=== PATIENT | female | born 1960 | race Caucasian/White ===

== ENCOUNTER 2020-04-04 16:46 | Outpatient (REF) | payer OTHER, SELFPAY ==
--- NOTE | 2020-04-04 16:53 | MM_ITS ---
EXAMINATION: MM SCREENING DIGITAL MAMMOGRAPHY, BILATERAL CLINICAL INFORMATION: Screening. Asymptomatic. The lifetime risk of breast cancer based on the Tyrer-Cuzick Model is 8%. COMPARISON: Mammography: 01/26/2019, 01/20/2018, 01/04/2017 TECHNIQUE: Digital mammography is performed in craniocaudal and mediolateral oblique views along with computer-aided detection (CAD). Additional exaggerated right CC view is provided. FINDINGS: There are scattered areas of fibroglandular density (ACR BI-RADS breast composition Category b). There are no significant masses, abnormal calcifications, or other abnormalities. Parenchymal pattern is similar to prior studies. There is no developing density or interval mass or architectural abnormality. No significant changes. IMPRESSION: No significant changes from prior studies. ASSESSMENT: BI-RADS 1: Negative RECOMMENDATION: Routine annual mammography screening. This patient's information was entered into a reminder system with a target due date for their next mammogram.
== END 2020-04-04 16:47 | disposition home or self-care (01) ==
LOC: HO.MAMMO 16:46
PROVIDERS: PCP Internal Medicine; Visit Provider Internal Medicine
DX: Z12.31 Encounter for screening mammogram for malignant neoplasm of breast (principal)
CPT/HCPCS: 77067

== ENCOUNTER → 2020-04-12 15:25 | Outpatient (BNVA) | payer OTHER, SELFPAY | PROVIDERS: PCP Internal Medicine; Referring Provider Internal Medicine; Visit Provider Surgery | DX: Z76.89 Persons encountering health services in other specified circumstances (principal) ==

== ENCOUNTER → 2020-05-02 08:17 | Outpatient (BNVA) | payer OTHER, SELFPAY | PROVIDERS: PCP Family Medicine; Referring Provider Family Medicine; Visit Provider Physician Assistant | DX: Z76.89 Persons encountering health services in other specified circumstances (principal) ==

== ENCOUNTER → 2020-05-31 14:46 | Outpatient (BNVA) | payer OTHER, SELFPAY | PROVIDERS: Referring Provider Internal Medicine; Visit Provider Physician Assistant | DX: Z76.89 Persons encountering health services in other specified circumstances (principal) ==

== ENCOUNTER → 2020-07-04 13:46 | Outpatient (BNVA) | payer OTHER, SELFPAY | PROVIDERS: Visit Provider Surgery | DX: Z76.89 Persons encountering health services in other specified circumstances (principal) ==

== ENCOUNTER → 2020-07-25 14:25 | Outpatient (BNVA) | payer OTHER, SELFPAY | PROVIDERS: PCP Internal Medicine; Visit Provider Surgery ==

== ENCOUNTER → 2020-07-29 13:55 | Outpatient (BNVA) | payer OTHER, SELFPAY | PROVIDERS: PCP Internal Medicine; Visit Provider Physician Assistant ==

== ENCOUNTER → 2020-08-04 13:30 | Outpatient (BNVA) | payer OTHER, SELFPAY | PROVIDERS: PCP Internal Medicine; Visit Provider Surgery | DX: Z01.818 Encounter for other preprocedural examination (principal); R06.02 Shortness of breath ==

== ENCOUNTER 2020-08-10 06:45 | Inpatient (IN) | payer MEDICARE, OTHER, SELFPAY ==
--- NOTE | 2020-08-04 14:33 | ECG_ITS ---
Test Reason : SOB Blood Pressure : / mmHG Vent. Rate : 072 BPM Atrial Rate : 072 BPM P-R Int : 172 ms QRS Dur : 082 ms QT Int : 378 ms P-R-T Axes : 070 007 002 degrees QTc Int : 413 ms Normal sinus rhythm Nonspecific ST abnormality Abnormal ECG When compared with ECG of 08-SEP-2019 15:28, No significant change was found Referred By: Shreya Clements Electronically Signed By:MERCEDES CURTIS
[2020-08-04 15:00] LABS: MANUAL DIFF FLAG NO
[2020-08-04 15:05] LABS: Basophils Percent Auto 0.7 % (0-2); Eosinophils Absolute Auto 0.4 X10*3/uL (0.0-0.4); Eosinophils Percent Auto 6.9 % (0-4); Hemoglobin 13.7 g/dl (12.0-16.0); Imm Gran Abs Auto 0.01 X10*3/uL (0.00-0.03); Imm Gran Pct Auto 0.2 % (0.0-0.4); Lymphocytes Absolute Auto 1.7 X10*3/uL (1.2-4.9); Lymphocytes Percent Auto 31.5 % (20-40); Mean Corpuscular HGB Conc 31.9 g/dl (31.0-35.0); Mean Corpuscular Hemoglobin 30.2 pg (27.0-33.0); Mean Corpuscular Volume 94.9 fL (80-98); Mean Platelet Volume 9.9 fL (9.4-12.3); Monocytes Absolute Auto 0.4 X10*3/uL (0.1-1.2); Monocytes Percent Auto 7.1 % (2-11); Neutrophils Absolute Auto 2.9 X10*3/uL (2.0-8.3); Neutrophils Percent Auto 53.6 % (45-73); Platelet Count 205 X10*3/uL (160-400); Red Blood Count 4.53 X10*6/uL (4.20-5.50); Red Cell Distribution Width 13.5 % (11.0-16.0); White Blood Count 5.5 X10*3/uL (4.8-10.8)
[2020-08-04 15:29] LABS: Albumin Level 4.3 g/dL (3.5-5.0); Anion Gap 11 (12-20); Blood Urea Nitrogen 26 mg/dL (9-16); Calcium 8.7 mg/dL (8.4-10.2); Carbon Dioxide 25 mmol/L (22-29); Chloride 106 mmol/L (96-108); Estimated Glomerular Filt Rate > 60; Glucose Random 107 mg/dL (60-115); Sodium 138 mmol/L (135-145)
[2020-08-04 16:21] LABS: Glucose Urine UA NEG (NEG); Leukocyte Esterase Urine NEG (NEG); Nitrite Urine NEG (NEG); Urine Blood TRACE (NEG); Urine Ketones NEG (NEG); Urine Protein NEG (NEG-TRACE)
[2020-08-04 16:22] LABS: Appearance Urine CLEAR; Color Urine YELLOW
[2020-08-04 16:30] LABS: Bacteria Urine TRACE /LPF; RBC Urine 0 /HPF (0); Squamous Epithelial Cell Urine TRACE /LPF; WBC Urine 0 /HPF (0-4)
[2020-08-04 16:31] LABS: Urine Talc Crystals 1+ /LPF
[2020-08-05 10:28] VITALS: BMI 45.1
--- NOTE | 2020-08-05 11:29 | MHC.SHP ---
Pre-Procedural Eval Section B Chief Complaint: Morbid Obesity Allergies: Allergies Allergy/AdvReac Type Severity Reaction Status Date / Time Sulfa (Sulfonamide Allergy Severe LIP AND Verified 08/05/20 09:51 Antibiotics) TONGUE [SULFA (SULFONAMIDE SWELLING, ANTIBIOTICS)] swelling of lips and tongue Penicillins [PENICILLINS] Allergy Unknown UNKNOWN Verified 08/05/20 09:51 Plan I have reviewed the history and physical and performed a pertinent physical examination on my patient. No changes have occurred unless specified.
--- NOTE | 2020-08-09 08:56 | P.CONAN_ITS ---
Documented by User: María Elena Colón 08/09/20 09:00 HPI - Anesthesia Eval Consult details Narrative: 59yo F for Gastrectomy Sleeve Methadone TID and oxycodone for pain PMFSH Active Problems Active Problems: All Active Problems (Updated 08/05/20 @ 10:27 by Roselia Nuñez) BMI 45.0-49.9, adult (Acute) Preoperative examination (Acute) Shortness of breath (Acute) Dyslipidemia (Acute) Urinary incontinence in female (Acute) Chronic gastroesophageal reflux disease (Acute) Recurrent major depression (Acute) Patient on methadone maintenance therapy (Acute) Morbid obesity (Acute) Acquired hypothyroidism (Acute) Osteoarthritis (Acute) Morbid obesity with BMI of 45.0-49.9, adult (Acute) Depression (Acute) Past Medical History Medical History Acquired hypothyroidism Chronic gastroesophageal reflux disease Chronic pain Depression Dyslipidemia Hx of cardiac murmur Hx of gastroesophageal reflux (GERD) Hypothyroidism Morbid obesity with BMI of 45.0-49.9, adult Osteoarthritis Patient on methadone maintenance therapy Recurrent major depression Urinary incontinence in female Family History Family History Father History of throat cancer History of DE (myocardial infarction) Type 2 diabetes mellitus Mother Hyperlipidemia CVD (cardiovascular disease) HTN (hypertension) Maternal Aunt No problems noted. Son Paraplegia Son No problems noted. Paternal Grandmother Type 2 diabetes mellitus Maternal Grandmother Alzheimer's dementia Brother No problems noted. Sister No problems noted. Surgical History Surgical History History of bariatric surgery History of removal of laparoscopic gastric banding device History of total left knee replacement History of total right knee replacement Hx of colonoscopy LAP-BAND surgery status S/P foot surgery, left Social History Social History (Updated 08/05/20 @ 09:50 by Roselia Nuñez) Household Members: Children Housing: House Are you a primary long term care pharmacist to a significant other at home: Yes (Son - paraplegic) Do you presently have visiting nurse or other home services: No Alcohol intake: never Smoking Status: Former smoker Tobacco Type: Cigarette Years Smoked: 20 Smoked in Last 30 Days: No Smoking Quit Date: 1994 Use of substances other than those prescribed or required for medical reasons: No Have you been hit, kicked, punched, or otherwise hurt by someone within the past year? If so, by whom?: No Advance Directives: No Advance Directives Information Provided: No Advance Directives on File: No Recently lost weight without trying: No Meds Allergies Allergy/AdvReac Type Severity Reaction Status Date / Time Sulfa (Sulfonamide Allergy Severe LIP AND Verified 08/10/20 06:44 Antibiotics) TONGUE [SULFA (SULFONAMIDE SWELLING, ANTIBIOTICS)] swelling of lips and tongue Penicillins [PENICILLINS] Allergy Unknown UNKNOWN Verified 08/10/20 06:44 Home Medications Medication Instructions Recorded Confirmed Type clotrimazole-betamethasone 1 1 applic TOPICAL DIRECTED 03/31/20 08/05/20 History %-0.05 % topical cream gabapentin 800 mg tablet 800 mg PO TID 03/31/20 08/05/20 History methocarbamol 750 mg tablet 750 mg PO BID 03/31/20 08/05/20 History topiramate 100 mg tablet 100 mg PO BID 03/31/20 08/05/20 History calcium carbonate 600 mg calcium 600 mg PO BID 07/04/20 08/05/20 History (1,500 mg) tablet cetirizine 10 mg capsule 10 mg PO DAILY PRN 07/04/20 08/05/20 History cholecalciferol (vitamin D3) 50 50 mcg PO DAILY 07/04/20 08/05/20 History mcg (2,000 unit) capsule coenzyme Q10 100 mg capsule 200 mg PO DAILY 07/04/20 08/05/20 History glucosamine sulfate 500 mg tablet 500 mg PO DAILY 07/04/20 08/05/20 History methadone 5 mg tablet 5 mg PO TID tab 07/04/20 08/05/20 History multivitamin 1 tab PO DAILY 07/04/20 08/05/20 History omeprazole 20 mg capsule,delayed 20 mg PO DAILY 07/04/20 08/05/20 History release oxycodone 20 mg tablet 40 mg PO TID tab 07/04/20 08/05/20 History aspirin [Aspir-81] 81 mg PO DAILY 08/05/20 08/05/20 History celecoxib 1 cap PO DAILY 08/05/20 08/05/20 History Exam Exam Date and Time: August 09, 2020 0856 Height,Weight and Vital Signs: Height 5 ft 1 in Weight 108.409 kg Pertinent Lab Results Pertinent Lab Results: Laboratory Tests 08/04/20 08/04/20 08/04/20 14:35 14:35 14:35 WBC 5.5 RBC 4.53 Hgb 13.7 Hct 43.0 MCV 94.9 MCH 30.2 MCHC 31.9 RDW 13.5 Plt Count 205 MPV 9.9 Immature Gran % (Auto) 0.2 Neut % (Auto) 53.6 Lymph % (Auto) 31.5 [place] % (Auto) 7.1 Eos % (Auto) 6.9 H Baso % (Auto) 0.7 Lymph # (Auto) 1.7 [place] # (Auto) 0.4 Eos # (Auto) 0.4 Baso # (Auto) 0.0 Abs Immat Gran (auto) 0.01 Absolute Neuts (auto) 2.9 Absolute Nucleated RBC 0.000 Nucleated RBC % (auto) 0.0 Sodium 138 Potassium 4.0 Chloride 106 Carbon Dioxide 25 Anion Gap 11 L BUN 26 H Creatinine 0.69 Estim Creat Clear Calc TNP Estimated GFR > 60 Random Glucose 107 Calcium 8.7 Albumin 4.3 Urine Color Urine Appearance Urine pH Ur Specific [place] Urine Protein Urine Glucose (UA) Urine Ketones Urine Blood Urine Nitrite Ur Leukocyte Esterase Urine RBC Urine WBC Ur Squamous Epith Cells [place] Crystals Urine Bacteria Blood Type O Positive Antibody Screen NEGATIVE 08/04/20 14:54 WBC RBC Hgb Hct MCV MCH MCHC RDW Plt Count MPV Immature Gran % (Auto) Neut % (Auto) Lymph % (Auto) [place] % (Auto) Eos % (Auto) Baso % (Auto) Lymph # (Auto) [place] # (Auto) Eos # (Auto) Baso # (Auto) Abs Immat Gran (auto) Absolute Neuts (auto) Absolute Nucleated RBC Nucleated RBC % (auto) Sodium Potassium Chloride Carbon Dioxide Anion Gap BUN Creatinine Estim Creat Clear Calc Estimated GFR Random Glucose Calcium Albumin Urine Color YELLOW Urine Appearance CLEAR Urine pH 6.0 Ur Specific [place] 1.010 Urine Protein NEG Urine Glucose (UA) NEG Urine Ketones NEG Urine Blood TRACE Urine Nitrite NEG Ur Leukocyte Esterase NEG Urine RBC 0 Urine WBC 0 Ur Squamous Epith Cells TRACE [place] Crystals 1+ Urine Bacteria TRACE Blood Type Antibody Screen Narrative Narrative: EKG 07/2020 Normal sinus rhythm Nonspecific ST abnormality Abnormal ECG When compared with ECG of 08-SEP-2019 15:28, No significant change was found Echo 2018 Nml LV sys and diastolic function, EF 60-65% Trace AR, Mild MR RV sys pressure nml No pericard effusion Assessment and Plan Assessment Anesthesia Assessment: Chart Reviewed Documented by User: Divya Vaughn 08/10/20 07:55 PENDING SALE TO [facility] Past Medical History Medical History Acquired hypothyroidism Chronic gastroesophageal reflux disease Chronic pain Depression Dyslipidemia Hx of cardiac murmur Hx of gastroesophageal reflux (GERD) Hypothyroidism Morbid obesity with BMI of 45.0-49.9, adult Osteoarthritis Patient on methadone maintenance therapy Recurrent major depression Urinary incontinence in female Family History Family History Father History of throat cancer History of DE (myocardial infarction) Type 2 diabetes mellitus Mother Hyperlipidemia CVD (cardiovascular disease) HTN (hypertension) Maternal Aunt No problems noted. Son Paraplegia Son No problems noted. Paternal Grandmother Type 2 diabetes mellitus Maternal Grandmother Alzheimer's dementia Brother No problems noted. Sister No problems noted. Surgical History Surgical History History of bariatric surgery History of removal of laparoscopic gastric banding device History of total left knee replacement History of total right knee replacement Hx of colonoscopy LAP-BAND surgery status S/P foot surgery, left Social History Social History (Updated 08/05/20 @ 09:50 by Roselia Nuñez) Household Members: Children Housing: House Are you a primary long term care pharmacist to a significant other at home: Yes (Son - paraplegic) Do you presently have visiting nurse or other home services: No Alcohol intake: never Smoking Status: Former smoker Tobacco Type: Cigarette Years Smoked: 20 Smoked in Last 30 Days: No Smoking Quit Date: 1994 Use of substances other than those prescribed or required for medical reasons: No Have you been hit, kicked, punched, or otherwise hurt by someone within the past year? If so, by whom?: No Advance Directives: No Advance Directives Information Provided: No Advance Directives on File: No Recently lost weight without trying: No Meds Allergies Allergy/AdvReac Type Severity Reaction Status Date / Time Sulfa (Sulfonamide Allergy Severe LIP AND Verified 08/10/20 06:44 Antibiotics) TONGUE [SULFA (SULFONAMIDE SWELLING, ANTIBIOTICS)] swelling of lips and tongue Penicillins [PENICILLINS] Allergy Unknown UNKNOWN Verified 08/10/20 06:44 Home Medications Medication Instructions Recorded Confirmed Type clotrimazole-betamethasone 1 1 applic TOPICAL DIRECTED 03/31/20 08/05/20 History %-0.05 % topical cream gabapentin 800 mg tablet 800 mg PO TID 03/31/20 08/05/20 History methocarbamol 750 mg tablet 750 mg PO BID 03/31/20 08/05/20 History topiramate 100 mg tablet 100 mg PO BID 03/31/20 08/05/20 History calcium carbonate 600 mg calcium 600 mg PO BID 07/04/20 08/05/20 History (1,500 mg) tablet cetirizine 10 mg capsule 10 mg PO DAILY PRN 07/04/20 08/05/20 History cholecalciferol (vitamin D3) 50 50 mcg PO DAILY 07/04/20 08/05/20 History mcg (2,000 unit) capsule coenzyme Q10 100 mg capsule 200 mg PO DAILY 07/04/20 08/05/20 History glucosamine sulfate 500 mg tablet 500 mg PO DAILY 07/04/20 08/05/20 History methadone 5 mg tablet 5 mg PO TID tab 07/04/20 08/05/20 History multivitamin 1 tab PO DAILY 07/04/20 08/05/20 History omeprazole 20 mg capsule,delayed 20 mg PO DAILY 07/04/20 08/05/20 History release oxycodone 20 mg tablet 40 mg PO TID tab 07/04/20 08/05/20 History aspirin [Aspir-81] 81 mg PO DAILY 08/05/20 08/05/20 History celecoxib 1 cap PO DAILY 08/05/20 08/05/20 History Exam Height,Weight and Vital Signs: Vital Signs Temp Pulse Resp BP Pulse Ox 08/10/20 06:55 97.7 F 76 16 139/65 98 Pertinent Lab Results Pertinent Lab Results: Laboratory Results - last 24 hr 08/10/20 06:50 COVID-19 ([facility]ST[facility]) Negative COVID-19 Clin Com See Note Airway Mallampati Class: III TM Dist: >3cm Neck ROM: Full Loose/Missing/Broken Teeth: No Heart: RRR + systolic murmur Lungs: CTAB Assessment and Plan Assessment Anesthesia Assessment: Anesthesia Plan Discussed and Chart Reviewed Final Anesthetic Review NPO: Yes ASA Class: III Final Preanesthetic Review: No Changes in Pt Med Stat, Meds/Allgs Chart Reviewed, Consent Obtained/Reviewed and Anes Risks/Benef Reviewed Patient Risk: Intermediate Procedure Risk: Intermediate Assessment/Block/Sedation in SS: Assess/Block/Sedation-SS Anesthetic Plan Anesthetic Plan: GA Disposition: Standard PACU
[2020-08-10] VITALS (26 sets, daily range): BP systolic 122–180; BP diastolic 44–80; PULSE 72–84; RESP 14–20; TEMP 36.4–37.1; O2SAT 96–100
[2020-08-10 07:14] LABS: COVID-19 Test Negative (Negative)
[2020-08-10] MEDS: Lactated Ringers 1,000 ML 100 ML IVCONT (07:23)
--- NOTE | 2020-08-10 08:11 | PM.OP ---
Brief Operative Note Date of Service: 08/10/20 Pre-op diagnosis: Morbid obesity BMI 45.1, hyperlipidemia, gastroesophageal reflux disease, history of previous gastric banding Post-op diagnosis: other (Same and hiatal hernia) Procedure: Laparoscopic sleeve gastrectomy, hiatal hernia repair, takedown of gastric fundoplication, MELISSA block, intraoperative endoscopy Implants: covidien emily Surgeon: Shreya Clements MD Anesthesia: GETA Estimated blood loss (mL): 50 Pathology: other (Partial gastrectomy) Condition: stable Disposition: PACU
--- NOTE | 2020-08-10 08:12 | P.OP_ITS ---
Operative Note Operative Note Date of Service: 08/10/20 Narrative: Patient was brought into the operating room and placed on the operating room table in the supine position. General anesthesia was induced. Normal DVT prophylaxis was instituted and the patient received 900 mg of cefotetan preoperatively. The abdomen was then prepped and draped in the normal sterile fashion. A safety time-out was performed. A mixture of 1% lidocaine with epinephrine and ?% Marcaine plain was used to ane sthetize the planned incision site in the left upper quadrant. A #11 scalpel was used to make a 5 mm left upper quadrant transverse incision through which a veress needle was placed. Three pops were h eard going through the fascia. A saline drop test was used to confirm that the veress needle was intraabdominal. An optiview technique was then used to place a 5mm port in the left upper quadrant. A 5 mm 30 degree laproscope was then placed through this port and the abdominal cavity was surveyed and a 3 and half to 4 cm completely reducible umbilical hernia was seen. The patient was placed in reverse Trendelenburg positioning. A dorita liver retractor was then placed in the subxyphoid position and it was used to hold up the left lobe of the liver to the abdominal wall. This was secured to the bed using the liver retractor flores. A MELISSA block was then performed for pain control on the right side of the abdomen. A 5 mm port was placed in the right upper quadrant near the falciform ligament. A 12 mm port was then placed in the mid epigastrium. One additional 5 mm port was placed in the left upper quadrant just to the left of the placement of the first port. I then performed a MELISSA block on the left side of the abdomen. I then removed the epigastric fat pad; there was a moderate size anterior hiatal hernia noted. I reapproximated the left and right crura with a total of 2 stitches of 2-0 ethibond and a laparoscopic knot pusher. There was no residual hiatal hernia. We then took down the previous fundoplication from the gastric band that the patient has had several years ago. This allowed us to unfold the stomach so that it was lying flat in the abdomen. I then opened up the angle of His. We then gained entry into the lesser sac about 4-5 cm from the pylorus. I had anesthesia place a 34 [place] orogastric tube into the distal antrum to use as a sizing tool for gastric pouch size. I divided the short gastric vessels up to the angle of His. We then started the creation of the gastric pouch by firing a 60 mm purple load endostapler up the stomach about 4-5 cm from the pylorus. We completed the creation of the gastric pouch using a total of 4 firings of a 60 mm purple load stapler. We had anesthesia remove the orogastric tube, then we clamped across the distal antrum using a fired 60 mm endostapler. We flattened the patient and then instilled normal saline surrounding the newly created staple line. I then performed an on-table endoscopy. I passed the gastroscopy into the posterior oropharynx and down the esophagus evaluating the esophageal mucosa which was normal. There was no evidence of hiatal hernia. I passed the gastroscope into the gastric pouch and insufflated the gastric pouch. There was healthy pink mucosa and no evidence of active bleeding. There was no evidence of leak on laparoscopy. I desufflated the gastric pouch and removed the endoscope. I removed the endostapler from the abdomen and suctioned the fluid from the left upper quadrant. I then removed the partial gastrectomy specimen through the epigastric 12 mm port site. I reapproximated the 12 mm port using a 0 maxon suture with a laparoscopic suture passer. I instilled local anesthetic into the fascial closure site and tied the suture down at a pressure of 8-10 mm of Hg. There was no residual fascial defect. We removed the liver retractor and the left upper quadrant 5 mm ports under direct visualization. There was no evidence of any active bleeding. I desufflated the abdomen through the last remaining port and removed the laparoscope and 5 mm port. We reapproximated all incisions with a 4-0 monocryl subcuticular stitch. We cleaned and dried the abdominal skin and applied dermabond skin glue. All count were correct at the end of the case. The patient was awake and in stable condition prior to extubation and transfer to the recovery room.
[2020-08-10] MEDS: HYDROmorphone HCl 0.5 MG/0.5 ML SYRINGE 0.25 MG IVPUSH ×5 (10:19→23:10)
[2020-08-10] MEDS: fentaNYL citrate/PF 100 MCG/2 ML VIAL 25 MCG IVPUSH ×4 (10:35→11:01)
[2020-08-10] MEDS: Famotidine/PF 20 MG/2 ML VIAL IVPUSH ×2 (13:50→20:28)
[2020-08-10] MEDS: Lactated Ringers 1,000 ML 150 ML IVCONT ×2 (13:53→20:28)
[2020-08-10] MEDS: Gabapentin 400 MG CAPSULE 800 MG PO ×2 (14:08→20:28)
--- NOTE | 2020-08-10 16:45 | PM.DS ---
DS: Providers Provider Date of Service: 08/11/20 Date of admission: 08/10/20 06:45 Primary care physician: Perla Ny MD DS: Medications Discharge Medications Home Medications: Home Medications Medication Instructions Recorded Confirmed clotrimazole-betamethasone 1 1 applic TOPICAL DIRECTED 03/31/20 08/05/20 %-0.05 % topical cream gabapentin 800 mg tablet 800 mg PO TID 03/31/20 08/05/20 methocarbamol 750 mg tablet 750 mg PO BID 03/31/20 08/05/20 topiramate 100 mg tablet 100 mg PO BID 03/31/20 08/05/20 calcium carbonate 600 mg calcium 600 mg PO BID 07/04/20 08/05/20 (1,500 mg) tablet cetirizine 10 mg capsule 10 mg PO DAILY PRN 07/04/20 08/05/20 cholecalciferol (vitamin D3) 50 50 mcg PO DAILY 07/04/20 08/05/20 mcg (2,000 unit) capsule coenzyme Q10 100 mg capsule 200 mg PO DAILY 07/04/20 08/05/20 glucosamine sulfate 500 mg tablet 500 mg PO DAILY 07/04/20 08/05/20 methadone 5 mg tablet 5 mg PO TID tab 07/04/20 08/05/20 multivitamin 1 tab PO DAILY 07/04/20 08/05/20 omeprazole 20 mg capsule,delayed 20 mg PO DAILY 07/04/20 08/05/20 release oxycodone 20 mg tablet 40 mg PO TID tab 07/04/20 08/05/20 aspirin [Aspir-81] 81 mg PO DAILY 08/05/20 08/05/20 celecoxib 1 cap PO DAILY 08/05/20 08/05/20 Previous Rx's Medication Instructions Recorded rosuvastatin 40 mg tablet 40 mg PO DAILY 90 Days #90 tab 03/31/20 ezetimibe 10 mg tablet 10 mg PO DAILY #90 tab 05/22/20 levothyroxine 50 mcg tablet 50 mcg PO QAM #90 tab 05/24/20 venlafaxine 150 mg 150 mg PO QAM 90 Days #90 cap 05/24/20 capsule,extended release 24 hr buspirone 10 mg tablet 10 mg PO BID #180 tab 07/12/20 acetaminophen 500 mg tablet 1,000 mg PO Q6H PRN #30 tab 08/08/20 docusate sodium 100 mg capsule 100 mg PO BID #30 cap 08/08/20 ondansetron HCl 4 mg tablet 4 mg PO Q6H PRN #30 tab 08/08/20 simethicone 80 mg chewable tablet 80 mg PO TID-QID PRN #30 tab 08/08/20 DS: Summary Time Spent with Patient Time attestation: Total time spent providing and/or coordinating discharge services: Discharge coordination time: Greater than 30 minutes Physical Exam Vital Signs: Vital Signs: Last Vital Signs Temp 98 F 08/10/20 15:19 Pulse 72 08/10/20 15:19 Resp 20 08/10/20 15:19 BP 160/64 H 08/10/20 15:19 Pulse Ox 98 08/10/20 15:19 Body Mass Index 45.1 DS: Data Data Completed and Pending Pending studies at discharge: Pending at discharge 08/10/20 09:53 Surgical [PTH] Routine Labs on day of discharge: Laboratory Tests 08/04/20 08/04/20 08/04/20 14:35 14:35 14:35 WBC 5.5 RBC 4.53 Hgb 13.7 Hct 43.0 MCV 94.9 MCH 30.2 MCHC 31.9 RDW 13.5 Plt Count 205 MPV 9.9 Immature Gran % (Auto) 0.2 Neut % (Auto) 53.6 Lymph % (Auto) 31.5 Fleming % (Auto) 7.1 Eos % (Auto) 6.9 H Baso % (Auto) 0.7 Lymph # (Auto) 1.7 Fleming # (Auto) 0.4 Eos # (Auto) 0.4 Baso # (Auto) 0.0 Abs Immat Gran (auto) 0.01 Absolute Neuts (auto) 2.9 Absolute Nucleated RBC 0.000 Nucleated RBC % (auto) 0.0 Sodium 138 Potassium 4.0 Chloride 106 Carbon Dioxide 25 Anion Gap 11 L BUN 26 H Creatinine 0.69 Estim Creat Clear Calc TNP Estimated GFR > 60 Random Glucose 107 Calcium 8.7 Albumin 4.3 Urine Color Urine Appearance Urine pH Ur Specific [place] Urine Protein Urine Glucose (UA) Urine Ketones Urine Blood Urine Nitrite Ur Leukocyte Esterase Urine RBC Urine WBC Ur Squamous Epith Cells Talc Crystals Urine Bacteria COVID-19 ([facility]) COVID-19 Clin Com Blood Type O Positive Antibody Screen NEGATIVE 08/04/20 08/10/20 14:54 06:50 WBC RBC Hgb Hct MCV MCH MCHC RDW Plt Count MPV Immature Gran % (Auto) Neut % (Auto) Lymph % (Auto) Fleming % (Auto) Eos % (Auto) Baso % (Auto) Lymph # (Auto) Fleming # (Auto) Eos # (Auto) Baso # (Auto) Abs Immat Gran (auto) Absolute Neuts (auto) Absolute Nucleated RBC Nucleated RBC % (auto) Sodium Potassium Chloride Carbon Dioxide Anion Gap BUN Creatinine Estim Creat Clear Calc Estimated GFR Random Glucose Calcium Albumin Urine Color YELLOW Urine Appearance CLEAR Urine pH 6.0 Ur Specific [place] 1.010 Urine Protein NEG Urine Glucose (UA) NEG Urine Ketones NEG Urine Blood TRACE Urine Nitrite NEG Ur Leukocyte Esterase NEG Urine RBC 0 Urine WBC 0 Ur Squamous Epith Cells TRACE Talc Crystals 1+ Urine Bacteria TRACE COVID-19 ([facility]) Negative COVID-19 Clin Com See Note Blood Type Antibody Screen Discharge Plan Discharge Patient Disposition: Home, Self-Care Referrals: Perla Ny MD [Primary Care Provider] - Discharge Medications: Continued ezetimibe 10 mg tablet 10 mg PO DAILY Qty: 90 RF: 3 venlafaxine 150 mg capsule,extended release 24hr 150 mg PO QAM 90 Days Qty: 90 RF: 2 levothyroxine 50 mcg tablet 50 mcg PO QAM Qty: 90 RF: 3 buspirone 10 mg tablet 10 mg PO BID Qty: 180 RF: 0 acetaminophen [Tylenol Extra Strength] 500 mg tablet 1,000 mg PO Q6H PRN (Reason: pain) Qty: 30 RF: 1 docusate sodium [Colace] 100 mg capsule 100 mg PO BID Qty: 30 RF: 1 ondansetron HCl [Zofran] 4 mg tablet 4 mg PO Q6H PRN (Reason: nausea and vomiting) Qty: 30 RF: 1 simethicone [Gas Relief (simethicone)] 80 mg tablet,chewable 80 mg PO TID-QID PRN (Reason: abdominal distention) Qty: 30 RF: 1 gabapentin 800 mg tablet 800 mg PO TID RF: 0 topiramate 100 mg tablet 100 mg PO BID RF: 0 methocarbamol 750 mg tablet 750 mg PO BID RF: 0 clotrimazole-betamethasone 1-0.05 % cream 1 applic topical DIRECTED RF: 0 rosuvastatin 40 mg tablet 40 mg PO DAILY 90 Days Qty: 90 RF: 3 methadone 5 mg tablet 5 mg PO TID RF: 0 oxycodone 20 mg tablet 40 mg PO TID RF: 0 multivitamin Tablet 1 tab PO DAILY RF: 0 omeprazole 20 mg capsule,delayed release(DR/EC) 20 mg PO DAILY RF: 0 Zyrtec 10 mg capsule 10 mg PO DAILY PRN (Reason: Allergy Symptoms) RF: 0 calcium carbonate [Calcium 600] 600 mg calcium (1,500 mg) tablet 600 mg PO BID RF: 0 cholecalciferol (vitamin D3) 50 mcg (2,000 unit) capsule 50 mcg PO DAILY RF: 0 coenzyme Q10 [CoQ-10] 100 mg capsule 200 mg PO DAILY RF: 0 glucosamine sulfate [Glucosamine] 500 mg tablet 500 mg PO DAILY RF: 0 Discontinued celecoxib 200 mg capsule 1 cap PO DAILY RF: 0 aspirin [Aspir-81] 81 mg Tablet,Delayed Release (Dr/Ec) 81 mg PO DAILY RF: 0 Discharge Orders: Discharge Order (Routine); Ordered 08/11/20 Ordered By: Shreya Clements Diet: other Activity on Discharge: No heavy lifting Stand Alone Forms: Patient Portal Discharge page Activity Restrictions/Additional Instructions: Discharge Instructions 1. Please call your doctor or come back to the emergency room should any new symptoms arise. 2. You will receive a courtesy call from [facility] 24-48 hours after discharge. 3. Activity: abstain from alcohol, practice limited stair climbing, no bending, no driving, no exercise, no illicit substances, no lifting, no sex, no tub bath, no work. 4. Diet: continue stage 3 protein shakes until your [address] Clements. 5. Dressing Change/Wound Care: Your incision is covered by surgical glue. If the area is tender, you may apply an ice pack for short intervals (no more than 20 minutes on, followed by at least 20 minutes off). Do not apply heat. Do not use creams, lotions, or topical antibiotics unless instructed to do so by your surgeon. These can cause infection or allergic reaction. 6. Call your doctor if: - Your temperature exceeds 101.5 F - You experience excessive pain or swelling - You have an unexpected reaction to medication - You have excessive bleeding - You experience continued vomiting/nausea - Your incision begins to separate - Your incision shows signs of infection such as increased redness, swelling, excessive pain, heat, or drainage (light blood or clear fluid is normal) 7. General instructions: - No lifting greater than 5 lbs for the next 4 weeks. - No driving within 24 hours of taking narcotic pain medications. - If you do not move your bowels in the next 2 days, please take milk of magnesia over the counter. Please follow the post op diet and do not advance your diet until you are seen in the office in about 2 weeks. - Please walk around your home every hour or two to prevent blood clots from forming in your legs. You do not need to wake from sleeping to walk. - Please sleep in a bed or couch to prevent kinking at the hips and knees. - Please take your incentive spirometer (your lung tester vibrator equipment) home with you and use it for the next few days to prevent pneumonias. - You may shower, no hot tubs, baths or swimming pools. - Please call the office with any questions or concerns such as increasing abdominal pain, fever, chills, shortness of breath, chest pain, leg pain or swelling, or redness or drainage from your incisions. - Please stay on stage 3 diet which includes sugar free clear liquids such as ice pops and jello and broth and crystal light. Avoid all carbonation. Please drink 3 protein shakes with at least 25-30 grams of protein daily or 3 of the Celebrate 4:1 shakes which can be purchased in our office. The Celebrate shakes have all of the bariatric vitamins you need if you consume these shakes. If you are drinking other protein shakes, you will need to purchase the Celebrate multivitamins and calcium that we provide in the office (they will provide all the vitamins you need). Please make sure you are consuming at least 40-60 ounces of water in addition to your 3 protein shakes daily. 8. Do not hesitate to contact the office with any questions at . Discharge Summary Date of Service: 08/11/20 Admitting Diagnosis: obesity, s/p band removal Discharge Diagnosis: same, and Procedure Performed: take down of fundoplication, LSG, jossue block, HH repair Discharge Medications: 1. Simethicone 80mg tablet chewable (Si tablet every 6 hours orally for 7 days, #28, 1 RF) q4h prn gas 2. Acetaminophen 500 mg tablet (Si tablets as needed every 6 hours orally for 30 days, #240, 0 RF) 3. Ondansetron 4 mg tablet disintegrating (Si tablet every 6 hours orally for 7 days, #28, 1 RF) 4. Colace 100 mg capsule (Si capsule twice a day for 30 days, #60, 2 RF) 5. Pepcid 20 mg chewable tablet (Si tablet twice a day for 30 days, #60, 3 RF) Discharge Instructions: The patient should continue on the stage III bariatric diet, which includes 3 protein shakes of at least 20-30g of protein on a daily basis. The patient was encouraged to avoid drinking liquids with her protein shakes. They should wait 30-45 minutes in between her meals and drinking water. She should drink at least 40-60 ounces of water on a daily basis. They should ambulate while at home to avoid any blood clots in her lower extremities. They should call with any questions or concerns such as increase in abdominal pain, persistent nausea, vomiting, redness and drainage from her incisions, fever, chills, shortness of breast, or chest pain beyond what is normal for her. The patient should avoid all heavy lifting greater than 5 pounds for the next 4 weeks. The patient is already scheduled to follow up with me in 2 weeks time, but should call the office with any questions prior to that follow up appointment. The patient should not advance their diet until they are seen in the office for the 2 week appointment. Hospital Course: The patient was admitted after undergoing LSG, HH repair. They were started on stage II (1 oz of fluid every 15 minutes) on POD #0. The next morning they were evaluated and started on stage III diet (protein shakes). All labs were within normal limits. On post-operative day #1 she was feeling better, nausea and epigastric pain improved and they were tolerating stage III bariatric diet well. The patient was discharged home. Discharge Disposition: Home. Visit Report Forms: Patient Portal Discharge page Care Plan Goals: Weight loss reaching a normal BMI Health Concerns: Morbid obesity Plan of Treatment: Status post weight loss surgery
--- NOTE | 2020-08-10 16:46 | P.PNGS_ITS ---
Subjective Subjective Date of Service: 08/11/20 <Debbi Rojo PA-C - Last Filed: 08/11/20 10:31> 08/11/20 <Shreya Clements MD - Last Filed: 08/11/20 09:40> Interval history: POD #1: Patient is doing well. Has been ambulating, using the incentive spirometer, and tolerating po liquids. No nausea or abdominal pain. Has some mild incisional pain. <Debbi Rojo PA-C - Last Filed: 08/11/20 10:31> Pod #1 s/p lap sleeve gastrectomy and hiatal hernia repair. Doing well. Tolerating stage 3 diet, ambulating in hallway. Pain well controlled. Does report severe headache which is similar to the migraines she normally experiences. Denies nausea or vomiting. Vitals and labs reviewed and are within limit for post op day 1. On exam, patient is well appearing, abdomen is soft, nd, mild appropriate incisional tenderness. Incisions c/d/I with dermabond in place. Plan: d/c home today. Follow up with me in 2 weeks. <Shreya Clements MD - Last Filed: 08/11/20 09:40> Physical Exam Vital Signs: Vital Signs: Last Vital Signs Temp 98 F 08/10/20 15:19 Pulse 72 08/10/20 15:19 Resp 20 08/10/20 15:19 BP 160/64 H 08/10/20 15:19 Pulse Ox 98 08/10/20 15:19 Body Mass Index 45.1 <Debbi Rojo PA-C - Last Filed: 08/11/20 10:31> Const: General: cooperative, comfortable, no acute distress, alert and awake <Debbi Rojo PA-C - Last Filed: 08/11/20 10:31> Nutritional Appearance: obese <Debbi Rojo PA-C - Last Filed: 08/11/20 10:31> GI: Inspection: Yes normal to inspection, Yes incision (normal, slight erythema at site of surgical glue, no tenderness/warmth/drai) and Yes obesity <Debbi Rojo PA-C - Last Filed: 08/11/20 10:31> Extrem: Right lower extremity: lower leg Details: no tenderness; no edema <Debbi Rojo PA-C - Last Filed: 08/11/20 10:31> Left lower extremity: lower leg Details: no tenderness; no edema <Debbi Rojo PA-C - Last Filed: 08/11/20 10:31> Progress Note: A&P Assessment and plan (1) Morbid obesity: Status: Acute <Debbi Rojo PA-C - Last Filed: 08/11/20 10:31> (2) Intestinal malabsorption following gastrectomy: Status: Acute <Debbi Rojo PA-C - Last Filed: 08/11/20 10:31> (3) S/P laparoscopic sleeve gastrectomy: Status: Acute <LISA Solorio Last Filed: 08/11/20 10:31> (4) History of adjustable gastric banding: Status: Acute <Debbi Rojo PA-C - Last Filed: 08/11/20 10:31> (5) Hiatal hernia: Status: Acute <LISA Solorio Last Filed: 08/11/20 10:31> (6) History of repair of hiatal hernia: Status: Acute <Debbi Rojo PA-C - Last Filed: 08/11/20 10:31> Assessment and Plan: POD #1: Patient doing well and will be discharged home today. All instructions given in writing. Follow up as scheduled in 2 weeks. <Debbi Rojo PA-C - Last Filed: 08/11/20 10:31> Fall Risk Details Current Medications: Current Medications Generic Name Dose Route Start Last Admin Trade Name Freq PRN Reason Stop Dose Admin Buspirone HCl 10 mg 08/10/20 21:00 Buspirone Hcl 10 Mg Tablet PO BID LUCA Famotidine 20 mg 08/10/20 12:42 08/10/20 13:50 Famotidine/Pf 20 Mg/2 Ml Vial IVPUSH 20 mg BID LUCA Administration Gabapentin 800 mg 08/10/20 15:00 08/10/20 14:08 Gabapentin 400 Mg Capsule PO 800 mg TID LUCA Administration Hydromorphone HCl 0.25 mg 08/10/20 12:42 Hydromorphone Hcl 0.5 Mg/0.5 Ml Syringe IVPUSH Q4H PRN Pain, Severe (Pain Scale 7-10) Lactated Ringer's 1,000 mls @ 150 mls/hr 08/10/20 12:42 08/10/20 13:53 Lr IVCONT 150 mls/hr .Q6H40M LUCA Administration Acetaminophen 1,000 mg in 100 mls @ 16.7 mls/hr 08/10/20 14:00 08/10/20 14:08 Ofirmev IV 16.7 mls/hr .Q6H LUCA Administration Levothyroxine Sodium 50 mcg 08/11/20 06:00 Levothyroxine Sodium 50 Mcg Tablet PO DAILY@0600 LUCA Methadone HCl 5 mg 08/11/20 06:00 Methadone Hcl 5 Mg Tablet PO TID LUCA Metoclopramide HCl 10 mg 08/10/20 12:42 Metoclopramide Hcl 10 Mg/2 Ml Vial IVPUSH Q6H PRN Nausea Ondansetron HCl 4 mg 08/10/20 17:00 Ondansetron Hcl 4 Mg/2 Ml Vial IVPUSH Q8H LUCA Sodium Chloride 3 ml 08/10/20 16:00 08/10/20 16:03 0.9 % Sodium Chloride Flush 3 Ml Syringe IVFLUSH Not Given QSHIFT [facility] <Debbi Rojo PA-C - Last Filed: 08/11/20 10:31> Time Spent With Patient Time: Total time spent is greater than 50% in coordination of care (as documented) at patient's floor/unit and/or counseling patient: <Debbi Rojo PA-C - Last Filed: 08/11/20 10:31> Time with patient: less than 15 minutes <Shreya Clements MD - Last Filed: 08/11/20 09:40>
[2020-08-10] MEDS: ondansetron HCL 4 MG/2 ML VIAL IVPUSH (17:31)
[2020-08-10] MEDS: busPIRone HCl 10 MG TABLET PO (20:30)
[2020-08-10] MEDS: 0.9 % Sodium Chloride Flush 3 ML SYRINGE IVFLUSH (20:57)
[2020-08-10] MEDS: Topiramate 100 MG TABLET PO (20:58)
[2020-08-11] MEDS: ondansetron HCL 4 MG/2 ML VIAL IVPUSH ×2 (01:27→09:02)
[2020-08-11] MEDS: Lactated Ringers 1,000 ML 150 ML IVCONT (03:06)
[2020-08-11 03:27] VITALS: BP 164/69; PULSE 77; RESP 18; TEMP 37.1; O2SAT 98
[2020-08-11 03:30] VITALS: BP 164/69
[2020-08-11] MEDS: HYDROmorphone HCl 0.5 MG/0.5 ML SYRINGE 0.25 MG IVPUSH ×2 (03:36→08:59)
[2020-08-11 04:54] LABS: Alanine Aminotransferase 29 U/L (0-31); Albumin Level 4.1 g/dL (3.5-5.0); Alkaline Phosphatase 88 U/L (39-117); Anion Gap 13 (12-20); Aspartate Amino Transferase 23 U/L (5-31); Bilirubin Total 0.4 mg/dL (0.0-1.0); Blood Urea Nitrogen 10 mg/dL (9-16); Calcium 8.9 mg/dL (8.4-10.2); Carbon Dioxide 28 mmol/L (22-29); Chloride 107 mmol/L (96-108); Estimated Glomerular Filt Rate > 60; Glucose Random 101 mg/dL (60-115); Potassium 3.6 mmol/L (3.3-5.1); Sodium 144 mmol/L (135-145); Total Protein 6.8 g/dL (6.5-8.0)
[2020-08-11] MEDS: methADONE HCl 5 MG TABLET PO (06:12)
[2020-08-11] MEDS: Levothyroxine Sodium 50 MCG TABLET PO (06:12)
--- NOTE | 2020-08-11 06:44 | HO.POSTANES ---
Post Anesthesia Evaluation Post Anesthesia Evaluation Vital Signs: Vital Signs Temp Pulse Resp BP Pulse Ox 08/11/20 03:30 164/69 H 08/11/20 03:27 98.7 F 77 18 164/69 H 98 08/10/20 23:42 139/64 08/10/20 23:07 98.8 F 74 18 168/56 H 98 08/10/20 19:22 98.4 F 79 20 180/80 H 96 Anesthesia: General Endotracheal-GETA Mental Status: Awake Pain Control: Satisfactory Nausea/Vomiting: None Hydration: Adequate Anesthesia-Related Issues: No Anes. Related Issues
--- NOTE | 2020-08-11 06:59 | PC.NURSE ---
Pt's IV in left hand infiltrated at 0600, RN removed IV, Left hand elevated on pillows with hot packs applied RN placed new IV in R upper arm
[2020-08-11 07:37] VITALS: BP 157/81; PULSE 78; RESP 15; TEMP 36.7; O2SAT 98
[2020-08-11] MEDS: Famotidine/PF 20 MG/2 ML VIAL IVPUSH (09:02)
[2020-08-11] MEDS: Topiramate 100 MG TABLET PO (09:04)
[2020-08-11] MEDS: busPIRone HCl 10 MG TABLET PO (09:04)
[2020-08-11] MEDS: Gabapentin 400 MG CAPSULE 800 MG PO (09:04)
[2020-08-11 09:24] VITALS: O2SAT 99
--- NOTE | 2020-08-11 09:46 | MHC.CM.PN ---
PATIENT IS FUNCTIONALLY INDEPENDENT WITH HER ADLS. DISCHARGED HOME WITH NO SERVICES. RN AWARE OF PLAN.
== END 2020-08-11 11:44 | disposition home or self-care (01) | DRG 620 ==
LOC: HO.SSSA 06:46 → HO.S3 10:47
PROVIDERS: Physician Assistant; Admitting Provider Surgery; PCP Internal Medicine; Visit Provider Surgery
PROC: 0DB64Z3 Excision of Stomach, Percutaneous Endoscopic Approach, Vertical (ICD-10-PCS; CPT 43845; principal; 2020-08-10 08:10)
DX: E66.01 Morbid (severe) obesity due to excess calories (principal); F11.20 Opioid dependence, uncomplicated; K44.9 Diaphragmatic hernia without obstruction or gangrene; Z98.84 Bariatric surgery status; Z68.42 Body mass index [BMI] 45.0-49.9, adult; Z96.653 Presence of artificial knee joint, bilateral; Z20.822 Contact with and (suspected) exposure to COVID-19; Z88.0 Allergy status to penicillin; Z88.2 Allergy status to sulfonamides; Z79.890 Hormone replacement therapy; Z79.899 Other long term (current) drug therapy
CPT/HCPCS: 36415; 80048; 80053; 81001; 82040; 85025; 86850; 86900; 86901; 87635; 88307; 88342; 93005; 99024; C1776; J0131; J1100; J1170; J2250; J2405; J3010

== ENCOUNTER → 2020-08-25 14:26 | Outpatient (BNVA) | payer OTHER, SELFPAY | PROVIDERS: PCP Internal Medicine; Visit Provider Surgery | DX: E66.01 Morbid (severe) obesity due to excess calories (principal); Z68.41 Body mass index [BMI] 40.0-44.9, adult | CPT/HCPCS: 99212 ==

== ENCOUNTER → 2020-09-28 08:15 | Outpatient (BNVA) | payer OTHER, SELFPAY | PROVIDERS: PCP Internal Medicine; Visit Provider Physician Assistant | DX: E66.9 Obesity, unspecified (principal); Z68.41 Body mass index [BMI] 40.0-44.9, adult; G43.909 Migraine, unspecified, not intractable, without status migrainosus; Z98.890 Other specified postprocedural states; Z98.84 Bariatric surgery status; Z87.19 Personal history of other diseases of the digestive system; Z71.3 Dietary counseling and surveillance | CPT/HCPCS: 99212 ==

== ENCOUNTER → 2020-10-13 13:36 | Outpatient (REF) | payer MEDICARE, OTHER, SELFPAY ==
--- NOTE | 2020-10-13 14:49 | ECG_ITS ---
Test Reason : G89.4 Blood Pressure : / mmHG Vent. Rate : 069 BPM Atrial Rate : 069 BPM P-R Int : 178 ms QRS Dur : 082 ms QT Int : 392 ms P-R-T Axes : 000 -25 -27 degrees QTc Int : 420 ms Normal sinus rhythm Minimal voltage criteria for LVH, may be normal variant Nonspecific ST and T wave abnormality Abnormal ECG When compared with ECG of 04-AUG-2020 14:56, Nonspecific T wave abnormality now evident in Anterior leads Referred By: Namrata Mckinney Electronically Signed By:MERCEDES CURTIS
== END ==
LOC: HO.CARD 13:36
PROVIDERS: Absent Provider Internal Medicine Addiction Medicine; PCP Internal Medicine; Visit Provider Dietitian, Registered
DX: G89.4 Chronic pain syndrome (principal); Z79.891 Long term (current) use of opiate analgesic; E66.01 Morbid (severe) obesity due to excess calories; Z68.41 Body mass index [BMI] 40.0-44.9, adult; Z71.3 Dietary counseling and surveillance
CPT/HCPCS: 93005; 97803

== ENCOUNTER → 2020-10-14 13:31 | Outpatient (BNVA) | payer OTHER, SELFPAY | PROVIDERS: PCP Internal Medicine; Visit Provider Surgery Vascular Surgery | DX: I83.12 Varicose veins of left lower extremity with inflammation (principal) | CPT/HCPCS: 99202 ==

== ENCOUNTER 2020-10-20 12:58 | Outpatient (REF) | payer OTHER, SELFPAY ==
--- NOTE | ~2020-10-20 | US_ITS ---
EXAMINATION: RIGHT and LEFT LOWER EXTREMITY VENOUS ULTRASOUND (Reflux Exam) CLINICAL INDICATION: leg pain and varicose veins. COMPARISON: None. TECHNIQUE: Color flow triplex imaging and compression Doppler was performed to evaluate both the deep and the superficial systems bilaterally. To evaluate the superficial system, the examination was performed in the upright position. Color-flow Doppler ultrasound and compression ultrasound were utilized. In addition, maneuvers were utilized to demonstrate reflux. FINDINGS: 1. DEEP VENOUS ULTRASOUND OF THE RIGHT LOWER EXTREMITY: Respiratory variation, normal compression and augmented flow are noted in the right common femoral vein as well as the right popliteal vein and there is no evidence of deep venous thrombosis at these locations. There is no evidence of reflux in the deep system in either the common femoral vein or the popliteal vein. There is no evidence of a Brock's cyst. 2. SUPERFICIAL ULTRASOUND WITH DOPPLER OF RIGHT LOWER EXTREMITY: The right great saphenous vein at the saphenofemoral junction measures 7 mm, at the mid thigh 3 mm, [id number] not seen, [id number] 3 mm, at mid calf 2 mm and at the ankle measures 3 mm. There is 0.8 seconds reflux in the right greater saphenous vein at the mid calf and ankle. There is a medial accessory greater saphenous vein that measures 2 mm and does not demonstrate reflux. The right small saphenous vein measures 2 mm and shows no reflux. There are perforators in the calf and thigh that measure 2 mm and do not demonstrate reflux. There are varicose veins in the thigh and calf. The largest measures 4 mm in the mid calf and demonstrate 0.7 second reflux. 3. DEEP VENOUS ULTRASOUND OF THE LEFT LOWER EXTREMITY: Respiratory variation, normal compression and augmented flow are noted in the left common femoral vein as well as the left popliteal vein and there is no evidence of deep venous thrombosis at these locations. There is no evidence of reflux in the deep system in either the common femoral vein or the popliteal vein. . There is no evidence of a Brock's cyst. 4. SUPERFICIAL ULTRASOUND WITH DOPPLER OF LEFT LOWER EXTREMITY: Left great saphenous vein at the saphenofemoral junction measures 8 mm, at the mid thigh, [id number] and at the knee is not seen, [id number] 4 mm, at mid calf 4 mm and at the ankle measures 2 mm. There is left greater saphenous vein reflux measuring 1.7 seconds below the knee and 1.6 seconds in the mid calf. There is an accessory medial greater saphenous vein that measures 3 mm and does not demonstrate reflux. The left small saphenous vein measures 2 mm and shows no reflux. There are small perforators in the thigh and calf that do not demonstrate reflux. There are varicosities at the second saphenofemoral junction and proximal calf that do not demonstrate reflux. US/US venous duplex LE BI IMPRESSION: 1. No evidence of reflux or thrombus in the common femoral veins or popliteal veins bilaterally. 2. The right greater saphenous vein above the knee and at the knee is not seen. There is right greater saphenous vein reflux in the mid calf and ankle measuring 0.8 seconds. There is a varicosity in the right mid calf demonstrates reflux. 3. The left greater saphenous vein is not visualized at the mid thigh, [id number] and at the knee. There is 0.7 second reflux in the right greater saphenous vein below the knee and 1.6 seconds reflux in the mid calf.
== END 2020-10-20 12:59 | disposition home or self-care (01) ==
LOC: HO.US 12:58
PROVIDERS: PCP Internal Medicine; Visit Provider Surgery Vascular Surgery
DX: I83.893 Varicose veins of bilateral lower extremities with other complications (principal); I83.12 Varicose veins of left lower extremity with inflammation
CPT/HCPCS: 93970

== ENCOUNTER → 2020-11-03 13:28 | Outpatient (BNVA) | payer OTHER, SELFPAY | PROVIDERS: PCP Internal Medicine; Visit Provider Surgery Vascular Surgery ==

== ENCOUNTER → 2020-11-25 07:36 | Outpatient (BNVA) | payer OTHER, SELFPAY | PROVIDERS: PCP Internal Medicine; Visit Provider Surgery Vascular Surgery | DX: I83.12 Varicose veins of left lower extremity with inflammation (principal) | CPT/HCPCS: 37765 ==

== ENCOUNTER → 2020-12-06 11:20 | Outpatient (BNVA) | payer OTHER, SELFPAY | PROVIDERS: PCP Internal Medicine; Visit Provider Surgery Vascular Surgery ==

== ENCOUNTER → 2020-12-08 13:34 | Outpatient (BNVA) | payer OTHER, SELFPAY | PROVIDERS: PCP Internal Medicine; Visit Provider Physician Assistant ==

== ENCOUNTER 2020-12-30 11:52 | Outpatient (REF) | payer OTHER, SELFPAY ==
[2020-12-30 14:20] LABS: Alanine Aminotransferase 21 U/L (0-31); Alkaline Phosphatase 106 U/L (39-117); Anion Gap 14 (12-20); Aspartate Amino Transferase 17 U/L (5-31); Bilirubin Total 0.4 mg/dL (0.0-1.0); Blood Urea Nitrogen 15 mg/dL (9-16); Calcium 9.4 mg/dL (8.4-10.2); Carbon Dioxide 26 mmol/L (22-29); Chloride 107 mmol/L (96-108); Cholesterol 192 mg/dL; Estimated Glomerular Filt Rate > 60; Glucose Fasting 86 mg/dL (60-99); HDL Cholesterol 48 mg/dL; LDL Cholesterol Calculated 132 mg/dl; Potassium 3.6 mmol/L (3.3-5.1); Sodium 143 mmol/L (135-145); Total Protein 6.6 g/dL (6.5-8.0); Triglycerides 61 mg/dL
[2020-12-30 14:43] LABS: Free T4 (Free Thyroxine) 0.95 ng/dL (0.71-1.85); Thyroid Stimulating Hormone 1.83 uIU/mL (0.32-4.0); Vitamin D 25-OH Total 53.3 ng/mL (>30)
== END 2020-12-30 11:53 | disposition home or self-care (01) ==
LOC: HO.HMGCLDS 11:52
PROVIDERS: PCP Internal Medicine; Visit Provider Internal Medicine
DX: Z00.01 Encounter for general adult medical examination with abnormal findings (principal); E66.01 Morbid (severe) obesity due to excess calories; E78.5 Hyperlipidemia, unspecified; E03.9 Hypothyroidism, unspecified; Z78.0 Asymptomatic menopausal state; Z68.41 Body mass index [BMI] 40.0-44.9, adult
CPT/HCPCS: 36415; 80053; 80061; 82306; 84439; 84443

== ENCOUNTER 2021-02-02 15:01 | Outpatient (REF) | payer OTHER, SELFPAY ==
[2021-02-02 16:42] LABS: MANUAL DIFF FLAG NO
[2021-02-02 16:50] LABS: Basophils Percent Auto 0.5 % (0-2); Eosinophils Absolute Auto 0.3 X10*3/uL (0.0-0.4); Eosinophils Percent Auto 5.7 % (0-4); Hematocrit 40.2 % (37-47); Hemoglobin 12.7 g/dl (12.0-16.0); Imm Gran Abs Auto 0.01 X10*3/uL (0.00-0.03); Imm Gran Pct Auto 0.2 % (0.0-0.4); Lymphocytes Absolute Auto 1.6 X10*3/uL (1.2-4.9); Lymphocytes Percent Auto 27.6 % (20-40); Mean Corpuscular HGB Conc 31.6 g/dl (31.0-35.0); Mean Corpuscular Hemoglobin 30.1 pg (27.0-33.0); Mean Corpuscular Volume 95.3 fL (80-98); Mean Platelet Volume 9.7 fL (9.4-12.3); Monocytes Absolute Auto 0.5 X10*3/uL (0.1-1.2); Monocytes Percent Auto 8.3 % (2-11); Neutrophils Absolute Auto 3.3 X10*3/uL (2.0-8.3); Neutrophils Percent Auto 57.7 % (45-73); Platelet Count 206 X10*3/uL (160-400); Red Blood Count 4.22 X10*6/uL (4.20-5.50); White Blood Count 5.8 X10*3/uL (4.8-10.8)
[2021-02-02 16:55] LABS: Estimated Average Glucose 111 mg/dL; Hemoglobin A1C 122.8007 umol/L; Hemoglobin A1c % 5.5 %
[2021-02-02 17:43] LABS: Iron 65 mcg/dL (30-160); Percent Iron Saturation 25 % (15-50); Total Iron Binding Capacity 260 mcg/dL (228-428); Unsaturated Iron Binding 195 ug/dL
[2021-02-02 18:14] LABS: Vitamin B12 797 pg/mL (200-900)
[2021-02-06 11:16] LABS: Vitamin B1 14 nmol/L (8-30)
[2021-02-06 16:20] LABS: Zinc 59 mcg/dL (60-130)
[2021-02-09 00:21] LABS: Vitamin A 50 mcg/dL (38-98)
== END 2021-02-02 15:02 | disposition home or self-care (01) ==
LOC: HO.LAB 15:01
PROVIDERS: PCP Internal Medicine; Referring Provider Internal Medicine; Visit Provider Surgery
DX: Z01.818 Encounter for other preprocedural examination (principal); E66.9 Obesity, unspecified; K91.2 Postsurgical malabsorption, not elsewhere classified; Z98.84 Bariatric surgery status; Z87.891 Personal history of nicotine dependence; Z68.38 Body mass index [BMI] 38.0-38.9, adult; Z71.3 Dietary counseling and surveillance; Z90.3 Acquired absence of stomach [part of]
CPT/HCPCS: 36415; 82607; 83036; 83540; 84425; 84590; 84630; 85025; 86140

== ENCOUNTER → 2021-03-02 08:05 | Outpatient (BNVA) | payer OTHER, SELFPAY | PROVIDERS: PCP Internal Medicine; Visit Provider Dietitian, Registered | DX: E66.9 Obesity, unspecified (principal); Z68.38 Body mass index [BMI] 38.0-38.9, adult | CPT/HCPCS: 97803 ==

== ENCOUNTER → 2021-03-23 12:31 | Outpatient (BNVA) | payer OTHER, SELFPAY | PROVIDERS: PCP Internal Medicine; Visit Provider Surgery ==

== ENCOUNTER 2021-04-14 12:27 | Outpatient (REF) | payer OTHER, SELFPAY ==
--- NOTE | ~2021-04-14 | MM_ITS ---
EXAMINATION: MM SCREENING DIGITAL BREAST TOMOSYNTHESIS, BILATERAL CLINICAL INFORMATION: Screening. Asymptomatic. The lifetime risk of breast cancer based on the Tyrer-Cuzick Model is 12%. COMPARISON: Mammography: 04/04/2020, 01/26/2019, 01/20/2018 TECHNIQUE: Digital breast tomosynthesis is performed in both the craniocaudal and mediolateral oblique views along with computer-aided detection (CAD). Synthesized 2D images are generated from the tomosynthesis. FINDINGS: There are scattered areas of fibroglandular density (ACR BI-RADS breast composition Category b). There are no significant masses, abnormal calcifications, or other abnormalities. Parenchymal pattern is similar to prior exams. No developing density. Skin contours are smooth. MM/MM tomosynthesis screening BI IMPRESSION: No mammographic evidence of malignancy. ASSESSMENT: BI-RADS 1: Negative RECOMMENDATION: Routine annual mammography screening. This patient's information was entered into a reminder system with a target due date for their next mammogram.
== END 2021-04-14 12:28 | disposition home or self-care (01) ==
LOC: HO.MAMMO 12:27
PROVIDERS: Visit Provider Internal Medicine
DX: Z12.31 Encounter for screening mammogram for malignant neoplasm of breast (principal)
CPT/HCPCS: 77063; 77067

== ENCOUNTER 2021-07-12 18:11 | Outpatient (REF) | payer OTHER, SELFPAY | END 2021-07-12 18:12 | disposition home or self-care (01) | LOC: HO.LNP 18:11 | PROVIDERS: Visit Provider Internal Medicine | DX: Z20.822 Contact with and (suspected) exposure to COVID-19 (principal); J06.9 Acute upper respiratory infection, unspecified | CPT/HCPCS: U0003; U0005 ==

== ENCOUNTER 2021-07-21 11:58 | Outpatient (REF) | payer OTHER, SELFPAY ==
[2021-07-21 14:11] LABS: Alanine Aminotransferase 42 U/L (0-31); Aspartate Amino Transferase 25 U/L (5-31); Cholesterol 208 mg/dL; HDL Cholesterol 47 mg/dL; LDL Cholesterol Calculated 143 mg/dl; Triglycerides 94 mg/dL
[2021-07-21 14:34] LABS: Vitamin D 25-OH Total 53.1 ng/mL (>30)
== END 2021-07-21 11:59 | disposition home or self-care (01) ==
LOC: HO.HMGCLDS 11:58
PROVIDERS: PCP Internal Medicine; Visit Provider Internal Medicine
DX: E78.5 Hyperlipidemia, unspecified (principal); Z78.0 Asymptomatic menopausal state
CPT/HCPCS: 36415; 80061; 82306; 84450; 84460

== ENCOUNTER 2021-12-25 11:18 | Outpatient (REF) | payer OTHER, SELFPAY ==
[2021-12-25 15:02] LABS: Free T4 (Free Thyroxine) 0.94 ng/dL (0.71-1.85); Thyroid Stimulating Hormone 2.52 uIU/mL (0.32-4.0); Vitamin D 25-OH Total 48.5 ng/mL (>30)
[2021-12-25 15:41] LABS: Alanine Aminotransferase 32 U/L (0-31); Anion Gap 12 (12-20); Aspartate Amino Transferase 23 U/L (5-31); Blood Urea Nitrogen 17 mg/dL (9-16); Calcium 9.1 mg/dL (8.4-10.2); Carbon Dioxide 25 mmol/L (22-29); Chloride 108 mmol/L (96-108); Cholesterol 230 mg/dL; Estimated Glomerular Filt Rate > 60; Glucose Fasting 92 mg/dL (60-99); HDL Cholesterol 59 mg/dL; LDL Cholesterol Calculated 155 mg/dl; Potassium 3.6 mmol/L (3.3-5.1); Sodium 141 mmol/L (135-145); Triglycerides 84 mg/dL
== END 2021-12-25 11:19 | disposition home or self-care (01) ==
LOC: HO.HMGCLDS 11:18
PROVIDERS: Visit Provider Internal Medicine
DX: Z00.01 Encounter for general adult medical examination with abnormal findings (principal); N95.9 Unspecified menopausal and perimenopausal disorder; K21.9 Gastro-esophageal reflux disease without esophagitis; F33.9 Major depressive disorder, recurrent, unspecified; F11.20 Opioid dependence, uncomplicated; E78.5 Hyperlipidemia, unspecified; E66.01 Morbid (severe) obesity due to excess calories; Z68.42 Body mass index [BMI] 45.0-49.9, adult; Z86.69 Personal history of other diseases of the nervous system and sense organs; E03.9 Hypothyroidism, unspecified
CPT/HCPCS: 36415; 80048; 80061; 82306; 84439; 84443; 84450; 84460

== ENCOUNTER 2022-04-20 12:45 | Outpatient (REF) | payer OTHER, SELFPAY ==
--- NOTE | ~2022-04-20 | MM_ITS ---
EXAMINATION: MM SCREENING DIGITAL BREAST TOMOSYNTHESIS, BILATERAL CLINICAL INFORMATION: Screening. Asymptomatic. The lifetime risk of breast cancer based on the Tyrer-Cuzick Model is 11.0%. COMPARISON: Mammography: April 14, 2021 and studies dating back to May 06, 2014 TECHNIQUE: Digital breast tomosynthesis is performed in both the craniocaudal and mediolateral oblique views along with computer-aided detection (CAD). Synthesized 2D images are generated from the tomosynthesis. Right breast exaggerated craniocaudal view also performed. FINDINGS: There are scattered areas of fibroglandular density (ACR BI-RADS breast composition Category b). There are no significant masses, abnormal calcifications, or other abnormalities. MM/MM tomosynthesis screening BI IMPRESSION: No significant changes from prior exam. ASSESSMENT: BI-RADS 1: Negative RECOMMENDATION: Routine annual mammography screening. This patient's information was entered into a reminder system with a target due date for their next mammogram.
== END 2022-04-20 12:46 | disposition home or self-care (01) ==
LOC: HO.MAMMO 12:45
PROVIDERS: PCP Internal Medicine; Visit Provider Internal Medicine
DX: Z12.31 Encounter for screening mammogram for malignant neoplasm of breast (principal)
CPT/HCPCS: 77063; 77067

== ENCOUNTER 2022-06-29 11:00 | Outpatient (REF) | payer OTHER, SELFPAY ==
[2022-06-29 14:17] LABS: Alanine Aminotransferase 25 U/L (0-31); Aspartate Amino Transferase 22 U/L (5-31); Cholesterol 205 mg/dL; HDL Cholesterol 56 mg/dL; LDL Cholesterol Calculated 132 mg/dl; Triglycerides 87 mg/dL
[2022-06-29 14:38] LABS: Free T4 (Free Thyroxine) 0.81 ng/dL (0.71-1.85); Thyroid Stimulating Hormone 2.72 uIU/mL (0.32-4.0)
== END 2022-06-29 11:01 | disposition home or self-care (01) ==
LOC: HO.HMGCLDS 11:00
PROVIDERS: PCP Internal Medicine; Visit Provider Internal Medicine
DX: Z00.01 Encounter for general adult medical examination with abnormal findings (principal); E03.9 Hypothyroidism, unspecified; E66.01 Morbid (severe) obesity due to excess calories; E78.5 Hyperlipidemia, unspecified
CPT/HCPCS: 36415; 80061; 84439; 84443; 84450; 84460

== ENCOUNTER → 2022-07-03 14:30 | Outpatient (BNVA) | payer OTHER, SELFPAY | PROVIDERS: PCP Internal Medicine; Visit Provider Advanced Practice Midwife | DX: Z01.419 Encounter for gynecological examination (general) (routine) without abnormal findings (principal) ==

== ENCOUNTER 2022-07-09 13:05 | Outpatient (AMB) | payer OTHER, SELFPAY ==
--- NOTE | 2022-07-09 13:11 | MHC.PC.OV ---
Vital Signs 07/09/22 13:13 Height 5 ft 1 in Weight 200 lb BMI 37.8 BP 104/68 Blood Pressure Location Lt brachial Position Sitting Pulse 83 Pulse Source Pulse Oximeter Pulse Oximetry (%) 98 Oxygen Delivery Method Room Air Intake Visit Reasons: 6 month follow up Intake Note: Pt is here today for her 6 months f/u Allergies Sulfa (Sulfonamide Antibiotics) [SULFA (SULFONAMIDE ANTIBIOTICS)] Allergy (Severe, Verified 06/02/23 22:36) swelling of lips and tongue Penicillins [PENICILLINS] Allergy (Unknown, Verified 06/02/23 22:36) UNKNOWN Medication List - Last Reconciled 07/09/22 by Perla Ny MD acetaminophen (Tylenol Extra Strength) 1,000 mg (2 x 500 mg) PO Q6H PRN azelaic acid 15% topical buspirone 10 mg PO BID calcium carbonate (Calcium) 600 mg PO BID cetirizine (Zyrtec) 10 mg PO DAILY PRN clindamycin phosphate 1% topical QAM clotrimazole-betamethasone 1-0.05 % apply thin film to affected area topically 2 times a day; 10 days coenzyme Q10 (CoQ-10) 200 mg PO DAILY desonide 0.05% topical docusate sodium (Colace) 100 mg PO BID ezetimibe 10 mg PO DAILY gabapentin 800 mg PO TID glucosamine sulfate (Glucosamine) 500 mg PO DAILY levothyroxine 50 mcg PO QAM lorazepam 1 mg (2 x 0.5 mg) PO ONCE PRN methocarbamol 750 mg PO BID mometasone 0.1% 1 appl topical DAILY PRN multivitamin 1 tab PO DAILY nortriptyline 50 mg PO BEDTIME nystatin topical omeprazole 20 mg PO DAILY rosuvastatin 40 mg PO DAILY 90 days sumatriptan succinate 50 mg PO Q2-4H PRN topiramate 100 mg PO BID tretinoin 0.025% appl topical tretinoin 0.05% appl topical venlafaxine ER 150 mg PO QAM Tobacco use date assessed: 07/09/22 HPI 6 month follow up HPI Details 8-year-old lady here today for follow-up on her lipids and hypothyroidism. Has been taking her medications as directed, with no new complaints at present. [facility] Medical History (Updated 06/02/23 @ 22:43 by Perla Ny MD) Pruritic intertrigo History of migraine assisted (current) use of opiate analgesic Spondylosis without myelopathy or radiculopathy, lumbar region Chronic pain syndrome Causalgia of left lower limb Annual visit for general adult medical examination with abnormal findings Acne comedone Hx of varicose veins Varicose veins of bilateral lower extremities with pain Hiatal hernia Intestinal malabsorption following gastrectomy Hypothyroidism Hx of gastroesophageal reflux (GERD) Hx of cardiac murmur Chronic pain Urinary incontinence in female Chronic gastroesophageal reflux disease Recurrent major depression Patient on methadone maintenance therapy Acquired hypothyroidism Osteoarthritis Morbid obesity with BMI of 45.0-49.9, adult Dyslipidemia Depression Surgical History Status post vein stripping (11/25/20) History of repair of hiatal hernia History of adjustable gastric banding S/P laparoscopic sleeve gastrectomy Hx of colonoscopy History of total right knee replacement History of bariatric surgery History of removal of laparoscopic gastric banding device History of total left knee replacement S/P foot surgery, left LAP-BAND surgery status Family History Father History of throat cancer History of [place] (myocardial infarction) Type 2 diabetes mellitus Mother Hyperlipidemia CVD (cardiovascular disease) HTN (hypertension) Maternal Aunt No problems noted. Son Paraplegia Son No problems noted. Paternal Grandmother Type 2 diabetes mellitus Maternal Grandmother Alzheimer's dementia Brother No problems noted. Sister No problems noted. 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 you a primary administrator health care facility to a significant other at home: Yes (Son - paraplegic) Do you presently have visiting nurse or other home services: No Alcohol intake: never Comment: pt sleeping Patient Tobacco Use Status: Former Tobacco user Tobacco use type: Cigarette Cigarettes Per Day: 3 Years Smoked: 14 e-Cigarette/Vaping Use: Never Used Second Hand Smoke Exposure: No service: No Current occupational status: unemployed Cognitive needs: No Hearing needs: No Vision needs: Yes Female Reproductive History Menstrual Age of Menarche: 14 Questionnaire PHQ-9 Over the last 2 weeks, how often have you been bothered by any of the following problems? 1. Little interest or pleasure in doing things: not at all 2. Feeling down, depressed, or hopeless: not at all 3. Trouble falling or staying asleep, or sleeping too much: several days 4. Feeling tired or having little energy: several days 5. Poor appetite or overeating: not at all 6. Feeling bad about yourself - or that you are a failure or have let yourself or your family down: not at all 7. Trouble concentrating on things, such as reading the newspaper or watching television: not at all 8. Moving or speaking so slowly that other people could have noticed. Or the opposite - being so fidgety or restless that you have been moving around a lot more than usual: not at all 9. Thoughts that you would be better off or of hurting yourself in some way: not at all Total score: 2 Depression Screening Interpretation: Negative 81094 - PHQ-9 Billing: Yes Source: Developed by Drs. Yaw Nowak, Santa Villarreal, Adonis Cuenca and colleagues, with an educational saurabh from [employer]. Thrive Questionnaire Declines Thrive assessment: No Date Thrive assessed: 07/09/22 I am a: Patient What is your living situation today?: I have a steady place to live Within the past 12 months, did the food you bought not last and you didn't have the money to get more?: Never true Within the past 12 months, did you worry whether your food would run out before you got money to buy more?: Never true Do you have trouble paying for medicines?: No Do you have trouble getting transportation to medical appointments?: No Do you have trouble paying your heating and electricity bill?: No Do you have trouble taking care of your child, family member or friend?: No Do you have trouble with day-to-day activities such as bathing, preparing meals, shopping, managing finances, etc.?: No Are you currently unemployed and looking for a job?: No Are you interested in more education?: No DALLIN-7 AMB Questionnaire DALLIN-7 Date DALLIN - 7 assessed: 07/09/22 Feeling nervous, anxious, or on edge: 1 = Several days Not being able to stop or control worryin = Several days Worrying too much about different things: 1 = Several days Trouble relaxin = Several days Being so restless that it is hard to sit still: 0 = Not at all Becoming easily annoyed or irritable: 0 = Not at all Feeling afraid as if something awful might happen: 0 = Not at all Total DALLIN-7 score (0-4 normal; 5-9 mild; 10-14 moderate; 15-21 severe): 4 Source: Developed by Drs. Yaw Nowak, aSnta Villarreal, Adonis Cuenca and colleagues, with an educational saurabh from [employer]. DALLIN-7 Assessment Billing DALLIN-7 Assessment Tool: DALLIN-7 Assessment 12382 Review of Systems Const Denies fatigue, Denies fever(s), Denies headache(s) and Reports weight loss Eyes Denies change in vision, Denies eye discharge and Denies itchy eyes ENT Denies headache(s) Card Denies chest pain, Denies lightheadedness, Denies palpitations and Denies dyspnea Resp Denies chest congestion, Denies cough, Denies dyspnea and Denies wheezing GI Denies abdominal pain, Denies change in bowel habits and Denies heartburn Denies urinary frequency, Denies dysuria and Denies urinary urgency Musc Details: Unable to stand or go up and down stairs due to chronic pain in left foot Reports as per HPI Skin/Breast Denies breast pain, Denies breast mass and Reports rash (recurrent rash in inguinal areas, refill on her clotrimazole-betamethasone) Neuro Denies headache(s) Psych Reports no additional complaints Endo Denies fatigue and Denies palpitations Gee/Lymph Denies easy bruising Aller/Immun Denies itchy eyes, Denies seasonal rhinorrhea and Denies wheezing Physical exam (Primary Care) Vital Signs: Last Vital Signs Pulse 83 07/09/22 13:13 BP 104/68 07/09/22 13:13 Pulse Ox 98 07/09/22 13:13 Oxygen Delivery Method Room Air 07/09/22 13:13 BMI result Body Mass Index 37.8 Tobacco/Smoking Status: Tobacco use Status Tobacco use date assessed 07/09/22 07/09/22 13:17 Patient Tobacco Use Status Former Tobacco user 07/09/22 13:13 Tobacco use type Cigarette 07/09/22 13:13 e-Cigarette/Vaping Use Never Used 07/09/22 13:13 PHQ-9: PHQ-9 Score PHQ-9: Total score 2 06/02/23 22:46 Depression Screening Interpretation: Negative Thrive Assessment: Date of Thrive Assessment Date Thrive assessed 07/09/22 07/09/22 13:40 Const General: cooperative, no acute distress and alert Orientation/consciousness: patient oriented x3 Limitations: ambulation with cane HENMT Ears: TM's normal bilaterally and EAC's normal General nose exam: Normal external nose present and No nasal discharge present Face and sinus: Yes face symmetric Mouth: Normal oral and palatal mucosa present, oropharynx normal and moist mucous membranes Eyes General: appearance normal, both eyes and all related structures Neck Other: Supple, no lymphadenopathy, thyroid gland nonpalpable Chest Breast/axilla palpation: normal palpation of the breasts Resp Effort & Inspection: normal respiratory effort and able to speak in complete sentences Auscultation: clear to auscultation bilaterally Cardio Other: S1-S2 present regular rate and rhythm GI Inspection: Yes obesity Palpation (GI): Soft to palpation, nontender, no guarding and no masses General: Yes no CVA tenderness Back/Spine/Pelvis Back: no CVA tenderness and No back tenderness Skin Other: Mild erythematous patch in inguinal area Neuro General: patient oriented x3 Extrem Other: Positive healed scar surgical scars noted on dorsal aspect of left foot, decreased range of motion of foot and ankle due to pain Psych Appearance: grossly normal and well kempt Mental Status: mental status grossly normal Speech and movement: Normal speech and movement present Affect: normal affect Attitude: cooperative Thought process: Normal thought process present Results Reviewed Results Reviewed: ENTERED: 06/29/22-1105 CHU GOYAL: ORDERED: AST, ALT, Lipid Panel, Free T4, TSH Test Result Flag Reference Site AST (GOT) 22 5-31 U/L ALT (GPT) 25 0-31 U/L Triglyceride 87 mg/dL Desirable Triglyceride: less than 150 mg/dL Borderline High Triglyceride 150-199 mg/dL High Triglyceride: 200-499 mg/dL Very High Triglyceride: greater than or equal to 5OO mg/dL Chol 205 mg/dL Desirable Cholesterol: less than 200 mg/dL Borderline High Cholesterol: 200-239 mg/dL High Cholesterol: greater than 239 mg/dL LDL Calculated 132 mg/dl Desirable LDL: less than 100 mg/dL Near Optimal/Above Optimal LDL: 110-129 mg/dL Borderline High LDL: 130-159 mg/dL High LDL: 160-189 mg/dL Very High LDL: greater than or equal to 190 mg/dL HDL 56 mg/dL Desirable HDL: greater than 40 mg/dL Note: This HDL assay may give artificially low results in patients with liver disease. Free T4 0.81 0.71-1.85 ng/dL TSH 3rd Gen. 2.72 0.32-4.0 uIU/mL Note: A sustained TSH level above 2.5 uIU/mL may warrant further investigation. Assessment and Plan Assessment & Plan (1) Acquired hypothyroidism: Code(s): E03.9 - Hypothyroidism, unspecified Plan: Thyroid levels are within normal limits, continue with current dose of levothyroxine at 50 mcg daily in a.m. an hour before breakfast (2) Dyslipidemia: Code(s): E78.5 - Hyperlipidemia, unspecified Plan: Reviewed recent fasting lipid profile with patient with levels within normal limits except for mildly elevated LDL cholesterol . Continue with 40 mg rosuvastatin daily , in addition to adherence to low-cholesterol diet and regular exercise, at least 30 minutes 3 to 4 times a week. Advised patient to make healthy food choices, eat more fruits, vegetables, whole grains, wild caught fish and low-fat dairy. Limit amount of meat and fried or fatty food products, as well as processed foods and fast foods. Follow-up scheduled with repeat fasting lipid panel in 6 months. (3) History of migraine: Code(s): Z86.69 - Personal history of other diseases of the nervous system and sense organs Plan: Prescription refill for sumatriptan sent (4) Pruritic intertrigo: Code(s): L30.4 - Erythema intertrigo Plan: Prescription sent for clotrimazole-betamethasone, to use as directed, no more than 10 days at a time Orders: Orders Alanine Aminotransferase 6 Months E66.9 - Obesity, unspecified, E78.5 - Hyperlipidemia, unspecified, E03.9 - Hypothyroidism, unspecified Lipid Panel 6 Months E66.9 - Obesity, unspecified, E78.5 - Hyperlipidemia, unspecified, E03.9 - Hypothyroidism, unspecified Thyroid Stimulating Hormone 6 Months E66.9 - Obesity, unspecified, E78.5 - Hyperlipidemia, unspecified, E03.9 - Hypothyroidism, unspecified Free T4 (Free Thyroxine) 6 Months E03.9 - Hypothyroidism, unspecified, E66.9 - Obesity, unspecified, E78.5 - Hyperlipidemia, unspecified Aspartate Amino Transferase 6 Months E66.9 - Obesity, unspecified, E78.5 - Hyperlipidemia, unspecified, E03.9 - Hypothyroidism, unspecified Vitamin D 25-OH Total 6 Months E66.9 - Obesity, unspecified, E78.5 - Hyperlipidemia, unspecified, E03.9 - Hypothyroidism, unspecified Medications: Changed From clotrimazole-betamethasone 1-0.05 % apply thin film to affected area topically 2 times a day; 10 days 45 grams 0RF To clotrimazole-betamethasone 1-0.05 % apply thin film to affected area topically 2 times a day; 45 grams 1RF 10 days Refilled sumatriptan succinate 50 mg PO Q2-4H PRN 12 tabs 2RF for migraine Coding Level of Care Code Est Pt Level 4 (25112) Diagnoses Acquired hypothyroidism E03.9 Dyslipidemia E78.5 History of migraine Z86.69 Pruritic intertrigo L30.4 Additional Codes DALLIN-7 Assessment Billing - DALLIN-7 Assessment Tool: DALLIN-7 Assessment [id number] ([id number])
[2022-07-09 13:13] VITALS: BP 104/68; PULSE 83; O2SAT 98; BMI 37.8
== END 2022-07-09 14:07 | disposition home or self-care (01) ==
LOC: HO.HMGC 13:05
PROVIDERS: PCP Internal Medicine; Visit Provider Internal Medicine
DX: E03.9 Hypothyroidism, unspecified (principal); E78.5 Hyperlipidemia, unspecified; Z86.69 Personal history of other diseases of the nervous system and sense organs; L30.4 Erythema intertrigo
CPT/HCPCS: 99214

== ENCOUNTER 2022-08-23 09:59 | Outpatient (REF) | payer OTHER, SELFPAY ==
--- NOTE | ~2022-08-23 | XR_ITS ---
EXAMINATION: RIGHT SHOULDER, RIGHT KNEE CLINICAL INFORMATION: Knee and shoulder injury with pain COMPARISON: Chest radiograph 03/04/2020 TECHNIQUE: 3 views right shoulder, 4 views right knee FINDINGS: Shoulder: Degenerative changes are present in the shoulder with humeral head osteophytes and subchondral cyst formation. Some mild osteophytes are present at the inferior aspect of the glenohumeral joint. There is evidence of rotator cuff disease with some mild superior subluxation of the humeral head and some sclerosis of the undersurface of the acromium. No rotator cuff calcifications are seen. Mild degenerative changes are seen at the acromioclavicular joint. Similar changes were seen on the 03/04/2020 chest radiograph. Knee: A right total knee joint replacement is present. The prosthetic components appear in good position without evidence of loosening. No fractures. XR/XR knee RT 4V IMPRESSION: 1. Degenerative changes right shoulder with evidence of rotator cuff disease. 2. Right total knee joint replacement without evidence of loosening.
--- NOTE | ~2022-08-23 | XR_ITS ---
EXAMINATION: RIGHT SHOULDER, RIGHT KNEE CLINICAL INFORMATION: Knee and shoulder injury with pain COMPARISON: Chest radiograph 03/04/2020 TECHNIQUE: 3 views right shoulder, 4 views right knee FINDINGS: Shoulder: Degenerative changes are present in the shoulder with humeral head osteophytes and subchondral cyst formation. Some mild osteophytes are present at the inferior aspect of the glenohumeral joint. There is evidence of rotator cuff disease with some mild superior subluxation of the humeral head and some sclerosis of the undersurface of the acromium. No rotator cuff calcifications are seen. Mild degenerative changes are seen at the acromioclavicular joint. Similar changes were seen on the 03/04/2020 chest radiograph. Knee: A right total knee joint replacement is present. The prosthetic components appear in good position without evidence of loosening. No fractures. XR/XR shoulder RT min 2V IMPRESSION: 1. Degenerative changes right shoulder with evidence of rotator cuff disease. 2. Right total knee joint replacement without evidence of loosening.
== END 2022-08-23 10:00 | disposition home or self-care (01) ==
LOC: HO.HMGCX 09:59
PROVIDERS: PCP Internal Medicine; Visit Provider Internal Medicine
DX: S89.91XA Unspecified injury of right lower leg, initial encounter (principal); S49.91XA Unspecified injury of right shoulder and upper arm, initial encounter
CPT/HCPCS: 73030; 73564

== ENCOUNTER 2023-01-30 10:34 | Outpatient (REF) | payer OTHER, SELFPAY ==
[2023-01-30 14:18] LABS: Alanine Aminotransferase 27 U/L (0-31); Aspartate Amino Transferase 21 U/L (5-31); Cholesterol 210 mg/dL; HDL Cholesterol 55 mg/dL; LDL Cholesterol Calculated 141 mg/dl; Triglycerides 74 mg/dL
[2023-01-30 14:25] LABS: Free T4 (Free Thyroxine) 0.71 ng/dL (0.71-1.85); Thyroid Stimulating Hormone 2.78 uIU/mL (0.32-4.0); Vitamin D 25-OH Total 54.8 ng/mL (>30)
== END 2023-01-30 10:35 | disposition home or self-care (01) ==
LOC: HO.HMGCLDS 10:34
PROVIDERS: PCP Internal Medicine; Visit Provider Internal Medicine
DX: E66.9 Obesity, unspecified (principal); E78.5 Hyperlipidemia, unspecified; E03.9 Hypothyroidism, unspecified
CPT/HCPCS: 36415; 80061; 82306; 84439; 84443; 84450; 84460

== ENCOUNTER 2023-02-04 13:02 | Outpatient (AMB) | payer OTHER, SELFPAY ==
--- NOTE | 2023-02-04 13:30 | A.OFFPC_ITS ---
Vital Signs 02/04/23 13:38 Height 5 ft 1 in Weight 204 lb BMI 38.5 BP 100/62 Blood Pressure Location Lt brachial Position Sitting Pulse 82 Pulse Source Pulse Oximeter Pulse Oximetry (%) 96 Oxygen Delivery Method Room Air Intake Visit Reasons: 6 month follow up Intake Note: Pt is here today for her 6 months f/u lab Allergies Sulfa (Sulfonamide Antibiotics) [SULFA (SULFONAMIDE ANTIBIOTICS)] Allergy (Severe, Verified 06/03/23 14:04) swelling of lips and tongue Penicillins [PENICILLINS] Allergy (Unknown, Verified 06/03/23 14:04) UNKNOWN Medication List - Last Reconciled 02/04/23 by Perla Ny MD acetaminophen (Tylenol Extra Strength) 1,000 mg (2 x 500 mg) PO Q6H PRN azelaic acid 15% topical buspirone 10 mg PO BID calcium carbonate (Calcium) 600 mg PO BID cetirizine (Zyrtec) 10 mg PO DAILY PRN clotrimazole-betamethasone 1-0.05 % apply thin film to affected area topically 2 times a day; 10 days coenzyme Q10 (CoQ-10) 200 mg PO DAILY desonide 0.05% topical docusate sodium (Colace) 100 mg PO BID ezetimibe 10 mg PO DAILY gabapentin 800 mg PO TID glucosamine sulfate (Glucosamine) 500 mg PO DAILY levothyroxine 50 mcg PO QAM lorazepam 1 mg (2 x 0.5 mg) PO ONCE PRN methocarbamol 750 mg PO BID PRN mometasone 0.1% 1 appl topical DAILY PRN multivitamin 1 tab PO DAILY nystatin topical omeprazole 20 mg PO DAILY rosuvastatin 40 mg PO DAILY 90 days sumatriptan succinate 50 mg PO Q2-4H PRN topiramate 100 mg PO BID tretinoin 0.025% appl topical tretinoin 0.05% appl topical venlafaxine ER 150 mg PO QAM Tobacco use date assessed: 02/04/23 Dental Screening Dental Screen Date: 02/04/23 Did you have a dental visit in the last 12 months?: Yes Did you have a dental problem in the last 6 months where you did not have access to dental care?: Yes Was dental information given to patient?: Patient has dentist HPI 6 month follow up HPI Details 62-year-old lady with dyslipidemia, hypo thyroidism, morbid obesity and depression, here today for follow-up. She has been feeling well, with no complaints at present time. Has been compliant with taking her medications, and has been trying to follow recommended diet but again has not been able to do much exercise due to chronic pain in her back and foot. Currently being seen at [facility] for pain management care. Recent labs done showed LDL cholesterol slightly higher than last check, but vitamin-D level, liver enzymes and thyroid levels are within normal limits. [facility] Medical History (Updated 06/09/23 @ 16:09 by Perla Ny MD) Difficulty swallowing solids Pruritic intertrigo History of migraine shelter (current) use of opiate analgesic Spondylosis without myelopathy or radiculopathy, lumbar region Chronic pain syndrome Causalgia of left lower limb Annual visit for general adult medical examination with abnormal findings Acne comedone Hx of varicose veins Varicose veins of bilateral lower extremities with pain Hiatal hernia Intestinal malabsorption following gastrectomy Hypothyroidism Hx of gastroesophageal reflux (GERD) Hx of cardiac murmur Chronic pain Urinary incontinence in female Chronic gastroesophageal reflux disease Recurrent major depression Patient on methadone maintenance therapy Acquired hypothyroidism Osteoarthritis Morbid obesity with BMI of 45.0-49.9, adult Dyslipidemia Depression Surgical History Status post vein stripping (11/25/20) History of repair of hiatal hernia History of adjustable gastric banding S/P laparoscopic sleeve gastrectomy Hx of colonoscopy History of total right knee replacement History of bariatric surgery History of removal of laparoscopic gastric banding device History of total left knee replacement S/P foot surgery, left LAP-BAND surgery status Family History Father History of throat cancer History of [place] (myocardial infarction) Type 2 diabetes mellitus Mother Hyperlipidemia CVD (cardiovascular disease) HTN (hypertension) Maternal Aunt No problems noted. Son Paraplegia Son No problems noted. Paternal Grandmother Type 2 diabetes mellitus Maternal Grandmother Alzheimer's dementia Brother No problems noted. Sister No problems noted. 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 Depression Screening Interpretation: Negative Source: Developed by Drs. Yaw Nowak, Santa Villarreal, Adonis Cuenca and colleagues, with an educational saurabh from [employer]. Thrive Questionnaire Date Thrive assessed: 07/09/22 I am a: Parent/Caregiver What is your living situation today?: I have a steady place to live Within the past 12 months, did the food you bought not last and you didn't have the money to get more?: Never true Within the past 12 months, did you worry whether your food would run out before you got money to buy more?: Never true AUDIT C Alcohol Use Questionnaire (AUDIT-C) 1. How often do you have a drink containing alcohol?: Never Total Score: 0 DALLIN-7 AMB Questionnaire DALLIN-7 Date DALLIN - 7 assessed: 07/09/22 Feeling nervous, anxious, or on edge: 0 = Not at all Not being able to stop or control worryin = Not at all Worrying too much about different things: 0 = Not at all Trouble relaxin = Not at all Being so restless that it is hard to sit still: 0 = Not at all Becoming easily annoyed or irritable: 0 = Not at all Feeling afraid as if something awful might happen: 0 = Not at all Total DALLIN-7 score (0-4 normal; 5-9 mild; 10-14 moderate; 15-21 severe): 0 Source: Developed by Drs. Yaw Nowak, Santa Villarreal, Adonis Cuenca and colleagues, with an educational saurabh from [employer]. Review of Systems Const Denies fatigue, Denies fever(s) and Denies headache(s) ENT Denies headache(s) Card Denies chest pain, Denies lightheadedness, Denies palpitations and Denies dyspnea Resp Denies chest congestion, Denies cough, Denies dyspnea and Denies wheezing GI Denies abdominal pain, Denies change in bowel habits and Denies heartburn Denies urinary frequency, Denies dysuria and Denies urinary urgency Musc Details: Unable to stand or go up and down stairs due to chronic pain in left foot Reports as per HPI Neuro Denies headache(s) Psych Reports no additional complaints Endo Denies fatigue and Denies palpitations Gee/Lymph Denies easy bruising Aller/Immun Denies seasonal rhinorrhea and Denies wheezing Physical exam (Primary Care) Vital Signs: Last Vital Signs Pulse 82 02/04/23 13:38 BP 100/62 02/04/23 13:38 Pulse Ox 96 02/04/23 13:38 Oxygen Delivery Method Room Air 02/04/23 13:38 BMI result Body Mass Index 38.5 Tobacco/Smoking Status: Tobacco use Status Tobacco use date assessed 02/04/23 02/04/23 13:37 Patient Tobacco Use Status Former Tobacco user 02/04/23 13:37 Tobacco use type Cigarette 02/04/23 13:37 e-Cigarette/Vaping Use Never Used 02/04/23 13:37 Depression Screening Interpretation: Negative Thrive Assessment: Date of Thrive Assessment Date Thrive assessed 07/09/22 02/04/23 13:37 Const General: cooperative, no acute distress and alert Orientation/consciousness: patient oriented x3 Limitations: ambulation with cane HENMT Ears: TM's normal bilaterally and EAC's normal General nose exam: Normal external nose present and No nasal discharge present Face and sinus: Yes face symmetric Mouth: Normal oral and palatal mucosa present, oropharynx normal and moist mucous membranes Eyes General: appearance normal, both eyes and all related structures Neck Other: Supple, no lymphadenopathy, thyroid gland nonpalpable Resp Effort & Inspection: normal respiratory effort and able to speak in complete sentences Auscultation: clear to auscultation bilaterally Cardio Other: S1-S2 present regular rate and rhythm GI Inspection: Yes obesity Palpation (GI): Soft to palpation, nontender, no guarding and no masses Neuro General: patient oriented x3 Extrem Other: Positive healed scar surgical scars noted on dorsal aspect of left foot, decreased range of motion of foot and ankle due to pain Psych Appearance: grossly normal and well kempt Mental Status: mental status grossly normal Speech and movement: Normal speech and movement present Affect: normal affect Attitude: cooperative Thought process: Normal thought process present Results Reviewed Results Reviewed: kathleen: Sofia Otero Age/Sex: 62/F [facility] 1960 [id number] [id number] Attend Dr: Perla Ny MD Re01/30/23 Status: DEP REF Location: [facility] Disch: SPEC : [id number] JACOBY: 01/30/23-1037 STATUS: COMP REQ : [id number] RECD: 01/30/23-[address]: Perla Ny MD COMP: 01/30/23-1424 ENTERED: 01/30/23-[address]: ORDERED: AST, ALT, Lipid Panel, Vitamin D 25-OH, Free T4, TSH Test Result Flag Reference Site AST (GOT) 21 5-31 U/L ALT (GPT) 27 0-31 U/L Triglyceride 74 mg/dL Desirable Triglyceride: less than 150 mg/dL Borderline High Triglyceride 150-199 mg/dL High Triglyceride: 200-499 mg/dL Very High Triglyceride: greater than or equal to 5OO mg/dL Chol 210 mg/dL Desirable Cholesterol: less than 200 mg/dL Borderline High Cholesterol: 200-239 mg/dL High Cholesterol: greater than 239 mg/dL LDL Calculated 141 mg/dl Desirable LDL: less than 100 mg/dL Near Optimal/Above Optimal LDL: 110-129 mg/dL Borderline High LDL: 130-159 mg/dL High LDL: 160-189 mg/dL Very High LDL: greater than or equal to 190 mg/dL HDL 55 mg/dL Desirable HDL: greater than 40 mg/dL Note: This HDL assay may give artificially low results in patients with liver disease. Vit D 25-OH Tot 54.8 >30 ng/mL Health Based Reference Values* < 20 ng/mL Deficient 20-30 ng/mL Insufficient > 30 ng/mL Sufficient *Mary CANO. N Engl J Med. 2007;[id number]:[id number] Care must be taken in interpreting Vitamin D results from different laboratories and methodologies. Published data demonstrated that results from patients undergoing hemodialysis may show a negative bias when tested with various automated 25-OH vitamin D assays when compared to LC-MS/MS. When testing samples from patients whose predominant form of Vitamin D is Vitamin D2, such as patients receiving Vitamin D2 supplementation, results that are subtherapeutic should be confirmed with another method such as LC-MS/MS. Free T4 0.71 0.71-1.85 ng/dL TSH 3rd Gen. 2.78 0.32-4.0 uIU/mL Note: A sustained TSH level above 2.5 uIU/mL may warrant further investigation. TSH 3rd Generation ([facility]) Assessment and Plan Assessment & Plan (1) Acquired hypothyroidism: Code(s): E03.9 - Hypothyroidism, unspecified Plan: Continue on current dose of levothyroxine at 50 mcg daily. (2) Recurrent major depression: Code(s): F33.9 - Major depressive disorder, recurrent, unspecified Qualifiers: Active/Remission status: currently active Psychotic features: without psychotic features Plan: Continued on current dose of lorazepam, taken as needed and venlafaxine extended release daily (3) Dyslipidemia: Code(s): E78.5 - Hyperlipidemia, unspecified Plan: Lipids showed slightly elevated LDL cholesterol as compared to last check. Will continue on ezetimibe and rosuvastatin 40 mg daily, reinforced importance of following low-cholesterol diet and staying active. Orders: Orders Alanine Aminotransferase 3 Months E03.9 - Hypothyroidism, unspecified, F33.9 - Major depressive disorder, recurrent, unspecified, E78.5 - Hyperlipidemia, unspecified, E66.01 - Morbid (severe) obesity due to excess calories Lipid Panel 3 Months E03.9 - Hypothyroidism, unspecified, F33.9 - Major depressive disorder, recurrent, unspecified, E78.5 - Hyperlipidemia, unspecified, E66.01 - Morbid (severe) obesity due to excess calories Thyroid Stimulating Hormone 3 Months E03.9 - Hypothyroidism, unspecified, F33.9 - Major depressive disorder, recurrent, unspecified, E78.5 - Hyperlipidemia, unspecified, E66.01 - Morbid (severe) obesity due to excess calories Free T4 (Free Thyroxine) 3 Months E03.9 - Hypothyroidism, unspecified, F33.9 - Major depressive disorder, recurrent, unspecified, E78.5 - Hyperlipidemia, unspecified, E66.01 - Morbid (severe) obesity due to excess calories Aspartate Amino Transferase 3 Months E03.9 - Hypothyroidism, unspecified, F33.9 - Major depressive disorder, recurrent, unspecified, E78.5 - Hyperlipidemia, unspecified, E66.01 - Morbid (severe) obesity due to excess calories Basic Metabolic Panel Fasting 3 Months E03.9 - Hypothyroidism, unspecified, F33.9 - Major depressive disorder, recurrent, unspecified, E78.5 - Hyperlipidemia, unspecified, E66.01 - Morbid (severe) obesity due to excess calories Medications: New lorazepam 0.5 mg PO DAILY PRN 20 tabs 0RF anxiety Refilled buspirone 10 mg PO BID 180 tabs 3RF Discontinued lorazepam take lorazepam at least 30 mins before prcedure Discontinued Reason: Doctor's Order 1 mg (2 x 0.5 mg) PO ONCE PRN 2 tabs 0RF anxiety prior to mri Coding Level of Care Code Est Pt Level 3 (58402) Diagnoses Acquired hypothyroidism E03.9 Recurrent major depression F33.9 Active/Remission status: currently active Psychotic features: without psychotic features Dyslipidemia E78.5
[2023-02-04 13:38] VITALS: BP 100/62; PULSE 82; O2SAT 96; BMI 38.5
== END 2023-02-04 14:08 | disposition home or self-care (01) ==
PROVIDERS: Visit Provider Internal Medicine
DX: E03.9 Hypothyroidism, unspecified (principal); F33.9 Major depressive disorder, recurrent, unspecified; E78.5 Hyperlipidemia, unspecified
CPT/HCPCS: 99213

== ENCOUNTER 2023-02-24 19:28 | Emergency (ER) | payer OTHER, SELFPAY ==
[2023-02-24 19:34] VITALS: BP 127/77; PULSE 78; O2SAT 98
[2023-02-24 19:40] VITALS: BP 109/80; PULSE 83; RESP 18; TEMP 36.6; O2SAT 99; BMI 39.7
--- NOTE | 2023-02-24 19:44 | ED_ITS ---
HPI - General Adult General Chief complaint: General Medical Stated complaint: CHOKED ON PIECE OF STEAK Related Data Home Medications Medication Instructions Recorded Confirmed gabapentin 800 mg tablet 800 mg PO TID 03/31/20 08/23/22 topiramate 100 mg tablet 100 mg PO BID 03/31/20 08/23/22 calcium carbonate 600 mg calcium 600 mg PO BID 07/04/20 08/23/22 (1,500 mg) tablet (Calcium) cetirizine 10 mg capsule (Zyrtec) 10 mg PO DAILY PRN Allergy Symptoms 07/04/20 08/23/22 coenzyme Q10 100 mg capsule 200 mg PO DAILY 07/04/20 08/23/22 (CoQ-10) glucosamine sulfate 500 mg tablet 500 mg PO DAILY 07/04/20 08/23/22 (Glucosamine) multivitamin 1 tab PO DAILY 07/04/20 08/23/22 omeprazole 20 mg capsule,delayed 20 mg PO DAILY 07/04/20 08/23/22 release azelaic acid 15 % topical gel topical 07/03/22 08/23/22 desonide 0.05 % topical ointment topical 07/03/22 08/23/22 nystatin 100,000 unit/gram topical topical 07/03/22 08/23/22 ointment tretinoin 0.025 % topical cream appl topical 07/03/22 08/23/22 tretinoin 0.05 % topical cream appl topical 07/03/22 08/23/22 methocarbamol 750 mg tablet 750 mg PO BID PRN muscle spasm 02/04/23 Previous Rx's Medication Instructions Recorded acetaminophen 500 mg tablet 1,000 mg (2 x 500 mg) PO Q6H PRN 08/08/20 (Tylenol Extra Strength) pain #30 tabs docusate sodium 100 mg capsule 100 mg PO BID #30 caps 08/08/20 (Colace) mometasone 0.1 % topical cream 1 appl topical DAILY PRN skin 01/03/21 irritation #45 grams levothyroxine 50 mcg tablet 50 mcg PO QAM #90 tabs 03/23/22 ezetimibe 10 mg tablet 10 mg PO DAILY #90 tabs 05/23/22 clotrimazole-betamethasone 1 See Rx Instructions topical BID 10 07/09/22 %-0.05 % topical cream days #45 grams sumatriptan succinate 50 mg tablet 50 mg PO Q2-4H PRN for migraine 07/09/22 #12 tabs rosuvastatin 40 mg tablet 40 mg PO DAILY 90 days #90 tabs 11/28/22 venlafaxine 150 mg 150 mg PO QAM #90 caps 12/19/22 capsule,extended release 24 hr buspirone 10 mg tablet 10 mg PO BID #180 tabs 02/04/23 lorazepam 1 mg tablet 1 mg PO BEDTIME PRN anxiety/sleep 02/05/23 #10 tabs Allergies Allergy/AdvReac Type Severity Reaction Status Date / Time Sulfa (Sulfonamide Allergy Severe swelling Verified 02/04/23 13:32 Antibiotics) of lips [SULFA (SULFONAMIDE and tongue ANTIBIOTICS)] Penicillins [PENICILLINS] Allergy Unknown UNKNOWN Verified 02/04/23 13:32 [facility] Past Medical History Medical History Acne comedone Acquired hypothyroidism Annual visit for general adult medical examination with abnormal findings Causalgia of left lower limb Chronic gastroesophageal reflux disease Chronic pain Chronic pain syndrome Depression Dyslipidemia Hiatal hernia History of migraine Hx of cardiac murmur Hx of gastroesophageal reflux (GERD) Hx of varicose veins Hypothyroidism Intestinal malabsorption following gastrectomy nursing home (current) use of opiate analgesic Morbid obesity with BMI of 45.0-49.9, adult Osteoarthritis Patient on methadone maintenance therapy Recurrent major depression Spondylosis without myelopathy or radiculopathy, lumbar region Urinary incontinence in female Varicose veins of bilateral lower extremities with pain Surgical History History of adjustable gastric banding History of bariatric surgery History of removal of laparoscopic gastric banding device History of repair of hiatal hernia History of total left knee replacement History of total right knee replacement Hx of colonoscopy LAP-BAND surgery status S/P foot surgery, left S/P laparoscopic sleeve gastrectomy Status post vein stripping (11/25/20) Family History Family History Father History of throat cancer History of [place] (myocardial infarction) Type 2 diabetes mellitus Mother Hyperlipidemia CVD (cardiovascular disease) HTN (hypertension) Maternal Aunt No problems noted. Son Paraplegia Son No problems noted. Paternal Grandmother Type 2 diabetes mellitus Maternal Grandmother Alzheimer's dementia Brother No problems noted. Sister No problems noted. 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 Patient is a 62-year-old female who presents emergency department for evaluation of a food bolus sensation in her esophagus after choking on a piece of steak earlier today. She has had some difficulty swallowing since then, has attempted water at time she is coughing immediately, at the time of exam she is swallowing normally. She is speaking clear full sentences. There is no respiratory distress, hypoxia or tachypnea. Discharge Plan Discharge Clinical Impression: Globus sensation Patient Disposition: Elopement Prescriptions: No Action acetaminophen [Tylenol Extra Strength] 500 mg tablet 1,000 mg PO Q6H PRN (Reason: pain) Qty: 30 1RF docusate sodium [Colace] 100 mg capsule 100 mg PO BID Qty: 30 1RF levothyroxine 50 mcg tablet 50 mcg PO QAM Qty: 90 3RF ezetimibe 10 mg tablet 10 mg PO DAILY Qty: 90 1RF rosuvastatin 40 mg tablet 40 mg PO DAILY 90 Days Qty: 90 1RF venlafaxine 150 mg capsule,extended release 24hr 150 mg PO QAM Qty: 90 1RF lorazepam 1 mg tablet 1 mg PO BEDTIME PRN (Reason: anxiety/sleep) Qty: 10 0RF Rx Instructions: Take 1/2 tablet as needed for difficulty sleeping/anxiety attacks at bedtime gabapentin 800 mg tablet 800 mg PO TID topiramate 100 mg tablet 100 mg PO BID methocarbamol 750 mg tablet 750 mg PO BID PRN (Reason: muscle spasm) mometasone 0.1 % cream 1 appl topical DAILY PRN (Reason: skin irritation) Qty: 45 1RF sumatriptan succinate 50 mg tablet 50 mg PO Q2-4H PRN (Reason: for migraine) Qty: 12 2RF clotrimazole-betamethasone 1-0.05 % cream See Rx Instructions topical BID 10 Days Qty: 45 1RF Rx Instructions: apply thin film to affected area topically 2 times a day; buspirone 10 mg tablet 10 mg PO BID Qty: 180 3RF multivitamin Tablet 1 tab PO DAILY omeprazole 20 mg capsule,delayed release(DR/EC) 20 mg PO DAILY Zyrtec 10 mg capsule 10 mg PO DAILY PRN (Reason: Allergy Symptoms) calcium carbonate [Calcium 600] 600 mg calcium (1,500 mg) tablet 600 mg PO BID coenzyme Q10 [CoQ-10] 100 mg capsule 200 mg PO DAILY glucosamine sulfate [Glucosamine] 500 mg tablet 500 mg PO DAILY Rx Instructions: administer with a meal tretinoin 0.05 % cream topical desonide 0.05 % ointment topical azelaic acid 15 % gel topical nystatin 100,000 unit/gram ointment topical tretinoin 0.025 % cream topical Discharge Date/Time: 02/24/23 21:50
== END 2023-02-24 21:50 | disposition left against medical advice (07) ==
LOC: HO.ED 21:40
PROVIDERS: Emergency Provider Emergency Medicine
DX: R09.89 Other specified symptoms and signs involving the circulatory and respiratory systems (principal)
CPT/HCPCS: 99281; 99282

== ENCOUNTER → 2023-04-22 13:15 | Outpatient (BNV) | payer OTHER, SELFPAY | PROVIDERS: PCP Internal Medicine; Visit Provider Radiology Diagnostic Radiology | DX: Z12.31 Encounter for screening mammogram for malignant neoplasm of breast (principal) | CPT/HCPCS: 77063; 77067 ==

== ENCOUNTER 2023-04-22 13:16 | Outpatient (REF) | payer OTHER, SELFPAY ==
--- NOTE | ~2023-04-22 | MM_ITS ---
EXAMINATION: MM SCREENING DIGITAL BREAST TOMOSYNTHESIS, BILATERAL CLINICAL INFORMATION: Screening. Asymptomatic. COMPARISON: Mammography: This study is compared with prior exams dating back to 2019. TECHNIQUE: Digital breast tomosynthesis is performed in both the craniocaudal and mediolateral oblique views along with computer-aided detection (CAD). Synthesized 2D images are generated from the tomosynthesis. FINDINGS: There are scattered areas of fibroglandular density (ACR BI-RADS breast composition Category b). There are no significant masses, abnormal calcifications, or other abnormalities. There are unchanged, benign calcifications in the superior aspect of the right breast. MM/MM tomosynthesis screening BI IMPRESSION: No mammographic evidence of malignancy. ASSESSMENT: BI-RADS BI-RADS 2 - Benign Findings RECOMMENDATION: Routine annual mammography screening. 1 year F/U This examination should not preclude the clinical evaluation of a suspicious palpable abnormality. This patient's information was entered into a reminder system with a target due date for their next mammogram.
== END 2023-04-22 13:17 | disposition home or self-care (01) ==
LOC: HO.MAMMO 13:16
PROVIDERS: PCP Internal Medicine; Visit Provider Internal Medicine
DX: Z12.31 Encounter for screening mammogram for malignant neoplasm of breast (principal)
CPT/HCPCS: 77063; 77067

== ENCOUNTER 2023-05-14 12:01 | Outpatient (REF) | payer OTHER, SELFPAY ==
[2023-05-14 14:32] LABS: Alanine Aminotransferase 21 U/L (0-31); Anion Gap 11 (12-20); Aspartate Amino Transferase 19 U/L (5-31); Blood Urea Nitrogen 15 mg/dL (9-16); Carbon Dioxide 27 mmol/L (22-29); Chloride 108 mmol/L (96-108); Cholesterol 200 mg/dL (<200); Estimated Glomerular Filt Rate > 60; Free T4 (Free Thyroxine) 0.81 ng/dL (0.71-1.85); Glucose Fasting 88 mg/dL (60-99); HDL Cholesterol 48 mg/dL (>40); LDL Cholesterol Calculated 137 mg/dL (<100); Potassium 3.5 mmol/L (3.3-5.1); Sodium 142 mmol/L (135-145); Thyroid Stimulating Hormone 2.24 uIU/mL (0.32-4.0); Triglycerides 75 mg/dL (<150)
== END 2023-05-14 12:02 | disposition home or self-care (01) ==
LOC: HO.HMGCLDS 12:01
PROVIDERS: PCP Internal Medicine; Visit Provider Internal Medicine
DX: E03.9 Hypothyroidism, unspecified (principal); F33.9 Major depressive disorder, recurrent, unspecified; E78.5 Hyperlipidemia, unspecified; E66.01 Morbid (severe) obesity due to excess calories
CPT/HCPCS: 36415; 80048; 80061; 84439; 84443; 84450; 84460

== ENCOUNTER 2023-06-03 13:01 | Outpatient (AMB) | payer OTHER, SELFPAY ==
[2023-06-03 13:46] VITALS: BP 120/82; PULSE 76; O2SAT 98; BMI 40.6
--- NOTE | 2023-06-03 13:46 | MHC.PC.OV ---
Vital Signs 06/03/23 13:46 Height 5 ft 1 in Weight 215 lb BMI 40.6 BP 120/82 Blood Pressure Location Lt brachial Position Sitting Pulse 76 Pulse Source Pulse Oximeter Pulse Oximetry (%) 98 Oxygen Delivery Method Room Air Intake Visit Reasons: 4 month f/u Intake Note: Pt is here to follow up for her Lab results Allergies Sulfa (Sulfonamide Antibiotics) [SULFA (SULFONAMIDE ANTIBIOTICS)] Allergy (Severe, Verified 06/03/23 14:04) swelling of lips and tongue Penicillins [PENICILLINS] Allergy (Unknown, Verified 06/03/23 14:04) UNKNOWN Medication List - Last Reconciled 06/03/23 by Perla Ny MD acetaminophen (Tylenol Extra Strength) 1,000 mg (2 x 500 mg) PO Q6H PRN azelaic acid 15% topical buspirone 10 mg PO BID calcium carbonate (Calcium) 600 mg PO BID cetirizine (Zyrtec) 10 mg PO DAILY PRN cevimeline caps PO clotrimazole-betamethasone 1-0.05 % apply thin film to affected area topically 2 times a day; 10 days coenzyme Q10 (CoQ-10) 200 mg PO DAILY desonide 0.05% topical docusate sodium (Colace) 100 mg PO BID ezetimibe 10 mg PO DAILY gabapentin 800 mg PO TID glucosamine sulfate (Glucosamine) 500 mg PO DAILY levothyroxine 50 mcg PO QAM lorazepam 1 mg PO BEDTIME PRN methocarbamol 750 mg PO BID PRN mometasone 0.1% 1 appl topical DAILY PRN multivitamin 1 tab PO DAILY nystatin topical omeprazole 20 mg PO DAILY rosuvastatin 40 mg PO DAILY 90 days sumatriptan succinate 50 mg PO Q2-4H PRN topiramate 100 mg PO BID tretinoin 0.025% appl topical tretinoin 0.05% appl topical venlafaxine ER 150 mg PO QAM Tobacco use date assessed: 06/03/23 Dental Screening Dental Screen Date: 06/03/23 Did you have a dental visit in the last 12 months?: Yes Did you have a dental problem in the last 6 months where you did not have access to dental care?: No Was dental information given to patient?: Patient has dentist HPI 4 month f/u HPI Details 62-year-old lady here today for follow-up on her lipids, depression and hypothyroidism. Currently taking ezetimibe 10 mg daily and rosuvastatin 40 mg daily. Recent fasting labs showed lipids within normal limits and LDL cholesterol lower than last visit. Thyroid levels are within normal limits. States that she is feeling better on venlafaxine 150 mg once a day, in addition to taking buspirone 10 mg 1 tablet twice a day. She however has been having recurrent episodes of difficulty swallowing solids. Has had episodes where she would end up choking while eating , and ups with coughing fits. This has been ongoing now for the last several months and getting worse. She has been cutting upper food instead to small pieces to prevent choking on it, but sometimes this does not even help. 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 Spondylosis without myelopathy or radiculopathy, lumbar region Chronic pain syndrome Causalgia of left lower limb Annual visit for general adult medical examination with abnormal findings Acne comedone Hx of varicose veins Varicose veins of bilateral lower extremities with pain Hiatal hernia Intestinal malabsorption following gastrectomy Hypothyroidism Hx of gastroesophageal reflux (GERD) Hx of cardiac murmur Chronic pain Urinary incontinence in female Chronic gastroesophageal reflux disease Recurrent major depression Patient on methadone maintenance therapy Acquired hypothyroidism Osteoarthritis Morbid obesity with BMI of 45.0-49.9, adult Dyslipidemia Depression Surgical History Status post vein stripping (11/25/20) History of repair of hiatal hernia History of adjustable gastric banding S/P laparoscopic sleeve gastrectomy Hx of colonoscopy History of total right knee replacement History of bariatric surgery History of removal of laparoscopic gastric banding device History of total left knee replacement S/P foot surgery, left LAP-BAND surgery status Family History Father History of throat cancer History of PR (myocardial infarction) Type 2 diabetes mellitus Mother Hyperlipidemia CVD (cardiovascular disease) HTN (hypertension) Maternal Aunt No problems noted. Son Paraplegia Son No problems noted. Paternal Grandmother Type 2 diabetes mellitus Maternal Grandmother Alzheimer's dementia Brother No problems noted. Sister No problems noted. 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 1. Little interest or pleasure in doing things: not at all 2. Feeling down, depressed, or hopeless: not at all 3. Trouble falling or staying asleep, or sleeping too much: several days 4. Feeling tired or having little energy: several days 5. Poor appetite or overeating: not at all 6. Feeling bad about yourself - or that you are a failure or have let yourself or your family down: not at all 7. Trouble concentrating on things, such as reading the newspaper or watching television: not at all 8. Moving or speaking so slowly that other people could have noticed. Or the opposite - being so fidgety or restless that you have been moving around a lot more than usual: not at all 9. Thoughts that you would be better off or of hurting yourself in some way: not at all Total score: 2 Depression Screening Interpretation: Negative Depression Screening Done: Yes 54147 - PHQ-9 Billing: Yes Source: Developed by Drs. Yaw Nowak, Santa Villarreal, Adonis Cuenca and colleagues, with an educational saurabh from [employer]. Thrive Questionnaire Date Thrive assessed: 07/09/22 DALLIN-7 AMB Questionnaire DALLIN-7 Date DALLIN - 7 assessed: 07/09/22 Source: Developed by Drs. Yaw Nowak, Santa Villarreal, Adonis Cuenca and colleagues, with an educational saurabh from [employer]. Review of Systems Const Denies fatigue, Denies fever(s) and Denies headache(s) ENT Denies headache(s) Card Denies chest pain, Denies lightheadedness, Denies palpitations and Denies dyspnea Resp Denies chest congestion, Denies cough, Denies dyspnea and Denies wheezing GI Reports as per HPI, Denies abdominal pain, Denies change in bowel habits and Denies heartburn Denies urinary frequency, Denies dysuria and Denies urinary urgency Musc Details: Unable to stand or go up and down stairs due to chronic pain in left foot Reports as per HPI Neuro Denies headache(s) Psych Reports no additional complaints Endo Denies fatigue and Denies palpitations Gee/Lymph Denies easy bruising Aller/Immun Denies seasonal rhinorrhea and Denies wheezing Physical exam (Primary Care) Vital Signs: Last Vital Signs Pulse 76 06/03/23 13:46 BP 120/82 06/03/23 13:46 Pulse Ox 98 06/03/23 13:46 Oxygen Delivery Method Room Air 06/03/23 13:46 BMI result Body Mass Index 40.6 Tobacco/Smoking Status: Tobacco use Status Tobacco use date assessed 06/03/23 06/03/23 13:53 Patient Tobacco Use Status Former Tobacco user 06/03/23 13:48 Tobacco use type Cigarette 06/03/23 13:48 e-Cigarette/Vaping Use Never Used 06/03/23 13:48 Depression Screening Interpretation: Negative Thrive Assessment: Date of Thrive Assessment Date Thrive assessed 07/09/22 06/03/23 13:48 Const General: cooperative, no acute distress and alert Orientation/consciousness: patient oriented x3 Limitations: ambulation with cane HENMT Ears: TM's normal bilaterally and EAC's normal General nose exam: Normal external nose present and No nasal discharge present Face and sinus: Yes face symmetric Mouth: Normal oral and palatal mucosa present, oropharynx normal and moist mucous membranes Eyes General: appearance normal, both eyes and all related structures Neck Other: Supple, no lymphadenopathy, thyroid gland nonpalpable Resp Effort & Inspection: normal respiratory effort and able to speak in complete sentences Auscultation: clear to auscultation bilaterally Cardio Other: S1-S2 present regular rate and rhythm GI Inspection: Yes obesity Palpation (GI): Soft to palpation, nontender, no guarding and no masses Neuro General: patient oriented x3 Extrem Other: Positive healed scar surgical scars noted on dorsal aspect of left foot, decreased range of motion of foot and ankle due to pain Psych Appearance: grossly normal and well kempt Mental Status: mental status grossly normal Speech and movement: Normal speech and movement present Affect: normal affect Attitude: cooperative Thought process: Normal thought process present Results Reviewed Results Reviewed: ENTERED: 05/14/23-1206 CHU GOYAL: ORDERED: Met Prof Fast, AST, ALT, Lipid Panel, Free T4, TSH Test Result Flag Reference Site Sodium 142 135-145 mmol/L Potassium 3.5 3.3-5.1 mmol/L CL 108 96-108 mmol/L CO2 27 22-29 mmol/L Gap 11 L 12-20 BUN 15 9-16 mg/dL Creat 0.72 0.5-1.4 mg/dL EGFR > 60 NOTE: For -Wallisian individuals, multiply the result by 1.210. Chronic Kidney Disease: Estimated GFR < 60 mL/min/1.73m2 Severe Kidney Disease: Estimated GFR < 15 mL/min/1.73m2 FBS 88 60-99 mg/dL CA 9.0 8.4-10.2 mg/dL AST (GOT) 19 5-31 U/L ALT (GPT) 21 0-31 U/L Triglyceride 75 <150 mg/dL Desirable Triglyceride: less than 150 mg/dL Borderline High Triglyceride 150-199 mg/dL High Triglyceride: 200-499 mg/dL Very High Triglyceride: greater than or equal to 5OO mg/dL Cholesterol 200 H <200 mg/dL Desirable Cholesterol: less than 200 mg/dL Borderline High Cholesterol: 200-239 mg/dL High Cholesterol: greater than 239 mg/dL LDL Calculated 137 H <100 mg/dL Desirable LDL: less than 100 mg/dL Near Optimal/Above Optimal LDL: 110-129 mg/dL Borderline High LDL: 130-159 mg/dL High LDL: 160-189 mg/dL Very High LDL: greater than or equal to 190 mg/dL HDL 48 >40 mg/dL Desirable HDL: greater than 40 mg/dL Note: This HDL assay may give artificially low results in patients with liver disease. Free T4 0.81 0.71-1.85 ng/dL TSH 3rd Gen. 2.24 0.32-4.0 uIU/mL Assessment and Plan Assessment & Plan (1) Difficulty swallowing solids: Code(s): R13.10 - Dysphagia, unspecified Plan: Ordered a barium swallow further evaluation, advised to continue cutting food up into small pieces and drink plenty of water, return to the clinic for follow-up after test done (2) Acquired hypothyroidism: Code(s): E03.9 - Hypothyroidism, unspecified Plan: Continue with current dose of levothyroxine 50 mcg daily (3) Dyslipidemia: Code(s): E78.5 - Hyperlipidemia, unspecified Plan: Improvement in LDL cholesterol noted, continue with ezetimibe and rosuvastatin at the same dose Orders: Orders FL barium swallow 06/03/23 R13.10 - Dysphagia, unspecified Coding Level of Care Code Est Pt Level 4 (96043) Diagnoses Difficulty swallowing solids R13.10 Acquired hypothyroidism E03.9 Dyslipidemia E78.5
== END 2023-06-03 14:24 | disposition home or self-care (01) ==
PROVIDERS: PCP Internal Medicine; Visit Provider Internal Medicine
DX: R13.10 Dysphagia, unspecified (principal); E03.9 Hypothyroidism, unspecified; E78.5 Hyperlipidemia, unspecified
CPT/HCPCS: 99214

== ENCOUNTER 2023-07-10 14:30 | Outpatient (AMB) | payer OTHER, SELFPAY ==
--- NOTE | 2023-07-10 14:44 | A.OFFVIS_ITS ---
Intake Vital Signs 07/10/23 14:45 Height 5 ft 1 in Weight 214 lb BMI 40.4 Intake Visit Reasons: Annual Fluoroscope Operator Required: No Information Interpreted: non-clinical & clinical Commissioned Police Officer: Commissioned Police Officer Present (Aidyn) Allergies Sulfa (Sulfonamide Antibiotics) [SULFA (SULFONAMIDE ANTIBIOTICS)] Allergy (Severe, Verified 07/10/23 14:47) swelling of lips and tongue Penicillins [PENICILLINS] Allergy (Unknown, Verified 07/10/23 14:47) UNKNOWN Is last menstrual period known: No Post menopausal: Yes Patient : No HPI HPI Comments History of Present Illness Details She is a 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 She is doing well with no concerns. Attempting to eat a healthy diet with calcium and vitamin D, she uses a cane for walking due to foot and sciatica pain. Plans a nerve stimulator. Currently sexually active. Denies any vaginal dryness or irritation. Last pap smear; 2018, negative. Last mammogram; 2022. Colonoscopy is UTD. Denies any family history of breast, ovarian or colon cancer. 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 Spondylosis without myelopathy or radiculopathy, lumbar region Chronic pain syndrome Causalgia of left lower limb Annual visit for general adult medical examination with abnormal findings Acne comedone Hx of varicose veins Varicose veins of bilateral lower extremities with pain Hiatal hernia Intestinal malabsorption following gastrectomy Hypothyroidism Hx of gastroesophageal reflux (GERD) Hx of cardiac murmur Chronic pain Urinary incontinence in female Chronic gastroesophageal reflux disease Recurrent major depression Patient on methadone maintenance therapy Acquired hypothyroidism Osteoarthritis Morbid obesity with BMI of 45.0-49.9, adult Dyslipidemia Depression Surgical History Status post vein stripping (11/25/20) History of repair of hiatal hernia History of adjustable gastric banding S/P laparoscopic sleeve gastrectomy Hx of colonoscopy History of total right knee replacement History of bariatric surgery History of removal of laparoscopic gastric banding device History of total left knee replacement S/P foot surgery, left LAP-BAND surgery status Family History Father History of throat cancer History of MA (myocardial infarction) Type 2 diabetes mellitus Mother Hyperlipidemia CVD (cardiovascular disease) HTN (hypertension) Maternal Aunt No problems noted. Son Paraplegia Son No problems noted. Paternal Grandmother Type 2 diabetes mellitus Maternal Grandmother Alzheimer's dementia Brother No problems noted. Sister No problems noted. 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 you a primary rn patient care to a significant other at home: Yes (Son - paraplegic) Do you presently have visiting nurse or other home services: No Alcohol intake: never Comment: pt sleeping Patient Tobacco Use Status: Former Tobacco user Tobacco use type: Cigarette Cigarettes Per Day: 3 Years Smoked: 14 e-Cigarette/Vaping Use: Never Used Second Hand Smoke Exposure: No Patient : No service: No Current occupational status: unemployed Cognitive needs: No Hearing needs: No Vision needs: Yes Female Reproductive History Menstrual Age of Menarche: 14 control method: none Total pregnancies: 2 Full term: 2 Number of Living Children: 2 Date of last pap smear: 05/06/19 (negative) History of abnormal pap smear: No Date of Mammogram: 04/22/23 Review of Systems Const All systems reviewed & are unremarkable except as noted in HPI and below Reports as per HPI Eyes Reports no additional complaints ENT Reports no additional complaints Card Reports no additional complaints Resp Reports no additional complaints GI Reports as per HPI and Reports no additional complaints Reports as per HPI Musc Reports no additional complaints Skin/Breast Reports as per HPI Neuro Reports no additional complaints Psych Reports no additional complaints Endo Reports no additional complaints Gee/Lymph Reports no additional complaints Aller/Immun Reports no additional complaints Physical Exam Vital Signs: BMI result Body Mass Index 40.4 Const General: cooperative, healthy appearing, no acute distress, well developed and alert Orientation/consciousness: patient oriented x3 HEENT Head: Yes normal to inspection Eyes General: appearance normal, both eyes and all related structures Neck Neck: Yes normal visual inspection Thyroid: Thyroid normal Chest Chest palpation & inspection: normal inspection of the chest and other (no puckering, dimpling, peau de orange, retraction, discharge, masses) Breast/axilla inspection: normal inspection of the breasts Breast/axilla palpation: normal palpation of the breasts Resp Effort & Inspection: normal respiratory effort GI Inspection: Yes normal to inspection Palpation (GI): Soft to palpation Rectal Exam - Female: deferred General: Yes bladder normal to palpation External Female Exam: normal external appearance and normal appearance of the urethra Speculum Exam - Vagina: normal appearance of the vagina, normal palpation, normal vaginal discharge and vagina atrophic Speculum Exam - Cervix: normal appearance of the cervix, normal palpation and Other cervical findings present (Bled slightly with Pap) Bimanual exam- vagina & uterus: normal bimanual exam, normal palpation, uterine size normal, bladder normal to palpation, normal palpation and non-tender Bimanual Exam- Adnexa, other: no masses Skin General skin exam: no rashes or lesions noted Rashes: no rashes Neuro General: patient oriented x3 Cognition (Neuro): normal cognition Extrem General: Yes normal to inspection Psych Attitude: cooperative Thought process: Normal thought process present Assessment & Plan Assessment & Plan (1) Encounter for well woman exam with routine gynecological exam: Code(s): Z01.419 - Encounter for gynecological examination (general) (routine) without abnormal findings Plan Discussed: Current recommendations for pap smears per ASCCP guidelines. Breast awareness, periodic self breast exams and yearly mammogram. Maintain a healthy lifestyle, well balanced diet including Calcium 1,200 mg and Vitamin D 600 IU daily, and routine exercise. Contact the office with any postmenopausal bleeding. All of her questions and concerns were addressed to the best of my ability. RTO in 1 year for annual cottage attendant exam. This note is constructed using voice recognition software. While every effort has been made to ensure accuracy, lotus notes administrator errors may have been included. Coding Level of Care Code Est Pt Prev Care 40-64y(64636) Diagnoses Encounter for well woman exam with routine gynecological exam Z01.419
[2023-07-10 14:45] VITALS: BMI 40.4
== END 2023-07-10 15:19 | disposition home or self-care (01) ==
LOC: HO.HWS 14:30
PROVIDERS: PCP Internal Medicine; Visit Provider Advanced Practice Midwife
DX: Z01.419 Encounter for gynecological examination (general) (routine) without abnormal findings (principal)
CPT/HCPCS: 99396

== ENCOUNTER 2023-07-10 14:30 | Outpatient (REF) | payer OTHER, SELFPAY ==
[2023-07-13 09:29] LABS: HPV mRNA E6/E7 rflx Not Detected (Not Detected)
== END 2023-07-10 14:31 | disposition home or self-care (01) ==
LOC: HO.LNP 14:30
PROVIDERS: PCP Internal Medicine; Visit Provider Advanced Practice Midwife
DX: Z01.419 Encounter for gynecological examination (general) (routine) without abnormal findings (principal); Z11.51 Encounter for screening for human papillomavirus (HPV)
CPT/HCPCS: 87624; 88142

== ENCOUNTER 2023-08-16 09:37 | Outpatient (REF) | payer OTHER, SELFPAY ==
--- NOTE | ~2023-08-16 | FL_ITS ---
EXAMINATION: XR FLUOROSCOPY UPPER GI WITH AIR CLINICAL INFORMATION: Dysphagia. Epigastric pain. History of gastric sleeve COMPARISON: Upper GI 08/2015 TECHNIQUE: Fluoroscopic air contrast upper GI examination was performed utilizing standard techniques with thin and thick barium and effervescent granules. Numerous spot images were obtained. FINDINGS: Lateral cine images of the oropharynx and hypopharynx demonstrate normal swallow mechanism with normal epiglottic inversion and soft palate elevation. There was premature spillage of barium into the piriform sinuses and vallecula. No tracheal penetration, glottic or subglottic aspiration identified. No nasopharyngeal reflux present. Hypopharyngeal structures appear normal without evidence of mass or diverticulum. There was no significant cricopharyngeal achalasia. Dual and single contrast images of the esophagus demonstrate normal caliber, contour, and mucosal pattern. No evidence of stricture, mass, or ulcerations identified. Esophageal peristalsis is mildly disorganized. A small to moderate sized type I hiatal hernia is present. There is a right lateral outpouching of contrast from the hiatus hernia, possibly a diverticulum or ulceration (RF 1-7, image 85 of 90). There is a mild to moderate narrowing of the esophagus at the distal squamocolumnar junction, likely Schatzki's ring versus benign stricture (RF 1-10, image 57 of 101). Gastroesophageal reflux is seen up to the thoracic inlet. Dual contrast and single contrast images of the stomach demonstrated expected contour with prior history of sleeve gastrectomy. Mucosal pattern is normal, without evidence of mass, ulceration, or other abnormality. Contrast freely passed into the gastric antrum and duodenal bulb without delay. Single and air-contrast images of the duodenal bulb demonstrate no abnormality. The duodenal sweep has a normal appearance, course, and mucosal fold appearance. No evidence of malrotation. The imaged proximal jejunum has a normal fold pattern and caliber. FLUOROSCOPY TIME: 3 minutes 19 seconds Number of Spot Images: 13 Number of Cine: 10 DOSE AREA PRODUCT: 2075 uGy-m2 (microgray-meter squared) FL/FL barium swallow IMPRESSION: 1. Mild esophageal dysmotility. 2. Small to moderate size hiatal hernia, with a right lateral outpouching of contrast from the hiatus hernia, most likely a diverticulum. 3. There is a mild to moderate narrowing at the squamocolumnar junction above the hernia, likely Schatzki's ring versus short benign stricture. 4. Significant gastroesophageal reflux. 5. Expected changes of the stomach status post sleeve gastrectomy. This procedure was performed by Kahlil Velarde PA-C, and supervised by Dr. Ramírez
== END 2023-08-16 09:38 | disposition home or self-care (01) ==
LOC: HO.XRAY 09:37
PROVIDERS: PCP Internal Medicine; Visit Provider Internal Medicine
DX: R13.10 Dysphagia, unspecified (principal)
CPT/HCPCS: 74220

== ENCOUNTER → 2023-08-16 09:39 | Outpatient (BNV) | payer OTHER, SELFPAY | PROVIDERS: PCP Internal Medicine; Visit Provider Physician Assistant Surgical | DX: R13.10 Dysphagia, unspecified (principal) | CPT/HCPCS: 74221 ==

== ENCOUNTER 2023-09-06 10:07 | Outpatient (AMB) | payer OTHER, SELFPAY ==
--- NOTE | 2023-09-06 11:07 | AM.OFFWIN_ITS ---
Intake Vital Signs 09/06/23 11:08 Height 5 ft 1 in Weight 223 lb BMI 42.1 BP 130/70 Blood Pressure Location Lt brachial Position Sitting Pulse 83 Pulse Source Pulse Oximeter Temp 97.2 F Temp Source Temporal Artery Scan Pulse Oximetry (%) 99 Oxygen Delivery Method Room Air Intake Visit Reasons: EST/sinus pressure (lobby masked) Intake Note: pt is here today for sinus pressure started saturday Patient Tobacco Use Status: Former Tobacco user Allergies Sulfa (Sulfonamide Antibiotics) [SULFA (SULFONAMIDE ANTIBIOTICS)] Allergy (Severe, Verified 09/06/23 11:11) swelling of lips and tongue Penicillins [PENICILLINS] Allergy (Unknown, Verified 09/06/23 11:11) UNKNOWN Do you need a note to return to daycare/school/sports/work: No HPI HPI Comments History of Present Illness Details 63 y/o female patient who presenst to rob rodriguez in clinic with c/o URI. Reports sinus pressure and headaches. Symptoms started Saturday. She has been taking OTC remedies with some relief. 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) use of opiate analgesic Spondylosis without myelopathy or radiculopathy, lumbar region Chronic pain syndrome Causalgia of left lower limb Annual visit for general adult medical examination with abnormal findings Acne comedone Hx of varicose veins Varicose veins of bilateral lower extremities with pain Intestinal malabsorption following gastrectomy Hypothyroidism Hx of gastroesophageal reflux (GERD) Hx of cardiac murmur Chronic pain Urinary incontinence in female Chronic gastroesophageal reflux disease Recurrent major depression Patient on methadone maintenance therapy Acquired hypothyroidism Osteoarthritis Morbid obesity with BMI of 45.0-49.9, adult Dyslipidemia Depression Surgical History Status post vein stripping (11/25/20) History of repair of hiatal hernia History of adjustable gastric banding S/P laparoscopic sleeve gastrectomy Hx of colonoscopy History of total right knee replacement History of bariatric surgery History of removal of laparoscopic gastric banding device History of total left knee replacement S/P foot surgery, left LAP-BAND surgery status Family History Father History of throat cancer History of [place] (myocardial infarction) Type 2 diabetes mellitus Mother Hyperlipidemia CVD (cardiovascular disease) HTN (hypertension) Maternal Aunt No problems noted. Son Paraplegia Son No problems noted. Paternal Grandmother Type 2 diabetes mellitus Maternal Grandmother Alzheimer's dementia Brother No problems noted. Sister No problems noted. 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 you a primary care management specialist to a significant other at home: Yes (Son - paraplegic) Do you presently have visiting nurse or other home services: No Alcohol intake: never Comment: pt sleeping Patient Tobacco Use Status: Former Tobacco user Tobacco use type: Cigarette Cigarettes Per Day: 3 Years Smoked: 14 e-Cigarette/Vaping Use: Never Used Second Hand Smoke Exposure: No service: No Current occupational status: unemployed Cognitive needs: No Hearing needs: No Vision needs: Yes Female Reproductive History Menstrual Age of Menarche: 14 Review of Systems Const All systems reviewed & are unremarkable except as noted in HPI and below Physical Exam Vital Signs: Last Vital Signs Temp 97.2 F 09/06/23 11:08 Pulse 83 09/06/23 11:08 BP 130/70 09/06/23 11:08 Pulse Ox 99 09/06/23 11:08 Oxygen Delivery Method Room Air 09/06/23 11:08 BMI result Body Mass Index 42.1 Const General: comfortable and no acute distress Nutritional Appearance: obese Orientation/consciousness: patient oriented x3 HEENT Head: Yes normocephalic Ears: external ears normal and TM's normal bilaterally General nose exam: Abnormal mucous membranes and turbinates present boggy and erythematous and Nasal discharge present Face and sinus: Yes sinus tenderness Mouth: moist mucous membranes Throat: Yes posterior oropharynx normal Resp Effort & Inspection: normal respiratory effort, able to speak in complete sentences and no audible wheezes Auscultation: clear to auscultation bilaterally, no crackles, no rales, no rhonchi and no wheezes Cardio Rate: regular rate Rhythm: regular rhythm Neuro General: patient oriented x3 Assessment & Plan Assessment & Plan (1) Acute rhinosinusitis: Code(s): J01.90 - Acute sinusitis, unspecified Plan: - Rest and hydrate with warm fluids - Acetaminophen for pain relief - Take medicine as directed. Plan - Rest and hydrate with warm fluids - Acetaminophen for pain relief - Take medicine as directed. Orders: Orders SARS-CoV2/FLU/RSV Today J01.90 - Acute sinusitis, unspecified Medications: New oxymetazoline 0.05% (Afrin (oxymetazoline)) 2 sprays intranasal Q12H 3 days PRN 15 mL 0RF nasal congestion J01.90 - Acute sinusitis, unspecified azithromycin 500 mg PO DAILY 3 days 3 tabs 0RF J01.90 - Acute sinusitis, unspecified Coding Level of Care Code Est Pt Level 3 (66613) Diagnoses Acute rhinosinusitis J01.90 Time Spent (min) 15
[2023-09-06 11:08] VITALS: BP 130/70; PULSE 83; TEMP 36.2; O2SAT 99; BMI 42.1
== END 2023-09-06 12:19 | disposition home or self-care (01) ==
PROVIDERS: PCP Internal Medicine; Visit Provider Nurse Practitioner Family
DX: J01.90 Acute sinusitis, unspecified (principal)
CPT/HCPCS: 99213

== ENCOUNTER 2023-09-06 11:35 | Outpatient (REF) | payer OTHER, SELFPAY ==
[2023-09-06 14:11] LABS: Influenza A PCR NEGATIVE (Negative); Influenza B PCR NEGATIVE (Negative); Resp Syncy Virus RNA Qual PCR NEGATIVE (Negative); SARS COV2 PCR INHOUSE NEGATIVE (Negative)
== END 2023-09-06 11:36 | disposition home or self-care (01) ==
LOC: HO.LAB 11:35
PROVIDERS: Visit Provider Nurse Practitioner Family
DX: Z11.52 Encounter for screening for COVID-19 (principal); Z20.822 Contact with and (suspected) exposure to COVID-19; J01.90 Acute sinusitis, unspecified
CPT/HCPCS: 0241U

== ENCOUNTER 2023-09-23 15:31 | Outpatient (REF) | payer OTHER, SELFPAY ==
--- NOTE | ~2023-09-23 | XR_ITS ---
EXAMINATION: XR SOFT TISSUE NECK CLINICAL INDICATION: Esophageal obstruction COMPARISON: None available. TECHNIQUE: 2 views of the soft tissue neck were obtained. FINDINGS: Soft tissue films of the neck demonstrate a normal larynx, pharynx and upper trachea. No soft tissue swelling or opaque foreign body is demonstrated. Mild degenerative disc changes C4-C5, C5-C6 and C6-C7 disc levels. The prevertebral soft tissues are normal. XR/XR soft tissue neck IMPRESSION: No soft tissue swelling or radiopaque foreign body seen in the neck. The airway is widely patent.
== END 2023-09-23 15:32 | disposition home or self-care (01) ==
LOC: HO.XRAY 15:31
PROVIDERS: PCP Internal Medicine; Visit Provider Nurse Practitioner Family
DX: R09.A2 Foreign body sensation, throat (principal); K22.2 Esophageal obstruction
CPT/HCPCS: 70360

== ENCOUNTER 2023-09-23 15:31 | Outpatient (AMB) | payer OTHER, SELFPAY ==
--- NOTE | 2023-09-23 15:36 | MHC.OFFVIS ---
Intake Vital Signs 09/23/23 15:46 Height 5 ft 1 in Weight 223 lb BMI 42.1 BP 121/59 L Blood Pressure Location Lt brachial Position Sitting Pulse 89 Pulse Source Pulse Oximeter Pulse Oximetry (%) 99 Oxygen Delivery Method Room Air Intake Visit Reasons: Dysphagia, GERD, Dyskinesia Intake Note: pt here for Dysphagia, gerd, dyskinesia. Information Interpreted: non-clinical & clinical Accompanied by: Self / Same As Patient Allergies Sulfa (Sulfonamide Antibiotics) [SULFA (SULFONAMIDE ANTIBIOTICS)] Allergy (Severe, Verified 09/23/23 15:40) swelling of lips and tongue Penicillins [PENICILLINS] Allergy (Unknown, Verified 09/23/23 15:40) UNKNOWN HPI Dysphagia, GERD, Dyskinesia HPI Details 63-year-old female with past medical history hiatal hernia, esophageal stricture, esophageal some debility found on barium swallow, migraine headaches, obesity, dyslipidemia, GERD, depression, hypothyroidism, status post bariatric surgery is here today for initial consultation. Patient was sent by PCP for barium swallow for symptoms of dysphagia small narrowing found above the junction suggesting benign stricture or Schatzki ring. Patient continues to have symptoms difficulty swallowing. Patient reports that she tries to eat small bites and she well. Patient denies any nausea or vomiting. Patient reports dyspepsia and acid reflux. Currently patient is on omeprazole and states that it is not helping. Patient also reports that she feels like there is something stuck in her throat. States that it feels like there is something there prevent her to have a normal swallowing. Patient reports that she had bariatric surgery done by Dr. El and hiatal hernia repaired in 2020. Patient reports that she was following her in [facility], however she has not made an appointment for while. Patient denies any nausea or vomiting. 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 Spondylosis without myelopathy or radiculopathy, lumbar region Chronic pain syndrome Causalgia of left lower limb Annual visit for general adult medical examination with abnormal findings Acne comedone Hx of varicose veins Varicose veins of bilateral lower extremities with pain Intestinal malabsorption following gastrectomy Hypothyroidism Hx of gastroesophageal reflux (GERD) Hx of cardiac murmur Chronic pain Urinary incontinence in female Chronic gastroesophageal reflux disease Recurrent major depression Patient on methadone maintenance therapy Acquired hypothyroidism Osteoarthritis Morbid obesity with BMI of 45.0-49.9, adult Dyslipidemia Depression Surgical History Status post vein stripping (11/25/20) History of repair of hiatal hernia History of adjustable gastric banding S/P laparoscopic sleeve gastrectomy Hx of colonoscopy History of total right knee replacement History of bariatric surgery History of removal of laparoscopic gastric banding device History of total left knee replacement S/P foot surgery, left LAP-BAND surgery status Family History Father History of throat cancer History of [place] (myocardial infarction) Type 2 diabetes mellitus Mother Hyperlipidemia CVD (cardiovascular disease) HTN (hypertension) Maternal Aunt No problems noted. Son Paraplegia Son No problems noted. Paternal Grandmother Type 2 diabetes mellitus Maternal Grandmother Alzheimer's dementia Brother No problems noted. Sister No problems noted. 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 you a primary neonatal intensive care unit nurse to a significant other at home: Yes (Son - paraplegic) Do you presently have visiting nurse or other home services: No Alcohol intake: never Comment: pt sleeping Patient Tobacco Use Status: Former Tobacco user Tobacco use type: Cigarette Cigarettes Per Day: 3 Years Smoked: 14 e-Cigarette/Vaping Use: Never Used Second Hand Smoke Exposure: No service: No Current occupational status: unemployed Cognitive needs: No Hearing needs: No Vision needs: Yes Female Reproductive History Menstrual Age of Menarche: 14 Review of Systems Const Denies weight gain and Denies weight loss ENT Reports no additional complaints, Reports dysphagia and Denies odynophagia Card Reports no additional complaints Resp Reports no additional complaints GI Denies abdominal pain, Denies belching, Denies melena, Denies bloating, Denies change in bowel habits, Reports dysphagia, Denies excessive flatus, Denies dyspepsia, Reports heartburn, Denies diarrhea, Denies loose stools, Denies nausea, Denies odynophagia and Denies vomiting Reports no additional complaints Musc Reports no additional complaints Neuro Reports no additional complaints Psych Reports no additional complaints Endo Reports no additional complaints Physical Exam Vital Signs: Last Vital Signs Pulse 89 09/23/23 15:46 BP 121/59 L 09/23/23 15:46 Pulse Ox 99 09/23/23 15:46 Oxygen Delivery Method Room Air 09/23/23 15:46 BMI result Body Mass Index 42.1 Const General: healthy appearing, no acute distress and well developed Nutritional Appearance: well nourished Orientation/consciousness: patient oriented x3 HEENT Throat: Yes uvula midline (Large) and Yes abnormal tonsil (Enlarged) Resp Effort & Inspection: normal respiratory effort, able to speak in complete sentences, no tracheal deviation and symmetric chest movement Auscultation: clear to auscultation bilaterally Cardio Rate: regular rate GI Inspection: Yes normal to inspection and No distended Palpation (GI): Soft to palpation, not firm, nontender and No hepatosplenomegaly present Auscultation: normal bowel sounds General: Yes no CVA tenderness Back/Spine/Pelvis Back: no CVA tenderness Skin General skin exam: elasticity normal, turgor normal and dry skin Neuro General: patient oriented x3 Psych Appearance: grossly normal Mental Status: mental status grossly normal Results Reviewed Results Reviewed: BARIUM SWALLOW RESULTS 08/24/2023 MPRESSION: 1. Mild esophageal dysmotility. 2. Small to moderate size hiatal hernia, with a right lateral outpouching of contrast from the hiatus hernia, most likely a diverticulum. 3. There is a mild to moderate narrowing at the squamocolumnar junction above the hernia, likely Schatzki's ring versus short benign stricture. 4. Significant gastroesophageal reflux. 5. Expected changes of the stomach status post sleeve gastrectomy. Assessment & Plan Assessment & Plan (1) Globus sensation: Code(s): R09.A2 - Foreign body sensation, throat (2) Difficulty swallowing solids: Code(s): R13.10 - Dysphagia, unspecified (3) Enlarged tonsils: Code(s): J35.1 - Hypertrophy of tonsils (4) Hiatal hernia: Code(s): K44.9 - Diaphragmatic hernia without obstruction or gangrene (5) Esophageal dysmotility: Code(s): K22.4 - Dyskinesia of esophagus (6) Esophageal stricture: Code(s): K22.2 - Esophageal obstruction (7) GERD (gastroesophageal reflux disease): Code(s): K21.9 - Gastro-esophageal reflux disease without esophagitis Qualifiers: Esophagitis presence: esophagitis presence not specified Qualified Code(s): K21.9 - Gastro-esophageal reflux disease without esophagitis Plan Patient has enlarged tonsils, will send her for soft tissue neck x-ray. Ear nose and throat referral made. Patient reports also dysphagia not only globus sensation. Will send patient for modified barium swallow with speech therapy. Patient will stop taking omeprazole and I will start her on esomeprazole in the morning. Patient can take famotidine at bedtime. Discussed with patient avoiding dietary triggers and late night snacking. Staying upright for minimum 3 hours after meals discussed with patient. Patient will be scheduled to go for upper endoscopy to rule out esophagitis, gastritis, evaluate for hernia, possible dilation. Patient will return in the office in 5 weeks for re-evaluation. She is agreeable to this plan and verbalizes understanding of instructions. She was given the opportunity to ask questions and all questions answered. Thank you for allowing me to participate in her care Orders: Orders [place] barium swallow modified 09/23/23 R13.10 - Dysphagia, unspecified XR soft tissue neck 09/23/23 K22.2 - Esophageal obstruction, R09.A2 - Foreign body sensation, throat Referrals Ear/Nose/Throat Referral J35.1 - Hypertrophy of tonsils, R13.10 - Dysphagia, unspecified Medications: New esomeprazole magnesium (Nexium) 40 mg PO DAILY 30 caps 5RF K21.9 - Gastro-esophageal reflux disease without esophagitis famotidine 40 mg PO BEDTIME 30 tabs 3RF K21.9 - Gastro-esophageal reflux disease without esophagitis Discontinued omeprazole Discontinued Reason: Doctor's Order 40 mg PO DAILY 90 caps 0RF Coding Level of Care Code New Pt Level 4 (37768) Diagnoses Globus sensation R09.A2 Difficulty swallowing solids R13.10 Enlarged tonsils J35.1 Hiatal hernia K44.9 Esophageal dysmotility K22.4 Esophageal stricture K22.2 Gastroesophageal reflux disease, unspecified whether esophagitis present K21.9 Esophagitis presence: esophagitis presence not specified Time Spent (min) 45 Comment 30 minutes spent with patient and additional 15 minutes spent reviewing her records
[2023-09-23 15:46] VITALS: BP 121/59; PULSE 89; O2SAT 99; BMI 42.1
== END 2023-09-23 17:54 | disposition home or self-care (01) ==
PROVIDERS: PCP Internal Medicine; Visit Provider Nurse Practitioner Family
DX: R09.A2 Foreign body sensation, throat (principal); R13.10 Dysphagia, unspecified; J35.1 Hypertrophy of tonsils; K44.9 Diaphragmatic hernia without obstruction or gangrene; K22.4 Dyskinesia of esophagus; K22.2 Esophageal obstruction; K21.9 Gastro-esophageal reflux disease without esophagitis
CPT/HCPCS: 99204

== ENCOUNTER 2023-10-09 11:27 | Day surgery (SDC) | payer OTHER, SELFPAY ==
--- NOTE | 2023-10-09 10:56 | P.CONAN_ITS ---
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 (Acute) Spondylosis without myelopathy or radiculopathy, lumbar region (Acute) Chronic pain syndrome (Acute) Causalgia of left lower limb (Acute) Obesity (Acute) BMI 38.0-38.9,adult (Acute) Annual visit for general adult medical examination with abnormal findings (Acute) Morbid obesity (Acute) BMI 40.0-44.9, adult (Acute) Varicose veins of left lower extremity with inflammation (Acute) History of repair of hiatal hernia (Acute) Migraine (Acute) Varicose veins of bilateral lower extremities with pain (Acute) Dyslipidemia (Acute) Urinary incontinence in female (Acute) Chronic gastroesophageal reflux disease (Acute) Recurrent major depression (Acute) Patient on methadone maintenance therapy (Acute) Acquired hypothyroidism (Acute) Osteoarthritis (Acute) Depression (Acute) Past Medical History Medical History Hiatal hernia Esophageal stricture Esophageal dysmotility Difficulty swallowing solids Pruritic intertrigo 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 Spondylosis without myelopathy or radiculopathy, lumbar region Chronic pain syndrome Causalgia of left lower limb Annual visit for general adult medical examination with abnormal findings Acne comedone Hx of varicose veins Varicose veins of bilateral lower extremities with pain Intestinal malabsorption following gastrectomy Hypothyroidism Hx of gastroesophageal reflux (GERD) Hx of cardiac murmur Chronic pain Urinary incontinence in female Chronic gastroesophageal reflux disease Recurrent major depression Patient on methadone maintenance therapy Acquired hypothyroidism Osteoarthritis Morbid obesity with BMI of 45.0-49.9, adult Dyslipidemia Depression Family History Family History Father History of throat cancer History of [place] (myocardial infarction) Type 2 diabetes mellitus Mother Hyperlipidemia CVD (cardiovascular disease) HTN (hypertension) Maternal Aunt No problems noted. Son Paraplegia Son No problems noted. Paternal Grandmother Type 2 diabetes mellitus Maternal Grandmother Alzheimer's dementia Brother No problems noted. Sister No problems noted. Family history of problems with anesthesia: No Surgical History Surgical History Status post vein stripping (11/25/20) History of repair of hiatal hernia History of adjustable gastric banding S/P laparoscopic sleeve gastrectomy Hx of colonoscopy History of total right knee replacement History of bariatric surgery History of removal of laparoscopic gastric banding device History of total left knee replacement S/P foot surgery, left LAP-BAND surgery status History of Problems with Anesthesia: No Social History 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 you a primary care analyst to a significant other at home: Yes (Son - paraplegic) Do you presently have visiting nurse or other home services: No Alcohol intake: never Comment: pt sleeping Patient Tobacco Use Status: Former Tobacco user Tobacco use type: Cigarette Cigarettes Per Day: 3 Years Smoked: 14 e-Cigarette/Vaping Use: Never Used Second Hand Smoke Exposure: No service: No Current occupational status: unemployed Cognitive needs: No Hearing needs: No Vision needs: Yes Meds Allergies Allergy/AdvReac Type Severity Reaction Status Date / Time Sulfa (Sulfonamide Allergy Severe swelling Verified 09/23/23 15:40 Antibiotics) of lips [SULFA (SULFONAMIDE and tongue ANTIBIOTICS)] Penicillins [PENICILLINS] Allergy Unknown UNKNOWN Verified 09/23/23 15:40 Home Medications ?Medication ?Instructions ?Recorded ?Confirmed ?Last Taken ?Type gabapentin 800 mg tablet 800 mg PO TID 03/31/20 08/23/22 08/10/20 05:45 History topiramate 100 mg tablet 100 mg PO BID 03/31/20 08/23/22 Unknown History calcium carbonate 600 mg calcium 600 mg PO BID 07/04/20 08/23/22 08/05/20 History (1,500 mg) tablet (Calcium) cetirizine 10 mg capsule (Zyrtec) 10 mg PO DAILY PRN Allergy Symptoms 07/04/20 08/23/22 Unknown History coenzyme Q10 100 mg capsule 200 mg PO DAILY 07/04/20 08/23/22 08/05/20 History (CoQ-10) glucosamine sulfate 500 mg tablet 500 mg PO DAILY 01/04/21 02/23/23 02/05/21 History (Glucosamine) multivitamin 1 tab PO DAILY 07/04/20 08/23/22 Unknown History azelaic acid 15 % topical gel topical 07/03/22 08/23/22 Unknown History desonide 0.05 % topical ointment topical 07/03/22 08/23/22 Unknown History nystatin 100,000 unit/gram topical topical 07/03/22 08/23/22 Unknown History ointment tretinoin 0.025 % topical cream appl topical 07/03/22 08/23/22 Unknown History tretinoin 0.05 % topical cream appl topical 07/03/22 08/23/22 Unknown History methocarbamol 750 mg tablet 750 mg PO BID PRN muscle spasm 02/04/23 Unknown History cevimeline 30 mg capsule cap PO 06/03/23 Unknown History lidocaine 5 % topical patch patch topical 07/10/23 Unknown History Exam Airway Mallampati Class: IV TM Dist: <=3cm Neck ROM: Full Partial: Upper Loose/Missing/Broken Teeth: No Heart: rrr Lungs: cta Assessment and Plan Assessment Anesthesia Assessment: Anesthesia Plan Discussed and Chart Reviewed Final Anesthetic Review Family History of Problems with Anesthesia: No History of Problems with Anesthesia: No NPO: Yes ASA Class: III Final Preanesthetic Review: No Changes in Pt Med Stat, Meds/Allgs Chart Reviewed, Consent Obtained/Reviewed and Anes Risks/Benef Reviewed Patient Risk: Intermediate Procedure Risk: Intermediate Anesthetic Plan Anesthetic Plan: MAC: Disposition: Standard PACU
[2023-10-09 11:47] VITALS: BMI 43.4
[2023-10-09 11:58] VITALS: BP 116/66; PULSE 79; RESP 16; TEMP 36.4; O2SAT 99
--- NOTE | 2023-10-09 12:12 | P.HPSUR_ITS ---
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 Spondylosis without myelopathy or radiculopathy, lumbar region Chronic pain syndrome Causalgia of left lower limb Annual visit f) History of Previous Operations: Relevant previous surgery/procedure and date(s) (Status post vein stripping (11/25/20) History of repair of hiatal hernia Hist ory of adjustable gastric banding S/P laparoscopic sleeve gastrectomy Hx of colonoscopy History of total right knee replacement History of bariatric surgery History of removal of laparoscopic gastric banding device History ) Allergies: Allergies Allergy/AdvReac Type Severity Reaction Status Date / Time Sulfa (Sulfonamide Allergy Severe swelling Verified 09/23/23 15:40 Antibiotics) of lips [SULFA (SULFONAMIDE and tongue ANTIBIOTICS)] Penicillins [PENICILLINS] Allergy Unknown UNKNOWN Verified 09/23/23 15:40 Review of Systems Sugical H&P ROS: Negative: Constitution, Cardiovascular, Respiratory, Neurological, Psychiatric, Hem-Onc, Allergic/Immunologic, Gastrointestinal, Genitourinary, Musculoskeletal, Integumentary, Endocrine and Eyes/Ears/Nose/Throat Exam Surgical H&P Exam: Normal: HEENT, Normal: Heart, Normal: Lungs, Normal: Extremities, Normal: Abdomen, Normal: Skin and Normal: Neurological Plan Diagnosis/Plan: Unchanged I have reviewed the history and physical and performed a pertinent physical examination on my patient. No changes have occurred unless specified. Time Spent With Patient Time: Total time managing care of this patient today ____ minutes.
--- NOTE | 2023-10-09 12:13 | W.PM.OPN ---
Operative Note Operative Note Date of Service: 10/09/23 Narrative: Procedure Description: EGD Indication: [] Anesthesia: MAC FLEXIBLE TRANSORAL UPPER GASTROINTESTINAL ENDOSCOPY UPPER ENDOSCOPY Consent: Indications for the procedure and potential complications of bleeding, perforation, reaction to medications and missed diagnosis were discussed with the patient and informed consent was obtained. Instrument: Olympus GIF H 190 J mid size upper endoscope Monitoring: Vital signs and clinical assessment, continuous EKG monitoring, Pulse oximetry, Carbon Dioxide monitoring and blood pressure monitoring were done throughout the procedure. Procedure: The patient was placed in the left lateral decubitis position and pre-procedure medications were administered and a bite block was placed. The endoscope was inserted into the mouth and advanced under direct vision to the third part of duodenum. A careful inspection was made as the upper endoscope was withdrawn including a retroflexed examination of the proximal stomach; Findings and interventions are described below. Findings: Larynx:normal Esophagus: GE junction at 35 cm, diaphragm hiatus at 35 cm, white adherent plaques throughout esophagus, bx taken, also balloon dilation done at LEs and UEs, to 20 mm, no lower esophagus tear seen but superficial tear noted in upper esophagus. Stomach: patchy erythema . Biopsies were obtained. Grade 2 flap valve on retroflexed examination of the cardia. Duodenum: Normal bulb and descending duodenum, Intervention: Biopsies as noted above, balloon dilation Impression/Findings: gastritis candidal esophagitis esophageal stricture PLAN: magic mouthwash and tylenol prn 21 d course of fluconazole, consider checking for DM and HIv testing GERD precautions
[2023-10-09] MEDS: Lactated Ringers 1,000 ML 80 ML IVCONT (12:16)
[2023-10-09 12:44] VITALS: BP 138/77; PULSE 78; RESP 16; TEMP 37.2; O2SAT 97
[2023-10-09] MEDS: Mag&Al/Sim/Diphenhyd/Lidocaine 10 ML ORAL.SUSP PO (13:06)
[2023-10-09 13:07] VITALS: BP 134/86; PULSE 73; RESP 18; TEMP 36.3; O2SAT 100
== END 2023-10-09 13:57 | disposition home or self-care (01) ==
PROVIDERS: PCP Internal Medicine; Visit Provider Internal Medicine Gastroenterology
PROC: 0DJ08ZZ Inspection of Upper Intestinal Tract, Via Natural or Artificial Opening Endoscopic (ICD-10-PCS; CPT 43235; principal; 2023-10-09 12:30)
DX: K21.9 Gastro-esophageal reflux disease without esophagitis (principal); B37.81 Candidal esophagitis; K22.2 Esophageal obstruction; K44.9 Diaphragmatic hernia without obstruction or gangrene; K29.50 Unspecified chronic gastritis without bleeding; G89.4 Chronic pain syndrome; E78.5 Hyperlipidemia, unspecified; E03.9 Hypothyroidism, unspecified; F32.A Depression, unspecified; Z79.899 Other long term (current) drug therapy; Z88.0 Allergy status to penicillin; Z88.2 Allergy status to sulfonamides; Z98.84 Bariatric surgery status; Z98.890 Other specified postprocedural states; Z87.891 Personal history of nicotine dependence; Z79.891 Long term (current) use of opiate analgesic
CPT/HCPCS: 43249; 43239; 88305; 88313; 88342; C1726; J1596; J2704

== ENCOUNTER → 2023-10-09 11:27 | Outpatient (BNV) | payer OTHER, SELFPAY | PROVIDERS: PCP Internal Medicine; Visit Provider Internal Medicine Gastroenterology | DX: K22.2 Esophageal obstruction (principal); K29.70 Gastritis, unspecified, without bleeding; K20.90 Esophagitis, unspecified without bleeding | CPT/HCPCS: 43239; 43249 ==

== ENCOUNTER 2023-10-31 10:05 | Outpatient (AMB) | payer OTHER, SELFPAY ==
[2023-10-31 10:35] VITALS: BP 100/68; PULSE 84; O2SAT 96; BMI 42.9
--- NOTE | 2023-10-31 10:35 | MHC.PC.OV ---
Vital Signs 10/31/23 10:35 Height 5 ft 1 in Weight 227 lb BMI 42.9 BP 100/68 Blood Pressure Location Lt brachial Position Sitting Pulse 84 Pulse Source Pulse Oximeter Pulse Oximetry (%) 96 Oxygen Delivery Method Room Air Intake Visit Reasons: permanent implant spinal cord stimulator Intake Note: Pt is here today for permanent implant spinal cord stimulator Allergies Sulfa (Sulfonamide Antibiotics) [SULFA (SULFONAMIDE ANTIBIOTICS)] Allergy (Severe, Verified 11/04/23 02:50) swelling of lips and tongue Penicillins [PENICILLINS] Allergy (Unknown, Verified 11/04/23 02:50) UNKNOWN Medication List - Last Reconciled 11/04/23 by Perla Ny MD acetaminophen (Tylenol Extra Strength) 1,000 mg (2 x 500 mg) PO Q6H PRN azelaic acid 15% topical buspirone 10 mg PO BID calcium carbonate (Calcium 600) 600 mg PO BID cetirizine (Zyrtec) 10 mg PO DAILY PRN cevimeline caps PO clotrimazole-betamethasone 1-0.05 % apply thin film to affected area topically 2 times a day; 10 days coenzyme Q10 (CoQ-10) 200 mg PO DAILY desonide 0.05% topical esomeprazole magnesium (Nexium) 40 mg PO DAILY ezetimibe 10 mg PO DAILY famotidine 40 mg PO BEDTIME gabapentin 800 mg PO TID glucosamine sulfate (Glucosamine) 500 mg PO DAILY levothyroxine 50 mcg PO QAM lidocaine 5% patches topical lorazepam 1 mg PO BEDTIME PRN methocarbamol 750 mg PO BID PRN mometasone 0.1% 1 appl topical DAILY PRN multivitamin 1 tab PO DAILY nystatin topical oxymetazoline 0.05% (Afrin (oxymetazoline)) 2 sprays intranasal Q12H PRN 3 days rosuvastatin 40 mg PO DAILY 90 days sumatriptan succinate 50 mg PO Q2-4H PRN topiramate 100 mg PO BID tretinoin 0.025% appl topical tretinoin 0.05% appl topical venlafaxine ER 150 mg PO QAM Tobacco use date assessed: 10/31/23 Dental Screening Dental Screen Date: 10/31/23 Did you have a dental visit in the last 12 months?: Yes Did you have a dental problem in the last 6 months where you did not have access to dental care?: Yes Was dental information given to patient?: Patient has dentist HPI permanent implant spinal cord stimulator HPI Details 63-year-old lady with history of hypothyroidism, obesity, dyslipidemia, osteoarthritis and depression, with post laminectomy syndrome , here today for preoperative exam requested by Dr. Yaw Comer for permanent implant procedure of a spinal cord stimulator. She underwent a trial for spinal cord stimulator few months ago which was quite effective in relieving her back and radiating leg pain on the left. She has been feeling well, with no new complaints at present time. [facility] Medical History (Updated 11/04/23 @ 03:11 by Perla Ny MD) Hiatal hernia Esophageal stricture Esophageal dysmotility Pruritic intertrigo History of migraine Spondylosis without myelopathy or radiculopathy, lumbar region Chronic pain syndrome Acne comedone Hx of varicose veins Intestinal malabsorption following gastrectomy Hypothyroidism Hx of gastroesophageal reflux (GERD) Hx of cardiac murmur Chronic pain Urinary incontinence in female Chronic gastroesophageal reflux disease Recurrent major depression Patient on methadone maintenance therapy Acquired hypothyroidism Osteoarthritis Morbid obesity with BMI of 45.0-49.9, adult Dyslipidemia Surgical History Status post vein stripping (11/25/20) History of repair of hiatal hernia History of adjustable gastric banding S/P laparoscopic sleeve gastrectomy Hx of colonoscopy History of total right knee replacement History of bariatric surgery History of removal of laparoscopic gastric banding device History of total left knee replacement S/P foot surgery, left LAP-BAND surgery status Family History Father History of throat cancer History of CA (myocardial infarction) Type 2 diabetes mellitus Mother Hyperlipidemia CVD (cardiovascular disease) HTN (hypertension) Maternal Aunt No problems noted. Son Paraplegia Son No problems noted. Paternal Grandmother Type 2 diabetes mellitus Maternal Grandmother Alzheimer's dementia Brother No problems noted. Sister No problems noted. 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 you a primary director long term care to a significant other at home: Yes (Son - paraplegic) Do you presently have visiting nurse or other home services: No Alcohol intake: never Comment: pt sleeping Patient Tobacco Use Status: Former Tobacco user Tobacco use type: Cigarette Cigarettes Per Day: 3 Years Smoked: 14 e-Cigarette/Vaping Use: Never Used Second Hand Smoke Exposure: No service: No Current occupational status: unemployed Cognitive needs: No Hearing needs: No Vision needs: Yes Female Reproductive History Menstrual Age of Menarche: 14 Questionnaire PHQ-9 Over the last 2 weeks, how often have you been bothered by any of the following problems? 1. Little interest or pleasure in doing things: not at all 2. Feeling down, depressed, or hopeless: not at all 3. Trouble falling or staying asleep, or sleeping too much: several days 4. Feeling tired or having little energy: several days 5. Poor appetite or overeating: not at all 6. Feeling bad about yourself - or that you are a failure or have let yourself or your family down: not at all 7. Trouble concentrating on things, such as reading the newspaper or watching television: not at all 8. Moving or speaking so slowly that other people could have noticed. Or the opposite - being so fidgety or restless that you have been moving around a lot more than usual: not at all 9. Thoughts that you would be better off or of hurting yourself in some way: not at all Total score: 2 Depression Screening Interpretation: Negative Depression Screening Done: Yes [id number] - PHQ-9 Billing: Yes Source: Developed by Drs. Yaw Nowak, Santa Villarrael, Adonis Cuenca and colleagues, with an educational saurabh from [employer]. Thrive Questionnaire Date Thrive assessed: 07/09/22 I am a: Patient What is your living situation today?: I have a steady place to live Within the past 12 months, did the food you bought not last and you didn't have the money to get more?: Never true Within the past 12 months, did you worry whether your food would run out before you got money to buy more?: Never true Do you have trouble paying for medicines?: No Do you have trouble getting transportation to medical appointments?: No Do you have trouble paying your heating and electricity bill?: No Do you have trouble taking care of your child, family member or friend?: No Do you have trouble with day-to-day activities such as bathing, preparing meals, shopping, managing finances, etc.?: No Are you currently unemployed and looking for a job?: No Are you interested in more education?: No Please select the resources that you would like help with: None THRIVE Score: 0 AUDIT C Alcohol Use Questionnaire (AUDIT-C) 1. How often do you have a drink containing alcohol?: Monthly or less 2. How many drinks containing alcohol do you have on a typical day when you are drinking?: 1 or 2 3. How often do you have six or more drinks on one occasion?: Never Total Score: 1 DALLIN-7 AMB Questionnaire DLALIN-7 Date DALLIN - 7 assessed: 10/31/23 Feeling nervous, anxious, or on edge: 1 = Several days Not being able to stop or control worryin = Not at all Worrying too much about different things: 1 = Several days Trouble relaxin = Not at all Being so restless that it is hard to sit still: 0 = Not at all Becoming easily annoyed or irritable: 0 = Not at all Feeling afraid as if something awful might happen: 0 = Not at all Total DALLIN-7 score (0-4 normal; 5-9 mild; 10-14 moderate; 15-21 severe): 2 Source: Developed by Drs. Yaw Nowak, Santa Villarreal, Adonis Cuenca and colleagues, with an educational saurabh from [employer]. DALLIN-7 Assessment Billing DALLIN-7 Assessment Tool: DALLIN-7 Assessment 97834 Review of Systems Const Denies fatigue, Denies fever(s) and Denies headache(s) Eyes Denies change in vision ENT Denies headache(s) Card Denies chest pain, Denies lightheadedness, Denies palpitations and Denies dyspnea Resp Denies chest congestion, Denies cough, Denies dyspnea and Denies wheezing GI Denies abdominal pain, Denies change in bowel habits and Denies heartburn Denies urinary frequency, Denies dysuria and Denies urinary urgency Musc Details: Unable to stand or go up and down stairs due to chronic pain in left foot Reports as per HPI Neuro Denies headache(s) Psych Reports no additional complaints Endo Denies fatigue and Denies palpitations Gee/Lymph Denies easy bruising Aller/Immun Denies seasonal rhinorrhea and Denies wheezing Physical exam (Primary Care) Vital Signs: Last Vital Signs Pulse 84 10/31/23 10:35 BP 100/68 10/31/23 10:35 Pulse Ox 96 10/31/23 10:35 Oxygen Delivery Method Room Air 10/31/23 10:35 BMI result Body Mass Index 42.9 Tobacco/Smoking Status: Tobacco use Status Tobacco use date assessed 10/31/23 10/31/23 10:39 Patient Tobacco Use Status Former Tobacco user 10/31/23 10:39 Tobacco use type Cigarette 10/31/23 10:39 e-Cigarette/Vaping Use Never Used 10/31/23 10:39 Depression Screening Interpretation: Negative Thrive Assessment: Date of Thrive Assessment Date Thrive assessed 07/09/22 10/31/23 10:39 Const General: cooperative, no acute distress and alert Orientation/consciousness: patient oriented x3 Limitations: ambulation with cane HENMT General nose exam: Normal external nose present and No nasal discharge present Face and sinus: Yes face symmetric Mouth: Normal oral and palatal mucosa present, oropharynx normal and moist mucous membranes Eyes General: appearance normal, both eyes and all related structures Neck Other: Supple, no lymphadenopathy, thyroid gland nonpalpable Resp Effort & Inspection: normal respiratory effort and able to speak in complete sentences Auscultation: clear to auscultation bilaterally Cardio Other: S1-S2 present regular rate and rhythm GI Inspection: Yes obesity Palpation (GI): Soft to palpation, nontender, no guarding and no masses Back/Spine/Pelvis Back: back tenderness (Over paraspinal muscles lumbar area) Neuro General: patient oriented x3, tone normal, moves all extremities, Normal light touch and pain sensation, no focal motor deficits and CN's II-XI intact bilaterally Extrem Other: healed scar surgical scars noted on dorsal aspect of left foot, decreased range of motion of foot and ankle due to pain Psych Appearance: grossly normal and well kempt Mental Status: mental status grossly normal Speech and movement: Normal speech and movement present Affect: normal affect Attitude: cooperative Thought process: Normal thought process present Assessment and Plan Assessment & Plan (1) Preoperative examination: Code(s): Z01.818 - Encounter for other preprocedural examination Plan: 63-year-old lady with chronic pain syndrome, here today for preoperative exam for permanent placement of spinal cord stimulator, requested by Dr. Yaw Comer. Preop exam is unremarkable, EKG done showed normal sinus rhythm with nonspecific STT wave changes. She has a low cardiac risk index for proposed surgery (2) Dyslipidemia: Code(s): E78.5 - Hyperlipidemia, unspecified Plan: Fasting lipids ordered, continued on rosuvastatin 40 mg daily and ezetimibe 10 mg daily (3) Acquired hypothyroidism: Code(s): E03.9 - Hypothyroidism, unspecified Plan: Currently on levothyroxine 50 mcg daily in a.m., ordered a TSH and free T4 rechecked (4) Recurrent major depression: Code(s): F33.9 - Major depressive disorder, recurrent, unspecified Qualifiers: Active/Remission status: currently active Psychotic features: without psychotic features Plan: Stable controlled on venlafaxine ER 150 mg daily (5) Chronic gastroesophageal reflux disease: Code(s): K21.9 - Gastro-esophageal reflux disease without esophagitis Plan: Currently on famotidine 40 mg at night and esomeprazole 40 mg in the morning Orders: Orders Alanine Aminotransferase 10/31/23 E03.9 - Hypothyroidism, unspecified, E66.01 - Morbid (severe) obesity due to excess calories, E78.5 - Hyperlipidemia, unspecified, Z13.1 - Encounter for screening for diabetes mellitus, Z78.0 - Asymptomatic menopausal state Thyroid Stimulating Hormone 10/31/23 E03.9 - Hypothyroidism, unspecified, E66.01 - Morbid (severe) obesity due to excess calories, E78.5 - Hyperlipidemia, unspecified, Z13.1 - Encounter for screening for diabetes mellitus, Z78.0 - Asymptomatic menopausal state Free T4 (Free Thyroxine) 10/31/23 E03.9 - Hypothyroidism, unspecified, E66.01 - Morbid (severe) obesity due to excess calories, E78.5 - Hyperlipidemia, unspecified, Z13.1 - Encounter for screening for diabetes mellitus, Z78.0 - Asymptomatic menopausal state Basic Metabolic Panel Fasting 10/31/23 E03.9 - Hypothyroidism, unspecified, E66.01 - Morbid (severe) obesity due to excess calories, E78.5 - Hyperlipidemia, unspecified, Z13.1 - Encounter for screening for diabetes mellitus, Z78.0 - Asymptomatic menopausal state Lipid Panel 10/31/23 E03.9 - Hypothyroidism, unspecified, E66.01 - Morbid (severe) obesity due to excess calories, E78.5 - Hyperlipidemia, unspecified, Z13.1 - Encounter for screening for diabetes mellitus, Z78.0 - Asymptomatic menopausal state Aspartate Amino Transferase 10/31/23 E03.9 - Hypothyroidism, unspecified, E66.01 - Morbid (severe) obesity due to excess calories, E78.5 - Hyperlipidemia, unspecified, Z13.1 - Encounter for screening for diabetes mellitus, Z78.0 - Asymptomatic menopausal state Vitamin D 25-OH Total 10/31/23 E03.9 - Hypothyroidism, unspecified, E66.01 - Morbid (severe) obesity due to excess calories, E78.5 - Hyperlipidemia, unspecified, Z13.1 - Encounter for screening for diabetes mellitus, Z78.0 - Asymptomatic menopausal state Coding Level of Care Code Est Pt Level 4 (02054) Diagnoses Preoperative examination Z01.818 Dyslipidemia E78.5 Acquired hypothyroidism E03.9 Recurrent major depression F33.9 Active/Remission status: currently active Psychotic features: without psychotic features Chronic gastroesophageal reflux disease K21.9 Additional Codes DALLIN-7 Assessment Billing - DALLIN-7 Assessment Tool: DALLIN-7 Assessment [id number] ([id number])
--- NOTE | 2023-11-07 17:22 | A.OFFVIS_ITS ---
Intake Vital Signs 10/31/23 10:35 Height 5 ft 1 in Weight 227 lb BMI 42.9 BP 100/68 Blood Pressure Location Lt brachial Position Sitting Pulse 84 Pulse Source Pulse Oximeter Pulse Oximetry (%) 96 Oxygen Delivery Method Room Air Intake Visit Reasons: permanent implant spinal cord stimulator Allergies Sulfa (Sulfonamide Antibiotics) [SULFA (SULFONAMIDE ANTIBIOTICS)] Allergy (Severe, Verified 11/11/23 11:25) swelling of lips and tongue Penicillins [PENICILLINS] Allergy (Unknown, Verified 11/11/23 11:25) UNKNOWN Medication List - Last Reconciled 11/04/23 by Perla Ny MD acetaminophen (Tylenol Extra Strength) 1,000 mg (2 x 500 mg) PO Q6H PRN azelaic acid 15% topical buspirone 10 mg PO BID calcium carbonate (Calcium 600) 600 mg PO BID cetirizine (Zyrtec) 10 mg PO DAILY PRN cevimeline caps PO clotrimazole-betamethasone 1-0.05 % apply thin film to affected area topically 2 times a day; 10 days coenzyme Q10 (CoQ-10) 200 mg PO DAILY desonide 0.05% topical esomeprazole magnesium (Nexium) 40 mg PO DAILY ezetimibe 10 mg PO DAILY famotidine 40 mg PO BEDTIME gabapentin 800 mg PO TID glucosamine sulfate (Glucosamine) 500 mg PO DAILY levothyroxine 50 mcg PO QAM lidocaine 5% patches topical lorazepam 1 mg PO BEDTIME PRN methocarbamol 750 mg PO BID PRN mometasone 0.1% 1 appl topical DAILY PRN multivitamin 1 tab PO DAILY nystatin topical oxymetazoline 0.05% (Afrin (oxymetazoline)) 2 sprays intranasal Q12H PRN 3 days rosuvastatin 40 mg PO DAILY 90 days sumatriptan succinate 50 mg PO Q2-4H PRN topiramate 100 mg PO BID tretinoin 0.025% appl topical tretinoin 0.05% appl topical venlafaxine ER 150 mg PO QAM PFSH Medical History Fungal esophagitis Hiatal hernia Esophageal stricture Esophageal dysmotility Pruritic intertrigo History of migraine Spondylosis without myelopathy or radiculopathy, lumbar region Chronic pain syndrome Acne comedone Hx of varicose veins Intestinal malabsorption following gastrectomy Hypothyroidism Hx of gastroesophageal reflux (GERD) Hx of cardiac murmur Chronic pain Urinary incontinence in female Chronic gastroesophageal reflux disease Recurrent major depression Patient on methadone maintenance therapy Acquired hypothyroidism Osteoarthritis Morbid obesity with BMI of 45.0-49.9, adult Dyslipidemia Surgical History Status post vein stripping (11/25/20) History of repair of hiatal hernia History of adjustable gastric banding S/P laparoscopic sleeve gastrectomy Hx of colonoscopy History of total right knee replacement History of bariatric surgery History of removal of laparoscopic gastric banding device History of total left knee replacement S/P foot surgery, left LAP-BAND surgery status Family History Father History of throat cancer History of [place] (myocardial infarction) Type 2 diabetes mellitus Mother Hyperlipidemia CVD (cardiovascular disease) HTN (hypertension) Maternal Aunt No problems noted. Son Paraplegia Son No problems noted. Paternal Grandmother Type 2 diabetes mellitus Maternal Grandmother Alzheimer's dementia Brother No problems noted. Sister No problems noted. 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 a significant other at home: Yes (Son - paraplegic) Do you presently have visiting nurse or other home services: No Alcohol intake: never Comment: pt sleeping Patient Tobacco Use Status: Former Tobacco user Tobacco use type: Cigarette Cigarettes Per Day: 3 Years Smoked: 14 e-Cigarette/Vaping Use: Never Used Second Hand Smoke Exposure: No service: No Current occupational status: unemployed Cognitive needs: No Hearing needs: No Vision needs: Yes Female Reproductive History Menstrual Age of Menarche: 14 Questionnaire PHQ-9 Over the last 2 weeks, how often have you been bothered by any of the following problems? 1. Little interest or pleasure in doing things: not at all 2. Feeling down, depressed, or hopeless: not at all 3. Trouble falling or staying asleep, or sleeping too much: several days 4. Feeling tired or having little energy: several days 5. Poor appetite or overeating: not at all 6. Feeling bad about yourself - or that you are a failure or have let yourself or your family down: not at all 7. Trouble concentrating on things, such as reading the newspaper or watching television: not at all 8. Moving or speaking so slowly that other people could have noticed. Or the opposite - being so fidgety or restless that you have been moving around a lot more than usual: not at all 9. Thoughts that you would be better off or of hurting yourself in some way: not at all Total score: 2 Depression Screening Interpretation: Negative Depression Screening Done: Yes 13127 - PHQ-9 Billing: Yes Source: Developed by Drs. Yaw Nowak, Santa Villarreal, Adonis Cuenca and colleagues, with an educational saurabh from [employer] ?. Physical Exam Vital Signs: Last Vital Signs Pulse 84 10/31/23 10:35 BP 100/68 10/31/23 10:35 Pulse Ox 96 10/31/23 10:35 Oxygen Delivery Method Room Air 10/31/23 10:35 BMI result Body Mass Index 42.9 Assessment & Plan Assessment & Plan (1) Dyslipidemia: Code(s): E78.5 - Hyperlipidemia, unspecified (2) Acquired hypothyroidism: Code(s): E03.9 - Hypothyroidism, unspecified (3) Recurrent major depression: Code(s): F33.9 - Major depressive disorder, recurrent, unspecified Qualifiers: Active/Remission status: currently active Psychotic features: without psychotic features (4) Chronic gastroesophageal reflux disease: Code(s): K21.9 - Gastro-esophageal reflux disease without esophagitis Orders: Orders Alanine Aminotransferase 11/07/23 E78.5 - Hyperlipidemia, unspecified, E03.9 - Hypothyroidism, unspecified, Z13.1 - Encounter for screening for diabetes mellitus, E66.01 - Morbid (severe) obesity due to excess calories, Z78.0 - Asymptomatic menopausal state Thyroid Stimulating Hormone 11/07/23 E78.5 - Hyperlipidemia, unspecified, E03.9 - Hypothyroidism, unspecified, Z13.1 - Encounter for screening for diabetes mellitus, E66.01 - Morbid (severe) obesity due to excess calories, Z78.0 - Asymptomatic menopausal state Free T4 (Free Thyroxine) 11/07/23 E78.5 - Hyperlipidemia, unspecified, E03.9 - Hypothyroidism, unspecified, Z13.1 - Encounter for screening for diabetes mellitus, E66.01 - Morbid (severe) obesity due to excess calories, Z78.0 - Asymptomatic menopausal state Basic Metabolic Panel Fasting 11/07/23 E78.5 - Hyperlipidemia, unspecified, E03.9 - Hypothyroidism, unspecified, Z13.1 - Encounter for screening for diabetes mellitus, E66.01 - Morbid (severe) obesity due to excess calories, Z78.0 - Asymptomatic menopausal state Lipid Panel 11/07/23 E78.5 - Hyperlipidemia, unspecified, E03.9 - Hypothyroidism, unspecified, Z13.1 - Encounter for screening for diabetes mellitus, E66.01 - Morbid (severe) obesity due to excess calories, Z78.0 - Asymptomatic menopausal state Aspartate Amino Transferase 11/07/23 E78.5 - Hyperlipidemia, unspecified, E03.9 - Hypothyroidism, unspecified, Z13.1 - Encounter for screening for diabetes mellitus, E66.01 - Morbid (severe) obesity due to excess calories, Z78.0 - Asymptomatic menopausal state Vitamin D 25-OH Total 11/07/23 E78.5 - Hyperlipidemia, unspecified, E03.9 - Hypothyroidism, unspecified, Z13.1 - Encounter for screening for diabetes mellitus, E66.01 - Morbid (severe) obesity due to excess calories, Z78.0 - Asymptomatic menopausal state Quality Reporting (2019) Depression/Bipolar (159/160/161/177) PHQ-9: Total score: 2 Coding Diagnoses Dyslipidemia E78.5 Acquired hypothyroidism E03.9 Recurrent major depression F33.9 Active/Remission status: currently active Psychotic features: without psychotic features Chronic gastroesophageal reflux disease K21.9
== END 2023-10-31 16:28 | disposition home or self-care (01) ==
PROVIDERS: PCP Internal Medicine; Visit Provider Internal Medicine
DX: E78.5 Hyperlipidemia, unspecified (principal); F33.9 Major depressive disorder, recurrent, unspecified; Z01.818 Encounter for other preprocedural examination; E03.9 Hypothyroidism, unspecified; K21.9 Gastro-esophageal reflux disease without esophagitis
CPT/HCPCS: 99214

== ENCOUNTER 2023-11-04 10:44 | Outpatient (AMB) | payer OTHER, SELFPAY ==
--- NOTE | 2023-11-04 10:51 | A.OFFVIS_ITS ---
Vital Signs 11/04/23 10:53 Height 5 ft 1 in Weight 225 lb BMI 42.5 BP 112/59 L Blood Pressure Location Lt brachial Position Sitting Pulse 59 Intake Visit Reasons: S/P EGD; Dr. Dykes Intake Note: Patient follow up for EGD results. Patient denies any GI issues. Culinary Worker Required: No Accompanied by: Self / Same As Patient Allergies Sulfa (Sulfonamide Antibiotics) [SULFA (SULFONAMIDE ANTIBIOTICS)] Allergy (Severe, Verified 11/04/23 10:51) swelling of lips and tongue Penicillins [PENICILLINS] Allergy (Unknown, Verified 11/04/23 10:51) UNKNOWN HPI HPI S/P EGD; Dr. Dykes: Details: LAST VISIT Globus sensation Difficulty swallowing solids Enlarged tonsils Hiatal hernia Esophageal dysmotility Esophageal stricture GERD (gastroesophageal reflux disease) Plan Patient has enlarged tonsils, will send her for soft tissue neck x-ray. Ear nose and throat referral made. Patient reports also dysphagia not only globus sensation. Will send patient for modified barium swallow with speech therapy. Patient will stop taking omeprazole and I will start her on esomeprazole in the morning. Patient can take famotidine at bedtime. Discussed with patient avoiding dietary triggers and late night snacking. Staying upright for minimum 3 hours after meals discussed with patient. Patient will be scheduled to go for upper endoscopy to rule out esophagitis, gastritis, evaluate for hernia, possible dilation. Patient will return in the office in 5 weeks for re-evaluation. She is agreeable to this plan and verbalizes understanding of instructions. She was given the opportunity to ask questions and all questions answered. ? Thank you for allowing me to participate in her care Orders Orders FL barium swallow modified 09/23/23 R13.10 XR soft tissue neck 09/23/23 K22.2, R09.A2 Referrals Ear/Nose/Throat Referral J35.1, R13.10 Medications New esomeprazole magnesium (Nexium) 40 mg PO DAILY 30 caps 5RF K21.9 famotidine 40 mg PO BEDTIME 30 tabs 3RF K21.9 Discontinued omeprazole Discontinued Reason: Doctor's Order 40 mg PO DAILY 90 caps 0RF UPPER ENDOSCOPY Findings: Larynx:normal Esophagus: GE junction at 35 cm, diaphragm hiatus at 35 cm, white adherent plaques throughout esophagus, bx taken, also balloon dilation done at LEs and UEs, to 20 mm, no lower esophagus tear seen but superficial tear noted in upper esophagus. Stomach: patchy erythema . Biopsies were obtained. Grade 2 flap valve on retroflexed examination of the cardia. Duodenum: Normal bulb and descending duodenum, Intervention: Biopsies as noted above, balloon dilation Impression/Findings: gastritis candidal esophagitis esophageal stricture PLAN: magic mouthwash and tylenol prn 21 d course of fluconazole, consider checking for DM and HIv testing GERD precautions PATHOLOGY RESULTS Diagnosis A. Stomach, biopsy: Gastric antral mucosa with congestion, mild reactive changes, and minimal chronic inactive gastritis; negative for H pylori, intestinal metaplasia and dysplasia. B. Esophagus, random, biopsy: Fungal esophagitis with severe active inflammation; no columnar mucosa present. TODAY'S VISIT: Patient is here today for follow-up. Patient reports that she has been doing well since the procedure. Patient denies any ill effects from anesthesia or procedure itself. Patient was found to have fungal esophagitis. Patient was placed on Diflucan for 3 weeks. Patient states that she has been feeling well. Denies any dyspepsia, dysphagia or odynophagia. She is taking Nexium in the morning and famotidine at bedtime. Her symptoms are completely suppressed right now. Patient denies any other GI concerning symptoms. [facility] Medical History (Updated 11/04/23 @ 11:17 by Della Montoya, [facility]) Fungal esophagitis Hiatal hernia Esophageal stricture Esophageal dysmotility Pruritic intertrigo History of migraine Spondylosis without myelopathy or radiculopathy, lumbar region Chronic pain syndrome Acne comedone Hx of varicose veins Intestinal malabsorption following gastrectomy Hypothyroidism Hx of gastroesophageal reflux (GERD) Hx of cardiac murmur Chronic pain Urinary incontinence in female Chronic gastroesophageal reflux disease Recurrent major depression Patient on methadone maintenance therapy Acquired hypothyroidism Osteoarthritis Morbid obesity with BMI of 45.0-49.9, adult Dyslipidemia Surgical History Status post vein stripping (11/25/20) History of repair of hiatal hernia History of adjustable gastric banding S/P laparoscopic sleeve gastrectomy Hx of colonoscopy History of total right knee replacement History of bariatric surgery History of removal of laparoscopic gastric banding device History of total left knee replacement S/P foot surgery, left LAP-BAND surgery status Family History Father History of throat cancer History of [place] (myocardial infarction) Type 2 diabetes mellitus Mother Hyperlipidemia CVD (cardiovascular disease) HTN (hypertension) Maternal Aunt No problems noted. Son Paraplegia Son No problems noted. Paternal Grandmother Type 2 diabetes mellitus Maternal Grandmother Alzheimer's dementia Brother No problems noted. Sister No problems noted. 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 unit to a significant other at home: Yes (Son - paraplegic) Do you presently have visiting nurse or other home services: No Alcohol intake: never Comment: pt sleeping Patient Tobacco Use Status: Former Tobacco user Tobacco use type: Cigarette Cigarettes Per Day: 3 Years Smoked: 14 e-Cigarette/Vaping Use: Never Used Second Hand Smoke Exposure: No service: No Current occupational status: unemployed Cognitive needs: No Hearing needs: No Vision needs: Yes Female Reproductive History Menstrual Age of Menarche: 14 Physical Exam Vital Signs: Last Vital Signs Pulse 59 11/04/23 10:53 BP 112/59 L 11/04/23 10:53 BMI result Body Mass Index 42.5 Const General: healthy appearing, no acute distress and well developed Nutritional Appearance: well nourished Orientation/consciousness: patient oriented x3 HEENT Head: Yes normal to inspection, Yes normocephalic and Yes atraumatic Face and sinus: Yes normal facial exam Mouth: Normal oral and palatal mucosa present Throat: Yes posterior oropharynx normal, Yes tonsils normal and Yes uvula midli ne Eyes General: appearance normal, both eyes and all related structures Neck Neck: Yes normal visual inspection, Yes full ROM and Yes trachea midline Thyroid: Thyroid normal Resp Effort & Inspection: normal respiratory effort, able to speak in complete sentences, no tracheal deviation and symmetric chest movement Auscultation: clear to auscultation bilaterally Cardio Jugular venous distension: no JVD Rate: regular rate Heart sounds: S1 normal heart sound present, S2 normal heart sound present, no gallops and no murmurs GI Inspection: Yes normal to inspection and No distended Palpation (GI): Soft to palpation, not firm, nontender and No hepatosplenomegaly present Auscultation: normal bowel sounds General: Yes no CVA tenderness Back/Spine/Pelvis Back: no CVA tenderness Skin General skin exam: elasticity normal, turgor normal and dry skin Neuro General: patient oriented x3 Psych Appearance: grossly normal Mental Status: mental status grossly normal Speech and movement: Normal speech and movement present Affect: normal affect Attitude: cooperative Thought process: Normal thought process present Thought content: Normal thought content present Insight: Good insight present (Psych) Judgement: Good judgement present (Psych) Results Reviewed Results Reviewed: SOFT TISSUE NECK X-RAY FINDINGS: Soft tissue films of the neck demonstrate a normal larynx, pharynx and upper trachea. No soft tissue swelling or opaque foreign body is demonstrated. Mild degenerative disc changes C4-C5, C5-C6 and C6-C7 disc levels. The prevertebral soft tissues are normal. XR/XR soft tissue neck IMPRESSION: No soft tissue swelling or radiopaque foreign body seen in the neck. The airway is widely patent. Assessment & Plan Assessment & Plan (1) Fungal esophagitis: Code(s): K20.80 - Other esophagitis without bleeding; B49 - Unspecified mycosis Category: Medical (2) Chronic gastroesophageal reflux disease: Code(s): K21.9 - Gastro-esophageal reflux disease without esophagitis Category: Medical (3) Difficulty swallowing solids: Code(s): R13.10 - Dysphagia, unspecified Category: Medical (4) Hiatal hernia: Code(s): K44.9 - Diaphragmatic hernia without obstruction or gangrene Category: Medical (5) Esophageal dysmotility: Code(s): K22.4 - Dyskinesia of esophagus Category: Medical (6) Esophageal stricture: Code(s): K22.2 - Esophageal obstruction Category: Medical (7) Globus sensation: Code(s): R09.A2 - Foreign body sensation, throat (8) Enlarged tonsils: Code(s): J35.1 - Hypertrophy of tonsils (9) GERD (gastroesophageal reflux disease): Code(s): K21.9 - Gastro-esophageal reflux disease without esophagitis Qualifiers: Esophagitis presence: with esophagitis Esophagitis bleeding: without hemorrhage Qualified Code(s): K21.00 - Gastro-esophageal reflux disease with esophagitis, without bleeding Plan Fungal esophagitis found on upper endoscopy, confirmed by biopsy. Patient was placed on fluconazole for 21 days. Patient reports to be feeling well now. However unsure the reason why. Patient is not diabetic. Patient states that her PCP checked her for diabetes. Will check for HIV rule out Elburn's disease. Patient can continue taking esomeprazole as well as famotidine for now. We will re-evaluate her in 3 months, sooner on as needed basis. Patient will call us if she will have any GI concerning symptoms. Patient will call [facility] ear for appointment as referred during last visit. She is agreeable to this plan and verbalizes understanding of instructions. She was given the opportunity to ask questions and all questions answered. Thank you for allowing me to participate in her care Orders: Orders Cortisol, Free 24Hr Urine Today B49 - Unspecified mycosis, K20.80 - Other esophagitis without bleeding HIV Ab/Ag Today R79.89 - Other specified abnormal findings of blood chemistry Medications: Refilled esomeprazole magnesium (Nexium) 40 mg PO DAILY 90 caps 2RF K21.9 - Gastro- esophageal reflux disease without esophagitis famotidine 40 mg PO BEDTIME 90 tabs 3RF K21.9 - Gastro-esophageal reflux disease without esophagitis Coding Level of Care Code Est Pt Level 4 (44150) Diagnoses Fungal esophagitis K20.80; B49 Chronic gastroesophageal reflux disease K21.9 Difficulty swallowing solids R13.10 Hiatal hernia K44.9 Esophageal dysmotility K22.4 Esophageal stricture K22.2 Globus sensation R09.A2 Enlarged tonsils J35.1 Gastroesophageal reflux disease with esophagitis without hemorrhage K21.00 Esophagitis presence: with esophagitis Esophagitis bleeding: without hemorrhage Time Spent (min) 35 Comment 20 minutes spent with patient and additional 15 minutes spent reviewing her records
[2023-11-04 10:53] VITALS: BP 112/59; PULSE 59; BMI 42.5
== END 2023-11-04 11:28 | disposition home or self-care (01) ==
PROVIDERS: PCP Internal Medicine; Visit Provider Nurse Practitioner Family
DX: K21.00 Gastro-esophageal reflux disease with esophagitis, without bleeding (principal); B49 Unspecified mycosis; R13.10 Dysphagia, unspecified; K22.4 Dyskinesia of esophagus; K22.2 Esophageal obstruction; R09.A2 Foreign body sensation, throat; J35.1 Hypertrophy of tonsils
CPT/HCPCS: 99214

== ENCOUNTER → 2023-11-04 10:44 | Outpatient (BNVA) | payer OTHER, SELFPAY | PROVIDERS: PCP Internal Medicine; Visit Provider Nurse Practitioner Family ==

== ENCOUNTER 2023-11-07 11:41 | Outpatient (REF) | payer OTHER, SELFPAY ==
[2023-11-07 14:08] LABS: Alanine Aminotransferase 33 U/L (0-31); Anion Gap 14 (12-20); Aspartate Amino Transferase 25 U/L (5-31); Blood Urea Nitrogen 14 mg/dL (9-16); Carbon Dioxide 24 mmol/L (22-29); Chloride 110 mmol/L (96-108); Cholesterol 222 mg/dL (<200); Estimated Glomerular Filt Rate > 60; Glucose Fasting 99 mg/dL (60-99); HDL Cholesterol 53 mg/dL (>40); LDL Cholesterol Calculated 150 mg/dL (<100); Potassium 3.9 mmol/L (3.3-5.1); Sodium 144 mmol/L (135-145); Triglycerides 96 mg/dL (<150)
[2023-11-07 14:28] LABS: Free T4 (Free Thyroxine) 0.78 ng/dL (0.71-1.85); Thyroid Stimulating Hormone 2.95 uIU/mL (0.32-4.0); Vitamin D 25-OH Total 49.3 ng/mL (>30)
[2023-11-08 04:10] LABS: HIV AB/AG Nonreactive (Nonreactive); HIV Num 1 0.05 S/CO (0.00-0.99)
== END 2023-11-07 11:42 | disposition home or self-care (01) ==
LOC: HO.HMGCLDS 11:41
PROVIDERS: PCP Internal Medicine; Referring Provider Nurse Practitioner Family; Visit Provider Internal Medicine
DX: E78.5 Hyperlipidemia, unspecified (principal); E03.9 Hypothyroidism, unspecified; Z13.1 Encounter for screening for diabetes mellitus; E66.01 Morbid (severe) obesity due to excess calories; Z78.0 Asymptomatic menopausal state; R79.89 Other specified abnormal findings of blood chemistry
CPT/HCPCS: 36415; 80048; 80061; 82306; 84439; 84443; 84450; 84460; 87389

== ENCOUNTER 2023-11-11 10:32 | Outpatient (AMB) | payer OTHER, SELFPAY ==
[2023-11-11 10:52] VITALS: BP 102/80; PULSE 90; O2SAT 99; BMI 43.3
--- NOTE | 2023-11-11 10:52 | MHC.PC.OV ---
Vital Signs 11/11/23 10:52 Height 5 ft 1 in Weight 229 lb BMI 43.3 BP 102/80 Blood Pressure Location Lt brachial Position Sitting Pulse 90 Pulse Source Pulse Oximeter Pulse Oximetry (%) 99 Oxygen Delivery Method Room Air Intake Visit Reasons: Annaul PE/ok per Intake Note: Pt is here today for her PE: last mammogram 04/22/23, papsmear 07/11/23 and colonoscopy 11/25/15 Allergies Sulfa (Sulfonamide Antibiotics) [SULFA (SULFONAMIDE ANTIBIOTICS)] Allergy (Severe, Verified 11/11/23 11:25) swelling of lips and tongue Penicillins [PENICILLINS] Allergy (Unknown, Verified 11/11/23 11:25) UNKNOWN Medication List - Last Reconciled 11/11/23 by Perla Ny MD acetaminophen (Tylenol Extra Strength) 1,000 mg (2 x 500 mg) PO Q6H PRN azelaic acid 15% topical buspirone 10 mg PO BID calcium carbonate (Calcium 600) 600 mg PO BID cetirizine (Zyrtec) 10 mg PO DAILY PRN cevimeline caps PO clotrimazole-betamethasone 1-0.05 % apply thin film to affected area topically 2 times a day; 10 days coenzyme Q10 (CoQ-10) 200 mg PO DAILY desonide 0.05% topical esomeprazole magnesium (Nexium) 40 mg PO DAILY ezetimibe 10 mg PO DAILY famotidine 40 mg PO BEDTIME gabapentin 800 mg PO TID glucosamine sulfate (Glucosamine) 500 mg PO DAILY levothyroxine 50 mcg PO QAM lidocaine 5% patches topical lorazepam 1 mg PO BEDTIME PRN methocarbamol 750 mg PO BID PRN mometasone 0.1% 1 appl topical DAILY PRN multivitamin 1 tab PO DAILY nystatin topical oxymetazoline 0.05% (Afrin (oxymetazoline)) 2 sprays intranasal Q12H PRN 3 days rosuvastatin 40 mg PO DAILY 90 days sumatriptan succinate 50 mg PO Q2-4H PRN topiramate 100 mg PO BID tretinoin 0.025% appl topical tretinoin 0.05% appl topical venlafaxine ER 150 mg PO QAM Tobacco use date assessed: 11/11/23 Dental Screening Dental Screen Date: 11/11/23 Did you have a dental visit in the last 12 months?: Yes Did you have a dental problem in the last 6 months where you did not have access to dental care?: Yes Was dental information given to patient?: Patient has dentist HPI Tamiko SWEET/charan per HPI Details 63-year-old lady here today for physical exam. She is up-to-date with her screening mammogram last done 04/22/23, up-to-date with her cervical cancer screening with last Pap smear done 07/11/23 and, and is up-to-date with her screening for colon cancer with last colonoscopy done 11/25/15. She has hyperlipidemia, chronic GERD, recurrent major depression, acquired hypothyroidism and osteoarthritis, currently stable controlled on present treatment, recent fasting labs done showed unremarkable findings except for elevated LDL cholesterol. She is morbidly obese, unable to lose weight as she can not exercise much due to chronic pain in her back and feet. Has been trying to follow recommended diet but unable to still lose weight. Would like to try taking medication to help with weight loss.. [facility] Medical History Fungal esophagitis Hiatal hernia Esophageal stricture Esophageal dysmotility Pruritic intertrigo History of migraine Spondylosis without myelopathy or radiculopathy, lumbar region Chronic pain syndrome Acne comedone Hx of varicose veins Intestinal malabsorption following gastrectomy Hypothyroidism Hx of gastroesophageal reflux (GERD) Hx of cardiac murmur Chronic pain Urinary incontinence in female Chronic gastroesophageal reflux disease Recurrent major depression Patient on methadone maintenance therapy Acquired hypothyroidism Osteoarthritis Morbid obesity with BMI of 45.0-49.9, adult Dyslipidemia Surgical History Status post vein stripping (11/25/20) History of repair of hiatal hernia History of adjustable gastric banding S/P laparoscopic sleeve gastrectomy Hx of colonoscopy History of total right knee replacement History of bariatric surgery History of removal of laparoscopic gastric banding device History of total left knee replacement S/P foot surgery, left LAP-BAND surgery status Family History Father History of throat cancer History of MN (myocardial infarction) Type 2 diabetes mellitus Mother Hyperlipidemia CVD (cardiovascular disease) HTN (hypertension) Maternal Aunt No problems noted. Son Paraplegia Son No problems noted. Paternal Grandmother Type 2 diabetes mellitus Maternal Grandmother Alzheimer's dementia Brother No problems noted. Sister No problems noted. 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 you a primary landcare officer to a significant other at home: Yes (Son - paraplegic) Do you presently have visiting nurse or other home services: No Alcohol intake: never Comment: pt sleeping Patient Tobacco Use Status: Former Tobacco user Tobacco use type: Cigarette Cigarettes Per Day: 3 Years Smoked: 14 e-Cigarette/Vaping Use: Never Used Second Hand Smoke Exposure: No service: No Current occupational status: unemployed Cognitive needs: No Hearing needs: No Vision needs: Yes Female Reproductive History Menstrual Age of Menarche: 14 Questionnaire PHQ-9 Over the last 2 weeks, how often have you been bothered by any of the following problems? 1. Little interest or pleasure in doing things: not at all 2. Feeling down, depressed, or hopeless: not at all 3. Trouble falling or staying asleep, or sleeping too much: not at all 4. Feeling tired or having little energy: not at all 5. Poor appetite or overeating: not at all 6. Feeling bad about yourself - or that you are a failure or have let yourself or your family down: not at all 7. Trouble concentrating on things, such as reading the newspaper or watching television: not at all 8. Moving or speaking so slowly that other people could have noticed. Or the opposite - being so fidgety or restless that you have been moving around a lot more than usual: not at all 9. Thoughts that you would be better off or of hurting yourself in some way: not at all Total score: 0 Depression Screening Interpretation: Negative Depression Screening Done: Yes 12674 - PHQ-9 Billing: Yes Source: Developed by Drs. Yaw Nowak, Santa Villarreal, Adonis Cuenca and colleagues, with an educational saurabh from [employer]. Thrive Questionnaire Date Thrive assessed: 11/11/23 I am a: Patient What is your living situation today?: I have a steady place to live Within the past 12 months, did the food you bought not last and you didn't have the money to get more?: Never true Within the past 12 months, did you worry whether your food would run out before you got money to buy more?: Never true Do you have trouble paying for medicines?: No Do you have trouble getting transportation to medical appointments?: No Do you have trouble paying your heating and electricity bill?: No Do you have trouble taking care of your child, family member or friend?: No Do you have trouble with day-to-day activities such as bathing, preparing meals, shopping, managing finances, etc.?: No Are you currently unemployed and looking for a job?: No Are you interested in more education?: No THRIVE Score: 0 AUDIT C Alcohol Use Questionnaire (AUDIT-C) 1. How often do you have a drink containing alcohol?: Never Total Score: 0 DALLIN-7 AMB Questionnaire DALLIN-7 Date DALLIN - 7 assessed: 11/11/23 Feeling nervous, anxious, or on edge: 0 = Not at all Not being able to stop or control worryin = Not at all Worrying too much about different things: 0 = Not at all Trouble relaxin = Not at all Being so restless that it is hard to sit still: 0 = Not at all Becoming easily annoyed or irritable: 0 = Not at all Feeling afraid as if something awful might happen: 0 = Not at all Total DALLIN-7 score (0-4 normal; 5-9 mild; 10-14 moderate; 15-21 severe): 0 Source: Developed by Drs. Yaw Noawk, Santa Villarreal, Adonis Cuenca and colleagues, with an educational saurabh from [employer]. Review of Systems Const Denies fatigue, Denies fever(s) and Denies headache(s) Eyes Denies change in vision ENT Denies headache(s) Card Denies chest pain, Denies lightheadedness, Denies palpitations and Denies dyspnea Resp Denies chest congestion, Denies cough, Denies dyspnea and Denies wheezing GI Denies abdominal pain, Denies change in bowel habits and Denies heartburn Denies urinary frequency, Denies dysuria and Denies urinary urgency Musc Details: Unable to stand or go up and down stairs due to chronic pain in left foot Reports as per HPI Skin/Breast Denies breast swelling, Denies breast pain, Denies breast mass, Denies lesions and Denies rash Neuro Denies headache(s) Psych Reports no additional complaints Endo Denies fatigue and Denies palpitations Gee/Lymph Denies easy bruising Aller/Immun Denies seasonal rhinorrhea and Denies wheezing Physical exam (Primary Care) Vital Signs: Last Vital Signs Pulse 90 11/11/23 10:52 BP 102/80 11/11/23 10:52 Pulse Ox 99 11/11/23 10:52 Oxygen Delivery Method Room Air 11/11/23 10:52 BMI result Body Mass Index 43.3 Tobacco/Smoking Status: Tobacco use Status Tobacco use date assessed 11/11/23 11/11/23 11:09 Patient Tobacco Use Status Former Tobacco user 11/11/23 10:53 Tobacco use type Cigarette 11/11/23 10:53 e-Cigarette/Vaping Use Never Used 11/11/23 10:53 PHQ-9: PHQ-9 Score PHQ-9: Total score 0 12/04/23 14:57 Depression Screening Interpretation: Negative Thrive Assessment: Date of Thrive Assessment Date Thrive assessed 11/11/23 11/11/23 11:09 Const General: cooperative, no acute distress and alert Orientation/consciousness: patient oriented x3 Limitations: ambulation with cane HENMT General nose exam: Normal external nose present and No nasal discharge present Face and sinus: Yes face symmetric Mouth: Normal oral and palatal mucosa present, oropharynx normal and moist mucous membranes Eyes Other: Sees [facility] General: appearance normal, both eyes and all related structures Neck Other: Supple, no lymphadenopathy, thyroid gland nonpalpable Resp Effort & Inspection: normal respiratory effort and able to speak in complete sentences Auscultation: clear to auscultation bilaterally Cardio Other: S1-S2 present regular rate and rhythm GI Inspection: Yes obesity Palpation (GI): Soft to palpation, nontender, no guarding and no masses General: Yes no CVA tenderness Back/Spine/Pelvis Back: no CVA tenderness and back tenderness (Over paraspinal muscles lumbar area) Neuro General: patient oriented x3, tone normal, moves all extremities, Normal light touch and pain sensation, no focal motor deficits and CN's II-XI intact bilaterally Extrem Other: healed scar surgical scars noted on dorsal aspect of left foot, decreased range of motion of foot and ankle due to pain Psych Appearance: grossly normal and well kempt Mental Status: mental status grossly normal Speech and movement: Normal speech and movement present Affect: normal affect Attitude: cooperative Thought process: Normal thought process present Results Reviewed Results Reviewed: Name: Sofia Otero Age/Sex: 63/F : 1960 Unit#: [id number] Attend Dr: Perla Ny MD Re11/07/23 Status: DEP REF Location: [facility] Disch: SPEC : [id number] JACOBY: 11/07/23-1149 STATUS: COMP REQ : [id number] RECD: 11/07/23-[address]: Perla Ny MD COMP: 11/07/23-1427 ENTERED: 11/07/23-[address]: ORDERED: Met Prof Fast, AST, ALT, Lipid Panel, Vitamin D 25-OH, Free T4, TSH Test Result Flag Reference Sodium 144 135-145 mmol/L Potassium 3.9 3.3-5.1 mmol/L CL 110 H 96-108 mmol/L CO2 24 22-29 mmol/L Gap 14 12-20 BUN 14 9-16 mg/dL Creat 0.68 0.5-1.4 mg/dL EGFR > 60 NOTE: For -Honduran individuals, multiply the result by 1.210. Chronic Kidney Disease: Estimated GFR < 60 mL/min/1.73m2 Severe Kidney Disease: Estimated GFR < 15 mL/min/1.73m2 FBS 99 60-99 mg/dL CA 9.0 8.4-10.2 mg/dL AST (GOT) 25 5-31 U/L ALT (GPT) 33 H 0-31 U/L Triglyceride 96 <150 mg/dL Desirable Triglyceride: less than 150 mg/dL Borderline High Triglyceride 150-199 mg/dL High Triglyceride: 200-499 mg/dL Very High Triglyceride: greater than or equal to 5OO mg/dL Cholesterol 222 H <200 mg/dL Desirable Cholesterol: less than 200 mg/dL Borderline High Cholesterol: 200-239 mg/dL High Cholesterol: greater than 239 mg/dL LDL Calculated 150 H <100 mg/dL Desirable LDL: less than 100 mg/dL Near Optimal/Above Optimal LDL: 110-129 mg/dL Borderline High LDL: 130-159 mg/dL High LDL: 160-189 mg/dL Very High LDL: greater than or equal to 190 mg/dL HDL 53 >40 mg/dL Desirable HDL: greater than 40 mg/dL Note: This HDL assay may give artificially low results in patients with liver disease. Vit D 25-OH Tot 49.3 >30 ng/mL Health Based Reference Values* < 20 ng/mL Deficient 20-30 ng/mL Insufficient > 30 ng/mL Sufficient *Mary CANO. N Engl J Med. 2007;[id number]:[id number] Care must be taken in interpreting Vitamin D results from different laboratories and methodologies. Published data demonstrated that results from patients undergoing hemodialysis may show a negative bias when tested with various automated 25-OH vitamin D assays when compared to LC-MS/MS. When testing samples from patients whose predominant form of Vitamin D is Vitamin D2, such as patients receiving Vitamin D2 supplementation, results that are subtherapeutic should be confirmed with another method such as LC-MS/MS. Free T4 0.78 0.71-1.85 ng/dL TSH 3rd Gen. 2.95 0.32-4.0 uIU/mL Note: A sustained TSH level above 2.5 uIU/mL may warrant further investigation. TSH 3rd Generation ([facility]) Assessment and Plan Assessment & Plan (1) Annual visit for general adult medical examination with abnormal findings: Code(s): Z00.01 - Encounter for general adult medical examination with abnormal findings Plan: Recent fasting lab results reviewed with patient.. Recommended dental visit every 6 months and regular eye exams, at least every 2 years. Take adequate calcium in diet and vitamin-D 3 at 2000 IU per cap once a day, l. Instructed to do self-breast exam, and continue yearly mammogram, currently up-to-date. Bone density scan ordered. She is also up-to-date with her cervical cancer screening colonoscopy. Up-to-date with her vaccinations, reminded to get yearly flu shot (2) Dyslipidemia: Code(s): E78.5 - Hyperlipidemia, unspecified Plan: Reviewed recent fasting lipid profile with patient with levels at goal except for elevated LDL cholesterol. . Continue with rosuvastatin 40 mg daily and ezetimibe 10 mg daily , in addition to adherence to low-cholesterol diet . Advised patient to make healthy food choices, eat more fruits, vegetables, whole grains, wild caught fish and low-fat dairy. Limit amount of meat and fried or fatty food products, as well as processed foods and fast foods. Follow-up scheduled with repeat fasting lipid panel in 3 months. (3) Acquired hypothyroidism: Code(s): E03.9 - Hypothyroidism, unspecified Plan: Thyroid levels are within normal limits, continue current dose of levothyroxine 50 mcg daily 1 tablet taken in the morning an hour before breakfast. (4) Morbid obesity: Code(s): E66.01 - Morbid (severe) obesity due to excess calories Plan: Will try on Ozempic 0.25 mg per injection injected subcutaneously once a week. Patient given for 4 weeks, discussed possible side effects of medication which may include nausea, abdominal cramping, gastroparesis and increased risk for gallstones. Combined this with adherence to healthy eating habits. Return to the clinic in 4 weeks after starting medication for follow-up (5) Chronic gastroesophageal reflux disease: Code(s): K21.9 - Gastro-esophageal reflux disease without esophagitis Plan: Currently on esomeprazole 40 mg daily and famotidine 1 tablet at bedtime (6) Recurrent major depression: Code(s): F33.9 - Major depressive disorder, recurrent, unspecified Qualifiers: Active/Remission status: currently active Psychotic features: without psychotic features Plan: Followed by psychiatry, currently on venlafaxine ER 150 mg daily in a.m. and lorazepam 0.5 mg taken 1 tab once a day as needed for acute anxiety attacks. (7) Chronic pain syndrome: Comment: left foot s/p mid foot fusion in 2010 Code(s): G89.4 - Chronic pain syndrome Plan: Currently followed by [facility], on methocarbamol 750 mg 1 tablet twice a day as needed and acetaminophen 1000 mg every 6 hours as needed for joint pain. (8) Osteoarthritis: Code(s): M19.90 - Unspecified osteoarthritis, unspecified site Plan: Currently on glucosamine and acetaminophen as needed Orders: Orders XR DEXA axial skeleton 11/11/23 Z78.0 - Asymptomatic menopausal state, Z13.820 - Encounter for screening for osteoporosis Lipid Panel 03/02/24 E66.01 - Morbid (severe) obesity due to excess calories, E78.5 - Hyperlipidemia, unspecified, E03.9 - Hypothyroidism, unspecified, Z78.0 - Asymptomatic menopausal state Basic Metabolic Panel Fasting 03/02/24 E66.01 - Morbid (severe) obesity due to excess calories, E78.5 - Hyperlipidemia, unspecified, E03.9 - Hypothyroidism, unspecified, Z78.0 - Asymptomatic menopausal state Alanine Aminotransferase 03/02/24 E66.01 - Morbid (severe) obesity due to excess calories, E78.5 - Hyperlipidemia, unspecified, E03.9 - Hypothyroidism, unspecified, Z78.0 - Asymptomatic menopausal state Aspartate Amino Transferase 03/02/24 E66.01 - Morbid (severe) obesity due to excess calories, E78.5 - Hyperlipidemia, unspecified, E03.9 - Hypothyroidism, unspecified, Z78.0 - Asymptomatic menopausal state Thyroid Stimulating Hormone 03/02/24 E66.01 - Morbid (severe) obesity due to excess calories, E78.5 - Hyperlipidemia, unspecified, E03.9 - Hypothyroidism, unspecified, Z78.0 - Asymptomatic menopausal state Free T4 (Free Thyroxine) 03/02/24 E66.01 - Morbid (severe) obesity due to excess calories, E78.5 - Hyperlipidemia, unspecified, E03.9 - Hypothyroidism, unspecified, Z78.0 - Asymptomatic menopausal state Medications: Refilled lorazepam 0.5 mg PO DAILY PRN 20 tabs 0RF anxiety Coding Level of Care Code Est Pt Prev Care 40-64y(22900) Diagnoses Annual visit for general adult medical examination with abnormal findings Z00.01 Dyslipidemia E78.5 Acquired hypothyroidism E03.9 Morbid obesity E66.01 Chronic gastroesophageal reflux disease K21.9 Recurrent major depression F33.9 Active/Remission status: currently active Psychotic features: without psychotic features Chronic pain syndrome G89.4 Osteoarthritis M19.90
== END 2023-11-11 11:51 | disposition home or self-care (01) ==
PROVIDERS: PCP Internal Medicine; Visit Provider Internal Medicine
DX: Z00.00 Encounter for general adult medical examination without abnormal findings (principal); E66.01 Morbid (severe) obesity due to excess calories; F33.9 Major depressive disorder, recurrent, unspecified; Z68.41 Body mass index [BMI] 40.0-44.9, adult; E78.5 Hyperlipidemia, unspecified; E03.9 Hypothyroidism, unspecified; K21.9 Gastro-esophageal reflux disease without esophagitis; G89.4 Chronic pain syndrome; M19.90 Unspecified osteoarthritis, unspecified site
CPT/HCPCS: 99396

== ENCOUNTER 2023-12-03 08:10 | Outpatient (REF) | payer OTHER, SELFPAY ==
[2023-12-11 20:43] LABS: Cortisol Free, 24 Hr Urine 12.5 mcg/24 h (4.0-50.0); Creatinine, 24 Hr Urine 0.83 g/24 h (0.50-2.15); Total Volume, 24 Hr Urine 1150 mL
== END 2023-12-03 08:11 | disposition home or self-care (01) ==
LOC: HO.HMGCLNP 08:10
PROVIDERS: PCP Internal Medicine; Visit Provider Nurse Practitioner Family
DX: K20.80 Other esophagitis without bleeding (principal); B49 Unspecified mycosis
CPT/HCPCS: 82530

== ENCOUNTER 2024-02-04 10:48 | Outpatient (AMB) | payer OTHER, SELFPAY ==
--- NOTE | 2024-02-04 10:49 | A.OFFVIS_ITS ---
Vital Signs 02/04/24 10:50 Height 5 ft 1 in Weight 233 lb 11.04 oz BMI 44.2 BP 115/53 L Blood Pressure Location Lt brachial Position Sitting Pulse 91 Intake Visit Reasons: 3 month follow up Intake Note: Sofia presents in the office as a 3 month follow up. CC: She states that she is not having any concerns at this time. 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 Patient was placed on fluconazole for 21 days. Patient reports to be feeling well now. However unsure the reason why. Patient is not diabetic. Patient states that her PCP checked her for diabetes. Will check for HIV rule out [place]'s disease. Patient can continue taking esomeprazole as well as famotidine for now. We will re-evaluate her in 3 months, sooner on as needed basis. Patient will call us if she will have any GI concerning symptoms. Patient will call [facility] for appointment as referred during last visit. She is agreeable to this plan and verbalizes understanding of instructions. She was given the opportunity to ask questions and all questions answered. ? Thank you for allowing me to participate in her care Orders Orders Cortisol, Free 24Hr Urine Today B49, K20.80 HIV Ab/Ag Today R79.89 Medications Refilled esomeprazole magnesium (Nexium) 40 mg PO DAILY 90 caps 2RF K21.9 famotidine 40 mg PO BEDTIME 90 tabs 3RF K21.9 TODAY'S VISIT: Patient is here today for follow-up. Patient reports that she has been doing well after starting Nexium and famotidine. Patient reports that she is taking that medication daily and her symptoms of acid reflux are completely suppressed. Patient reports to be feeling fairly well. Moving her bowels without any issues. Denies dyspepsia, dysphagia or odynophagia. Denies melena, hematochezia, unintentional weight loss or ribbon like stools. [facility] Medical History Fungal esophagitis Hiatal hernia Esophageal stricture Esophageal dysmotility Pruritic intertrigo History of migraine Spondylosis without myelopathy or radiculopathy, lumbar region Chronic pain syndrome Acne comedone Hx of varicose veins Intestinal malabsorption following gastrectomy Hypothyroidism Hx of gastroesophageal reflux (GERD) Hx of cardiac murmur Chronic pain Urinary incontinence in female Chronic gastroesophageal reflux disease Recurrent major depression Patient on methadone maintenance therapy Acquired hypothyroidism Osteoarthritis Morbid obesity with BMI of 45.0-49.9, adult Dyslipidemia Surgical History Status post vein stripping (11/25/20) History of repair of hiatal hernia History of adjustable gastric banding S/P laparoscopic sleeve gastrectomy Hx of colonoscopy History of total right knee replacement History of bariatric surgery History of removal of laparoscopic gastric banding device History of total left knee replacement S/P foot surgery, left LAP-BAND surgery status Family History Father History of throat cancer History of [place] (myocardial infarction) Type 2 diabetes mellitus Mother Hyperlipidemia CVD (cardiovascular disease) HTN (hypertension) Maternal Aunt No problems noted. Son Paraplegia Son No problems noted. Paternal Grandmother Type 2 diabetes mellitus Maternal Grandmother Alzheimer's dementia Brother No problems noted. Sister No problems noted. 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 you a primary acute care physician to a significant other at home: Yes (Son - paraplegic) Do you presently have visiting nurse or other home services: No Alcohol intake: never Comment: pt sleeping Patient Tobacco Use Status: Former Tobacco user Tobacco use type: Cigarette Cigarettes Per Day: 3 Years Smoked: 14 e-Cigarette/Vaping Use: Never Used Second Hand Smoke Exposure: No service: No Current occupational status: unemployed Cognitive needs: No Hearing needs: No Vision needs: Yes Female Reproductive History Menstrual Age of Menarche: 14 Review of Systems Const Denies weight gain and Denies weight loss ENT Reports no additional complaints, Reports dysphagia and Denies odynophagia Card Reports no additional complaints Resp Reports no additional complaints GI Denies abdominal pain, Denies belching, Denies melena, Denies bloating, Denies change in bowel habits, Reports dysphagia, Denies excessive flatus, Denies dyspepsia, Denies heartburn, Denies diarrhea, Denies loose stools, Denies nausea, Denies odynophagia and Denies vomiting Reports no additional complaints Musc Reports no additional complaints Neuro Reports no additional complaints Psych Reports no additional complaints Endo Reports no additional complaints Physical Exam Vital Signs: Last Vital Signs Pulse 91 02/04/24 10:50 BP 115/53 L 02/04/24 10:50 BMI result Body Mass Index 44.2 Const General: healthy appearing and no acute distress Nutritional Appearance: obese Orientation/consciousness: patient oriented x3 Resp Effort & Inspection: normal respiratory effort, able to speak in complete sentences, no tracheal deviation and symmetric chest movement Auscultation: clear to auscultation bilaterally Cardio Rate: regular rate GI Inspection: Yes normal to inspection, No distended and Yes obesity Palpation (GI): Soft to palpation, not firm, nontender and No hepatosplenomegaly present Auscultation: normal bowel sounds General: Yes no CVA tenderness Back/Spine/Pelvis Back: no CVA tenderness Skin General skin exam: elasticity normal, turgor normal and dry skin Neuro General: patient oriented x3 Psych Appearance: grossly normal Mental Status: mental status grossly normal Results Reviewed Results Reviewed: Laboratory Tests 11/07/23 12/03/23 11:50 08:00 Urine Total Volume 1150 Ur Creatinine 24 Hour 0.83 Ur Free Cortisol 24 Hr 12.5 HIV 1&2 Ab/P24 Ag 4thGn Nonreactive Assessment & Plan Assessment & Plan (1) Fungal esophagitis: Code(s): K20.80 - Other esophagitis without bleeding; B49 - Unspecified mycosis Category: Medical (2) Chronic gastroesophageal reflux disease: Code(s): K21.9 - Gastro-esophageal reflux disease without esophagitis Category: Medical (3) Hiatal hernia: Code(s): K44.9 - Diaphragmatic hernia without obstruction or gangrene Category: Medical (4) Esophageal dysmotility: Code(s): K22.4 - Dyskinesia of esophagus Category: Medical (5) Esophageal stricture: Code(s): K22.2 - Esophageal obstruction Category: Medical (6) Globus sensation: Code(s): R09.A2 - Foreign body sensation, throat (7) Enlarged tonsils: Code(s): J35.1 - Hypertrophy of tonsils (8) GERD (gastroesophageal reflux disease): Code(s): K21.9 - Gastro-esophageal reflux disease without esophagitis Qualifiers: Esophagitis presence: esophagitis presence not specified Qualified Code(s): K21.9 - Gastro-esophageal reflux disease without esophagitis Plan Continue Nexium and famotidine. Avoid dietary triggers and late night snacking. Staying upright for minimum 3 hours after meals discussed with patient. Patient will return to the office on as needed basis. Recommendation is to keep patient on Nexium and famotidine for that time being. PCP may send script. Patient will call our office if she will have any GI concerning symptoms. Patient is agreeable to this plan and verbalizes understanding of instructions. She was given the opportunity to ask questions and all questions answered Thank you for allowing me to participate in her care Medications: Discontinued semaglutide (Ozempic) for 4 weeks Discontinued Reason: Patient no longer taking 0.25 mg (0.368 mL) subcut QWEEK 30 days 3 mL 0RF Coding Level of Care Code Est Pt Level 3 (26475) Diagnoses Fungal esophagitis K20.80; B49 Chronic gastroesophageal reflux disease K21.9 Hiatal hernia K44.9 Esophageal dysmotility K22.4 Esophageal stricture K22.2 Globus sensation R09.A2 Enlarged tonsils J35.1 Gastroesophageal reflux disease, unspecified whether esophagitis present K21.9 Esophagitis presence: esophagitis presence not specified Time Spent (min) 25 Comment 15 minutes spent with patient and additional 10 minutes spent reviewing her records
[2024-02-04 10:50] VITALS: BP 115/53; PULSE 91; BMI 44.2
== END 2024-02-04 11:19 | disposition home or self-care (01) ==
PROVIDERS: PCP Internal Medicine; Visit Provider Nurse Practitioner Family
DX: K20.80 Other esophagitis without bleeding (principal); B49 Unspecified mycosis; K21.9 Gastro-esophageal reflux disease without esophagitis; K44.9 Diaphragmatic hernia without obstruction or gangrene; K22.4 Dyskinesia of esophagus; K22.2 Esophageal obstruction; R09.A2 Foreign body sensation, throat; J35.1 Hypertrophy of tonsils
CPT/HCPCS: 99213

== ENCOUNTER → 2024-02-04 10:48 | Outpatient (BNVA) | payer OTHER, SELFPAY | PROVIDERS: PCP Internal Medicine; Visit Provider Nurse Practitioner Family ==

== ENCOUNTER 2024-02-28 08:33 | Outpatient (REF) | payer OTHER, SELFPAY ==
[2024-02-28 10:47] LABS: Alanine Aminotransferase 26 U/L (0-31); Anion Gap 10 (12-20); Aspartate Amino Transferase 21 U/L (5-31); Blood Urea Nitrogen 11 mg/dL (9-16); Carbon Dioxide 28 mmol/L (22-29); Chloride 109 mmol/L (96-108); Cholesterol 218 mg/dL (<200); Estimated Glomerular Filt Rate > 60; Glucose Fasting 92 mg/dL (60-99); HDL Cholesterol 52 mg/dL (>40); LDL Cholesterol Calculated 146 mg/dL (<100); Potassium 3.9 mmol/L (3.3-5.1); Sodium 143 mmol/L (135-145); Triglycerides 102 mg/dL (<150)
[2024-02-28 11:03] LABS: Thyroid Stimulating Hormone 3.71 uIU/mL (0.32-4.0)
== END 2024-02-28 08:34 | disposition home or self-care (01) ==
LOC: HO.HMGCLDS 08:33
PROVIDERS: PCP Internal Medicine; Visit Provider Internal Medicine
DX: E66.01 Morbid (severe) obesity due to excess calories (principal); E78.5 Hyperlipidemia, unspecified; E03.9 Hypothyroidism, unspecified; Z78.0 Asymptomatic menopausal state
CPT/HCPCS: 36415; 80048; 80061; 84439; 84443; 84450; 84460

== ENCOUNTER 2024-03-09 12:49 | Outpatient (AMB) | payer OTHER, SELFPAY ==
[2024-03-09 13:01] VITALS: BP 102/70; PULSE 82; O2SAT 97; BMI 45.1
--- NOTE | 2024-03-09 13:01 | A.OFFPC_ITS ---
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 Required: No Accompanied by: Self / Same As Patient Allergies Sulfa (Sulfonamide Antibiotics) [SULFA (SULFONAMIDE ANTIBIOTICS)] Allergy (Severe, Verified 03/09/24 13:22) swelling of lips and tongue Penicillins [PENICILLINS] Allergy (Unknown, Verified 03/09/24 13:22) UNKNOWN Medication List - Last Reconciled 03/09/24 by Perla Ny MD acetaminophen (Tylenol Extra Strength) 1,000 mg (2 x 500 mg) PO Q6H PRN azelaic acid 15% topical buspirone 10 mg PO BID calcium carbonate (Calcium 600) 600 mg PO BID cetirizine (Zyrtec) 10 mg PO DAILY PRN cevimeline caps PO clotrimazole-betamethasone 1-0.05 % apply thin film to affected area topically 2 times a day; 10 days coenzyme Q10 (CoQ-10) 200 mg PO DAILY desonide 0.05% topical esomeprazole magnesium (Nexium) 40 mg PO DAILY ezetimibe 10 mg PO DAILY famotidine 40 mg PO BEDTIME gabapentin 800 mg PO TID glucosamine sulfate (Glucosamine) 500 mg PO DAILY levothyroxine 50 mcg PO QAM lidocaine 5% patches topical lorazepam 0.5 mg PO DAILY PRN methocarbamol 750 mg PO BID PRN mometasone 0.1% 1 appl topical DAILY PRN multivitamin 1 tab PO DAILY nystatin topical oxymetazoline 0.05% (Afrin (oxymetazoline)) 2 sprays intranasal Q12H PRN 3 days rosuvastatin 40 mg PO DAILY 90 days sumatriptan succinate 50 mg PO Q2-4H PRN topiramate 100 mg PO BID tretinoin 0.025% appl topical tretinoin 0.05% appl topical venlafaxine ER 150 mg PO QAM Tobacco use date assessed: 11/11/23 Dental Screening Dental Screen Date: 11/11/23 HPI 4M F/U HPI Details 63-year-old lady with hyperlipidemia, hy pothyroidism, here today for her follow-up. She had recent fasting labs done showed electrolytes, renal function, fasting glucose, liver enzymes are within normal limit, but lipids showed elevated LDL cholesterol and triglycerides and TSH is elevated with a lower free T4 as compared to last check. Patient is currently taking levothyroxine 50 mcg daily in a.m. and does complain of feeling more tired than usual. Unsure whether this is because of increase stress at home. Mother is currently the ICU at [facility] due to declining cognition and is most likely going to be moved to a fdc she also has been having recurrent pain in her joints. Has been taken off Celebrex due to history of gastric bypass surgery and is just taking Tylenol and gabapentin which affords only mild temporary relief of pain. Has been having difficulty sleeping at night , as pain in her joints is keeping her awake. [facility] Medical History Fungal esophagitis Hiatal hernia Esophageal stricture Esophageal dysmotility Pruritic intertrigo History of migraine Spondylosis without myelopathy or radiculopathy, lumbar region Chronic pain syndrome Acne comedone Hx of varicose veins Intestinal malabsorption following gastrectomy Hypothyroidism Hx of gastroesophageal reflux (GERD) Hx of cardiac murmur Chronic pain Urinary incontinence in female Chronic gastroesophageal reflux disease Recurrent major depression Patient on methadone maintenance therapy Acquired hypothyroidism Osteoarthritis Morbid obesity with BMI of 45.0-49.9, adult Dyslipidemia Surgical History Status post vein stripping (11/25/20) History of repair of hiatal hernia History of adjustable gastric banding S/P laparoscopic sleeve gastrectomy Hx of colonoscopy History of total right knee replacement History of bariatric surgery History of removal of laparoscopic gastric banding device History of total left knee replacement S/P foot surgery, left LAP-BAND surgery status Family History Father History of throat cancer History of [place] (myocardial infarction) Type 2 diabetes mellitus Mother Hyperlipidemia CVD (cardiovascular disease) HTN (hypertension) Maternal Aunt No problems noted. Son Paraplegia Son No problems noted. Paternal Grandmother Type 2 diabetes mellitus Maternal Grandmother Alzheimer's dementia Brother No problems noted. Sister No problems noted. 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 you a primary healthcare business analyst to a significant other at home: Yes (Son - paraplegic) Do you presently have visiting nurse or other home services: No Alcohol intake: never Comment: pt sleeping Patient Tobacco Use Status: Former Tobacco user Tobacco use type: Cigarette Cigarettes Per Day: 3 Years Smoked: 14 e-Cigarette/Vaping Use: Never Used Second Hand Smoke Exposure: No service: No Current occupational status: unemployed Cognitive needs: No Hearing needs: No Vision needs: Yes Female Reproductive History Menstrual Age of Menarche: 14 Questionnaire PHQ-9 Over the last 2 weeks, how often have you been bothered by any of the following problems? Depression Screening Interpretation: Negative Depression Screening Done: Yes Source: Developed by Drs. Yaw Nowak, Santa Villarreal, Adonis Cuenca and colleagues, with an educational saurabh from [employer]. Thrive Questionnaire Date Thrive assessed: 03/09/24 I am a: Patient What is your living situation today?: I have a steady place to live Within the past 12 months, did the food you bought not last and you didn't have the money to get more?: Never true Within the past 12 months, did you worry whether your food would run out before you got money to buy more?: Never true Do you have trouble paying for medicines?: No Do you have trouble getting transportation to medical appointments?: No Do you have trouble paying your heating and electricity bill?: No Do you have trouble taking care of your child, family member or friend?: No Do you have trouble with day-to-day activities such as bathing, preparing meals, shopping, managing finances, etc.?: No Are you currently unemployed and looking for a job?: No Are you interested in more education?: No Please select the resources that you would like help with: None Currently or been in a relationship where the following occur: No concerns reported THRIVE Score: 0 AUDIT C Alcohol Use Questionnaire (AUDIT-C) 1. How often do you have a drink containing alcohol?: Monthly or less 2. How many drinks containing alcohol do you have on a typical day when you are drinking?: 1 or 2 3. How often do you have six or more drinks on one occasion?: Never Total Score: 1 Score Reviewed/Action Taken: Yes DALLIN-7 AMB Questionnaire DALLIN-7 Date DALLIN - 7 assessed: 03/09/24 Feeling nervous, anxious, or on edge: 1 = Several days Not being able to stop or control worryin = Not at all Worrying too much about different things: 1 = Several days Trouble relaxin = Not at all Being so restless that it is hard to sit still: 0 = Not at all Becoming easily annoyed or irritable: 0 = Not at all Feeling afraid as if something awful might happen: 0 = Not at all Total DALLIN-7 score (0-4 normal; 5-9 mild; 10-14 moderate; 15-21 severe): 2 Source: Developed by Drs. Yaw Nowak, Santa Villarreal, Adonis Cuenca and colleagues, with an educational saurabh from [employer]. DALLIN-7 Assessment Billing DALLIN-7 Assessment Tool: DALLIN-7 Assessment 01810 Review of Systems Const Denies fever(s) and Denies headache(s) Eyes Denies change in vision ENT Denies headache(s) Card Denies chest pain, Denies lightheadedness, Denies palpitations and Denies dysp jennifer Resp Denies chest congestion, Denies cough, Denies dyspnea and Denies wheezing GI Denies abdominal pain, Denies change in bowel habits and Denies heartburn Denies urinary frequency, Denies dysuria and Denies urinary urgency Musc Details: Unable to stand or go up and down stairs due to chronic pain in left foot Reports as per HPI Neuro Denies headache(s) Psych Reports no additional complaints Endo Denies palpitations Gee/Lymph Denies easy bruising Aller/Immun Denies seasonal rhinorrhea and Denies wheezing Physical exam (Primary Care) Vital Signs: Last Vital Signs Pulse 82 03/09/24 13:01 BP 102/70 03/09/24 13:01 Pulse Ox 97 03/09/24 13:01 Oxygen Delivery Method Room Air 03/09/24 13:01 BMI result Body Mass Index 45.1 Tobacco/Smoking Status: Tobacco use Status Tobacco use date assessed 11/11/23 03/09/24 13:03 Patient Tobacco Use Status Former Tobacco user 03/09/24 13:03 Tobacco use type Cigarette 03/09/24 13:03 e-Cigarette/Vaping Use Never Used 03/09/24 13:03 Depression Screening Interpretation: Negative Thrive Assessment: Date of Thrive Assessment Date Thrive assessed 03/09/24 03/09/24 13:03 Currently or been in a relationship where the following occur: No concerns reported Const General: cooperative, no acute distress and alert Orientation/consciousness: patient oriented x3 Limitations: ambulation with cane HENMT General nose exam: Normal external nose present and No nasal discharge present Face and sinus: Yes face symmetric Mouth: Normal oral and palatal mucosa present, oropharynx normal and moist mucous membranes Eyes Other: Sees [facility] General: appearance normal, both eyes and all related structures Neck Other: Supple, no lymphadenopathy, thyroid gland nonpalpable Resp Effort & Inspection: normal respiratory effort and able to speak in complete sentences Auscultation: clear to auscultation bilaterally Cardio Other: S1-S2 present regular rate and rhythm GI Inspection: Yes obesity Palpation (GI): Soft to palpation, nontender, no guarding and no masses General: Yes no CVA tenderness Back/Spine/Pelvis Back: no CVA tenderness Neuro General: patient oriented x3, tone normal, moves all extremities, Normal light touch and pain sensation, no focal motor deficits and CN's II-XI intact bilaterally Extrem Other: healed scar surgical scars noted on dorsal aspect of left foot, decreased range of motion of foot and ankle due to pain Psych Appearance: grossly normal and well kempt Mental Status: mental status grossly normal Speech and movement: Normal speech and movement present Affect: normal affect Attitude: cooperative Thought process: Normal thought process present Results Reviewed Results Reviewed: kathleen: Sofia Otero Age/Sex: 63/F : 1960 Unit#: [id number] Attend Dr: Perla Ny MD Re02/28/24 Status: [facility]P [facility] SPEC : [id number] JACOBY: 02/28/24 STATUS: COMP REQ : [id number] RECD: 02/28/[address]: ePrla Ny MD COMP: 02/28/24 ENTERED: 02/28/[address]: ORDERED: Met Prof Fast, AST, ALT, Lipid Panel, Free T4, TSH Test Result Flag Reference Sodium 143 135-145 mmol/L Potassium 3.9 3.3-5.1 mmol/L CL 109 H 96-108 mmol/L CO2 28 22-29 mmol/L Gap 10 L 12-20 BUN 11 9-16 mg/dL Creat 0.76 0.5-1.4 mg/dL EGFR > 60 NOTE: For -Baham[place] individuals, multiply the result by 1.210. Chronic Kidney Disease: Estimated GFR < 60 mL/min/1.73m2 Severe Kidney Disease: Estimated GFR < 15 mL/min/1.73m2 FBS 92 60-99 mg/dL CA 9.0 8.4-10.2 mg/dL AST (GOT) 21 5-31 U/L ALT (GPT) 26 0-31 U/L Triglyceride 102 <150 mg/dL Desirable Triglyceride: less than 150 mg/dL Borderline High Triglyceride 150-199 mg/dL High Triglyceride: 200-499 mg/dL Very High Triglyceride: greater than or equal to 5OO mg/dL Cholesterol 218 H <200 mg/dL Desirable Cholesterol: less than 200 mg/dL Borderline High Cholesterol: 200-239 mg/dL High Cholesterol: greater than 239 mg/dL LDL Calculated 146 H <100 mg/dL Desirable LDL: less than 100 mg/dL Near Optimal/Above Optimal LDL: 110-129 mg/dL Borderline High LDL: 130-159 mg/dL High LDL: 160-189 mg/dL Very High LDL: greater than or equal to 190 mg/dL HDL 52 >40 mg/dL Desirable HDL: greater than 40 mg/dL Note: This HDL assay may give artificially low results in patients with liver disease. Free T4 0.70 L 0.71-1.85 ng/dL TSH 3rd Gen. 3.71 0.32-4.0 uIU/mL Note: A sustained TSH level above 2.5 uIU/mL may warrant further investigation. TSH 3rd Generation ([facility]) Assessment and Plan Assessment & Plan (1) Dyslipidemia: Code(s): E78.5 - Hyperlipidemia, unspecified Plan: Discussed recent fasting lab results with patient which showed elevated triglycerides and LDL cholesterol. Reinforced importance of following a low cholesterol diet and staying active, patient however finds the latter difficult to do due to constant pain in her left foot. Continue ezetimibe 10 mg daily and rosuvastatin 40 mg daily. Repeat fasting lipid panel in 3 months (2) Acquired hypothyroidism: Code(s): E03.9 - Hypothyroidism, unspecified Plan: Results of recent TSH and free T4 level discussed with patient, will increase dose of levothyroxine to 75 mcg daily. Patient states that she still has a lot of 50 mcg tablets at home and will just take 1 and half tablet once a day in a.m. build will repeat another TSH and free T4 in 3 months (3) Chronic pain syndrome: Comment: left foot s/p mid foot fusion in 2010 Code(s): G89.4 - Chronic pain syndrome Plan: Continue taking Tylenol 650 mg 1 tablet 6 hours as needed for pain relief. Continued on gabapentin same dose, trial of tizanidine 4 mg per tablet to take 1/2-1 mg at bedtime for painful muscle spasms. Orders: Orders Free T4 (Free Thyroxine) 3 Months E03.9 - Hypothyroidism, unspecified, E78.5 - Hyperlipidemia, unspecified, G89.4 - Chronic pain syndrome Thyroid Stimulating Hormone 3 Months E03.9 - Hypothyroidism, unspecified, E78.5 - Hyperlipidemia, unspecified, G89.4 - Chronic pain syndrome Lipid Panel 3 Months E03.9 - Hypothyroidism, unspecified, E78.5 - Hyperlipidemia, unspecified, G89.4 - Chronic pain syndrome Medications: New tizanidine 4 mg PO BEDTIME PRN 30 tabs 0RF muscle spasticity Refilled lorazepam 0.5 mg PO DAILY PRN 20 tabs 0RF anxiety Coding Level of Care Code Est Pt Level 4 (29718) Complex EM visit Add On G2211 Diagnoses Dyslipidemia E78.5 Acquired hypothyroidism E03.9 Chronic pain syndrome G89.4 Additional Codes DALLIN-7 Assessment Billing - DALLIN-7 Assessment Tool: DALLIN-7 Assessment 20486 ([id number])
== END 2024-03-09 14:06 | disposition home or self-care (01) ==
PROVIDERS: PCP Internal Medicine; Visit Provider Internal Medicine
DX: E78.5 Hyperlipidemia, unspecified (principal); E03.9 Hypothyroidism, unspecified; G89.4 Chronic pain syndrome
CPT/HCPCS: 99214

== ENCOUNTER 2024-04-28 12:17 | Outpatient (REF) | payer OTHER, SELFPAY ==
--- NOTE | ~2024-04-28 | MM_ITS ---
EXAMINATION: MM SCREENING DIGITAL BREAST TOMOSYNTHESIS, BILATERAL CLINICAL INFORMATION: Screening. Asymptomatic. COMPARISON: Mammography: Comparison is made with available priors TECHNIQUE: Digital breast mammography with tomosynthesis is performed in both the craniocaudal and mediolateral oblique views along with computer-aided detection (CAD). FINDINGS: There are scattered areas of fibroglandular density (ACR BI-RADS breast composition Category b). There are no significant masses, abnormal calcifications, or other abnormalities. MM/MM tomosynthesis screening BI IMPRESSION: No mammographic evidence of malignancy. ASSESSMENT: BI-RADS BI-RADS 1 - Negative RECOMMENDATION: Routine annual mammography screening. 1 year F/U This examination should not preclude the clinical evaluation of a suspicious palpable abnormality. This patient's information was entered into a reminder system with a target due date for their next mammogram. Electronically signed by: Alethea Chaidez DO 05/06/2024 10:45 AM TETO
--- NOTE | ~2024-04-28 | MM_ITS ---
EXAMINATION: BONE DENSITOMETRY CLINICAL INDICATION: Asymptomatic menopausal state. COMPARISON: This is the patient's baseline examination. TECHNIQUE: Using a Zenefits DXA System (software version: 13.1) manufactured by [employer], dual-energy x-ray absorptiometry was performed of the lumbar spine and left hip. The images are of good technical quality. Summary results are attached. FINDINGS: LEFT FEMUR, NECK: BMD 0.895 g/cm2, Z-score -0.5, T-score -1.0, normal. LEFT FEMUR, TOTAL: BMD 0.965 g/cm2, Z-score -0.2, T-score -0.3, normal. AP SPINE L1-L4: BMD 1.380 g/cm2, Z-score 1.8, T-score 1.7, normal. IDENTIFIED RISK FACTORS: Menopause, height loss, secondary osteoporosis (partial gastrectomy). HISTORY OF FRACTURE: None listed. MEDICATIONS: Calcium supplements or multivitamin, vitamin D, ERT/SERMS. MM/XR DEXA axial skeleton IMPRESSION: 1. DIAGNOSIS: Normal bone density based on the lowest T-score value of -1.0 in the femoral neck applying World Health Organization criteria. 2. 10-YEAR FRACTURE RISK PREDICTION, FRAX: According to the guidelines, FRAX calculation should only be performed on patients in the osteopenia bone density category. Therefore, FRAX was not performed on this patient. 3. Treatment Recommendations: NOF guidelines recommend consideration for treatment in postmenopausal women and men age 50 and older presenting with the following: -A hip or vertebral (clinical or morphometric) fracture. -T-score less than or equal to -2.5 at the femoral neck or spine after appropriate evaluation to exclude secondary causes. -Low bone mass at the hip or spine and a 10-year fracture probability by FRAX of greater than or equal to 3% for hip fracture or greater than or equal to 20% for major osteoporotic fracture based on the [place] adapted WHO algorithm. 4. Other Recommendations: All treatment decisions require clinical judgment and consideration of individual patient factors, including patient preferences, comorbidities, previous drug use, risk factors not captured in the FRAX model (e.g. frailty, falls, vitamin D deficiency, increased bone turnover, interval significant decline in bone density) and possible under or overestimation of fracture risk by FRAX. FUTURE SCAN RECOMMENDATION: People with diagnosed cases of osteoporosis or at high risk for fracture should have regular bone mineral density tests. For patients eligible for Medicare, routine testing is allowed once every 2 years. The testing frequency can be increased to one year for patients who have rapidly progressing disease, those who are receiving or discontinuing medical therapy to restore bone mass, or have additional risk factors. Electronically signed by: Paresh Smith MD 04/30/2024 01:39 PM EDT
== END 2024-04-28 12:18 | disposition home or self-care (01) ==
LOC: HO.MAMMO 12:17
PROVIDERS: PCP Internal Medicine; Visit Provider Internal Medicine
DX: Z12.31 Encounter for screening mammogram for malignant neoplasm of breast (principal); Z13.820 Encounter for screening for osteoporosis; Z78.0 Asymptomatic menopausal state
CPT/HCPCS: 77063; 77067; 77080

== ENCOUNTER → 2024-04-28 12:30 | Outpatient (BNV) | payer OTHER, SELFPAY | PROVIDERS: PCP Internal Medicine; Visit Provider Internal Medicine | DX: Z12.31 Encounter for screening mammogram for malignant neoplasm of breast (principal) | CPT/HCPCS: 77063; 77067 ==

== ENCOUNTER 2024-05-18 13:15 | Outpatient (AMB) | payer OTHER, SELFPAY ==
--- NOTE | 2024-05-18 14:32 | MHC.OFFWIV ---
Intake Vital Signs 05/18/24 14:34 Weight 235 lb BP 110/78 Blood Pressure Location Rt brachial Position Sitting Pulse 74 Pulse Source Pulse Oximeter Temp 97.9 F Temp Source Oral Pulse Oximetry (%) 97 Oxygen Delivery Method Room Air Intake Visit Reasons: EP-?sinus infection Intake Note: Patient here for headaches and sinus pressure, pt states she had covid about 1 month ago and since then these symptoms never went away Patient Tobacco Use Status: Former Tobacco user Allergies Sulfa (Sulfonamide Antibiotics) [SULFA (SULFONAMIDE ANTIBIOTICS)] Allergy (Severe, Verified 05/18/24 14:35) swelling of lips and tongue Penicillins [PENICILLINS] Allergy (Unknown, Verified 05/18/24 14:35) UNKNOWN Do you need a note to return to daycare/school/sports/work: No HPI HPI Comments History of Present Illness Details Patient is a 63-year-old female complaining of 1 month of upper respiratory symptoms. She tells me that 1 month ago she had a COVID diagnosis, April 21, and since then she has had a lingering sinus infection. She tells me she has a dry cough, head congestion and sinus pressure she denies any shortness of breath, wheezing, chest pain, ear pain or fevers. She is eating and drinking normally she has been taking Tylenol for her symptoms. She tells me nobody at home is sick. [facility] Medical History Fungal esophagitis Hiatal hernia Esophageal stricture Esophageal dysmotility Pruritic intertrigo History of migraine Spondylosis without myelopathy or radiculopathy, lumbar region Chronic pain syndrome Acne comedone Hx of varicose veins Intestinal malabsorption following gastrectomy Hypothyroidism Hx of gastroesophageal reflux (GERD) Hx of cardiac murmur Chronic pain Urinary incontinence in female Chronic gastroesophageal reflux disease Recurrent major depression Patient on methadone maintenance therapy Acquired hypothyroidism Osteoarthritis Morbid obesity with BMI of 45.0-49.9, adult Dyslipidemia Surgical History Status post vein stripping (11/25/20) History of repair of hiatal hernia History of adjustable gastric banding S/P laparoscopic sleeve gastrectomy Hx of colonoscopy History of total right knee replacement History of bariatric surgery History of removal of laparoscopic gastric banding device History of total left knee replacement S/P foot surgery, left LAP-BAND surgery status Family History Father History of throat cancer History of SD (myocardial infarction) Type 2 diabetes mellitus Mother Hyperlipidemia CVD (cardiovascular disease) HTN (hypertension) Maternal Aunt No problems noted. Son Paraplegia Son No problems noted. Paternal Grandmother Type 2 diabetes mellitus Maternal Grandmother Alzheimer's dementia Brother No problems noted. Sister No problems noted. 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 you a primary aged or disabled carer to a significant other at home: Yes (Son - paraplegic) Do you presently have visiting nurse or other home services: No Alcohol intake: never Comment: pt sleeping Patient Tobacco Use Status: Former Tobacco user Tobacco use type: Cigarette Cigarettes Per Day: 3 Years Smoked: 14 e-Cigarette/Vaping Use: Never Used Second Hand Smoke Exposure: No service: No Current occupational status: unemployed Cognitive needs: No Hearing needs: No Vision needs: Yes Female Reproductive History Menstrual Age of Menarche: 14 Review of Systems Const All systems reviewed & are unremarkable except as noted in HPI and below Physical Exam Vital Signs: Last Vital Signs Temp 97.9 F 05/18/24 14:34 Pulse 74 05/18/24 14:34 BP 110/78 05/18/24 14:34 Pulse Ox 97 05/18/24 14:34 Oxygen Delivery Method Room Air 05/18/24 14:34 Const General: cooperative, healthy appearing, comfortable and no acute distress Orientation/consciousness: patient oriented x3 Limitations: no limitations HEENT Head: Yes normal to inspection Ears: hearing grossly normal bilaterally, external ears normal and TM's normal bilaterally General nose exam: Normal external nose present, Normal nares present and No nasal discharge present Face and sinus: Yes normal facial exam and Yes sinus tenderness (Bilateral ethmoid) Mouth: Normal oral and palatal mucosa present and moist mucous membranes Throat: Yes tonsils normal, Yes uvula midline and Yes posterior oropharynx abnormal (Erythema) Eyes General: appearance normal, both eyes and all related structures Neck Neck: Yes normal visual inspection Resp Effort & Inspection: normal respiratory effort, able to speak in complete sentences, Actively coughing, no respiratory distress, not tachypneic, no tripod positioning and no use of accessory muscles Auscultation: clear to auscultation bilaterally Cardio Rate: regular rate Rhythm: regular rhythm Heart sounds: normal S1 and S2 Skin General skin exam: no rashes or lesions noted Neuro General: patient oriented x3 Extrem General: Yes normal to inspection and Yes no clubbing, cyanosis or edema Assessment & Plan Assessment & Plan (1) Acute bacterial sinusitis: Code(s): J01.90 - Acute sinusitis, unspecified; B96.89 - Other specified bacterial agents as the cause of diseases classified elsewhere Plan: Vital signs are stable, patient well-appearing, as it has been a month of a sinus infection, likely bacterial, sent doxycycline to pharmacy as patient is allergic to penicillins Plan See above Medications: New doxycycline hyclate 100 mg PO BID 14 tabs 0RF Coding Level of Care Code Est Pt Level 3 (04340) Diagnoses Acute bacterial sinusitis J01.90; B96.89
[2024-05-18 14:34] VITALS: BP 110/78; PULSE 74; TEMP 36.6; O2SAT 97
== END 2024-05-18 15:22 | disposition home or self-care (01) ==
PROVIDERS: PCP Internal Medicine; Visit Provider Physician Assistant
DX: J01.90 Acute sinusitis, unspecified (principal); B96.89 Other specified bacterial agents as the cause of diseases classified elsewhere

== ENCOUNTER 2024-06-02 11:51 | Outpatient (REF) | payer OTHER, SELFPAY ==
[2024-06-02 15:19] LABS: Cholesterol 200 mg/dL (<200); Free T4 (Free Thyroxine) 1.03 ng/dL (0.71-1.85); HDL Cholesterol 49 mg/dL (>40); LDL Cholesterol Calculated 130 mg/dL (<100); Thyroid Stimulating Hormone 1.45 uIU/mL (0.32-4.0); Triglycerides 105 mg/dL (<150)
--- OUTSIDE RECORDS SUMMARY | 2024-06-09 13:35 | XMS_ITS | Continuity of Care Document ---
Author Organization [place] - [facility], [facility] Address [address] [place] [address] Care Team Providers Care Estate Planner Name Role Phone JENARO JARRELL Primary Care Provider Assessment Encounter Date Assessment Date Assessment LastModified by Organization Details LastModified Time 05/25/2024 05/25/2024 63-year-old becca lemus presents for evaluation of tonsil hypertrophy. On exam, bilateral tympanic membranes are intact with well aerated middle ear spaces. Anterior rhinoscopy without purulence or rhinorrhea. Tonsils are 2+ bilaterally and soft to palpation bilaterally. Fiberoptic laryngoscopy was offered, but patient declined. She will follow-up with her supervisor pumping station for management of GERD and dysphagia. She may follow-up with our office as needed for any future concerns. [email or web address] Not available 05/25/2024 14:12:24 Plan of Treatment Reminders Order Date Submit Date Provider Last Modified By Organization Details Last Modified Time Details Appointments None record ed. Lab None record ed. Referral None record ed. Procedures None record ed. Surgeries None record ed. Imaging None record ed. Medication Orders None record ed. Patient TargetsNo targets recorded. Patient InstructionsNo instructions recorded. Reason for Referral None Reported. Problems Name Problem SNOMED Code Status Onset Date Resolution Date Notes Provider Name and Address Organization Details Recorded Time Hypertrophy of tonsils 72127619 Active RODY NICOLAS PA-C [address] [place] [address], [place], [address] [facility] [place] - [facility] 14:06:41 Dysphagia 15146573 Active RODY NICOLAS PA-C [address], [id number], [facility] - [facility] 4 14:15:29 Problem Notes None recorded. Medical Equipment None Reported. Medications Name Sig Start Date Stop Date Status Note LastModified by Organization Details LastModified Time diphen/lido /antacid SWISH AND SWALLOW 10 MLS BY MOUTH FOUR TIMES DAILY active Not Available Not Available No t Available fluconazole 100 mg tablet TAKE 1 TABLET BY MOUTH DAILY active Not Available Not Available No t Available clindamycin HCl 300 mg capsule TAKE 1 CAPSULE BY MOUTH THREE TIMES DAILY active Not Available Not Available No t Available Lidocaine Viscous 2 % mucosal solution active Not Available Not Available Not Available nystatin 100,000 unit/gram topical ointment APPLY TWICE DAILY TO CORNERS OF MOUTH NEEDED FOR RASH MIX WITH DESONIDE OINTMENT IF INFLAMED OR SORE active Not Available Not Available No t Available tizanidine 4 mg tablet TAKE 1 TABLET BY MOUTH AT BEDTIME NEEDED FOR MUSCLE SPASMS active Not Available Not Available No t Available famotidine 40 mg tablet TAKE 1 TABLET BY MOUTH AT BEDTIME active Not Available Not Available No t Available venlafaxine ER 150 mg capsule,ext ended release 24 hr active Not Available Not Available Not Available sumatriptan 50 mg tablet TAKE 1 TABLET BY MOUTH EVERY 2 TO 4 HOURS NEEDED FOR MIGRAINE active Not Available Not Available No t Available acetaminoph en 300 mg-codeine 30 mg tablet TAKE 1 TABLET BY MOUTH EVERY 4-6 HOURS NEEDED FOR PAIN 05/25 completed Not Available Not Available Not Available omeprazole 40 mg capsule,del ayed release TAKE 1 CAPSULE BY MOUTH DAILY active Not Available Not Available No t Available oxycodone-a cetaminophe n 5 mg-325 mg tablet TAKE 1 TABLET BY MOUTH EVERY 4-6 HOURS NEEDED FOR PAIN 05/25 completed Not Available Not Available Not Available lorazepam 0.5 mg tablet TAKE 1 TABLET BY MOUTH DAILY NEEDED FOR ANXIETY active Not Available Not Available No t Available desonide 0.05 % topical ointment active Not Available Not Available Not Available gabapentin 800 mg tablet active Not Available Not Available Not Available levothyroxi ne 50 mcg tablet active Not Available Not Available Not Available esomeprazol e magnesium 40 mg capsule,del ayed release TAKE 1 CAPSULE BY MOUTH DAILY active Not Available Not Available No t Available cevimeline 30 mg capsule TAKE ONE CAPSULE BY MOUTH THREE TIMES DAILY active Not Available Not Available No t Available buspirone 10 mg tablet active Not Available Not Available Not Available lidocaine 5 % topical patch APPLY TOPICALLY TO AFFECTED AREA. 12 HOURS ON THEN 12 HOURS OFF active Not Available Not Available No t Available lorazepam 1 mg tablet TAKE 1/2 TO 1 TABLET BY MOUTH EVERY NIGHT AT BEDTIME NEEDED FOR ANXIETY/S LEEP. active Not Available Not Available No t Available topiramate 100 mg tablet active Not Available Not Available Not Available doxycycline hyclate 100 mg tablet TAKE 1 TABLET BY MOUTH TWICE DAILY active Not Available Not Available No t Available oxycodone 5 mg tablet TAKE 1 TABLET BY MOUTH EVERY 4 TO 6 HOURS NEEDED FOR SEVERE PAIN active Not Available Not Available No t Available azithromyci n 500 mg tablet TAKE 1 TABLET BY MOUTH DAILY FOR 3 DAYS 05/25 completed Not Available Not Available Not Available ezetimibe 10 mg tablet active Not Available Not Available Not Available rosuvastati n 40 mg tablet active Not Available Not Available Not Available Nasal Decongestan t (oxymetazol ine) 0.05 % spray USE 2 SPRAYS IN EACH NOSTRIL EVERY 12 HOURS FOR 3 DAYS NEEDED FOR NASAL CONGESTIO N active Not Available Not Available No t Available Vitals Date Recorded Body height Body mass index (BMI) Body weight Provider Name and Address Organization Details Last Updated DateTime 05/25/2024 154.94 cm 43.5 kg/m2 921994.25 g Jorge A Mike [place] - [facility] 05/25/2024 13:51:09 Social History None recorded. Functional Status None recorded. Mental Status None recorded. Family History Nothing Reported. Medical History No medical history recorded. Gynecological HistoryNo gynecological history recorded. Obstetrics History GPAL:G 0 P 0 0 0 0 Past Encounters Encounter ID Performer Location Encounter Start Date Encounter Closed Date Diagnosis/Indication Diagnosis SNOMED-CT Code Diagnosis ICD10 Code [id number] RODY NICOLAS PA-C [facility] [address] [address] 05/25/2024 13:28:53 05/25/2024 14:23:03 Hypertrophy of tonsils 50282591 J35.1 Dysphagia 60928422 R13.1 9 Health Concerns Section Related Observation LastModified by Organization Stephie claros LastModified Time None Recorded Concern Status LastModified by Organization Details LastModified Time None Recorded Payers Encounter Date Sequence Insurance Name Policy Number Policy Fernandez Covered Member ID Fernandez Member ID Guarantor Name 05/25/2024 1 [facility] [id number] Sofia Otero [id number] Sofia Otero Notes Date Note Type Note Provider Name and Address Organization Details Recorded Time 05/25/2024 text/html 63 year old becca lemus presents for evaluation of tonsil hypertrophy. She was seen by GI last year for acid reflux and there was concern about enlarged tonsils during her endoscopy. She was referred to our office for further evaluation. She reports continued acid reflux symptoms and dysphagia to solids and liquids. She had a barium swallow for liquids and is waiting to schedule barium swallow for solids. She is followed by GI at [facility]. Denies voice changes, odynophagia, otalgia, and chronic sore throat. Denies history of chronic tonsillitis. Former smoker quit over 30 years ago. Currently on antibiotics x 1 week and Flonase for sinus infection. RODY NICOLAS PA-C [address] [place] [address], [id number], [place] - [facility] 05/25/2024 14:15:47 OBGyn Episode No OBEpisode recorded.
== END 2024-06-02 11:52 | disposition home or self-care (01) ==
LOC: HO.HMGCLDS 11:51
PROVIDERS: PCP Internal Medicine; Visit Provider Internal Medicine
DX: E03.9 Hypothyroidism, unspecified (principal); E78.5 Hyperlipidemia, unspecified; G89.4 Chronic pain syndrome
CPT/HCPCS: 36415; 80061; 84439; 84443

== ENCOUNTER 2024-06-22 09:01 | Outpatient (REF) | payer OTHER, SELFPAY ==
[2024-06-22 16:47] LABS: Influenza A PCR NEGATIVE (Negative); Influenza B PCR NEGATIVE (Negative); Resp Syncy Virus RNA Qual PCR NEGATIVE (Negative); SARS COV2 PCR INHOUSE NEGATIVE (Negative)
== END 2024-06-22 09:02 | disposition home or self-care (01) ==
LOC: HO.LAB 09:01
PROVIDERS: PCP Internal Medicine; Visit Provider Registered Nurse
DX: J06.9 Acute upper respiratory infection, unspecified (principal)
CPT/HCPCS: 0241U

== ENCOUNTER 2024-06-22 10:55 | Outpatient (AMB) | payer OTHER, SELFPAY ==
--- OUTSIDE RECORDS SUMMARY | 2024-06-22 10:59 | XMS_ITS | Data Portability ---
Author Organization [place] - [facility], All[facility] Address [address] [facility] [address] [place] [address] Care Team Providers Care Steel Worker Name Role Phone JENARO JARRELL Primary Care [...] patient declined. She will follow-up with her biochemistry teacher for management of GERD and dysphagia. She may follow-up with our office as needed for any future concerns. [email or web address] Not available 05/25/2024 14:12:24 Plan of Treatment [...] Organization Details Recorded Time Hypertrophy of tonsils 52462852 Active RODY NICOLAS PA-C [address] [address], [facility] [place], [address], [facility] 14:06:41 Dysphagia 43675423 Active RODY NICOLAS PA-C [address] [address], [facility] [place], [address], [facility] 4 14:15:29 Problem Notes None recorded. Medical [...] Updated DateTime 05/25/2024 154.94 cm 43.5 kg/m2 103633.25 g Jorge A Mike [place] - [facility] 05/25/2024 13:51:09 Social History None recorded. Functional Status None recorded. Mental Status None recorded. Family History Nothing Reported. Medical History No medical history recorded. Gynecological HistoryNo gynecological history recorded. Obstetrics History GPAL:G 0 P 0 0 0 0 Past Encounters Encounter ID Performer Location Encounter Start Date Encounter Closed Date Diagnosis/Indication Diagnosis SNOMED-CT Code Diagnosis ICD10 Code [id number] RODY NICOLAS PA-C [facility] [address] [address] 05/25/2024 13:28:53 05/25/2024 14:23:03 Hypertrophy of tonsils 34491116 J35.1 Dysphagia 44894118 R13.1 9 Health Concerns Section Related Observation LastModified by Organization Stephie claros LastModified Time None Recorded Concern Status LastModified by Organization Details LastModified Time None Recorded Advance Directives Directive None Recorded Payers Encounter Date Sequence Insurance Name Policy Number Policy Fernandez Covered Member ID Fernandez Member ID Guarantor Name 05/25/2024 1 [facility] [id number] Sofia Otero [id number] Sofia Otero Notes Date Note Type Note [...] solids. She is followed by GI at [facility]. Denies voice changes, odynophagia, otalgia, and chronic sore throat. Denies history of chronic tonsillitis. Former smoker quit over 30 years ago. Currently on antibiotics x 1 week and Flonase for sinus infection. RODY NICOLAS PA-C [address] [place] [address], [id number], [place] - [facility] 05/25/2024 14:15:47 OBGyn Episode No OBEpisode recorded.
[2024-06-22 11:09] VITALS: BP 116/78; PULSE 66; TEMP 36.4; O2SAT 100
--- NOTE | 2024-06-22 11:09 | AM.OFFWIN_ITS ---
Intake Vital Signs 06/22/24 11:09 Weight 234 lb BP 116/78 Blood Pressure Location Rt brachial Position Sitting Pulse 66 Pulse Source Pulse Oximeter Temp 97.5 F Temp Source Oral Pulse Oximetry (%) 100 Oxygen Delivery Method Room Air Intake Visit Reasons: EP cough, wheezing Intake Note: Patient here for cough, wheezing that started about 1 week ago. Patient Tobacco Use Status: Former Tobacco user Allergies Sulfa (Sulfonamide Antibiotics) [SULFA (SULFONAMIDE ANTIBIOTICS)] Allergy (Tiffanie re, Verified 06/22/24 11:19) swelling of lips and tongue Penicillins [PENICILLINS] Allergy (Unknown, Verified 06/22/24 11:19) UNKNOWN Do you need a note to return to daycare/school/sports/work: No HPI EP cough, wheezing HPI Details This note is constructed using voice recognition software. While every effort has been made to ensure accuracy, adjunct spanish instructor errors may have been included. The patient is a 63 year old female who presents to the clinic today with cough and wheezing for the past week. She notes that she started with an upper respiratory infection, unknown where she caught it, however she does go to the senior living to visit her mother frequently. She reports that she contacted her PCP who ordered an albuterol inhaler after she noticed that her last inhaler had . Since that time she noticed that she lost the inhaler while wrapping [place] presents. She denies fever, chills, shortness of breath. She does report ongoing wheezing, coughing up thin clear secretions. [facility] Medical History Fungal esophagitis Hiatal hernia Esophageal stricture Esophageal dysmotility Pruritic intertrigo History of migraine Spondylosis without myelopathy or radiculopathy, lumbar region Chronic pain syndrome Acne comedone Hx of varicose veins Intestinal malabsorption following gastrectomy Hypothyroidism Hx of gastroesophageal reflux (GERD) Hx of cardiac murmur Chronic pain Urinary incontinence in female Chronic gastroesophageal reflux disease Recurrent major depression Patient on methadone maintenance therapy Acquired hypothyroidism Osteoarthritis Morbid obesity with BMI of 45.0-49.9, adult Dyslipidemia Surgical History Status post vein stripping (11/25/20) History of repair of hiatal hernia History of adjustable gastric banding S/P laparoscopic sleeve gastrectomy Hx of colonoscopy History of total right knee replacement History of bariatric surgery History of removal of laparoscopic gastric banding device History of total left knee replacement S/P foot surgery, left LAP-BAND surgery status Family History Father History of throat cancer History of [place] (myocardial infarction) Type 2 diabetes mellitus Mother Hyperlipidemia CVD (cardiovascular disease) HTN (hypertension) Maternal Aunt No problems noted. Son Paraplegia Son No problems noted. Paternal Grandmother Type 2 diabetes mellitus Maternal Grandmother Alzheimer's dementia Brother No problems noted. Sister No problems noted. 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 you a primary reproductive healthcare assistant to a significant other at home: Yes (Son - paraplegic) Do you presently have visiting nurse or other home services: No Alcohol intake: never Comment: pt sleeping Patient Tobacco Use Status: Former Tobacco user Tobacco use type: Cigarette Cigarettes Per Day: 3 Years Smoked: 14 e-Cigarette/Vaping Use: Never Used Second Hand Smoke Exposure: No service: No Current occupational status: unemployed Cognitive needs: No Hearing needs: No Vision needs: Yes Female Reproductive History Menstrual Age of Menarche: 14 Review of Systems Const All systems reviewed & are unremarkable except as noted in HPI and below Physical Exam Vital Signs: Last Vital Signs Temp 97.5 F 06/22/24 11:09 Pulse 66 06/22/24 11:09 BP 116/78 06/22/24 11:09 Pulse Ox 100 06/22/24 11:09 Oxygen Delivery Method Room Air 06/22/24 11:09 Const General: cooperative, healthy appearing, comfortable and no acute distress Orientation/consciousness: patient oriented x3 Limitations: no limitations HEENT Head: Yes normal to inspection Ears: hearing grossly normal bilaterally, external ears normal and TM's normal bilaterally General nose exam: Normal external nose present, Normal nares present and No nasal discharge present Face and sinus: Yes normal facial exam and Yes sinuses nontender Mouth: Normal oral and palatal mucosa present and moist mucous membranes Throat: Yes tonsils normal, Yes uvula midline and Yes posterior oropharynx abnormal (Erythema) Eyes General: appearance normal, both eyes and all related structures Neck Neck: Yes normal visual inspection Resp Effort & Inspection: normal respiratory effort, able to speak in complete sentences, Actively coughing, no respiratory distress, not tachypneic, no tripod positioning and no use of accessory muscles Auscultation: clear to auscultation bilaterally (Slight wheeze and tight sounding) Cardio Jugular venous distension: no JVD Rate: regular rate Rhythm: regular rhythm Heart sounds: S1 normal heart sound present, S2 normal heart sound present, no click, no gallops, no murmurs and no rubs Skin General skin exam: no rashes or lesions noted, elasticity normal and turgor normal Neuro General: patient oriented x3 Extrem General: Yes normal to inspection and Yes no clubbing, cyanosis or edema Assessment & Plan Assessment & Plan (1) URI (upper respiratory infection): Code(s): J06.9 - Acute upper respiratory infection, unspecified Qualifiers: URI type: unspecified URI Qualified Code(s): J06.9 - Acute upper respiratory infection, unspecified Plan: Viral swab obtained to rule out Covid, Influenza, and RSV based on symptoms. Advised mask wearing while symptomatic and quarantine per current CDC guidelin es. Reviewed at home support methods including hydration, humidification, vix vapor rub, sinus rinse, and otc treatment options. Patient has outside of treatment window for antiviral therapy. Refill provided for albuterol inhaler with request to fill the due to patient losing the inhaler. Additionally we will send prednisone burst and benzonatate for management of cough. Advised follow up with worsening symptoms such as dyspnea at rest, which would require emergent evaluation. Plan See above for full details and plan. Orders: Orders SARS-CoV2/FLU/RSV Today J06.9 - Acute upper respiratory infection, unspecified Medications: New benzonatate 100 mg PO TID 5 days PRN 15 caps 0RF Cough prednisone 40 mg (2 x 20 mg) PO DAILY 3 days 6 tabs 0RF Refilled albuterol sulfate 90 mcg/actuation 2 puffs inhalation Q6H PRN 8.5 grams 0RF shortness of breath or wheezing Coding Level of Care Code Est Pt Level 3 (39867) Diagnoses Upper respiratory tract infection, unspecified type J06.9 URI type: unspecified URI
== END 2024-06-22 12:13 | disposition home or self-care (01) ==
PROVIDERS: PCP Internal Medicine; Visit Provider Registered Nurse
DX: J06.9 Acute upper respiratory infection, unspecified (principal)

== ENCOUNTER 2024-07-14 13:53 | Outpatient (AMB) | payer OTHER, SELFPAY ==
--- NOTE | 2024-07-14 13:58 | A.OFFVIS_ITS ---
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 She is doing well with 2023 gas mask inspector concerns. Currently sexually active. Denies any vaginal dryness or irritation. STI testing offered; she declines. Attempting to eat a healthy diet with calcium and vitamin D and stays active with little exercise, has a nerve stimulator in place due to chronic pain. Last pap smear; 2023. Last mammogram; 2023 . Colonoscopy is UTD. Denies any family history of ovarian or colon cancer. FH breast cancer- maternal aunt. [facility] Medical History Fungal esophagitis Hiatal hernia Esophageal stricture Esophageal dysmotility Pruritic intertrigo History of migraine Spondylosis without myelopathy or radiculopathy, lumbar region Chronic pain syndrome Acne comedone Hx of varicose veins Intestinal malabsorption following gastrectomy Hypothyroidism Hx of gastroesophageal reflux (GERD) Hx of cardiac murmur Chronic pain Urinary incontinence in female Chronic gastroesophageal reflux disease Recurrent major depression Patient on methadone maintenance therapy Acquired hypothyroidism Osteoarthritis Morbid obesity with BMI of 45.0-49.9, adult Dyslipidemia Surgical History Status post vein stripping (11/25/20) History of repair of hiatal hernia History of adjustable gastric banding S/P laparoscopic sleeve gastrectomy Hx of colonoscopy History of total right knee replacement History of bariatric surgery History of removal of laparoscopic gastric banding device History of total left knee replacement S/P foot surgery, left LAP-BAND surgery status Family History Father History of throat cancer History of [place] (myocardial infarction) Type 2 diabetes mellitus Mother Hyperlipidemia CVD (cardiovascular disease) HTN (hypertension) Maternal Aunt No problems noted. Son Paraplegia Son No problems noted. Paternal Grandmother Type 2 diabetes mellitus Maternal Grandmother Alzheimer's dementia Brother No problems noted. Sister No problems noted. 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 you a primary youth care professional to a significant other at home: Yes (Son - paraplegic) Do you presently have visiting nurse or other home services: No Alcohol intake: never Comment: pt sleeping Patient Tobacco Use Status: Former Tobacco user Tobacco use type: Cigarette Cigarettes Per Day: 3 Years Smoked: 14 e-Cigarette/Vaping Use: Never Used Second Hand Smoke Exposure: No service: No Current occupational status: unemployed Cognitive needs: No Hearing needs: No Vision needs: Yes Female Reproductive History Menstrual Age of Menarche: 14 Total pregnancies: 2 Full term: 2 Number of Living Children: 2 Date of last pap smear: 07/10/23 (neg pap and hpv) Date of Mammogram: 04/28/24 (Birad 1) Date of last Bone Density Screenin04/28/24 Review of Systems Const All systems reviewed & are unremarkable except as noted in HPI and below Reports as per HPI Eyes Reports no additional complaints ENT Reports no additional complaints Card Reports no additional complaints Resp Reports no additional complaints GI Reports as per HPI and Reports no additional complaints Reports as per HPI Musc Reports no additional complaints Skin/Breast Reports as per HPI Neuro Reports no additional complaints Psych Reports no additional complaints Endo Reports no additional complaints Gee/Lymph Reports no additional complaints Aller/Immun Reports no additional complaints Physical Exam Vital Signs: Last Vital Signs BP 122/84 07/14/24 14:00 BMI result Body Mass Index 44.2 Const General: cooperative, healthy appearing, no acute distress, well developed and alert Orientation/consciousness: patient oriented x3 HEENT Head: Yes normal to inspection Eyes General: appearance normal, both eyes and all related structures Neck Neck: Yes normal visual inspection Thyroid: Thyroid normal Chest Chest palpation & inspection: normal inspection of the chest and other (no puckering, dimpling, peau de orange, retraction, discharge, masses) Breast/axilla inspection: normal inspection of the breasts Breast/axilla palpation: normal palpation of the breasts Resp Effort & Inspection: normal respiratory effort GI Inspection: Yes normal to inspection Palpation (GI): Soft to palpation Rectal Exam - Female: deferred General: Yes bladder normal to palpation External Female Exam: normal external appearance and normal appearance of the urethra Speculum Exam - Vagina: normal appearance of the vagina, normal palpation, normal vaginal discharge and vagina atrophic Speculum Exam - Cervix: normal appearance of the cervix and normal palpation Bimanual exam- vagina & uterus: normal bimanual exam, normal palpation, uterine size normal, bladder normal to palpation, normal palpation and non-tender Bimanual Exam- Adnexa, other: no masses Skin General skin exam: no rashes or lesions noted Rashes: no rashes Neuro General: patient oriented x3 Cognition (Neuro): normal cognition Extrem General: Yes normal to inspection Psych Attitude: cooperative Thought process: Normal thought process present Assessment & Plan Assessment & Plan (1) Encounter for well woman exam with routine gynecological exam: Code(s): Z01.419 - Encounter for gynecological examination (general) (routine) without abnormal findings Category: Medical Plan Discussed: Current recommendations for pap smears per ASCCP guidelines. Breast awareness, periodic self breast exams and yearly mammogram. Maintain a healthy lifestyle, well balanced diet including Calcium 1,200 mg and Vitamin D 600 IU daily, and exercise to the best of ability. Contact the office with any postmenopausal bleeding. Patient verbalizes understanding and agrees to the plan of care. She was given opportunity to ask questions and all questions were answered to the best of my ability. RTO in 1 year for annual gas mask inspector exam. This note is constructed using voice recognition software. While every effort has been made to ensure accuracy, vibrator operator errors may have been included. Coding Level of Care Code Est Pt Prev Care 40-64y(62678) Diagnoses Encounter for well woman exam with routine gynecological exam Z01.419
[2024-07-14 14:00] VITALS: BP 122/84; BMI 44.2
--- OUTSIDE RECORDS SUMMARY | 2024-07-14 16:20 | XMS_ITS | Data Portability ---
Author Organization [place] - [facility], Allergy Address [address] [place] [address] Care Team Providers Care Lining Brusher Name Role Phone JENARO JARRELL Primary Care [...] patient declined. She will follow-up with her transfer operator for management of GERD and dysphagia. She may follow-up with our office as needed for any future concerns. [email or web address] Not available 05/25/2024 14:12:24 Plan of Treatment [...] Organization Details Recorded Time Hypertrophy of tonsils 59928968 Active RODY NICOLAS PA-C [address] [address], [facility] [place], [phone], [facility] 14:06:41 Dysphagia 62562265 Active RODY NICOLAS PA-C [address] [address], [facility] [place], [address], [facility] 4 14:15:29 Problem Notes None recorded. [...] Updated DateTime 05/25/2024 154.94 cm 43.5 kg/m2 871941.25 g Joreg A Mike [place] - [facility] 05/25/2024 13:51:09 Social History None recorded. Functional Status None recorded. Mental Status None recorded. Family History Nothing Reported. Medical History No medical history recorded. Gynecological HistoryNo gynecological history recorded. Obstetrics History GPAL:G 0 P 0 0 0 0 Past Encounters Encounter ID Performer Location Encounter Start Date Encounter Closed Date Diagnosis/Indication Diagnosis SNOMED-CT Code Diagnosis ICD10 Code Diagnosis Note [id number] RODY NICOLAS PA-C [facility] [address] [address] 05/25/2024 13:28:53 05/25/2024 14:23:03 Hypertrophy of tonsils 05491484 J35.1 Dysphagia 60647763 R13.1 9 Health Concerns Section Related Observation LastModified by Organization Detai ls LastModified Time None Recorded Concern Status LastModified by Organization Details LastModified Time None Recorded Advance Directives Directive None Recorded Payers Encounter Date Sequence Insurance Name Policy Number Policy Fernandez Covered Member ID Fernandez Member ID Guarantor Name 05/25/2024 1 [facility] [id number] Sofia Otero [id number] Sofia Otero Notes Date Note Type Note [...] solids. She is followed by GI at [facility]. Denies voice changes, odynophagia, otalgia, and chronic sore throat. Denies history of chronic tonsillitis. Former smoker quit over 30 years ago. Currently on antibiotics x 1 week and Flonase for sinus infection. RODY NICOLAS PA-C [address] [place] [address], [id number], [place] - [facility] 05/25/2024 14:15:47 OBGyn Episode No OBEpisode recorded.
--- OUTSIDE RECORDS SUMMARY | 2024-07-14 16:20 | XMS_ITS | Continuity of Care Document ---
Author Organization [place] - [facility], [facility] Address [address] [place] [address] Care Team Providers Care Logistics Technician Name Role Phone JENARO JARRELL Primary Care [...] patient declined. She will follow-up with her animal laboratory technician for management of GERD and dysphagia. She may follow-up with our office as needed for any future concerns. [email or web address] Not available 05/25/2024 14:12:24 Plan of Treatment [...] Organization Details Recorded Time Hypertrophy of tonsils 93037901 Active RODY NICOLAS PA-C [address] [place] [address], [place], [phone] [facility] [place] - [facility] 14:06:41 Dysphagia 95520087 Active RODY NICOLAS PA-C [address], [address], [facility] - [facility] 4 14:15:29 Problem Notes None recorded. [...] Updated DateTime 05/25/2024 154.94 cm 43.5 kg/m2 324538.25 g Jorge A Mike [place] - [facility] 05/25/2024 13:51:09 Social History None recorded. Functional Status None recorded. Mental Status None recorded. Family History Nothing Reported. Medical History No medical history recorded. Gynecological HistoryNo gynecological history recorded. Obstetrics History GPAL:G 0 P 0 0 0 0 Past Encounters Encounter ID Performer Location Encounter Start Date Encounter Closed Date Diagnosis/Indication Diagnosis SNOMED-CT Code Diagnosis ICD10 Code Diagnosis Note [id number] RODY NICOLAS PA-C [facility] [address] [address] 05/25/2024 13:28:53 05/25/2024 14:23:03 Hypertrophy of tonsils 81121685 J35.1 Dysphagia 70053408 R13.1 9 Health Concerns Section Related Observation LastModified by Organization Stephie claros LastModified Time None Recorded Concern Status LastModified by Organization Details LastModified Time None Recorded Payers Encounter Date Sequence Insurance Name Policy Number Policy Fernandez Covered Member ID Fernandez Member ID Guarantor Name 05/25/[address] [place] [id number] Sofia Otero [id number] Sofia Otero Notes Date Note Type Note [...] solids. She is followed by GI at [facility]. Denies voice changes, odynophagia, otalgia, and chronic sore throat. Denies history of chronic tonsillitis. Former smoker quit over 30 years ago. Currently on antibiotics x 1 week and Flonase for sinus infection. RODY NICOLAS PA-C [address] [place] [address], [id number], [place] - [facility] 05/25/2024 14:15:47 OBGyn Episode No OBEpisode recorded.
== END 2024-07-14 14:48 | disposition home or self-care (01) ==
PROVIDERS: PCP Internal Medicine; Visit Provider Advanced Practice Midwife
DX: Z01.419 Encounter for gynecological examination (general) (routine) without abnormal findings (principal)
CPT/HCPCS: 99396; 99459

== ENCOUNTER → 2024-07-14 13:53 | Outpatient (BNVA) | payer OTHER, SELFPAY | PROVIDERS: PCP Internal Medicine; Visit Provider Advanced Practice Midwife ==

== ENCOUNTER 2024-09-04 11:03 | Outpatient (REF) | payer OTHER, SELFPAY ==
[2024-09-04 13:57] LABS: Alanine Aminotransferase 24 U/L (0-31); Aspartate Amino Transferase 22 U/L (5-31); Cholesterol 197 mg/dL (<200); HDL Cholesterol 47 mg/dL (>40); LDL Cholesterol Calculated 130 mg/dL (<100); Triglycerides 103 mg/dL (<150)
[2024-09-04 14:18] LABS: Free T4 (Free Thyroxine) 0.93 ng/dL (0.71-1.85); Vitamin D 25-OH Total 70.8 ng/mL (>30)
== END 2024-09-04 11:04 | disposition home or self-care (01) ==
LOC: HO.HMGCLDS 11:03
PROVIDERS: PCP Internal Medicine; Visit Provider Internal Medicine
DX: E66.01 Morbid (severe) obesity due to excess calories (principal); E78.5 Hyperlipidemia, unspecified; E03.9 Hypothyroidism, unspecified; Z78.0 Asymptomatic menopausal state
CPT/HCPCS: 36415; 80061; 82306; 82550; 84439; 84443; 84450; 84460

== ENCOUNTER 2024-09-09 11:33 | Outpatient (AMB) | payer OTHER, SELFPAY ==
--- NOTE | 2024-09-09 11:55 | MHC.PC.OV ---
Vital Signs 09/09/24 11:57 Height 5 ft 1 in Weight 238 lb BMI 45.0 BP 120/70 Blood Pressure Location Rt brachial Position Sitting Respiration 15 Pulse 82 Pulse Source Pulse Oximeter Temp 98.0 F Temp Source Oral Pulse Oximetry (%) 97 Oxygen Delivery Method Room Air Intake Visit Reasons: 3 month follow up Intake Note: Pt is here today for her 3mo. f/u labs Allergies Sulfa (Sulfonamide Antibiotics) [SULFA (SULFONAMIDE ANTIBIOTICS)] Allergy (Severe, Verified 09/09/24 12:17) swelling of lips and tongue Penicillins [PENICILLINS] Allergy (Unknown, Verified 09/09/24 12:17) UNKNOWN Medication List - Last Reconciled 09/09/24 by Perla Ny MD acetaminophen (Tylenol Extra Strength) 1,000 mg (2 x 500 mg) PO Q6H PRN albuterol sulfate 90 mcg/actuation 2 puffs inhalation Q6H PRN azelaic acid 15% topical buspirone 10 mg PO BID calcium carbonate (Calcium 600) 600 mg PO BID cetirizine (Zyrtec) 10 mg PO DAILY PRN cevimeline caps PO cholecalciferol (vitamin D3) 50 mcg PO DAILY clotrimazole-betamethasone 1-0.05 % apply thin film to affected area topically 2 times a day; 10 days coenzyme Q10 (CoQ-10) 200 mg PO DAILY desonide 0.05% topical esomeprazole magnesium 40 mg PO DAILY ezetimibe 10 mg PO DAILY famotidine 40 mg PO BEDTIME gabapentin 800 mg PO TID glucosamine sulfate (Glucosamine) 500 mg PO DAILY levothyroxine 75 mcg PO QAM lidocaine 5% patches topical lorazepam 0.5 mg PO DAILY PRN mometasone 0.1% 1 appl topical DAILY PRN multivitamin 1 tab PO DAILY nystatin topical oxymetazoline 0.05% (Afrin (oxymetazoline)) 2 sprays intranasal Q12H PRN 3 days rosuvastatin 40 mg PO DAILY 90 days sumatriptan succinate 50 mg PO Q2-4H PRN tizanidine 4 mg PO BEDTIME PRN topiramate 100 mg PO BID tretinoin 0.025% appl topical tretinoin 0.05% appl topical turmeric mg PO venlafaxine ER 150 mg PO QAM zinc sulfate (Zinc-15) 66 mg PO DAILY Tobacco use date assessed: 09/09/24 Dental Screening Dental Screen Date: 09/09/24 Did you have a dental visit in the last 12 months?: Yes Did you have a dental problem in the last 6 months where you did not have access to dental care?: No Was dental information given to patient?: Patient has dentist HPI 3 month follow up HPI Details 64-year-old lady with dyslipidemia and acquired hypothyroidism, here today for her follow-up. Currently taking rosuvastatin 40 mg daily and levothyroxine 75 mcg daily in a.m. latest fasting labs showed thyroid levels and lipid levels are within normal limits. She has also been complaining of frontal headaches accompanied by nasal congestion and purulent nasal drainage for the last several days. Denies any accompanying fever but has been having occasional chills and generalized malaise. She has been taking loratadine and Tylenol which affords no improvement PFSH Medical History Maxillary sinusitis, acute Fungal esophagitis Hiatal hernia Esophageal stricture Esophageal dysmotility Pruritic intertrigo History of migraine Spondylosis without myelopathy or radiculopathy, lumbar region Chronic pain syndrome Acne comedone Hx of varicose veins Intestinal malabsorption following gastrectomy Hypothyroidism Hx of gastroesophageal reflux (GERD) Hx of cardiac murmur Chronic pain Urinary incontinence in female Chronic gastroesophageal reflux disease Recurrent major depression Patient on methadone maintenance therapy Acquired hypothyroidism Osteoarthritis Morbid obesity with BMI of 45.0-49.9, adult Dyslipidemia Surgical History Status post vein stripping (11/25/20) History of repair of hiatal hernia History of adjustable gastric banding S/P laparoscopic sleeve gastrectomy Hx of colonoscopy History of total right knee replacement History of bariatric surgery History of removal of laparoscopic gastric banding device History of total left knee replacement S/P foot surgery, left LAP-BAND surgery status Family History Father History of throat cancer History of MA (myocardial infarction) Type 2 diabetes mellitus Mother Hyperlipidemia CVD (cardiovascular disease) HTN (hypertension) Maternal Aunt No problems noted. Son Paraplegia Son No problems noted. Paternal Grandmother Type 2 diabetes mellitus Maternal Grandmother Alzheimer's dementia Brother No problems noted. Sister No problems noted. 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 you a primary child caregiver private home to a significant other at home: Yes (Son - paraplegic) Do you presently have visiting nurse or other home services: No Alcohol intake: never Comment: pt sleeping Patient Tobacco Use Status: Former Tobacco user Tobacco use type: Cigarette Cigarettes Per Day: 3 Years Smoked: 14 Packs per year/per ci.10 e-Cigarette/Vaping Use: Never Used Second Hand Smoke Exposure: No service: No Current occupational status: unemployed Cognitive needs: No Hearing needs: No Vision needs: Yes Female Reproductive History Menstrual Age of Menarche: 14 Questionnaire PHQ-9 Over the last 2 weeks, how often have you been bothered by any of the following problems? 1. Little interest or pleasure in doing things: not at all 2. Feeling down, depressed, or hopeless: not at all 3. Trouble falling or staying asleep, or sleeping too much: not at all 4. Feeling tired or having little energy: not at all 5. Poor appetite or overeating: not at all 6. Feeling bad about yourself - or that you are a failure or have let yourself or your family down: not at all 7. Trouble concentrating on things, such as reading the newspaper or watching television: not at all 8. Moving or speaking so slowly that other people could have noticed. Or the opposite - being so fidgety or restless that you have been moving around a lot more than usual: not at all 9. Thoughts that you would be better off or of hurting yourself in some way: not at all Total score: 0 Depression Screening Interpretation: Negative (Has depression in remission, controlled on venlafaxine ER 150 mg daily) Depression Screening Done: Yes 63465 - PHQ-9 Billing: Yes Source: Developed by Drs. Yaw Nowak, Santa Villarreal, Adonis Cuenca and colleagues, with an educational saurabh from [employer]. Thrive Questionnaire Date Thrive assessed: 09/09/24 I am a: Patient What is your living situation today?: I have a steady place to live Within the past 12 months, did the food you bought not last and you didn't have the money to get more?: Never true Within the past 12 months, did you worry whether your food would run out before you got money to buy more?: Never true Do you have trouble paying for medicines?: No Do you have trouble getting transportation to medical appointments?: No Do you have trouble paying your heating and electricity bill?: No Do you have trouble taking care of your child, family member or friend?: No Do you have trouble with day-to-day activities such as bathing, preparing meals, shopping, managing finances, etc.?: No Are you currently unemployed and looking for a job?: Yes Are you interested in more education?: No Please select the resources that you would like help with: None Currently or been in a relationship where the following occur: No concerns reported THRIVE Score: 0 AUDIT C Alcohol Use Questionnaire (AUDIT-C) 1. How often do you have a drink containing alcohol?: Never Total Score: 0 DALLIN-7 AMB Questionnaire DALLIN-7 Date DALLIN - 7 assessed: 09/09/24 Feeling nervous, anxious, or on edge: 1 = Several days Not being able to stop or control worryin = Not at all Worrying too much about different things: 1 = Several days Trouble relaxin = Not at all Being so restless that it is hard to sit still: 0 = Not at all Becoming easily annoyed or irritable: 0 = Not at all Feeling afraid as if something awful might happen: 0 = Not at all Total DALLIN-7 score (0-4 normal; 5-9 mild; 10-14 moderate; 15-21 severe): 2 Source: Developed by Drs. Yaw Nowak, Santa Villarreal, Adonis Cuenca and colleagues, with an educational saurabh from [employer]. DALLIN-7 Assessment Billing DALLIN-7 Assessment Tool: DALLIN-7 Assessment 53654 Review of Systems Const Denies fever(s) Eyes Denies change in vision ENT Reports as per HPI Card Denies chest pain, Denies lightheadedness, Denies palpitations and Denies dyspnea Resp Denies chest congestion, Denies cough, Denies dyspnea and Denies wheezing GI Denies abdominal pain, Denies change in bowel habits and Denies heartburn Denies urinary frequency, Denies dysuria and Denies urinary urgency Musc Reports as per HPI Psych Reports no additional complaints Endo Denies palpitations Gee/Lymph Denies easy bruising Aller/Immun Denies wheezing Physical exam (Primary Care) Vital Signs: Last Vital Signs Temp 98.0 F 09/09/24 11:57 Pulse 82 09/09/24 11:57 Resp 15 09/09/24 11:57 BP 120/70 09/09/24 11:57 Pulse Ox 97 09/09/24 11:57 Oxygen Delivery Method Room Air 09/09/24 11:57 BMI result Body Mass Index 45.0 Tobacco/Smoking Status: Tobacco use Status Tobacco use date assessed 09/09/24 09/09/24 12:01 Patient Tobacco Use Status Former Tobacco user 09/09/24 12:01 Tobacco use type Cigarette 09/09/24 12:01 e-Cigarette/Vaping Use Never Used 09/09/24 12:01 PHQ-9: PHQ-9 Score PHQ-9: Total score 0 09/09/24 12:36 Depression Screening Interpretation: Negative (Has depression in remission, controlled on venlafaxine ER 150 mg daily) Thrive Assessment: Date of Thrive Assessment Date Thrive assessed 09/09/24 09/09/24 12:04 Currently or been in a relationship where the following occur: No concerns reported Const General: no acute distress and alert Nutritional Appearance: obese Orientation/consciousness: patient oriented x3 [facility] General nose exam: Normal external nose present and Abnormal mucous membranes and turbinates present erythematous Face and sinus: Yes face symmetric and Yes sinus tenderness (Maxillary areas) Mouth: Normal oral and palatal mucosa present, oropharynx normal and moist mucous membranes Neck Neck: Yes full ROM, Yes no lymphadenopathy and Yes supple Resp Auscultation: clear to auscultation bilaterally Cardio Other: S1-S2 present regular rate and rhythm GI Palpation (GI): Soft to palpation, nontender and no guarding Neuro General: patient oriented x3 Results Reviewed Results Reviewed: Name: Sofia Otero Age/Sex: 64/F : 1960 Unit#: [id number] Attend Dr: Perla Ny MD Re09/04/24 Status: DEP REF Location: [facility] Disch: SPEC : [id number] JACOBY: 09/04/24-1110 STATUS: COMP REQ : [id number] RECD: 09/04/24-[address] [facility] [address]: Perla Ny MD COMP: 09/04/24-1418 ENTERED: 09/04/24-[address] [facility] [address]: ORDERED: AST, ALT, CK Total, Lipid Panel, Vitamin D 25-OH, Free T4, TSH Test Result Flag Reference AST (GOT) 22 5-31 U/L ALT (GPT) 24 0-31 U/L CK Total 81 26-140 U/L Triglyceride 103 <150 mg/dL Desirable Triglyceride: less than 150 mg/dL Borderline High Triglyceride 150-199 mg/dL High Triglyceride: 200-499 mg/dL Very High Triglyceride: greater than or equal to 5OO mg/dL Cholesterol 197 <200 mg/dL Desirable Cholesterol: less than 200 mg/dL Borderline High Cholesterol: 200-239 mg/dL High Cholesterol: greater than 239 mg/dL LDL Calculated 130 H <100 mg/dL Desirable LDL: less than 100 mg/dL Near Optimal/Above Optimal LDL: 110-129 mg/dL Borderline High LDL: 130-159 mg/dL High LDL: 160-189 mg/dL Very High LDL: greater than or equal to 190 mg/dL HDL 47 >40 mg/dL Desirable HDL: greater than 40 mg/dL Note: This HDL assay may give artificially low results in patients with liver disease. Vit D 25-OH Tot 70.8 >30 ng/mL Health Based Reference Values* < 20 ng/mL Deficient 20-30 ng/mL Insufficient > 30 ng/mL Sufficient *Mary CANO. N Engl J Med. 2007;357:266-280 Care must be taken in interpreting Vitamin D results from different laboratories and methodologies. Published data demonstrated that results from patients undergoing hemodialysis may show a negative bias when tested with various automated 25-OH vitamin D assays when compared to LC-MS/MS. When testing samples from patients whose predominant form of Vitamin D is Vitamin D2, such as patients receiving Vitamin D2 supplementation, results that are subtherapeutic should be confirmed with another method such as LC-MS/MS. Free T4 0.93 0.71-1.85 ng/dL TSH 3rd Gen. 2.10 0.32-4.0 uIU/mL TSH 3rd Generation ([facility]) Coding Level of Care Code Est Pt Level 4 (28275) Complex EM visit Add On G2211 Diagnoses Maxillary sinusitis, acute J01.00 Dyslipidemia E78.5 Acquired hypothyroidism E03.9 Additional Codes DALLIN-7 Assessment Billing - DALLIN-7 Assessment Tool: DALLIN-7 Assessment 64522 ([id number]) PHQ-9 - 36383 - PHQ-9 Billing: Yes ([id number]) Assessment & Plan Assessment & Plan (1) Maxillary sinusitis, acute: Code(s): J01.00 - Acute maxillary sinusitis, unspecified Category: Medical Plan: Rx for doxycycline 100 mg per capsule , take 1 capsule every 12 hours for 10 days may take Sudafed 1 tablet once a day in the morning as needed for nasal congestion for the next 3 days, not to take it at night as it can cause insomnia and not to take it on a regular basis (2) Dyslipidemia: Code(s): E78.5 - Hyperlipidemia, unspecified Category: Medical Plan: Latest fasting lipids are within normal limits, continue with Zetia and rosuvastatin same dose, repeat another fasting lipid panel in six-month (3) Acquired hypothyroidism: Code(s): E03.9 - Hypothyroidism, unspecified Category: Medical Plan: Thyroid levels are within normal limits, continued on current dose of levothyroxine 75 mcg taken once a day in a.m. Orders: Orders Thyroid Stimulating Hormone 6 Months E03.9 - Hypothyroidism, unspecified, E66.01 - Morbid (severe) obesity due to excess calories, E78.5 - Hyperlipidemia, unspecified Free T4 (Free Thyroxine) 6 Months E03.9 - Hypothyroidism, unspecified, E66.01 - Morbid (severe) obesity due to excess calories, E78.5 - Hyperlipidemia, unspecified Lipid Panel 6 Months E03.9 - Hypothyroidism, unspecified, E66.01 - Morbid (severe) obesity due to excess calories, E78.5 - Hyperlipidemia, unspecified Aspartate Amino Transferase 6 Months E03.9 - Hypothyroidism, unspecified, E66.01 - Morbid (severe) obesity due to excess calories, E78.5 - Hyperlipidemia, unspecified Alanine Aminotransferase 6 Months E03.9 - Hypothyroidism, unspecified, E66.01 - Morbid (severe) obesity due to excess calories, E78.5 - Hyperlipidemia, unspecified Medications: New doxycycline hyclate 100 mg PO BID 20 caps 0RF 10 days J01.00 - Acute maxillary sinusitis, unspecified Refilled levothyroxine 75 mcg PO QAM 90 tabs 4RF rosuvastatin 40 mg PO DAILY 90 tabs 3RF 90 days
[2024-09-09 11:57] VITALS: BP 120/70; PULSE 82; RESP 15; TEMP 36.7; O2SAT 97; BMI 45.0
== END 2024-09-09 12:32 | disposition home or self-care (01) ==
LOC: HO.HMCC 11:34
PROVIDERS: PCP Internal Medicine; Visit Provider Internal Medicine
DX: J01.00 Acute maxillary sinusitis, unspecified (principal); E78.5 Hyperlipidemia, unspecified; E03.9 Hypothyroidism, unspecified

== ENCOUNTER → 2024-09-09 11:33 | Outpatient (BNVA) | payer OTHER, SELFPAY | PROVIDERS: PCP Internal Medicine; Visit Provider Internal Medicine | DX: E78.5 Hyperlipidemia, unspecified (principal); E03.9 Hypothyroidism, unspecified; J01.00 Acute maxillary sinusitis, unspecified; Z79.899 Other long term (current) drug therapy | CPT/HCPCS: 96127 ==

== ENCOUNTER 2025-01-25 15:03 | Outpatient (AMB) | payer OTHER, SELFPAY ==
--- NOTE | 2025-01-25 15:06 | A.OFFVIS_ITS ---
Vital Signs 01/25/25 15:14 Height 5 ft 1 in Weight 230 lb BMI 43.5 BP 128/64 Blood Pressure Location Rt brachial Position Sitting Pulse 96 Pulse Source Pulse Oximeter Pulse Oximetry (%) 96 Oxygen Delivery Method Room Air Intake Visit Reasons: Swallowing problems r/s 02/24/25 Intake Note: Est pt for GERD mgmt w/ Dysphagia. MAYCO 2023. CC: C.O. GERD persistence w/ dysphagia despite taking her currently Rx'd therapy. Pt states that her sx are mitigated and better than they would be without the medication; however, the meds are not helping as much as they used to. Sx are becoming progressively worse again. Punch Machine Hand Required: No Accompanied by: Self / Same As Patient Allergies Sulfa (Sulfonamide Antibiotics) (SULFA (SULFONAMIDE ANTIBIOTICS)) Allergy (Severe, Verified 01/25/25 15:17) swelling of lips and tongue Penicillins (PENICILLINS) Allergy (Unknown, Verified 01/25/25 15:17) UNKNOWN HPI HPI Swallowing problems r/s 02/24/25: Details: LAST VISIT GERD (gastroesophageal reflux disease) Dysphagia Plan Continue Nexium daily. Avoid dietary triggers and late night snacking. Staying upright for minimum 3 hours after meals discussed with patient. Follow-up in 4 months, sooner on as needed basis. She is agreeable to this plan and verbalizes understanding of instructions. Patient was given the opportunity to ask questions and all questions answered. ? TODAY'S VISIT: Patient is here today for requested visit. Patient reports that she started again having trouble choking. Patient reports that he usually happens with solid food not with liquids. It happens with her medications as well. Patient states that sometimes medication she has to cut into pieces so she can swallow. Episode of choking. Patient reports that she is going on a cruise end of next month and is afraid that she will be choking during meals. Patient is taking Nexium daily and states that does not really experience acid reflux. However after choking episode patient reports that she will have burning sensation in her throat. Patient denies any dyspepsia. Reports that she is moving her bowels well. [facility] Medical History (Updated 01/25/25 @ 16:01 by Della Montoya [facility]) Dysphagia Maxillary sinusitis, acute Fungal esophagitis Hiatal hernia Esophageal stricture Esophageal dysmotility Pruritic intertrigo History of migraine Spondylosis without myelopathy or radiculopathy, lumbar region Chronic pain syndrome Acne comedone Hx of varicose veins Intestinal malabsorption following gastrectomy Hypothyroidism Hx of gastroesophageal reflux (GERD) Hx of cardiac murmur Chronic pain Urinary incontinence in female Chronic gastroesophageal reflux disease Recurrent major depression Patient on methadone maintenance therapy Acquired hypothyroidism Osteoarthritis Morbid obesity with BMI of 45.0-49.9, adult Dyslipidemia Surgical History Status post vein stripping (11/25/20) History of repair of hiatal hernia History of adjustable gastric banding S/P laparoscopic sleeve gastrectomy Hx of colonoscopy History of total right knee replacement History of bariatric surgery History of removal of laparoscopic gastric banding device History of total left knee replacement S/P foot surgery, left LAP-BAND surgery status Family History Father History of throat cancer History of [place] (myocardial infarction) Type 2 diabetes mellitus Mother Hyperlipidemia CVD (cardiovascular disease) HTN (hypertension) Maternal Aunt No problems noted. Son Paraplegia Son No problems noted. Paternal Grandmother Type 2 diabetes mellitus Maternal Grandmother Alzheimer's dementia Brother No problems noted. Sister No problems noted. 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 you a primary assisted living care manager to a significant other at home: Yes (Son - paraplegic) Do you presently have visiting nurse or other home services: No Alcohol intake: never Comment: pt sleeping Patient Tobacco Use Status: Former Tobacco user Tobacco use type: Cigarette Cigarettes Per Day: 3 Years Smoked: 14 e-Cigarette/Vaping Use: Never Used Second Hand Smoke Exposure: No service: No Current occupational status: unemployed Cognitive needs: No Hearing needs: No Vision needs: Yes Female Reproductive History Menstrual Age of Menarche: 14 Review of Systems Const Denies weight gain and Denies weight loss ENT Reports no additional complaints, Reports dysphagia and Denies odynophagia Card Reports no additional complaints Resp Reports no additional complaints GI Denies abdominal pain, Denies belching, Denies melena, Denies bloating, Denies change in bowel habits, Reports dysphagia, Denies excessive flatus, Denies d yspepsia, Reports heartburn, Denies diarrhea, Denies loose stools, Denies nausea, Denies odynophagia and Denies vomiting Reports no additional complaints Musc Reports no additional complaints Neuro Reports no additional complaints Psych Reports no additional complaints Endo Reports no additional complaints Physical Exam Vital Signs: Last Vital Signs Pulse 96 01/25/25 15:14 BP 128/64 01/25/25 15:14 Pulse Ox 96 01/25/25 15:14 Oxygen Delivery Method Room Air 01/25/25 15:14 BMI result Body Mass Index 43.5 Const General: healthy appearing and no acute distress Nutritional Appearance: obese Orientation/consciousness: patient oriented x3 Resp Effort & Inspection: normal respiratory effort, able to speak in complete sentences, no tracheal deviation and symmetric chest movement Auscultation: clear to auscultation bilaterally Cardio Rate: regular rate GI Inspection: Yes normal to inspection, No distended and Yes obesity Palpation (GI): Soft to palpation, not firm, nontender and No hepatosplenomegaly present Auscultation: normal bowel sounds General: Yes no CVA tenderness Back/Spine/Pelvis Back: no CVA tenderness Skin General skin exam: elasticity normal, turgor normal and dry skin Neuro General: patient oriented x3 Psych Appearance: grossly normal Mental Status: mental status grossly normal Assessment & Plan Assessment & Plan (1) Chronic gastroesophageal reflux disease: Code(s): K21.9 - Gastro-esophageal reflux disease without esophagitis Category: Medical (2) History of repair of hiatal hernia: Code(s): Z98.890 - Other specified postprocedural states; Z87.19 - Personal history of other diseases of the digestive system Category: Surgical (3) Esophageal dysmotility: Code(s): K22.4 - Dyskinesia of esophagus Category: Medical (4) Dysphagia: Code(s): R13.10 - Dysphagia, unspecified Category: Medical Qualifiers: Dysphagia type: pharyngoesophageal phase Qualified Code(s): R13.14 - Dysphagia, pharyngoesophageal phase (5) Globus sensation: Code(s): R09.A2 - Foreign body sensation, throat (6) Gastroesophageal reflux disease: Code(s): K21.9 - Gastro-esophageal reflux disease without esophagitis Qualifiers: Esophagitis presence: esophagitis presence not specified Qualified Code(s): K21.9 - Gastro-esophageal reflux disease without esophagitis Plan Patient will continue taking Nexium daily. She will be scheduled for upper endoscopy for this upcoming Saturday. In the meantime patient was encouraged to avoid dietary triggers. Eating slowly and chew well. Patient had no trouble with anesthesia in the past. She will see me after the procedure. She is agreeable to current plan of care and verbalizes understanding of instructions. She was given the opportunity to ask questions and all questions answered. Thank you for allowing me to participate in her care Coding Level of Care Code Est Pt Level 4 (28392) Diagnoses Chronic gastroesophageal reflux disease K21.9 History of repair of hiatal hernia Z98.890; Z87.19 Esophageal dysmotility K22.4 Pharyngoesophageal dysphagia R13.14 Dysphagia type: pharyngoesophageal phase Globus sensation R09.A2 Gastroesophageal reflux disease, unspecified whether esophagitis present K21.9 Esophagitis presence: esophagitis presence not specified Time Spent (min) 35 Comment 25 minutes spent with patient and additional 10 minutes spent reviewing her records
[2025-01-25 15:14] VITALS: BP 128/64; PULSE 96; O2SAT 96; BMI 43.5
--- OUTSIDE RECORDS SUMMARY | 2025-01-25 15:33 | XMS_ITS | Clinical Summary ---
Author Organization [facility] Address [address] [place] [phone] Phone Care Team Providers Care Bushel Girl Name Role Phone Perla Ny MD Primary Care Provider Allergies Active Allergy Reactions Criticality Noted Date Comments Mold 08/21/2021 Other reaction(s): itchy skin Penicillins 08/21/2021 Sulfa (Sulfonamide Antibiotics) Swelling High 08/21/2021 Lips, tongue Medications acetaminophen (TYLENOL EXTRA STRENGTH ORAL) Take by mouth. Active clotrimazole-be tamethasone (LOTRISONE) lotion Apply topically 2 (two) times a day. Active busPIRone (BUSPAR) 10 MG tablet Take 10 mg by mouth 3 (three) times a day. Active CALCIUM CITRATE ORAL Take 600 mg by mouth. Active cetirizine (ZYRTEC) 10 MG tablet Take 10 mg by mouth daily. Active coenzyme Q10 100 mg capsule Take 100 mg by mouth daily. Active docusate sodium (COLACE) 100 MG capsule Take 100 mg by mouth 2 (two) times a day. Active multivitamin-mi nerals-lutein (CENTRUM SILVER) Tab Take 1 tablet by mouth daily. Active rosuvastatin (CRESTOR) 40 MG tablet Take 40 mg by mouth daily. Active ezetimibe (ZETIA) 10 mg tablet Take 10 mg by mouth daily. Active gabapentin (NEURONTIN) 800 MG tablet Take 800 mg by mouth 3 (three) times a day. Active topiramate (TOPAMAX) 100 MG tablet Take 100 mg by mouth 2 (two) times a day. Active levothyroxine (SYNTHROID, LEVOTHROID) 50 MCG tablet Take 50 mcg by mouth every morning. Active aspirin 81 mg chewable tablet Acti ve clindamycin (CLEOCIN) 300 MG capsule Active turmeric root extract 500 mg Cap Active venlafaxine (EFFEXOR-XR) 150 MG 24 hr capsule Active zinc 50 mg Tab tablet Active SUMAtriptan (IMITREX) 50 MG tablet Active tretinoin (RETIN-A) 0.05 % cream APPLY A PEA SIZED AMOUNT TO A DRY FACE EVERY NIGHT AT BEDTIME. MAY ALTERNATE WITH LOWER STRENGTH TO ACCLIMATE FACE 2 Active omeprazole (PRILOSEC) 20 MG tablet Take 20 mg by mouth daily. Active methocarbamoL (ROBAXIN) 750 MG tablet Take 750 mg by mouth. 2 Active LORazepam (ATIVAN) 0.5 MG tablet Take 0.5 mg by mouth every 6 (six) hours as needed. Active cholecalciferol (VITAMIN D3) 2,000 unit capsule Take 1 capsule by mouth daily. Active MKIHIUYA-UBUP-C TY2-F-MDOZ-BOSW ORAL Take 1 tablet by mouth daily. Active ASCORBIC ACID-VITAMIN E-BIOTIN ORAL Take 5,000 mcg by mouth. Active nortriptyline (PAMELOR) 50 MG capsule Active Active Problems Problem Noted Date Diagnosed Date Obesity (BMI 30-39.9) 05/14/2022 Status post sleeve gastrectomy 08/21/2021 Assessment & Plan (08/21/2021 3:16 PM EST): This is a 60-year-old lady who is status post laparoscopic sleeve gastrectomy hiatal hernia repair about 1 year ago. Patient has had relatively poor and slow weight loss. She is only lost 5.8 pounds since November 2020. Patient has had a chronic left foot problem that has required her to be on pain management which included use of methadone and oxycodone. Her pain management program has closed down and now she is just on medications to help with neuropathy only. She is having more discomfort in the left foot as she is tolerant to the narcotics that she was recently weaned off of. Patient has been unable to exercise secondary to this left foot pain. She was using the pool but reports that it is difficult to go when the weather is cold. She is also been eating a diet that is high in carbohydrates consuming many granola bar throughout the day. I stressed again the importance of following the eating plan as 100% of her weight loss is going to come from foods and not exercise as she has difficulty exercising. The patient will consume a 30 g of protein protein shake at 9 AM and 12 PM. At 3 PM the patient will have a protein snack such as a cheese stick or quarter cup of almonds or walnuts. At 6 PM the patient will have 2 to 3 ounces of protein with 1 to 2 ounces of vegetables. Patient may have a piece of fruit after dinner if she requires it. Patient will increase water intake to close to 64 ounces on a daily basis. I have encouraged patient to try to add some formalized exercise at least 30 minutes 4 times a week. I have also ordered 1 year blood work for the patient which will include all vitamin levels. Patient will continue current medications as reviewed. She is not stable and is considered obese. I will follow up with the patient again in 6 weeks timeframe to evaluate whether the patient has instituted some of the changes and has had any weight loss. Goal weight loss for the next visit will be 3 to 4 pounds. Intestinal malabsorption following gastrectomy 0 08/21/2021 Class 2 obesity due to exces s calories without serious comorbidity with body mass index (BMI) of 37.0 to 37.9 in adult 08/21/2021 Assessment & Plan (07/06/2022 2:12 PM EST): This is a 61-year-old lady who underwent a laparoscopic sleeve gastrectomy in August 2020 and has had a stall in weight loss for many many months. The patient reports that she will likely be able to sign up for the gym and start going now that her grandson is can be in daycare. Over the past month she has not been able to exercise and she has not been sticking to the prescribed eating plan. Patient will start the eating plan and add formalize exercise. I will follow-up with her again in 3 months timeframe. She will continue current water intake. She will continue current medications as reviewed. She is not stable and is considered obese. Assessment & Plan (05/14/2022 2:24 PM EST): This is a 61-year-old lady who underwent a laparoscopic sleeve gastrectomy in August 2020. The patient has had a weight loss stall for many many months secondary to the inability to exercise. She also is not eating enough calories and is not consistent with eating on schedule. I have recommended the patient go back to eating at 9 AM 12 PM 3 PM and 6 PM. She should consume 2 protein meal replacements per day at 9 and 3 PM and 2 meals of 3 ounces of protein with vegetables at 12 PM and 6 PM daily. She may have 1/2 cup of carbohydrate once in the day. I have asked the patient again to add resistance band upper body workout 20 minutes 3 times a week as she is having difficulty doing any lower body exercise secondary to foot pain in the left foot. She will follow-up with [facility] again regarding pain management as she has not had any chronic pain management even after seeing a paint grinder last week in [place]. I will follow-up with the patient again in 6 weeks timeframe to ensure that she is consistently eating enough protein every day and to see if there is a jumpstart her metabolism and weight loss. Patient will continue current medications as reviewed. She will stop the [id number]-[id number] supplement she started which caused some looser stools and gassiness. She will continue all other medications as prescribed. She is not stable and is considered obese. Assessment & Plan (03/12/2022 1:35 PM EDT): This is a 61-year-old lady who underwent a laparoscopic sleeve gastrectomy in August 2020. Patient has had a weight loss stall for many many months. I believe that this stall is related to the fact that the patient in general is not exercising much secondary to her chronic pain. She is scheduled to undergo an MRI of her back and evaluation of her hip and left foot. Once patient has better pain control she will be able to exercise more. I have recommended again sit and be fit exercises concentrating on upper body movements that will be done quickly to produce a cardiovascular workout. Patient will continue her current medications as reviewed. She is not stable is considered obese. She will follow-up with me in 1-2 more months. Assessment & Plan (12/25/2021 4:18 PM EDT): This is a 61-year-old lady who underwent a laparoscopic sleeve gastrectomy and has had slow weight loss. Patient has chronic pain and was weaned off of her narcotics and has significant pain in her back and her left ankle. She recently made an appointment to see the pain management doctors in [place] but her appointment is not until the end of January. As a result the patient reports sleeping very poorly and I believe that some of the difficulty with weight loss is because of poor sleep. Patient also has not consistent with exercise secondary to her discomfort. I recommended that she perform at least 30 minutes of exercise 4 times a week by doing the sit and be fit exercises and concentrating on upper body exercises with resistance bands. Patient will increase her water intake to at least 64 ounces of water on daily basis. She will continue current eating plan and decrease carbohydrate intake at dinner. Patient will follow up with the dietitian in 2 to 3 weeks timeframe and will follow up with me in 6 weeks. Patient is not stable is considered obese. She will continue current medications as reviewed. Assessment & Plan (10/02/2021 1:38 PM EDT): This is a 61-year-old lady who underwent a laparoscopic sleeve gastrectomy and hiatal hernia repair about a year ago. Patient has had slow weight loss secondary to poor protein intake and relative inability to be able to exercise. I have encouraged the patient to continue current eating plan and to increase her protein intake at the meal she has for dinner. She was also encouraged to return to the pool at least 3 times per week and if she cannot exercise at the pool she should do sit and be fit exercises concentrating on muscle building and toning with resistance bands. This should allow her to get some exercise without increasing inflammation in her left ankle. I have reviewed the patient's laboratory values and all labs within normal limits with exception of vitamin D which was slightly elevated. She will decrease her vitamin D supplementation. Patient will continue all other medications as reviewed. She will follow up with me again in 2 months timeframe. She is considered obese and she is not stable. We have discussed repair of her umbilical hernia briefly and I told the patient I would like for her to be a BMI of 30 or below prior to fixing this. She should lose at least another 30 pounds prior to the hernia repair. Immunizations Immunization Administration Dates Next Due Influenza Quadrivalent Prese rvative Free IM 04/09/2019 Influenza Quadrivalent w/ Pr eservative IM 04/08/2018,03/25/2017 Influenza Trivalent Preserva tive Free IM 04/18/2016 Influenza Trivalent w/ Preservative IM 1,05/02/2015,04/23/2012 Pneumococcal polysaccharide PPSV23 02/04/2015 Tdap 09/23/2017 Zoster recombinant 07/21/2019, 0,05/09/2019,07/09 Family History Medical History Relation Comments Diabetes Father Heart attack Father Throat cancer Father Cardiovascular disease Mother Hyperlipidemia Mother Hypertension Mother Relation Status Comments Father Mother Social History Tobacco Use Types Packs/Day Years Used Date Smoking Tobacco: Former Smokeless Tobacco: Never Tobacco Cessation:Counseling Given: Not Answered Education Answer Date Recorded Are you interested in more education? Not on wanda e 10/25/2022 Are you concerned about learning? Not on file 10/25/2022 No 10/25/2022 No 10/25/2022 Digital Access Answer Date Recorded No 11/26/2022 No 11/26/2022 No 11/26/2022 Reliable internet access at home? Not on file 11/26/2022 Device with a working camera? Not on file Comments Unknown Sex and Gender Information Value Date Recorded Sex Assigned at Not on file Legal Sex Female 7:50 PM EST Gender Identity Not on file Sexual Orientation Not on file Last Filed Vital Signs Vital Sign Reading Time Taken Comments Blood Pressure 102/68 07/06/2022 1:43 PM EST Pulse 81 07/06/2022 1:43 PM EST Temperature 36.5 C (97.7 F) 07/06/2022 1:43 PM EST Respiratory Rate - - Oxygen Saturation 99% 07/06/2022 1:43 PM EST Inhaled Oxygen Concentration - - Weight 89 kg (196 lb 3.2 oz) 07/06/2022 1:43 PM EST Height 154.9 cm (5' 1 ) 07/06/2022 1:43 PM EST Body Mass Index 37.07 07/06/2022 1:43 PM EST Plan of Treatment Health Maintenance Due Date Last Done Comments LIPID PANEL 1962 TSH LEVEL 1962 DEPRESSION SCREENING 1974 SMOKING Hx and SMOKELESS TOBACCO SCREENING 1975 HEPATITIS C SCREENING 1980 HIV ONE-TIME SCREENING (18-65 YEARS) 1980 PAP SMEAR 1983 MAMMOGRAM 2002 COLOGUARD 2007 COLONOSCOPY 2007 COLORECTAL CANCER SCREENING 2007 FIT TEST 2007 FOBT 2007 SIGMOIDOSCOPY 2007 VIRTUAL COLONOSCOPY 2007 PNEUMOCOCCAL VACCINES (50+ years) (2 of 2 - PCV) 02/05/2016 02/04/2015 COVID-19 VACCINE (2 - season) 2024 07/09/2021 SCREENING FOR DIABETES 09/01/2024 09/01/2021 Adult Td,Tdap Booster 09/24/2027 09/23/2017 RSV VACCINE (1 - 1-dose 75+ series) 2037 ZOSTER VACCINES Completed 07/21/2019, 03/2020, 05/09/2019, Additional history exists HEPATITIS A VACCINES Aged Out No long er eligible based on patient's age to complete this topic HIB VACCINES Aged Out No longer eligi ble based on patient's age to complete this topic MENINGOCOCCAL VACCINES (ACWY) Aged Out No longer eligible based on patient's age to complete this topic MENINGOCOCCAL VACCINES (B) Aged Out N o longer eligible based on patient's age to complete this topic Medical Devices Not on file Insurance VERONICA BUSTOS [id number] [facility] [address] [place], [place] [address] [place] [address] [place] [address] [facility] [address] [place] [place] [address] [place] [address] AYANNA FLORESKIRSTYVERONICA [id number] [facility] H[facility] Care Teams Bushel Girl Relationship Specialty Start Date End Date Perla Ny MD [address] [place] [id number] PCP - General Internal Medicine 08/07/21 Additional Source Comments The information contained in this document represents components of the legal health record. It is not the complete legal health record.[facility]
--- OUTSIDE RECORDS SUMMARY | 2025-01-25 15:33 | XMS_ITS | Patient Health Record ---
Author Organization [facility] Address [address] [place] [address] Care Team Providers Care Silicator Name Role Phone Yanely COX, Perla Vyas Primary Care Provider Un available Serafin Miranda Unavailable [phone] Allergies Allergen (clinical drug ingredient) Drug/Non Drug Allergy documented on EMR Reaction Allergy Type Onset Date Status sulfamethoxazole / trimethoprim Bactrim mouth swelling Drug Allergy Active sulfa mouth swelling Drug Allergy Ac tive Penicillin since childhood Drug Allergy Active Reason For Referral No Information Medications Medication SIG (Take, Route, Frequency, Duration) Notes Start Date End Date Status Morphine Sulfate ER 30 MG (Schedule II D rug) Oral; Duration: 28 Active Venlafaxine HCl ER 150 MG Oral; Duration: 30 Active Cyclobenzaprine HCl 5 MG Oral; Duration: 30 Unknown Topiramate 25 MG Oral; Duration: 30 Unknown CeleBREX 200 MG 1 capsule with food Orally Once a day Active Clotrimazole-Betamethasone 1-0.05 % External; Duration: 10 Unkno wn Levothyroxine Sodium 50 MCG Oral; Duration: 90 Active Gabapentin 300 MG Oral; Duration: 30 Unknown Omeprazole 20 MG 1 capsule Orally Onc e a day Active Celecoxib 200 MG Oral; Duration: 90 Unknown Gabapentin 800 MG 1 tablet Orally Thre e times a day Active Rosuvastatin Calcium 40 MG Oral; Duration: 90 Unknown Zetia 10 MG 1 tablet Orally Once a day Active Crestor 40 MG 1 tablet Orally Once a day Active oxyCODONE HCl 20 MG (Schedule II Drug) Oral; Duration: 30 Active ZyrTEC Allergy 10 MG 1 tablet Orally Onc e a day Active Social History Tobacco Use: Social History Observation Description Date Details (start date - stop date) Former Smoker NA - NA Tobacco Use/Smoking Question Answer Notes Are you a: former smoker Additional Findings: Tobacco Non-User Current no n-smoker Alcohol Screen Question Answer Notes Did you have a drink contain ing alcohol in the past year? Yes How often did you have a dri nk containing alcohol in the past year? Monthly or less (1 point) Points 1 Interpretation Negative Tobacco use other than smoking: Question Answer Notes Are you an other tobacco user? No Problems Problem Type SNOMED Code ICD Code Onset Dates Problem Status W/U Status Risk Notes Problem Localized swelling, mass and lump, right lower limb (R22.41) Active confirmed Problem Plantar fascial fibromatosis (11417053) Plantar fascial fibromatosis (M72.2) Active confirmed Plan Of Treatment No Information Insurance Providers Payer Name Payer Address Payer Phone Subscriber Number Group Number Insured Name Patient Relationship to Insured Coverage Start Date Coverage End Date [address] [address] [id number] Sanjay Otero II Spouse - patient is the spouse of the insured Medical (General) History Medical History History ICD Code Anxiety Arthritis Back,Hip,and Knee pain Cholesterol Depression Headaches Migraines Neuropathy Psoriasis/eczema Reflux ( GERD) Thyroid disorder Chicken pox Joint implants/screws Surgical History Surgery Date(Month/Year) foot surgery - bone fusion - partial suc cess 10/09 left knee replacement 06/13 right knee replacement 10/13
--- OUTSIDE RECORDS SUMMARY | 2025-01-25 15:33 | XMS_ITS | Data Portability ---
Author Organization [place] [facility] Address [address] [facility] [facility] [address] [place] [address] Care Team Providers Care Product Applications Engineer Name Role Phone JENARO JARRELL Primary Care Provider [phone] Assessment Encounter Date Assessment Date Assessment LastModified by Organization Details LastModified Time 05/25/2024 05/25/2024 63-year-old becca lemus presents for evaluation of tonsil hypertrophy. On exam, bilateral tympanic membranes are intact with well aerated middle ear spaces. Anterior rhinoscopy without purulence or rhinorrhea. Tonsils are 2+ bilaterally and soft to palpation bilaterally. Fiberoptic laryngoscopy was offered, but patient declined. She will follow-up with her slat pickler for management of GERD and dysphagia. She may follow-up with our office as needed for any future concerns. [email or web address] Not available 05/25/2024 14:12:24 Plan of Treatment [...] Organization Details Recorded Time Hypertrophy of tonsils 98361960 Active ROYD NICOLAS PA-C [address] [place] [address], [place], [phone] [facility] [place] [facility] 14:06:41 Dysphagia 77448991 Active RODY NICOLAS PA-C [address] [place] [address], [place], [phone], [facility] - [facility] 4 14:15:29 Problem Notes None recorded. [...] Updated DateTime 05/25/2024 154.94 cm 43.5 kg/m2 538612.25 g Jorge A Mike [place] [facility] 05/25/2024 13:51:09 Social History None recorded. Functional Status None recorded. Mental Status None recorded. Family History Nothing Reported. Medical History No medical history recorded. Gynecological HistoryNo gynecological history recorded. Obstetrics History GPAL:G 0 P 0 0 0 0 Past Encounters Encounter ID Performer Location Encounter Start Date Encounter Closed Date Diagnosis/Indication Diagnosis SNOMED-CT Code Diagnosis ICD10 Code Diagnosis Note [id number] RODY NICOLAS PA-C [facility] [address] [address] 05/25/2024 13:28:53 05/25/2024 14:23:03 Hypertrophy of tonsils 06843739 J35.1 Dysphagia 06328309 R13.1 9 Health Concerns Section Related Observation LastModified by Organization Stephie claros LastModified Time None Recorded Concern Status LastModified by Organization Details LastModified Time None Recorded Advance Directives Directive None Recorded Payers Insurance Date Sequence Insurance Name Policy Number Policy Fernandez Covered Member ID Fernandez Member ID Guarantor Name 05/25/[address] [place] [address] [id number] Sofia Otero [id number] Sofia Otero OBGyscar Episode No OBEpisode recorded.
--- OUTSIDE RECORDS SUMMARY | 2025-01-25 15:34 | XMS_ITS | Patient Health Record ---
Author Organization [facility] Address [address] [place] [address] Care Team Providers Care Orthopedic Brace Maker Name Role Phone Yanely COX, Perla Primary Care Provider Florin Ridley Jr [phone] Allergies Allergen (clinical drug ingredient) Drug/Non Drug Allergy documented on EMR Reaction Allergy Type Onset Date Status Sulfa Unknown Drug Allergy Active Penicillin Unknown Drug Allergy Active Reason For Referral No Information Medications Medication SIG (Take, Route, Frequency, Duration) Notes Start Date End Date Status LORazepam 0.5 MG 1 tablet as needed Orally prn Active Vitamin D 2000 UNIT Orally Active CeleBREX 200 MG 1 capsule Orally Twi ce a day Active Multi Vitamin/Minerals Orally Active Cyclobenzaprine HCl 10 MG 1 tablet Orally prn Active Ranitidine HCl 150 MG 1 capsule Orally T wice a day Active Venlafaxine HCl ER 150 MG 1 capsule with food Orally Once a day Active oxyCODONE HCl 30 MG 1 tablet as needed Orally TID Active Zetia 10 MG 1 tablet Orally Once a day Active Crestor 40 MG 1 tablet Orally Once a day Active Levothyroxine Sodium 50 MCG 1 tablet Ora lly Once a day Active Colyte with Flavor Packs 240 GM As directed Orally Over the specified time. for 1 day(s) 08/25/2015 Active Aspir-81 81 MG 1 tablet Orally Once a day Active Gabapentin 800 MG 1 tablet Orally Thre e times a day Active Cetirizine HCl 10 MG 1 tablet as needed Orally Once a day Active Colace 100 MG 1 capsule as needed Orally Once a day Active Morphine Sulfate 30 MG 1 tablet as neede d Orally TID Active CoQ10 200 MG 1 capsule with a maricel l Orally Once a day Active Gabapentin (PHN) 300 MG 1 tablet with ev ening meal one time Orally TID Active Calcium 600+D 600-400 MG-UNIT 1 tablet w ith food Orally Once a day Active Immunizations Vaccine Route Administration Date Status Comme nts Influenza Unknown 05/31/2015 Administered Problems Problem Type SNOMED Code ICD Code Onset Dates Problem Status W/U Status Risk Notes Problem 372399269 Colon cancer screening (Z12.11) Active confirmed Problem 100811807 Gastro-esophagea l reflux disease without esophagitis (K21.9) Active confirmed Problem 16144753 Other dysphagia (R13.19) Active confirmed Plan Of Treatment Future Test Test Name Order Date UPPER GI ENDOSCOPY 08/25/2015 COLONOSCOPY 08/25/2015 Insurance Providers Payer Name Payer Address Payer Phone Subscriber Number Group Number Insured Name Patient Relationship to Insured Coverage Start Date Coverage End Date [facility] [address] [facility] [place] [id number] LC ELISE Self - patient is the insured Medical (General) History Medical History History ICD Code hypercholesterolemia Hypothyroidism GERD Surgical History Surgery Date(Month/Year) left total knee surgery 2014 right total knee surgery 2013 left foot bone fusion 2010 lapband 2009
== END 2025-01-25 15:37 | disposition home or self-care (01) ==
LOC: HO.HGI 15:03
PROVIDERS: PCP Internal Medicine; Visit Provider Nurse Practitioner Family
DX: K21.9 Gastro-esophageal reflux disease without esophagitis (principal); Z98.890 Other specified postprocedural states; Z87.19 Personal history of other diseases of the digestive system; K22.4 Dyskinesia of esophagus; R13.14 Dysphagia, pharyngoesophageal phase; R09.A2 Foreign body sensation, throat
CPT/HCPCS: 99214

== ENCOUNTER 2025-01-29 08:29 | Day surgery (SDC) | payer OTHER, SELFPAY ==
--- OUTSIDE RECORDS SUMMARY | 2025-01-26 12:55 | XMS_ITS | Patient Health Record ---
Author Organization [facility] Address [address] [place] [address] Care Team Providers Care Recreation Specialist Name Role Phone Yanely COX, Perla Vyas Primary Care Provider Un available Serafin Miranda Unavailable [phone] Allergies Allergen (clinical drug ingredient) Drug/Non Drug [...] (R22.41) Active confirmed Problem Plantar fascial fibromatosis (92387419) Plantar fascial fibromatosis (M72.2) Active confirmed Plan Of Treatment No Information Insurance Providers Payer Name Payer Address Payer Phone Subscriber Number Group Number Insured Name Patient Relationship to Insured Coverage Start Date Coverage End Date [address] [id number] Sanjay Otero II Spouse - patient is [...]
--- OUTSIDE RECORDS SUMMARY | 2025-01-26 12:55 | XMS_ITS | Clinical Summary ---
Author Organization [facility] Address [address] [place] [id number] Phone Care Team Providers Care Marketing Planner Name Role Phone Perla Ny MD Primary [...] Take 1 capsule by mouth daily. Active [id number] ORAL Take 1 tablet by mouth daily. [...] the left foot. She will follow-up with [facility] again regarding pain management as she has not had any chronic pain management even after seeing a metal painter last week in [place]. I will follow-up with the patient again in 6 weeks timeframe to ensure that she is consistently eating enough protein every day and to see if there is a jumpstart her metabolism and weight loss. Patient will continue current medications as reviewed. She will stop the [id number] supplement she started which caused some looser [...] to see the pain management doctors in [place] but her appointment is not until the [...] Devices Not on file Insurance VERONICA BUSTOS [id number] [facility] [place] [address] [place] [address] [place] [address] [place] [address] [facility] [address] [place] [place] [address] [place] [address] AYANNA FLORESKIRSTYVERONICA [id number] [facility] HMO Care Teams Marketing Planner Relationship Specialty Start Date End Date Perla Ny MD [address] [place] [id number] PCP - General Internal Medicine 08/07/21 Additional Source Comments The information contained in this document represents components of the legal health record. It is not the complete legal health record.[facility]
--- OUTSIDE RECORDS SUMMARY | 2025-01-26 12:55 | XMS_ITS | Patient Health Record ---
Author Organization [facility] Address [address] [place] [id number] Care Team Providers Care Market Researcher Name Role Phone Yanely COX, Perla Primary Care Provider Florin Ridley Jr Allergies Allergen (clinical drug ingredient) Drug/Non Drug [...] Problem Status W/U Status Risk Notes Problem [id number] Colon cancer screening (Z12.11) Active confirmed Problem [id number] Gastro-esophagea l reflux disease without esophagitis (K21.9) Active confirmed Problem [id number] Other dysphagia (R13.19) Active confirmed Plan Of Treatment Future Test Test Name Order Date UPPER GI ENDOSCOPY 08/25/2015 COLONOSCOPY 08/25/2015 Insurance Providers Payer Name Payer Address Payer Phone Subscriber Number Group Number Insured Name Patient Relationship to Insured Coverage Start Date Coverage End Date [facility] [address] [facility] [place] NOLASCO [phone] [id number] LC ELISE Self - patient is the insured Medical (General) History Medical History History ICD Code hypercholesterolemia Hypothyroidism GERD Surgical History Surgery Date(Month/Year) left total knee surgery 2014 right total knee surgery 2013 left foot bone fusion 2010 lapband 2009
--- NOTE | 2025-01-28 08:40 | HO.ANESPROP2 ---
Documented by User: María Elena Colón NP 01/28/25 08:44 HPI - Anesthesia Eval Consult details Narrative: 64yo F for Upper Endoscopy with Balloon Dilitation BMI 43.5 ? methadone and oxycodone - previously taking PMFSH Active Problems Active Problems: All Active Problems Dysphagia (Acute) Maxillary sinusitis, acute (Acute) Encounter for well woman exam with routine gynecological exam (Acute) Fungal esophagitis (Acute) History of migraine (Acute) Spondylosis without myelopathy or radiculopathy, lumbar region (Acute) Chronic pain syndrome (Acute) Morbid obesity (Acute) History of repair of hiatal hernia (Acute) Dyslipidemia (Acute) Urinary incontinence in female (Acute) Chronic gastroesophageal reflux disease (Acute) Recurrent major depression (Acute) Patient on methadone maintenance therapy (Acute) Acquired hypothyroidism (Acute) Osteoarthritis (Acute) Past Medical History Medical History Dysphagia Maxillary sinusitis, acute Fungal esophagitis Hiatal hernia Esophageal stricture Esophageal dysmotility Pruritic intertrigo History of migraine Spondylosis without myelopathy or radiculopathy, lumbar region Chronic pain syndrome Acne comedone Hx of varicose veins Intestinal malabsorption following gastrectomy Hypothyroidism Hx of gastroesophageal reflux (GERD) Hx of cardiac murmur Chronic pain Urinary incontinence in female Chronic gastroesophageal reflux disease Recurrent major depression Patient on methadone maintenance therapy Acquired hypothyroidism Osteoarthritis Morbid obesity with BMI of 45.0-49.9, adult Dyslipidemia Family History Family History Father History of throat cancer History of PA (myocardial infarction) Type 2 diabetes mellitus Mother Hyperlipidemia CVD (cardiovascular disease) HTN (hypertension) Maternal Aunt No problems noted. Son Paraplegia Son No problems noted. Paternal Grandmother Type 2 diabetes mellitus Maternal Grandmother Alzheimer's dementia Brother No problems noted. Sister No problems noted. Family history of problems with anesthesia: No Surgical History Surgical History (Updated 01/29/25 @ 08:38 by Rosalina Cruz, NHUNG) S/P insertion of spinal cord stimulator Status post vein stripping (11/25/20) History of repair of hiatal hernia History of adjustable gastric banding S/P laparoscopic sleeve gastrectomy Hx of colonoscopy History of total right knee replacement History of bariatric surgery History of removal of laparoscopic gastric banding device History of total left knee replacement S/P foot surgery, left LAP-BAND surgery status History of Problems with Anesthesia: No Social History 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 you a primary resident care aide to a significant other at home: Yes (Son - paraplegic) Do you presently have visiting nurse or other home services: No Alcohol intake: never Comment: pt sleeping Patient Tobacco Use Status: Former Tobacco user Tobacco use type: Cigarette Cigarettes Per Day: 3 Years Smoked: 14 e-Cigarette/Vaping Use: Never Used Second Hand Smoke Exposure: No Use of substances other than those prescribed or required for medical reasons: No Have you been hit, kicked, punched, or otherwise hurt by someone within the past year? If so, by whom?: No Are you DNR?: No Advance Directives: No Advance Directives Information Provided: Yes Advance Directives on File: No Patient : No : No Poor oral hygiene: No service: No Current occupational status: unemployed Cognitive needs: No Hearing needs: No Vision needs: Yes Meds Allergies Allergy/AdvReac Type Severity Reaction Status Date / Time Sulfa (Sulfonamide Allergy Severe swelling Verified 01/25/25 15:17 Antibiotics) (SULFA of lips (SULFONAMIDE ANTIBIOTICS)) and tongue Penicillins (PENICILLINS) Allergy Unknown UNKNOWN Verified 01/25/25 15:17 Home Medications ?Medication ?Instructions ?Recorded ?Confirmed ?Last Taken ?Type gabapentin 800 mg tablet 800 mg PO TID 03/31/20 03/09/24 08/10/20 05:45 History topiramate 100 mg tablet 100 mg PO BID 03/31/20 03/09/24 10/09/23 History calcium carbonate (Calcium 600) 600 mg PO BID 07/04/20 03/09/24 08/05/20 History cetirizine 10 mg capsule (Zyrtec) 10 mg PO DAILY PRN Allergy Symptoms 07/04/20 03/09/24 Unknown History coenzyme Q10 100 mg capsule 200 mg PO DAILY 07/04/20 03/09/24 08/05/20 History (CoQ-10) glucosamine sulfate 500 mg tablet 500 mg PO DAILY 07/04/20 03/09/24 08/05/20 History (Glucosamine) multivitamin 1 tab PO DAILY 07/04/20 03/09/24 Unknown History azelaic acid 15 % topical gel topical 07/03/22 03/09/24 Unknown History desonide 0.05 % topical ointment topical 07/03/22 03/09/24 Unknown History nystatin 100,000 unit/gram topical topical 07/03/22 03/09/24 Unknown History ointment tretinoin 0.025 % topical cream appl topical 07/03/22 03/09/24 Unknown History tretinoin 0.05 % topical cream appl topical 07/03/22 03/09/24 Unknown History cevimeline 30 mg capsule cap PO 06/03/23 03/09/24 10/09/23 History lidocaine 5 % topical patch patch topical 07/10/23 03/09/24 Unknown History cholecalciferol (vitamin D3) 50 50 mcg PO DAILY 07/14/24 Unknown History mcg (2,000 unit) capsule turmeric 400 mg capsule mg PO 07/14/24 Unknown History zinc sulfate 66 mg tablet (Zinc-15) 66 mg PO DAILY 07/14/24 Unknown History Assessment and Plan Assessment Anesthesia Assessment: Chart Reviewed Final Anesthetic Review Family History of Problems with Anesthesia: No History of Problems with Anesthesia: No Documented by User: Jessica Espinal MD 01/29/25 09:19 [facility] Past Medical History Medical History Dysphagia Maxillary sinusitis, acute Fungal esophagitis Hiatal hernia Esophageal stricture Esophageal dysmotility Pruritic intertrigo History of migraine Spondylosis without myelopathy or radiculopathy, lumbar region Chronic pain syndrome Acne comedone Hx of varicose veins Intestinal malabsorption following gastrectomy Hypothyroidism Hx of gastroesophageal reflux (GERD) Hx of cardiac murmur Chronic pain Urinary incontinence in female Chronic gastroesophageal reflux disease Recurrent major depression Patient on methadone maintenance therapy Acquired hypothyroidism Osteoarthritis Morbid obesity with BMI of 45.0-49.9, adult Dyslipidemia Family History Family History Father History of throat cancer History of PA (myocardial infarction) Type 2 diabetes mellitus Mother Hyperlipidemia CVD (cardiovascular disease) HTN (hypertension) Maternal Aunt No problems noted. Son Paraplegia Son No problems noted. Paternal Grandmother Type 2 diabetes mellitus Maternal Grandmother Alzheimer's dementia Brother No problems noted. Sister No problems noted. Surgical History Surgical History (Updated 01/29/25 @ 08:38 by Rosalina Cruz RN) S/P insertion of spinal cord stimulator Status post vein stripping (11/25/20) History of repair of hiatal hernia History of adjustable gastric banding S/P laparoscopic sleeve gastrectomy Hx of colonoscopy History of total right knee replacement History of bariatric surgery History of removal of laparoscopic gastric banding device History of total left knee replacement S/P foot surgery, left LAP-BAND surgery status Social History 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 you a primary resident care aide to a significant other at home: Yes (Son - paraplegic) Do you presently have visiting nurse or other home services: No Alcohol intake: never Comment: pt sleeping Patient Tobacco Use Status: Former Tobacco user Tobacco use type: Cigarette Cigarettes Per Day: 3 Years Smoked: 14 e-Cigarette/Vaping Use: Never Used Second Hand Smoke Exposure: No Use of substances other than those prescribed or required for medical reasons: No Have you been hit, kicked, punched, or otherwise hurt by someone within the past year? If so, by whom?: No Are you DNR?: No Advance Directives: No Advance Directives Information Provided: Yes Advance Directives on File: No Patient : No : No Poor oral hygiene: No service: No Current occupational status: unemployed Cognitive needs: No Hearing needs: No Vision needs: Yes Meds Allergies Allergy/AdvReac Type Severity Reaction Status Date / Time Sulfa (Sulfonamide Allergy Severe swelling Verified 01/25/25 15:17 Antibiotics) (SULFA of lips (SULFONAMIDE ANTIBIOTICS)) and tongue Penicillins (PENICILLINS) Allergy Unknown UNKNOWN Verified 01/25/25 15:17 Home Medications ?Medication ?Instructions ?Recorded ?Confirmed ?Last Taken ?Type gabapentin 800 mg tablet 800 mg PO TID 03/31/20 03/09/24 08/10/20 05:45 History topiramate 100 mg tablet 100 mg PO BID 03/31/20 03/09/24 10/09/23 History calcium carbonate (Calcium 600) 600 mg PO BID 07/04/20 03/09/24 08/05/20 History cetirizine 10 mg capsule (Zyrtec) 10 mg PO DAILY PRN Allergy Symptoms 07/04/20 03/09/24 Unknown History coenzyme Q10 100 mg capsule 200 mg PO DAILY 07/04/20 03/09/24 08/05/20 History (CoQ-10) glucosamine sulfate 500 mg tablet 500 mg PO DAILY 07/04/20 03/09/24 08/05/20 History (Glucosamine) multivitamin 1 tab PO DAILY 07/04/20 03/09/24 Unknown History azelaic acid 15 % topical gel topical 07/03/22 03/09/24 Unknown History desonide 0.05 % topical ointment topical 07/03/22 03/09/24 Unknown History nystatin 100,000 unit/gram topical topical 07/03/22 03/09/24 Unknown History ointment tretinoin 0.025 % topical cream appl topical 07/03/22 03/09/24 Unknown History tretinoin 0.05 % topical cream appl topical 07/03/22 03/09/24 Unknown History cevimeline 30 mg capsule cap PO 06/03/23 03/09/24 10/09/23 History lidocaine 5 % topical patch patch topical 07/10/23 03/09/24 Unknown History cholecalciferol (vitamin D3) 50 50 mcg PO DAILY 07/14/24 Unknown History mcg (2,000 unit) capsule turmeric 400 mg capsule mg PO 07/14/24 Unknown History zinc sulfate 66 mg tablet (Zinc-15) 66 mg PO DAILY 07/14/24 Unknown History Exam Airway Mallampati Class: III TM Dist: >3cm Neck ROM: Full Assessment and Plan Assessment Anesthesia Assessment: Anesthesia Plan Discussed Final Anesthetic Review NPO: Yes ASA Class: III Final Preanesthetic Review: No Changes in Pt Med Stat, Meds/Allgs Chart Reviewed, Consent Obtained/Reviewed and Anes Risks/Benef Reviewed Patient Risk: Intermediate Procedure Risk: Low Anesthetic Plan Anesthetic Plan: TIVA Disposition: Standard PACU
[2025-01-29 08:39] VITALS: BMI 43.5
--- NOTE | 2025-01-29 08:43 | MHC.SHP ---
Pre-Procedural Eval Section A - 24 Hr Update-Section A only Date of Service: 01/29/25 The patient is an INPATIENT: No The patient has been examined within 24 hours of the surgical procedure. The History & Physical has been completed within 30 days and I have reviewed it.: Yes Section B - Complete if H&P > 30 days Chief Complaint: Dysphagia, unspecified Allergies: Allergies Allergy/AdvReac Type Severity Reaction Status Date / Time Sulfa (Sulfonamide Allergy Severe swelling Verified 01/25/25 15:17 Antibiotics) (SULFA of lips (SULFONAMIDE ANTIBIOTICS)) and tongue Penicillins (PENICILLINS) Allergy Unknown UNKNOWN Verified 01/25/25 15:17 Plan Diagnosis/Plan: Unchanged I have reviewed the history and physical and performed a pertinent physical examination on my patient. No changes have occurred unless specified. Time Spent With Patient Time: Total time managing care of this patient today ____ minutes.
[2025-01-29 08:47] VITALS: BP 136/51; PULSE 76; RESP 18; TEMP 36.1; O2SAT 96
[2025-01-29] MEDS: Lactated Ringers 1,000 ML 100 ML IVCONT (08:57)
[2025-01-29 10:01] VITALS: BP 132/56; PULSE 75; RESP 17; TEMP 36.6; O2SAT 97
--- NOTE | 2025-01-29 10:04 | P.OP_ITS ---
Operative Note Operative Note Date of Service: 01/29/25 Narrative: Procedure: Esophagogastroduodenoscopy Endoscopist: Katt Lowry MD Indication: Dysphagia Anesthesia Provider: Dr Jessica Espinal Anesthesia Type: MAC ?? EGD Procedure:?? The procedure, indications, preparation and potential complications were reviewed with the patient, who indicated understanding and gave written informed consent to proceed. A physical exam was performed. The endoscope was introduced through the mouth, and advanced to the second part of duodenum. The mucosa was carefully examined on slow withdrawal of the endoscope. The patient tolerated the procedure well. There were no immediate complications.? ? EGD Findings:? * Esophagus:? Diffuse whitish plaques and ulceration noted in the middle and lower esophagus suspicious for roldan esophagitis. There was narrowing noted in the cricopharyngeal level while passing the scope. The Z line was at 32 cm with the diaphragmatic pinch at 36 cm. Middle and lower esophagus forceps biopsies were obtained. * Stomach:? Tubular stomach was noted compatible with a history of sleeve gastrectomy. Mild erythema was noted in the body of the stomach. Retroflexion was performed in the cardia that showed Hill grade IV hiatal hernia. Random gastric biopsies were taken to rule out H Pylori infection. * Duodenum:? Normal mucosa was noted in the whole of the examined duodenum. Additional intervention: Soft tip Savary wire was introduced through the biopsy channel of the gastroscope and advanced to the antrum. ?The gastroscope was then backed out. ?Savary Sarath bougie was advanced over the guidewire and the esophagus was dilated to 15 mm with resistance felt. ?On relook, superficial tear with heme was noted at 15-18 cm from incisors confirming successful dilation. ? ? EGD Impressions:? * Cricopharyngeal stenosis (dilation) * Esophagitis r/o roldan (biopsy) * Hiatal hernia * Previous sleeve gastrectomy * Gastritis (biopsy) * Normal duodenum ?? Recommendations:?? * Follow biopsy results. Our office will call or send a letter with results within 7-10 days. * Start fluconazole 400 mg once daily x 14 days * Magic mouthwash PRN for throat discomfort x 2-3 days * If H pylori +, patient will be prescribed eradication therapy followed by test of cure. * Cont PPI * Avoid NSAIDs. * Repeat EGD can be set up as needed for recurrence of symptoms. Above has been reviewed with the patient.
[2025-01-29 10:16] VITALS: BP 153/82; PULSE 68; RESP 20; TEMP 36.2; O2SAT 100
[2025-01-29] MEDS: Mag&Al/Sim/Diphenhyd/Lidocaine 10 ML ORAL.SUSP PO (10:25)
== END 2025-01-29 10:40 | disposition home or self-care (01) ==
PROVIDERS: PCP Internal Medicine; Visit Provider Internal Medicine
PROC: (CPT 43248; principal; 2025-01-29 10:30)
DX: R13.10 Dysphagia, unspecified (principal); K29.60 Other gastritis without bleeding; K22.2 Esophageal obstruction; K22.4 Dyskinesia of esophagus; K44.9 Diaphragmatic hernia without obstruction or gangrene; J39.2 Other diseases of pharynx; K21.9 Gastro-esophageal reflux disease without esophagitis; E78.5 Hyperlipidemia, unspecified; E03.9 Hypothyroidism, unspecified; E66.9 Obesity, unspecified; Z68.41 Body mass index [BMI] 40.0-44.9, adult; Z98.84 Bariatric surgery status; Z87.891 Personal history of nicotine dependence
CPT/HCPCS: 43248; 43239; 88305; 88312; 88313; 88342; C1769; J2003; J2704

== ENCOUNTER → 2025-01-29 08:29 | Outpatient (BNV) | payer OTHER, SELFPAY | PROVIDERS: PCP Internal Medicine; Visit Provider Internal Medicine | DX: J39.2 Other diseases of pharynx (principal); K20.90 Esophagitis, unspecified without bleeding; K29.70 Gastritis, unspecified, without bleeding; R13.10 Dysphagia, unspecified | CPT/HCPCS: 43239; 43248 ==

== ENCOUNTER 2025-02-08 12:57 | Outpatient (AMB) | payer OTHER, SELFPAY ==
--- NOTE | 2025-02-08 12:59 | A.OFFVIS_ITS ---
Vital Signs 02/08/25 13:00 Height 5 ft 1 in Weight 229 lb BMI 43.3 BP 134/82 Blood Pressure Location Rt brachial Position Sitting Pulse 84 Pulse Source Pulse Oximeter Pulse Oximetry (%) 100 Oxygen Delivery Method Room Air Intake Visit Reasons: s/p EGD dilation with Alen Intake Note: Est pt for GERD mgmt w/ Dysphagia. S/P EGD. CC: Pt denies any GI changes or new sx since last visit. Palliative Care Coordinator Required: No Accompanied by: Self / Same As Patient Allergies Sulfa (Sulfonamide Antibiotics) (SULFA (SULFONAMIDE ANTIBIOTICS)) Allergy (Severe, Verified 02/08/25 12:59) swelling of lips and tongue Penicillins (PENICILLINS) Allergy (Unknown, Verified 02/08/25 12:59) UNKNOWN HPI HPI s/p EGD dilation with Alen: Details: LAST VISIT Chronic gastroesophageal reflux disease History of repair of hiatal hernia Esophageal dysmotility Dysphagia Globus sensation Gastroesophageal reflux disease Plan Patient will continue taking Nexium daily. She will be scheduled for upper endo scopy for this upcoming Saturday. In the meantime patient was encouraged to avoid dietary triggers. Eating slowly and chew well. Patient had no trouble with anesthesia in the past. She will see me after the procedure. She is agreeable to current plan of care and verbalizes understanding of instructions. She was given the opportunity to ask questions and all questions answered. UPPER ENDOSCOPY EGD Findings:? * Esophagus:? Diffuse whitish plaques and ulceration noted in the middle and lower esophagus suspicious for roldan esophagitis. There was narrowing noted in the cricopharyngeal level while passing the scope. The Z line was at 32 cm with the diaphragmatic pinch at 36 cm. Middle and lower esophagus forceps biopsies were obtained. * Stomach:? Tubular stomach was noted compatible with a history of sleeve gastrectomy. Mild erythema was noted in the body of the stomach. Retroflexion was performed in the cardia that showed Hill grade IV hiatal hernia. Random gastric biopsies were taken to rule out H Pylori infection. * Duodenum:? Normal mucosa was noted in the whole of the examined duodenum. Additional intervention: Soft tip Savary wire was introduced through the biopsy channel of the gastroscope and advanced to the antrum. ?The gastroscope was then backed out. ?Savary Sarath bougie was advanced over the guidewire and the esophagus was dilated to 15 mm with resistance felt. ?On relook, superficial tear with heme was noted at 15-18 cm from incisors confirming successful dilation. ? ? EGD Impressions:? * Cricopharyngeal stenosis (dilation) * Esophagitis r/o roldan (biopsy) * Hiatal hernia * Previous sleeve gastrectomy * Gastritis (biopsy) * Normal duodenum?? Recommendations:?? * Follow biopsy results. Our office will call or send a letter with results within 7-10 days. * Start fluconazole 400 mg once daily x 14 days * Magic mouthwash PRN for throat discomfort x 2-3 days * If H pylori +, patient will be prescribed eradication therapy followed by test of cure. * Cont PPI * Avoid NSAIDs. * Repeat EGD can be set up as needed for recurrence of symptoms. PATHOLOGY RESULTS Diagnosis A. Stomach, random, biopsy: - Gastric antral mucosa with mild chronic inactive gastritis; negative for Helicobacter pylori, intestinal metaplasia and dysplasia. - Fragment of detached fibrinopurulent debris with numerous bacterial colonies, Candidal fungal organisms and food debris. B. Esophagus, lower, biopsy: Squamous mucosa with moderate active esophagitis and few superficial fungal pseudohyphae and yeast forms consistent with Roldan species (highlighted by PASF stain). C. Esophagus, middle, biopsy: Squamous mucosa with marked active esophagitis and few superficial fungal pseudohyphae and yeast forms consistent with Roldan species (highlighted by PASF stain). TODAY'S VISIT: Patient is here today for follow-up and to discuss upper endoscopy results. Patient reports to be feeling well. Patient has 4 more days left of fluconazole. Patient reports that she is feeling much better. Able to swallow without any issues. Patient denies dyspepsia, dysphagia or odynophagia. Patient is currently taking Nexium. Symptoms of acid reflux are suppressed. Upper endoscopy and pathology results discussed with patient. [facility] Medical History Dysphagia Maxillary sinusitis, acute Fungal esophagitis Hiatal hernia Esophageal stricture Esophageal dysmotility Pruritic intertrigo History of migraine Spondylosis without myelopathy or radiculopathy, lumbar region Chronic pain syndrome Acne comedone Hx of varicose veins Intestinal malabsorption following gastrectomy Hypothyroidism Hx of gastroesophageal reflux (GERD) Hx of cardiac murmur Chronic pain Urinary incontinence in female Chronic gastroesophageal reflux disease Recurrent major depression Patient on methadone maintenance therapy Acquired hypothyroidism Osteoarthritis Morbid obesity with BMI of 45.0-49.9, adult Dyslipidemia Surgical History S/P insertion of spinal cord stimulator Status post vein stripping (11/25/20) History of repair of hiatal hernia History of adjustable gastric banding S/P laparoscopic sleeve gastrectomy Hx of colonoscopy History of total right knee replacement History of bariatric surgery History of removal of laparoscopic gastric banding device History of total left knee replacement S/P foot surgery, left LAP-BAND surgery status Family History Father History of throat cancer History of MA (myocardial infarction) Type 2 diabetes mellitus Mother Hyperlipidemia CVD (cardiovascular disease) HTN (hypertension) Maternal Aunt No problems noted. Son Paraplegia Son No problems noted. Paternal Grandmother Type 2 diabetes mellitus Maternal Grandmother Alzheimer's dementia Brother No problems noted. Sister No problems noted. 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 you a primary care assistant to a significant other at home: Yes (Son - paraplegic) Do you presently have visiting nurse or other home services: No Alcohol intake: never Comment: pt sleeping Patient Tobacco Use Status: Former Tobacco user Tobacco use type: Cigarette Cigarettes Per Day: 3 Years Smoked: 14 e-Cigarette/Vaping Use: Never Used Second Hand Smoke Exposure: No service: No Current occupational status: unemployed Cognitive needs: No Hearing needs: No Vision needs: Yes Female Reproductive History Menstrual Age of Menarche: 14 Review of Systems Const Denies weight gain and Denies weight loss ENT Reports no additional complaints, Denies dysphagia and Denies odynophagia Card Reports no additional complaints Resp Reports no additional complaints GI Denies abdominal pain, Denies belching, Denies melena, Denies bloating, Denies change in bowel habits, Denies dysphagia, Denies excessive flatus, Denies dyspepsia, Denies heartburn, Denies diarrhea, Denies loose stools, Denies nausea, Denies odynophagia and Denies vomiting Reports no additional complaints Musc Reports no additional complaints Neuro Reports no additional complaints Psych Reports no additional complaints Endo Reports no additional complaints Physical Exam Vital Signs: Last Vital Signs Pulse 84 02/08/25 13:00 BP 134/82 02/08/25 13:00 Pulse Ox 100 02/08/25 13:00 Oxygen Delivery Method Room Air 02/08/25 13:00 BMI result Body Mass Index 43.3 Const General: healthy appearing and no acute distress Nutritional Appearance: obese Orientation/consciousness: patient oriented x3 Resp Effort & Inspection: normal respiratory effort, able to speak in complete sentences, no tracheal deviation and symmetric chest movement Auscultation: clear to auscultation bilaterally Cardio Rate: regular rate GI Inspection: Yes normal to inspection, No distended and Yes obesity Palpation (GI): Soft to palpation, not firm, nontender and No hepatosplenomegaly present Auscultation: normal bowel sounds General: Yes no CVA tenderness Back/Spine/Pelvis Back: no CVA tenderness Skin General skin exam: elasticity normal, turgor normal and dry skin Neuro General: patient oriented x3 Psych Appearance: grossly normal Mental Status: mental status grossly normal Assessment & Plan Assessment & Plan (1) Chronic gastroesophageal reflux disease: Code(s): K21.9 - Gastro-esophageal reflux disease without esophagitis Category: Medical (2) History of repair of hiatal hernia: Code(s): Z98.890 - Other specified postprocedural states; Z87.19 - Personal history of other diseases of the digestive system Category: Medical (3) Fungal esophagitis: Code(s): K20.80 - Other esophagitis without bleeding; B49 - Unspecified mycosis Category: Medical (4) Dysphagia: Code(s): R13.10 - Dysphagia, unspecified Category: Medical Qualifiers: Dysphagia type: pharyngoesophageal phase Qualified Code(s): R13.14 - Dysphagia, pharyngoesophageal phase Plan Patient will continue Nexium daily. Avoid dietary triggers in late night snacking. Patient was instructed to be careful with oral hygiene. She will follow-up in our office as needed. She will be due to go for colonoscopy next year. Patient will make appointment with us then. Patient should avoid antibiotics and prednisone as much as she can to avoid again developing fungal esophagitis. Patient is agreeable to current plan of care and verbalizes understanding of instructions. She was given the opportunity to ask questions all questions answered. Thank you for allowing me to participate in her care Coding Level of Care Code Est Pt Level 4 (21128) Complex EM visit Add On G2211 Diagnoses Chronic gastroesophageal reflux disease K21.9 History of repair of hiatal hernia Z98.890; Z87.19 Fungal esophagitis K20.80; B49 Pharyngoesophageal dysphagia R13.14 Dysphagia type: pharyngoesophageal phase Time Spent (min) 35 Comment 25 minutes spent with patient and additional 10 minutes spent reviewing her records
[2025-02-08 13:00] VITALS: BP 134/82; PULSE 84; O2SAT 100; BMI 43.3
--- OUTSIDE RECORDS SUMMARY | 2025-02-08 13:00 | XMS_ITS | Clinical Summary ---
Author Organization [facility] Address [address] [place] [address] Phone Care Team Providers Care Household Appliances Service Technician Name Role Phone Perla Ny MD Primary [...] Take 1 capsule by mouth daily. Active [id number] ORAL Take 1 tablet by mouth daily. [...] the left foot. She will follow-up with [facility] again regarding pain management as she has not had any chronic pain management even after seeing a traffic line painter last week in [place]. I will follow-up with the patient again in 6 weeks timeframe to ensure that she is consistently eating enough protein every day and to see if there is a jumpstart her metabolism and weight loss. Patient will continue current medications as reviewed. She will stop the [id number] supplement she started which caused some looser [...] to see the pain management doctors in [place] but her appointment is not until the [...] repair. Immunizations Immunization Administration Dates Next Due INFLUENZA, SPLIT VIRUS, TRIVALENT PF 04/18/2016 INFLUENZA, SPLIT VIRUS, TRIV ALENT W/ PRESERVATIVE IM 03/21/2021,05/02/2015,04/23/2012 Influenza Quadrivalent Prese rvative Free IM 04/09/2019 Influenza Quadrivalent w/ Pr eservative IM 04/08/2018,03/25/2017 Pneumococcal polysaccharide PPSV23 02/04/2015 Tdap 09/23/2017 Zoster recombinant 07/21/2019,,05/09/2019,07/09 Family History Medical History Relation Comments Diabetes [...] Devices Not on file Insurance VERONICA BUSTOS [id number] [place] [address] [facility] [address] [place] [address] [address] [place] [address] [place] [address] [id number] [facility] HMO Care Teams Household Appliances Service Technician Relationship Specialty Start Date End Date Perla Ny MD [address] [place] [address] PCP - General Internal Medicine 08/07/21 Additional Source Comments The information contained in this document represents components of the legal health record. It is not the complete legal health record.[facility]
--- OUTSIDE RECORDS SUMMARY | 2025-02-08 13:01 | XMS_ITS | Patient Health Record ---
[facility] Address [address] [place] [address] Care Team Providers Care Animal Care Service Worker Name Role Phone Yanely COX, Perla Vyas Primary Care Provider Un available Serafin Miranda Unavailable [phone] Allergies Allergen (clinical drug ingredient) Drug/Non Drug [...] (R22.41) Active confirmed Problem Plantar fascial fibromatosis (03751450) Plantar fascial fibromatosis (M72.2) Active confirmed Plan Of Treatment No Information Insurance Providers Payer Name Payer Address Payer Phone Subscriber Number Group Number Insured Name Patient Relationship to Insured Coverage Start Date Coverage End Date [address] [address] [id number] Sanjay Otero II Spouse - patient is [...]
--- OUTSIDE RECORDS SUMMARY | 2025-02-08 13:01 | XMS_ITS | Patient Health Record ---
Author Organization [facility] Address [address] [place] [address] Care Team Providers Care Respiratory Therapy Director Name Role Phone Yanely COX, Perla Primary Care Provider Florin Ridley Jr [phone] Allergies Allergen (clinical drug ingredient) Drug/Non Drug [...] Problem Status W/U Status Risk Notes Problem [id number] Colon cancer screening (Z12.11) Active confirmed Problem [id number] Gastro-esophagea l reflux disease without esophagitis (K21.9) Active confirmed Problem 69478096 Other dysphagia (R13.19) Active confirmed Plan Of Treatment Future Test Test Name Order Date UPPER GI ENDOSCOPY 08/25/2015 COLONOSCOPY 08/25/2015 Insurance Providers Payer Name Payer Address Payer Phone Subscriber Number Group Number Insured Name Patient Relationship to Insured Coverage Start Date Coverage End Date [facility] [address] [facility] [place]ONICA NOLASCO [phone] [id number] LC ELISE Self - patient is the insured Medical (General) History Medical History History ICD Code hypercholesterolemia Hypothyroidism GERD Surgical History Surgery Date(Month/Year) left total knee surgery 2014 right total knee surgery 2013 left foot bone fusion 2010 lapband 2009
== END 2025-02-08 13:21 | disposition home or self-care (01) ==
LOC: HO.HGI 12:57
PROVIDERS: PCP Internal Medicine; Visit Provider Nurse Practitioner Family
DX: K21.9 Gastro-esophageal reflux disease without esophagitis (principal); Z98.890 Other specified postprocedural states; Z87.19 Personal history of other diseases of the digestive system; K20.80 Other esophagitis without bleeding; B49 Unspecified mycosis; R13.14 Dysphagia, pharyngoesophageal phase
CPT/HCPCS: 99214; G2211

== ENCOUNTER 2025-03-08 11:41 | Outpatient (REF) | payer OTHER, SELFPAY ==
--- OUTSIDE RECORDS SUMMARY | 2025-03-08 14:21 | XMS_ITS | Clinical Summary ---
Author Organization [facility] Address [address] [place] [address] Phone Care Team Providers Care Proposal Engineer Name Role Phone Perla Ny MD Primary [...] Take 1 capsule by mouth daily. Active [id number] ORAL Take 1 tablet by mouth daily. [...] the left foot. She will follow-up with [facility] again regarding pain management as she has not had any chronic pain management even after seeing a automotive paint technician last week in [place]. I will follow-up with the patient again in 6 weeks timeframe to ensure that she is consistently eating enough protein every day and to see if there is a jumpstart her metabolism and weight loss. Patient will continue current medications as reviewed. She will stop the [id number]-[id number] supplement she started which caused some looser [...] to see the pain management doctors in [place] but her appointment is not until the [...] 2024 07/09/2021 SCREENING FOR DIABETES 09/01/2024 09/01/2021 INFLUENZA VACCINE (#1) 2025 , 04/09/2019, 04/08/2018, Additional history exists Adult Td,Tdap Booster 09/24/2027 09/23/2017 RSV VACCINE [...] topic Medical [place] [id number] [facility] HMO O O O Member Subscriber Plan / Payer (Ef fective 2020-Present) Name:Sofia Otero Relation to Subscriber:Self Name:Sofia Otero Payer ID:Not on file Type:HMO Address: [place] [id number] [place], [place] [address]O [facility] [address] [place] [address] VERONICA BUSTOS [id number] [facility] HMO [facility] Address: [address] [address] Care Teams Proposal Engineer Relationship Specialty Start Date End Date Perla Ny MD [address] [facility] [place] [facility] [place] [address] PCP - General Internal Medicine 08/07/21 Additional Source Comments The information contained in this document represents components of the legal health record. It is not the complete legal health record.[facility]
--- OUTSIDE RECORDS SUMMARY | 2025-03-08 14:21 | XMS_ITS | Patient Health Record ---
[facility] Address [address] [facility] [address] Care Team Providers Care Scutcher Tender Name Role Phone Yanely COX, Perla Vyas Primary Care Provider Un available Serafin Miranda Unavailable [phone] Allergies Allergen (clinical drug ingredient) Drug/Non Drug [...] (R22.41) Active confirmed Problem Plantar fascial fibromatosis (45359281) Plantar fascial fibromatosis (M72.2) Active confirmed Plan Of Treatment No Information Insurance Providers Payer Name Payer Address Payer Phone Subscriber Number Group Number Insured Name Patient Relationship to Insured Coverage Start Date Coverage End Date [address] [address] [id number] Sanjay Otero II Spouse - patient is [...]
--- OUTSIDE RECORDS SUMMARY | 2025-03-08 14:22 | XMS_ITS | Patient Health Record ---
Author Organization [facility] Address [address] [place] [address] Care Team Providers Care Project Structural Engineer Name Role Phone Yanely COX, Perla Primary Care Provider Florin Ridley Jr [phone] Allergies Allergen (clinical drug ingredient) Drug/Non Drug [...] Problem Status W/U Status Risk Notes Problem 310432577 Colon cancer screening (Z12.11) Active confirmed Problem 032727933 Gastro-esophagea l reflux disease without esophagitis (K21.9) Active confirmed Problem 98175473 Other dysphagia (R13.19) Active confirmed Plan Of Treatment Future Test Test Name Order Date UPPER GI ENDOSCOPY 08/25/2015 COLONOSCOPY 08/25/2015 Insurance Providers Payer Name Payer Address Payer Phone Subscriber Number Group Number Insured Name Patient Relationship to Insured Coverage Start Date Coverage End Date [facility] [address] [facility] [place]ON[place] NOLASCO [phone] [id number] LC ELISE Self - patient is the insured Medical (General) History Medical History History ICD Code hypercholesterolemia Hypothyroidism GERD Surgical History Surgery Date(Month/Year) left total knee surgery 2014 right total knee surgery 2013 left foot bone fusion 2010 lapband 2009
[2025-03-08 15:12] LABS: Alanine Aminotransferase 24 U/L (0-31); Aspartate Amino Transferase 23 U/L (5-31); Cholesterol 223 mg/dL (<200); Free T4 (Free Thyroxine) 0.89 ng/dL (0.71-1.85); HDL Cholesterol 50 mg/dL (>40); Thyroid Stimulating Hormone 1.63 uIU/mL (0.32-4.0); Triglycerides 141 mg/dL (<150)
== END 2025-03-08 11:42 | disposition home or self-care (01) ==
LOC: HO.HMGCLDS 11:41
PROVIDERS: PCP Internal Medicine; Visit Provider Internal Medicine
DX: E03.9 Hypothyroidism, unspecified (principal); E78.5 Hyperlipidemia, unspecified; E66.01 Morbid (severe) obesity due to excess calories
CPT/HCPCS: 36415; 80061; 84439; 84443; 84450; 84460

== ENCOUNTER 2025-03-16 11:58 | Outpatient (AMB) | payer OTHER, SELFPAY ==
[2025-03-16 12:28] VITALS: BP 120/78; PULSE 84; RESP 15; TEMP 36.7; O2SAT 93; BMI 44.0
--- NOTE | 2025-03-16 12:28 | A.OFFPC_ITS ---
Vital Signs 03/16/25 12:28 Height 5 ft 1 in Weight 233 lb BMI 44.0 BP 120/78 Blood Pressure Location Lt brachial Position Sitting Respiration 15 Pulse 84 Pulse Source Pulse Oximeter Temp 98.1 F Temp Source Oral Pulse Oximetry (%) 93 Oxygen Delivery Method Room Air Intake Visit Reasons: PE Intake Note: Pt is here today for her PE: last mammogram 04/28/24, papsmear 07/11/23, colonoscopy 11/25/15 Allergies Sulfa (Sulfonamide Antibiotics) (SULFA (SULFONAMIDE ANTIBIOTICS)) Allergy (Severe, Verified 03/16/25 12:29) swelling of lips and tongue Penicillins (PENICILLINS) Allergy (Unknown, Verified 03/16/25 12:29) UNKNOWN Medication List - Last Reconciled 03/16/25 by Perla Ny MD acetaminophen (Tylenol Extra Strength) 1,000 mg (2 x 500 mg) PO Q6H PRN albuterol sulfate 90 mcg/actuation 2 puffs inhalation Q6H PRN azelaic acid 15% topical buspirone 10 mg PO BID calcium carbonate (Calcium 600) 600 mg PO BID cetirizine (Zyrtec) 10 mg PO DAILY PRN cevimeline caps PO cholecalciferol (vitamin D3) 50 mcg PO DAILY clotrimazole-betamethasone 1-0.05 % apply thin film to affected area topically 2 times a day; 10 days coenzyme Q10 (CoQ-10) 200 mg PO DAILY desonide 0.05% topical esomeprazole magnesium 40 mg PO DAILY ezetimibe 10 mg PO DAILY famotidine 40 mg PO BEDTIME gabapentin 800 mg PO TID glucosamine sulfate (Glucosamine) 500 mg PO DAILY levothyroxine 75 mcg PO QAM lidocaine 5% patches topical lorazepam 0.5 mg PO DAILY PRN mirabegron ER 25 mg PO DAILY 30 days mometasone 0.1% 1 appl topical DAILY PRN multivitamin 1 tab PO DAILY nystatin topical oxymetazoline 0.05% (Afrin (oxymetazoline)) 2 sprays intranasal Q12H PRN 3 days rosuvastatin 40 mg PO DAILY 90 days sumatriptan succinate 50 mg PO Q2-4H PRN tizanidine 4 mg PO BEDTIME PRN topiramate 100 mg PO BID tretinoin 0.025% appl topical tretinoin 0.05% appl topical turmeric mg PO venlafaxine ER 150 mg PO QAM zinc sulfate (Zinc-15) 66 mg PO DAILY Tobacco use date assessed: 03/16/25 Dental Screening Dental Screen Date: 03/16/25 Did you have a dental visit in the last 12 months?: Yes Did you have a dental problem in the last 6 months where you did not have access to dental care?: No Was dental information given to patient?: Patient has dentist [facility] Medical History (Updated 03/16/25 @ 13:20 by Perla Ny MD) Dysphagia Maxillary sinusitis, acute Fungal esophagitis Hiatal hernia Esophageal stricture Esophageal dysmotility Pruritic intertrigo History of migraine Spondylosis without myelopathy or radiculopathy, lumbar region Chronic pain syndrome Acne comedone Hx of varicose veins Intestinal malabsorption following gastrectomy Hypothyroidism Hx of gastroesophageal reflux (GERD) Hx of cardiac murmur Chronic pain Urinary incontinence in female Chronic gastroesophageal reflux disease Recurrent major depression Patient on methadone maintenance therapy Acquired hypothyroidism Osteoarthritis Morbid obesity with BMI of 45.0-49.9, adult Dyslipidemia Surgical History S/P insertion of spinal cord stimulator Status post vein stripping (11/25/20) History of repair of hiatal hernia History of adjustable gastric banding S/P laparoscopic sleeve gastrectomy Hx of colonoscopy History of total right knee replacement History of bariatric surgery History of removal of laparoscopic gastric banding device History of total left knee replacement S/P foot surgery, left LAP-BAND surgery status Family History Father History of throat cancer History of [place] (myocardial infarction) Type 2 diabetes mellitus Mother Hyperlipidemia CVD (cardiovascular disease) HTN (hypertension) Maternal Aunt No problems noted. Son Paraplegia Son No problems noted. Paternal Grandmother Type 2 diabetes mellitus Maternal Grandmother Alzheimer's dementia Brother No problems noted. Sister No problems noted. 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 you a primary child care team lead to a significant other at home: Yes (Son - paraplegic) Do you presently have visiting nurse or other home services: No Alcohol intake: never Comment: pt sleeping Patient Tobacco Use Status: Former Tobacco user Tobacco use type: Cigarette Cigarettes Per Day: 3 Years Smoked: 14 e-Cigarette/Vaping Use: Never Used Second Hand Smoke Exposure: No service: No Current occupational status: unemployed Cognitive needs: No Hearing needs: No Vision needs: Yes Female Reproductive History Menstrual Age of Menarche: 14 Questionnaire PHQ-9 Over the last 2 weeks, how often have you been bothered by any of the following problems? 1. Little interest or pleasure in doing things: not at all 2. Feeling down, depressed, or hopeless: not at all 3. Trouble falling or staying asleep, or sleeping too much: several days 4. Feeling tired or having little energy: several days 5. Poor appetite or overeating: not at all 6. Feeling bad about yourself - or that you are a failure or have let yourself or your family down: not at all 7. Trouble concentrating on things, such as reading the newspaper or watching television: not at all 8. Moving or speaking so slowly that other people could have noticed. Or the opposite - being so fidgety or restless that you have been moving around a lot more than usual: not at all 9. Thoughts that you would be better off or of hurting yourself in some way: not at all Total score: 2 Depression Screening Interpretation: Negative (Has depression in remission, controlled on venlafaxine ER 150 mg daily) Depression Screening Done: Yes Source: Developed by Drs. Yaw Nowak, Santa Villarreal, Adonis Cuenca and colleagues, with an educational saurabh from [employer]. Thrive Questionnaire Date Thrive assessed: 09/02/24 I am a: Patient What is your living situation today?: I have a steady place to live Within the past 12 months, did the food you bought not last and you didn't have the money to get more?: Never true Within the past 12 months, did you worry whether your food would run out before you got money to buy more?: Never true Do you have trouble paying for medicines?: No Do you have trouble getting transportation to medical appointments?: No Do you have trouble paying your heating and electricity bill?: No Do you have trouble taking care of your child, family member or friend?: No Do you have trouble with day-to-day activities such as bathing, preparing meals, shopping, managing finances, etc.?: No Are you currently unemployed and looking for a job?: Yes Are you interested in more education?: No Please select the resources that you would like help with: None Currently or been in a relationship where the following occur: No concerns reported THRIVE Score: 0 AUDIT C Alcohol Use Questionnaire (AUDIT-C) 1. How often do you have a drink containing alcohol?: Never Total Score: 0 DALLIN-7 AMB Questionnaire DALLIN-7 Date DALLIN - 7 assessed: 09/09/24 Feeling nervous, anxious, or on edge: 1 = Several days Not being able to stop or control worryin = Not at all Worrying too much about different things: 1 = Several days Trouble relaxin = Not at all Being so restless that it is hard to sit still: 0 = Not at all Becoming easily annoyed or irritable: 0 = Not at all Feeling afraid as if something awful might happen: 0 = Not at all Total DALLIN-7 score (0-4 normal; 5-9 mild; 10-14 moderate; 15-21 severe): 2 Source: Developed by Drs. Yaw Nowak, Santa Villarreal, Adonis Cuenca and colleagues, with an educational saurabh from [employer]. Review of Systems Eyes Details: Goes to [facility] Details: Dental cleaning every 6 Physical exam (Primary Care) Vital Signs: Last Vital Signs Temp 98.1 F 03/16/25 12:28 Pulse 84 03/16/25 12:28 Resp 15 03/16/25 12:28 BP 120/78 03/16/25 12:28 Pulse Ox 93 03/16/25 12:28 Oxygen Delivery Method Room Air 03/16/25 12:28 BMI result Body Mass Index 44.0 Tobacco/Smoking Status: Tobacco use Status Tobacco use date assessed 03/16/25 03/16/25 12:40 Patient Tobacco Use Status Former Tobacco user 03/16/25 12:40 Tobacco use type Cigarette 03/16/25 12:40 e-Cigarette/Vaping Use Never Used 03/16/25 12:40 PHQ-9: PHQ-9 Score PHQ-9: Total score 2 03/16/25 12:54 Depression Screening Interpretation: Negative (Has depression in remission, controlled on venlafaxine ER 150 mg daily) Thrive Assessment: Date of Thrive Assessment Date Thrive assessed 09/02/24 03/16/25 12:40 Currently or been in a relationship where the following occur: No concerns rep orted Office Procedures Flu Questionnaire Does the patient have a severe egg allergy?: No Does the patient have severe life threatening allergies?: No Does the patient have a fever or illness today?: No Has the patient ever had Guillain-Mohall Syndrome?: No Has the patient ever had any past reaction to a flu shot?: No Immunizations Fluarix [id number] (PF) 45 mcg (15 mcg x 3)/0.5 mL IM syringe Performing Provider: Perla Ny MD Performing Location: [facility] Administered by: Jojo Moran CMA on 03/16/25 13:30 Dose Route Admin Location Dispensed Lot Number Expiration Date [facility] Green Prize Packer 0.5 mL IM Left Deltoid 0.5 mL [id number] 03/16/25 [id number] Mobile Posse VIS Given Date VIS Provided VIS Publication Date 03/16/25 Single Vaccine 24 Eligibility Eligibility Date Funding Source Not [facility] Eligible 03/16/25 Private Results Reviewed Results Reviewed: Name: Sofia Otero Age/Sex: 64/F : 1960 Unit#: [id number] Attend Dr: Perla Ny MD Re03/08/25 Status: DEP REF Location: [facility] Disch: SPEC : [id number] JACOBY: 03/08/25-1151 STATUS: COMP REQ : [id number] RECD: 03/08/25-[address]: Perla Ny MD COMP: 03/08/25-151 ENTERED: 03/08/25-[address]: ORDERED: AST, ALT, Lipid Panel, Free T4, TSH Test Result Flag Reference AST (GOT) 23 5-31 U/L ALT (GPT) 24 0-31 U/L Triglyceride 141 <150 mg/dL Desirable Triglyceride: less than 150 mg/dL Borderline High Triglyceride 150-199 mg/dL High Triglyceride: 200-499 mg/dL Very High Triglyceride: greater than or equal to 5OO mg/dL Cholesterol 223 H <200 mg/dL Desirable Cholesterol: less than 200 mg/dL Borderline High Cholesterol: 200-239 mg/dL High Cholesterol: greater than 239 mg/dL LDL Calculated 145 H <100 mg/dL Desirable LDL: less than 100 mg/dL Near Optimal/Above Optimal LDL: 110-129 mg/dL Borderline High LDL: 130-159 mg/dL High LDL: 160-189 mg/dL Very High LDL: greater than or equal to 190 mg/dL HDL 50 >40 mg/dL Desirable HDL: greater than 40 mg/dL Note: This HDL assay may give artificially low results in patients with liver disease. Free T4 0.89 0.71-1.85 ng/dL TSH 3rd Gen. 1.63 0.32-4.0 uIU/mL TSH 3rd Generation ([facility]) Coding Level of Care Code Est Pt Prev Care 40-64y(70662) Diagnoses Dyslipidemia E78.5 Osteoarthritis M19.90 Acquired hypothyroidism E03.9 Morbid obesity E66.01 Recurrent major depression F33.9 Active/Remission status: currently active Psychotic features: without psychotic features Chronic gastroesophageal reflux disease K21.9 Urinary incontinence in female R32 History of migraine Z86.69 Assessment & Plan Assessment & Plan (1) Dyslipidemia: Code(s): E78.5 - Hyperlipidemia, unspecified Category: Medical (2) Osteoarthritis: Code(s): M19.90 - Unspecified osteoarthritis, unspecified site Category: Medical (3) Acquired hypothyroidism: Code(s): E03.9 - Hypothyroidism, unspecified Category: Medical (4) Morbid obesity: Code(s): E66.01 - Morbid (severe) obesity due to excess calories Category: Medical (5) Recurrent major depression: Code(s): F33.9 - Major depressive disorder, recurrent, unspecified Category: Medical Qualifiers: Active/Remission status: currently active Psychotic features: without psychotic features (6) Chronic gastroesophageal reflux disease: Code(s): K21.9 - Gastro-esophageal reflux disease without esophagitis Category: Medical (7) Urinary incontinence in female: Code(s): R32 - Unspecified urinary incontinence Category: Medical (8) History of migraine: Code(s): Z86.69 - Personal history of other diseases of the nervous system and sense organs Category: Medical Orders: Orders Thyroid Stimulating Hormone 6 Months E03.9 - Hypothyroidism, unspecified, E66.01 - Morbid (severe) obesity due to excess calories, E78.5 - Hyperlipidemia, unspecified, F33.9 - Major depressive disorder, recurrent, unspecified, K21.9 - Gastro-esophageal reflux disease without esophagitis, M19.90 - Unspecified osteoarthritis, unspecified site, R32 - Unspecified urinary incontinence, Z86.69 - Personal history of other diseases of the nervous system and sense organs Free T4 (Free Thyroxine) 6 Months E03.9 - Hypothyroidism, unspecified, E66.01 - Morbid (severe) obesity due to excess calories, E78.5 - Hyperlipidemia, unspecified, F33.9 - Major depressive disorder, recurrent, unspecified, K21.9 - Gastro-esophageal reflux disease without esophagitis, M19.90 - Unspecified osteoarthritis, unspecified site, R32 - Unspecified urinary incontinence, Z86.69 - Personal history of other diseases of the nervous system and sense organs Basic Metabolic Panel Fasting 6 Months E03.9 - Hypothyroidism, unspecified, E66.01 - Morbid (severe) obesity due to excess calories, E78.5 - Hyperlipidemia, unspecified, F33.9 - Major depressive disorder, recurrent, unspecified, K21.9 - Gastro-esophageal reflux disease without esophagitis, M19.90 - Unspecified osteoarthritis, unspecified site, R32 - Unspecified urinary incontinence, Z86.69 - Personal history of other diseases of the nervous system and sense organs Aspartate Amino Transferase 6 Months E03.9 - Hypothyroidism, unspecified, E66.01 - Morbid (severe) obesity due to excess calories, E78.5 - Hyperlipidemia, unspecified, F33.9 - Major depressive disorder, recurrent, unspecified, K21.9 - Gastro-esophageal reflux disease without esophagitis, M19.90 - Unspecified osteoarthritis, unspecified site, R32 - Unspecified urinary incontinence, Z86.69 - Personal history of other diseases of the nervous system and sense organs Alanine Aminotransferase 6 Months E03.9 - Hypothyroidism, unspecified, E66.01 - Morbid (severe) obesity due to excess calories, E78.5 - Hyperlipidemia, unspecified, F33.9 - Major depressive disorder, recurrent, unspecified, K21.9 - Gastro-esophageal reflux disease without esophagitis, M19.90 - Unspecified osteoarthritis, unspecified site, R32 - Unspecified urinary incontinence, Z86.69 - Personal history of other diseases of the nervous system and sense organs Vitamin D 25-OH Total 6 Months E03.9 - Hypothyroidism, unspecified, E66.01 - Morbid (severe) obesity due to excess calories, E78.5 - Hyperlipidemia, unspecified, F33.9 - Major depressive disorder, recurrent, unspecified, K21.9 - Gastro-esophageal reflux disease without esophagitis, M19.90 - Unspecified osteoarthritis, unspecified site, R32 - Unspecified urinary incontinence, Z86.69 - Personal history of other diseases of the nervous system and sense organs Influenza 1721-1480 Immunization Today Z23 - Encounter for immunization Triiodothyronine T3 Free 6 Months E03.9 - Hypothyroidism, unspecified, E66.01 - Morbid (severe) obesity due to excess calories, E78.5 - Hyperlipidemia, unspecified, F33.9 - Major depressive disorder, recurrent, unspecified, K21.9 - Gastro-esophageal reflux disease without esophagitis, M19.90 - Unspecified osteoarthritis, unspecified site, R32 - Unspecified urinary incontinence, Z86.69 - Personal history of other diseases of the nervous system and sense organs Hemoglobin A1c 6 Months E03.9 - Hypothyroidism, unspecified, E66.01 - Morbid (severe) obesity due to excess calories, E78.5 - Hyperlipidemia, unspecified, F33.9 - Major depressive disorder, recurrent, unspecified, K21.9 - Gastro- esophageal reflux disease without esophagitis, M19.90 - Unspecified osteoarthritis, unspecified site, R32 - Unspecified urinary incontinence, Z86.69 - Personal history of other diseases of the nervous system and sense organs Lipid Panel 6 Months E03.9 - Hypothyroidism, unspecified, E66.01 - Morbid (severe) obesity due to excess calories, E78.5 - Hyperlipidemia, unspecified, F33.9 - Major depressive disorder, recurrent, unspecified, K21.9 - Gastro- esophageal reflux disease without esophagitis, M19.90 - Unspecified osteoarthritis, unspecified site, R32 - Unspecified urinary incontinence, Z86.69 - Personal history of other diseases of the nervous system and sense organs Complete Blood Count Auto Diff 6 Months E03.9 - Hypothyroidism, unspecified, E66.01 - Morbid (severe) obesity due to excess calories, E78.5 - Hyperlipidemia, unspecified, F33.9 - Major depressive disorder, recurrent, unspecified, K21.9 - Gastro-esophageal reflux disease without esophagitis, M19.90 - Unspecified osteoarthritis, unspecified site, R32 - Unspecified urinary incontinence, Z86.69 - Personal history of other diseases of the nervous system and sense organs Medications: New mirabegron ER 25 mg PO DAILY 30 tabs 0RF 30 days Refilled sumatriptan succinate 50 mg PO Q2-4H PRN 12 tabs 2RF for migraine tizanidine 4 mg PO BEDTIME PRN 30 tabs 3RF muscle spasticity
--- OUTSIDE RECORDS SUMMARY | 2025-03-16 16:11 | XMS_ITS | Patient Health Record ---
Author Organization [facility] Address [address] [place] [address] Care Team Providers Care Tapper Shank Name Role Phone Yanely COX, Perla Vyas Primary Care Provider Un available Serafin Miranda Unavailable [phone] Allergies Allergen (clinical drug ingredient) Drug/Non Drug [...] (R22.41) Active confirmed Problem Plantar fascial fibromatosis (97481777) Plantar fascial fibromatosis (M72.2) Active confirmed Plan Of Treatment No Information Insurance Providers Payer Name Payer Address Payer Phone Subscriber Number Group Number Insured Name Patient Relationship to Insured Coverage Start Date Coverage End Date [address] [address] [id number] Sanjay Otero II Spouse - patient is [...]
--- OUTSIDE RECORDS SUMMARY | 2025-03-16 16:11 | XMS_ITS | Clinical Summary ---
Author Organization [facility] Address [address] [place] [phone] Phone Care Team Providers Care What Job Titles Mean Name Role Phone Perla Ny MD Primary [...] Take 1 capsule by mouth daily. Active [id number] ORAL Take 1 tablet by mouth daily. [...] the left foot. She will follow-up with [facility] again regarding pain management as she has not had any chronic pain management even after seeing a painter mirror last week in [place]. I will follow-up with the patient again in 6 weeks timeframe to ensure that she is consistently eating enough protein every day and to see if there is a jumpstart her metabolism and weight loss. Patient will continue current medications as reviewed. She will stop the kccz-dkg-hftoltl supplement she started which caused some looser [...] to see the pain management doctors in [place] but her appointment is not until the [...] Medical [place] [id number] [facility] O O O Member Subscriber Plan / Payer (Ef fective 2020-Present) Name:Sofia Otero Relation to Subscriber:Self Name:Sofia Otero Payer ID:Not on file Type:HMO Address: [place] [id number] [place], [place] [address] [address] [place], [place] [address]O VERONICA BUSTOS [id number] [facility] H[facility] Care Teams What Job Titles Mean Relationship Specialty Start Date End Date Perla Ny MD [address] [facility] [place] [address] PCP - General Internal Medicine 08/07/21 Additional Source Comments The information contained in this document represents components of the legal health record. It is not the complete legal health record.[facility]
--- OUTSIDE RECORDS SUMMARY | 2025-03-16 16:11 | XMS_ITS | Patient Health Record ---
Author Organization [facility] Address [address] [place] [address] Care Team Providers Care Local City Driver Name Role Phone Yanely COX, Perla Primary Care Provider Florin Ridley Jr [phone] Allergies Allergen (clinical drug ingredient) Drug/Non Drug [...] Problem Status W/U Status Risk Notes Problem [id number] Colon cancer screening (Z12.11) Active confirmed Problem [id number] Gastro-esophagea l reflux disease without esophagitis (K21.9) Active confirmed Problem [id number] Other dysphagia (R13.19) Active confirmed Plan Of Treatment Future Test Test Name Order Date UPPER GI ENDOSCOPY 08/25/2015 COLONOSCOPY 08/25/2015 Insurance Providers Payer Name Payer Address Payer Phone Subscriber Number Group Number Insured Name Patient Relationship to Insured Coverage Start Date Coverage End Date [facility] [address] [facility] [place]AS[place] [phone] [id number] LC ELISE Self - patient is the insured Medical (General) History Medical History History ICD Code hypercholesterolemia Hypothyroidism GERD Surgical History Surgery Date(Month/Year) left total knee surgery 2014 right total knee surgery 2013 left foot bone fusion 2010 lapband 2009
== END 2025-03-16 13:56 | disposition home or self-care (01) ==
LOC: HO.HMCC 11:59
PROVIDERS: PCP Internal Medicine; Visit Provider Internal Medicine
DX: Z23 Encounter for immunization (principal)

== ENCOUNTER → 2025-03-16 11:58 | Outpatient (BNVA) | payer OTHER, SELFPAY | PROVIDERS: PCP Internal Medicine; Visit Provider Internal Medicine | DX: Z00.01 Encounter for general adult medical examination with abnormal findings (principal); E78.5 Hyperlipidemia, unspecified; M19.90 Unspecified osteoarthritis, unspecified site; E03.9 Hypothyroidism, unspecified; E66.01 Morbid (severe) obesity due to excess calories; F33.9 Major depressive disorder, recurrent, unspecified; K21.9 Gastro-esophageal reflux disease without esophagitis; R32 Unspecified urinary incontinence; G89.4 Chronic pain syndrome; Z23 Encounter for immunization; Z86.69 Personal history of other diseases of the nervous system and sense organs | CPT/HCPCS: 90471; 90656; 96127 ==

== ENCOUNTER 2025-05-05 12:27 | Outpatient (REF) | payer OTHER, SELFPAY ==
--- OUTSIDE RECORDS SUMMARY | 2025-05-05 15:05 | XMS_ITS | Clinical Summary ---
Author Organization [facility] Address [address] [place] [phone] Phone Care Team Providers Care Thread Separator Name Role Phone Perla Ny MD Primary [...] Take 1 capsule by mouth daily. Active [id number] ORAL Take 1 tablet by mouth daily. [...] the left foot. She will follow-up with [facility] again regarding pain management as she has not had any chronic pain management even after seeing a stage setting painter apprentice last week in [place]. I will follow-up with the patient again in 6 weeks timeframe to ensure that she is consistently eating enough protein every day and to see if there is a jumpstart her metabolism and weight loss. Patient will continue current medications as reviewed. She will stop the kxsl-tiv-vttsxbr supplement she started which caused some looser [...] to see the pain management doctors in [place] but her appointment is not until the [...] (2 of 2 - PCV) 02/05/2016 02/04/2015 SCREENING FOR DIABETES 09/01/2024 09/01/2021 INFLUENZA VACCINE (#1) 2025 , 04/09/2019, 04/08/2018, Additional history exists COVID-19 VACCINE (2 - 2024- season) 2025 07/09/2021 Adult Td,Tdap Booster 09/24/2027 09/23/2017 RSV VACCINE [...] Medical [id number] [facility] H[facility] O O O Member Subscriber Plan / Payer (Ef fective 2020-Present) Name:Sofia Otero Relation to Subscriber:Self Name:Sofia Otero Payer ID:Not on file Type:HMO Address: [place] [id number] [place], [place] [address] [facility] [address] [place], [place] [address] VERONICA BUSTOS [id number] [facility] HMO [facility] Address: [address] [address] Care Teams Thread Separator Relationship Specialty Start Date End Date Perla Ny MD [address] [facility] [place] [address] PCP - General Internal Medicine 08/07/21 Additional Source Comments The information contained in this document represents components of the legal health record. It is not the complete legal health record.[facility]
--- OUTSIDE RECORDS SUMMARY | 2025-05-05 15:05 | XMS_ITS | Patient Health Record ---
Author Organization [facility] Address [address] [place] [phone] Care Team Providers Care Wastewater Treatment Plant Instructor Name Role Phone Yanely COX, Perla Primary [...] GM As directed Orally Over the specified time.; Duration: 1 day(s) 08/25/2015 Active Aspir-81 81 MG [...] Problem Status W/U Status Risk Notes Problem Colon cancer screening (861595419) Colon cancer screening (Z12.11) Active confirmed Problem Gastro-esophagea l reflux disease without esophagitis (035563168) Gastro-esophage al reflux disease without esophagitis (K21.9) Active confirmed Problem Dysphagia (13283522) Other dysphagia (R13.19) Active confirmed Plan Of Treatment Future Test Test Name Order Date UPPER GI ENDOSCOPY 08/25/2015 COLONOSCOPY 08/25/2015 Insurance Providers Payer Name Payer Address Payer Phone Subscriber Number Group Number Insured Name Patient Relationship to Insured Coverage Start Date Coverage End Date [facility] [address] [facility] [place]ON[place] NOLASCO [phone] [id number] LC ELISE Self - patient is the insured Medical (General) History Medical History History ICD Code hypercholesterolemia Hypothyroidism GERD Surgical History Surgery Date(Month/Year) left total knee surgery 2014 right total knee surgery 2013 left foot bone fusion 2010 lapband 2009
--- OUTSIDE RECORDS SUMMARY | 2025-05-05 15:05 | XMS_ITS | Patient Health Record ---
Author Organization [facility] Address [address] [facility] [place] [address] Care Team Providers Care Elevator Adjuster Name Role Phone Yanely COX, Perla Vyas Primary Care Provider Un available Serafin Miranda Unavailable [phone] Allergies Allergen (clinical drug ingredient) Drug/Non Drug [...] (R22.41) Active confirmed Problem Plantar fascial fibromatosis (52572636) Plantar fascial fibromatosis (M72.2) Active confirmed Plan Of Treatment No Information Insurance Providers Payer Name Payer Address Payer Phone Subscriber Number Group Number Insured Name Patient Relationship to Insured Coverage Start Date Coverage End Date [address] [address] [id number] Sanjay Otero II Spouse - patient is [...]
--- OUTSIDE RECORDS SUMMARY | 2025-05-05 15:06 | XMS_ITS | Data Portability ---
Author Organization [place] [facility] Address [address] [facility] [address] [place] [phone] Care Team Providers Care Bootmaker Hand Name Role Phone JENARO JARRELL Primary Care [...] patient declined. She will follow-up with her stitcher hand for management of GERD and dysphagia. She may follow-up with our office as needed for any future concerns. [email or web address] Not available 05/25/2024 14:12:24 Plan of Treatment [...] Organization Details Recorded Time Hypertrophy of tonsils 19773086 Active RODY NICOLAS PA-C [address] [place] [address], [place], [address] [facility] [place] [facility] 14:06:41 Dysphagia 13808323 Active RODY NICOLAS PA-C [address] [place] [address], [place], [phone], [facility] - [facility] 4 14:15:29 Problem Notes None recorded. Medical [...] Updated DateTime 05/25/2024 154.94 cm 43.5 kg/m2 581378.25 g Jorge A Mike [place] [facility] 05/25/2024 13:51:09 Social History None recorded. Functional Status None recorded. Mental Status None recorded. Family History Nothing Reported. Medical History No medical history recorded. Gynecological HistoryNo gynecological history recorded. Obstetrics History GPAL:G 0 P 0 0 0 0 Past Encounters Encounter ID Performer Location Encounter Start Date Encounter Closed Date Diagnosis/Indication Diagnosis SNOMED-CT Code Diagnosis ICD10 Code Diagnosis IMO Codes Diagnosis Note [id number] RODY NICOLAS PA-C [facility] [address] [address] 05/25/2024 13:28:53 05/25/2024 14:23:03 Hypertrophy of tonsils 50539560 J35.1 Dysphagia 08814580 R13.1 9 Health Concerns Section Related Observation LastModified by Organization Detai ls LastModified Time None Recorded Concern Status LastModified by Organization Details LastModified Time None Recorded Advance Directives Directive None Recorded Payers Insurance Date Sequence Insurance Name Policy Number Policy Fernandez Covered Member ID Fernandez Member ID Guarantor Name 05/25/[address] [place] [address] [id number] oSfia Otero [id number] Sofia Otero Notes Date Note Type Note Provider Name and Address Organization Details Recorded Time 05/25/2024 text/html ROS as noted in the HPI 63 year old female presents for evaluation of tonsil hypertrophy. She [...] solids. She is followed by GI at [facility]. Denies voice changes, odynophagia, otalgia, and chronic sore throat. Denies history of chronic tonsillitis. Former smoker quit over 30 years ago. Currently on antibiotics x 1 week and Flonase for sinus infection. RODY NICOLAS PA-C [address] [place] [address],[address], [address], [facility] - [facility] 05/25/2024 14:15:47 OBGyn Episode No OBEpisode recorded.
== END 2025-05-05 12:28 | disposition home or self-care (01) ==
LOC: HO.MAMMO 12:27
PROVIDERS: PCP Internal Medicine; Visit Provider Internal Medicine
DX: Z12.31 Encounter for screening mammogram for malignant neoplasm of breast (principal)
CPT/HCPCS: 77063; 77067

== ENCOUNTER → 2025-05-05 12:30 | Outpatient (BNV) | payer OTHER, SELFPAY | PROVIDERS: PCP Internal Medicine; Visit Provider Internal Medicine | DX: Z12.31 Encounter for screening mammogram for malignant neoplasm of breast (principal) | CPT/HCPCS: 77063; 77067 ==

== ENCOUNTER 2025-06-16 10:28 | Outpatient (AMB) | payer OTHER, SELFPAY ==
[2025-06-16 10:31] VITALS: BP 135/63; PULSE 84; BMI 43.1
--- NOTE | 2025-06-16 10:31 | A.OFFVIS_ITS ---
Vital Signs 06/16/25 10:31 Height 5 ft 1 in Weight 228 lb BMI 43.1 BP 135/63 Blood Pressure Location Rt radial Position Sitting Pulse 84 Intake Visit Reasons: umbilical hernia Intake Note: Patient referred by PCP Dr. Ny for assessment of Umbilical hernia. Present for more than 10yrs. Patient c/o: bothersome, bulging out, feels like stomach has a bulge, not normal. Of note: Located Within [facility] note dated 05-14-2022 available for review. Patrol Lady Required: No Accompanied by: Self / Same As Patient Allergies Sulfa (Sulfonamide Antibiotics) (SULFA (SULFONAMIDE ANTIBIOTICS)) Allergy (Severe, Verified 06/16/25 10:37) swelling of lips and tongue Penicillins (PENICILLINS) Allergy (Unknown, Verified 06/16/25 10:37) UNKNOWN Medication List - Last Reconciled 06/16/25 by Clint Buitrago MD acetaminophen (Tylenol Extra Strength) 1,000 mg (2 x 500 mg) PO Q6H PRN albuterol sulfate 90 mcg/actuation 2 puffs inhalation Q6H PRN aspirin 81 mg PO DAILY azelaic acid 15% topical buspirone 10 mg PO BID calcium carbonate (Calcium 600) 600 mg PO BID cetirizine (Zyrtec) 10 mg PO DAILY PRN cevimeline caps PO cholecalciferol (vitamin D3) 50 mcg PO DAILY clotrimazole-betamethasone 1-0.05 % apply thin film to affected area topically 2 times a day; 10 days coenzyme Q10 (CoQ-10) 200 mg PO DAILY desonide 0.05% topical esomeprazole magnesium 40 mg PO DAILY ezetimibe 10 mg PO DAILY famotidine 40 mg PO BEDTIME gabapentin 800 mg PO TID glucosamine sulfate (Glucosamine) 500 mg PO DAILY levothyroxine 75 mcg PO QAM lidocaine 5% patches topical lorazepam 0.5 mg PO DAILY PRN mometasone 0.1% 1 appl topical DAILY PRN multivitamin 1 tab PO DAILY nystatin topical oxybutynin chloride ER 10 mg PO DAILY 3 months oxymetazoline 0.05% (Afrin (oxymetazoline)) 2 sprays intranasal Q12H PRN 3 days Ozempic (semaglutide) 0.25 mg (0.368 mL) subcut QWEEK NS rosuvastatin 40 mg PO DAILY 90 days sumatriptan succinate 50 mg PO Q2-4H PRN tizanidine 4 mg PO BEDTIME PRN topiramate 100 mg PO BID tretinoin 0.025% appl topical tretinoin 0.05% appl topical turmeric mg PO venlafaxine ER 150 mg PO QAM zinc sulfate (Zinc-15) 66 mg PO DAILY HPI Comments Details: Patient presents with a long history (at least 10 years) of incarcerated ventral periumbilical hernia. ?Dr. El did not want to fix it until he lost more weight. ? She reports pain at the hernia site although she denies any obstructive symptoms. She also has some problems with dysphagia heartburn and reflux. In 2020 Dr. Clements performed an explant of a lap band, a hiatal hernia repair (see operative note details only an anterior acromioplasty) and a sleeve gastrectomy. Since then her weight loss has been marginal but she reports that she is also now on Wegovy and she is happy with the results this has been providing for her. She does not follow up with GI for her dysphagia and reflux issues. [facility] Medical History Umbilical hernia Dysphagia Maxillary sinusitis, acute Fungal esophagitis Hiatal hernia Esophageal stricture Esophageal dysmotility Pruritic intertrigo History of migraine Spondylosis without myelopathy or radiculopathy, lumbar region Chronic pain syndrome Acne comedone Hx of varicose veins Intestinal malabsorption following gastrectomy Hypothyroidism Hx of gastroesophageal reflux (GERD) Hx of cardiac murmur Chronic pain Urinary incontinence in female Chronic gastroesophageal reflux disease Recurrent major depression Patient on methadone maintenance therapy Acquired hypothyroidism Osteoarthritis Morbid obesity with BMI of 45.0-49.9, adult Dyslipidemia Surgical History S/P insertion of spinal cord stimulator Status post vein stripping (11/25/20) History of repair of hiatal hernia History of adjustable gastric banding S/P laparoscopic sleeve gastrectomy Hx of colonoscopy History of total right knee replacement History of bariatric surgery History of removal of laparoscopic gastric banding device History of total left knee replacement S/P foot surgery, left LAP-BAND surgery status Family History Father History of throat cancer History of ME (myocardial infarction) Type 2 diabetes mellitus Mother Hyperlipidemia CVD (cardiovascular disease) HTN (hypertension) Maternal Aunt No problems noted. Son Paraplegia Son No problems noted. Paternal Grandmother Type 2 diabetes mellitus Maternal Grandmother Alzheimer's dementia Brother No problems noted. Sister No problems noted. 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 you a primary director of medicare to a significant other at home: Yes (Son - paraplegic) Do you presently have visiting nurse or other home services: No Alcohol intake: never Comment: pt sleeping Patient Tobacco Use Status: Former Tobacco user Tobacco use type: Cigarette Cigarettes Per Day: 3 Years Smoked: 14 e-Cigarette/Vaping Use: Never Used Second Hand Smoke Exposure: No service: No Current occupational status: unemployed Cognitive needs: No Hearing needs: No Vision needs: Yes Female Reproductive History Menstrual Age of Menarche: 14 Physical Exam Vital Signs: Last Vital Signs Pulse 84 06/16/25 10:31 BP 135/63 06/16/25 10:31 BMI result Body Mass Index 43.1 Const Orientation/consciousness: oriented to person HEENT Head: Yes normal to inspection Ears: hearing grossly normal bilaterally General nose exam: Normal external nose present Face and sinus: Yes normal facial exam Eyes General: appearance normal, both eyes and all related structures Pupils: Equal, round and reactive pupils present EOM: EOMs intact bilaterally Neck Neck: Yes normal visual inspection Chest Chest palpation & inspection: normal inspection of the chest Resp Effort & Inspection: normal respiratory effort and able to speak in complete sentences Cardio Rate: regular rate Rhythm: regular rhythm GI Other: Morbidly obese nondistended. No evidence of hepatosplenomegaly. She has an obvious periumbilical incarcerated ventral hernia approximately 6-7 cm in diameter. There is a hyperemic skin change consistent with chronic congestion and multiple skin telangiectasias secondary to the hernia. It is somewhat tender to palpation. It is only partially reducible. She has multiple scars consistent with a prior history of minimally invasive surgery. Inspection: Yes obesity Back/Spine/Pelvis Thoracic/Lumbar Spine: thoracic and lumbar spine normal to inspection Neuro General: oriented to person Cranial nerves: Yes CN's II-XII intact bilaterally and Yes Equal, round and reactive pupils present Assessment & Plan Assessment & Plan (1) Incarcerated ventral hernia: Code(s): K43.6 - Other and unspecified ventral hernia with obstruction, without gangrene Category: Medical Plan: I offered the patient intervention with 4-0 laparoscopic possible open ventral hernia repair with mesh. I reviewed with her in detail the risks are involved. These include but are not limited to the risk of bleeding the risks infection the risk of hernia recurrence risk of chronic pain the risk of unsightly scarring the risk of damage to surrounding structures both recognized and unrecognized at the time of surgery and the risk that she might need further procedures in future were all reviewed with her in detail. I told her that her symptomatology was also consistent with a recurrent hiatal hernia which isn't surprising. We will address her ventral hernia his soon as we can as it certainly is a threat to her. She indicated that she understood. She indicated that she understood and agreed that she needed surgery. She indicated that she accepted the risks she described as inherent to such an operation and lastly indicated that despite the risks she is still wished to undergo operative intervention. Coding Level of Care Code New Pt Level 3 (23965) Diagnoses Incarcerated ventral hernia K43.6 Time Spent (min) 30 Comment Record review patient visit and coordination of care time
--- OUTSIDE RECORDS SUMMARY | 2025-06-16 13:02 | XMS_ITS | Clinical Summary ---
Author Organization [facility] Address [address] [place] [address] Phone Care Team Providers Care Cable Tower Operator Name Role Phone Perla Ny MD Primary [...] Take 1 capsule by mouth daily. Active [id number] ORAL Take 1 tablet by mouth daily. [...] the left foot. She will follow-up with [facility] again regarding pain management as she has not had any chronic pain management even after seeing a chest pain coordinator last week in [place]. I will follow-up with the patient again in 6 weeks timeframe to ensure that she is consistently eating enough protein every day and to see if there is a jumpstart her metabolism and weight loss. Patient will continue current medications as reviewed. She will stop the [id number] supplement she started which caused some looser [...] to see the pain management doctors in [place] but her appointment is not until the [...] Medical [place] [id number] [facility] HMO O O O Member Subscriber Plan / Payer (Ef fective 2020-Present) Name:Sofia Otero Relation to Subscriber:Self Name:Sofia Otero Payer ID:Not on file Type:HMO Address: [place] [id number] [place], [place] [address]O [address] [facility] [address] [place], [place] [address]O VERONICA BUTSOS [id number] [facility] HMO Care Teams Cable Tower Operator Relationship Specialty Start Date End Date Perla Ny MD [address] [place] [address] PCP - General Internal Medicine 08/07/21 Additional Source Comments The information contained in this document represents components of the legal health record. It is not the complete legal health record.[facility]
--- OUTSIDE RECORDS SUMMARY | 2025-06-16 13:02 | XMS_ITS | Patient Health Record ---
Author Organization [facility] Address [address] [place] [address] Care Team Providers Care Advertising Designer Name Role Phone Yanely COX, Perla Primary Care Provider Florin Ridley Jr Allergies Allergen (clinical drug ingredient) Drug/Non Drug Allergy documented on EMR Reaction Allergy Type Onset Date Status Penicillin Unknown Drug Allergy Active Sulfa Unknown Drug Allergy Active Reason For Referral No Information Medications Medication SIG (Take, Route, Frequency, Duration) Notes Start Date End Date Status LORazepam 0.5 MG Tablet 1 tablet as need ed Orally prn Active Vitamin D 2000 UNIT Tablet Orally Active CeleBREX 200 MG Capsule 1 capsule Orally Twice a day Active Multi Vitamin/Minerals Tablet Orally Active Cyclobenzaprine HCl 10 MG Tablet 1 tablet Orally prn Active Ranitidine HCl 150 MG Capsule 1 capsule Orally Twice a day Active Venlafaxine HCl ER 150 MG Capsule Extended Release 24 Hour 1 capsule with food Orally Once a day Active oxyCODONE HCl 30 MG Tablet 1 tablet as n eeded Orally TID Active Zetia 10 MG Tablet 1 tablet Orally Once a day Active Crestor 40 MG Tablet 1 tablet Orally Onc e a day Active Levothyroxine Sodium 50 MCG Tablet 1 tablet Orally Once a day Active Colyte with Flavor Packs 240 GM Solution Reconstituted As directed Orally Over the specified time.; Duration: 1 day(s) 08/25/2015 Active Aspir-81 81 MG Tablet Delaye d Release 1 tablet Orally Once a day Active Gabapentin 800 MG Tablet 1 tablet Orally Three times a day Active Cetirizine HCl 10 MG Tablet 1 tablet as needed Orally Once a day Active Colace 100 MG Capsule 1 capsule as neede d Orally Once a day Active Morphine Sulfate 30 MG Tablet 1 tablet a s needed Orally TID Active CoQ10 200 MG Capsule 1 capsule with a me al Orally Once a day Active Gabapentin (PHN) 300 MG Tablet 1 tablet with evening meal one time Orally TID Active Calcium 600+D 600-400 MG-UNI T Tablet 1 tablet with food Orally Once a day Active Immunizations Vaccine Route Administration Date Status Comme nts Influenza Unknown 05/31/2015 Administered Social History Social History Additional Details Category Social Info Options Details Miscellaneous: Marital status: Occupation: disabled Problems Problem Type SNOMED Code ICD Code Onset Dates Problem Status W/U Status Risk Notes Problem Colon cancer screening (717487779) Colon cancer screening (Z12.11) Active confirmed Problem Gastro-esophagea l reflux disease without esophagitis (304042956) Gastro-esophage al reflux disease without esophagitis (K21.9) Active confirmed Problem Dysphagia (02643212) Other dysphagia (R13.19) Active confirmed Plan Of Treatment Future Test Test Name Order Date UPPER GI ENDOSCOPY 08/25/2015 COLONOSCOPY 08/25/2015 Insurance Providers Payer Name Payer Address Payer Phone Subscriber Number Group Number Insured Name Patient Relationship to Insured Coverage Start Date Coverage End Date [facility] [address] [facility] [place] [phone] [id number] LC ELISE Self - patient is the insured Medical (General) History Medical History History ICD Code hypercholesterolemia Hypothyroidism GERD Surgical History Surgery Date(Month/Year) left total knee surgery 2014 right total knee surgery 2013 left foot bone fusion 2010 lapband 2009
--- OUTSIDE RECORDS SUMMARY | 2025-06-16 13:02 | XMS_ITS | Patient Health Record ---
Author [facility] Address [address] [facility] [place] [address] Care Team Providers Care Email Designer Name Role Phone Yanely COX, Perla Vyas Primary Care Provider Un available Serafin Miranda Unavailable [phone] Allergies Allergen (clinical drug ingredient) Drug/Non Drug [...] (R22.41) Active confirmed Problem Plantar fascial fibromatosis (50646371) Plantar fascial fibromatosis (M72.2) Active confirmed Plan Of Treatment No Information Insurance Providers Payer Name Payer Address Payer Phone Subscriber Number Group Number Insured Name Patient Relationship to Insured Coverage Start Date Coverage End Date [address] [id number] Sanjay Otero II Spouse - patient is [...]
== END 2025-06-16 11:00 | disposition home or self-care (01) ==
LOC: HO.HGS 10:28
PROVIDERS: PCP Internal Medicine; Visit Provider Surgery
DX: K43.6 Other and unspecified ventral hernia with obstruction, without gangrene (principal)
CPT/HCPCS: 99203